=== PATIENT | female | born 1980 | race Caucasian/White ===

== ENCOUNTER 2022-05-10 16:31 | Outpatient (CLI) | payer BC, SELFPAY ==
--- OUTSIDE RECORDS SUMMARY | 2022-05-10 16:34 | XMS_ITS | Encounter Summary ---
:1980 Author Organization [employer] Address [address] [place] [address] Care Team Providers Name Role Phone Zachery Keysha Sutherland PA-C Primary Care Provider Reason for Visit Procedure/Equipment (Routine) - Incomplete Specialty Diagnoses / Procedures Referred By Contact Refer red To Contact Diagnoses Mass of upper outer quadrant of right breast Jae Bocanegra MD Procedures MM [place] B[place] Breast Rt [id number] [address] [place] [address] Referral ID Status Reason Start Date Expiration Date Visits V isits Requested Authorized [id number] Incomplete 10/23/2021 01/22/2023 1 1 Encounter Details Date Type Department Care Team Description 10/28/2021 Ancillary [facility] [address] Jae Bocanegra, Mass of upper outer Procedure Mammography MD quadrant of right 3850 [facility] [address] ([address] [facility] [id number] Social History Tobacco Use Types Packs/Day Years Used Date Smoking Tobacco: Never Smokeless Tobacco: Never Alcohol Use Standard Drinks/Week Comments Yes 1 (1 standard drink = 0.6 oz pure alcoho l) Sex Assigned at Date Recorded Not on file documented as of this encounter Plan of Treatment Not on filedocumented as of this encounter Procedures Procedure Name Priority Date/Time Associated Diagnosis Comme nts MM US BX BREAST RT Routine 10/28/2021 11:18 AM Mass of upper o uter Results for this CDT quadrant of right procedure are in breast the results section. AEROBIC & ANAEROBIC Routine 10/28/2021 11:11 AM Mass of upper outer Results for this CULTURE PANEL CDT quadrant of right procedure are in breast the results section. ANAEROBIC CULTURE Routine 10/28/2021 11:11 AM Mass of upper ou ter Results for this CDT quadrant of right procedure are in breast the results section. AEROBIC CULTURE Routine 10/28/2021 11:11 AM Mass of upper oute r Results for this CDT quadrant of right procedure are in breast the results section. SURGICAL PATHOLOGY, Routine 10/28/2021 10:39 AM Mass of upper outer Results for this BREAST CDT quadrant of right procedure are in breast the results section. documented in this encounter Results MM US Bx Breast Rt (10/28/2021 11:18 AM CDT) Anatomical Region Laterality Modality Breast Right Ultrasound Specimen (Source) Anatomical Collection Method Collection Time Re ceived Time Location / / Volume Laterality 10/28/2021 10:40 AM CDT Impressions 11/03/2021 7:56 AM CDT ULTRASOUND GUIDED BREAST BIOPSY ? HISTORY: ??Recent right breast swelling, tenderness and erythema that decreased after antibiotics for presumed mastitis. Persistent ill-defined hypoechoic area in the upper outer right breast on ultrasound. ?? PROCEDURE: ??The risks and benefits of t he procedure, including the risks of bleeding and infection, were explained to the patient and the patient signed a written consent form. ??A timeout was performe d to verify the patient's name, date of , proper procedure and correct procedural site. The patient was positioned on the ultras ound table. ??Sterile technique was utilized. ??The lesion at the 10 o'clock position, 4 cm from the nipple in the right breast was localized with ultrasound. 9 m L1% lidocaine was used for local anesthe gabriel. ??An introducer was advanced to the mass. Under ultrasound guidance, a 14 gauge Achieve biopsy needle system was used to obtain 5 core specimens through the lesion from a medial approach. 3 were se nt in formalin and 2 are sent in saline. A Wummelkiste coil biopsy marking clip was placed. ??There were no immediate complications. ? POST PROCEDURE MAMMOGRAM FOR MARKER PLAC EMENT: The biopsy marking clip is in the expected location. ? PATHOLOGY: ?? FINAL DIAGNOSIS A. ??Breast, right, 10 o'clock ultrasoun d, needle core biopsy: - ??Cystic neutrophilic granulomatous ma stitis - ??Gram positive vale organisms consiste nt with Corynebacterium present Imaging findings are concordant with the pathology. RECOMMENDATION: Clinical follow-up. Scre ening mammography is recommended in one year. The results of this biopsy and any recom mended follow up will be discussed with the patient by the [facility] when results are available. Procedure Note Sj Aguilar MD - 11/03/2021Format ting of this note might be different from the original. IMPRESSION ULTRASOUND GUIDED BREAST BIOPSY HISTORY: Recent right breast swelling, t enderness and erythema that decreased after antibiotics for presumed mastitis. Persistent ill-defined hypoechoic area in the upper outer right breast on ultrasound. PROCEDURE: The risks and benefits of the procedure, including the risks of bleeding and infection, were explained to the patient and the patient signed a written consent form. A timeout was performed to verify the patient's name, date of , proper pr ocedure and correct procedural site. The patient was positioned on the ultras ound table. Sterile technique was utilized. The lesion at the 10 o'clock position, 4 cm from the nipple in the right breast was localized with ultrasound. 9 mL1% lidocaine was used for local anesthesia. An introducer was advanced to the mass. Under ultrasound guidance, a 14 gauge Achieve biopsy needle system was used to obtain 5 core specimens through the lesion from a medial approach. 3 were sent in formalin and 2 are sent in salin e. A hydromark coil biopsy marking clip was placed. There were no immediate complications. POST PROCEDURE MAMMOGRAM FOR MARKER PLAC EMENT: The biopsy marking clip is in the expected location. PATHOLOGY: FINAL DIAGNOSIS A. Breast, right, 10 o'clock ultrasound, needle core biopsy: - Cystic neutrophilic granulomatous mast itis - Gram positive vale organisms consistent with Corynebacterium present Imaging findings are concordant with the pathology. RECOMMENDATION: Clinical follow-up. Scre ening mammography is recommended in one year. The results of this biopsy and any recom mended follow up will be discussed with the patient by the [facility] when results are available. Jae Bocanegra MD RAD YEMI MM Post Mammogram Rt (10/28/2021 11:16 AM CDT) Anatomical Region Laterality Modality Breast Right Mammography Specimen (Source) Anatomical Collection Method Collection Time Re ceived Time Location / / Volume Laterality 10/28/2021 11:16 AM CDT Impressions 11/03/2021 7:56 AM CDT ULTRASOUND GUIDED BREAST BIOPSY ? HISTORY: ??Recent right breast swelling, tenderness and erythema that decreased after antibiotics for presumed mastitis. Persistent ill-defined hypoechoic area in the upper outer right breast on ultrasound. ?? PROCEDURE: ??The risks and benefits of t he procedure, including the risks of bleeding and infection, were explained to the patient and the patient signed a written consent form. ??A timeout was performe d to verify the patient's name, date of , proper procedure and correct procedural site. The patient was positioned on the ultras ound table. ??Sterile technique was utilized. ??The lesion at the 10 o'clock position, 4 cm from the nipple in the right breast was localized with ultrasound. 9 m L1% lidocaine was used for local anesthe gabriel. ??An introducer was advanced to the mass. Under ultrasound guidance, a 14 gauge Achieve biopsy needle system was used to obtain 5 core specimens through the lesion from a medial approach. 3 were se nt in formalin and 2 are sent in saline. A hydromark coil biopsy marking clip was placed. ??There were no immediate complications. ? POST PROCEDURE MAMMOGRAM FOR MARKER PLAC EMENT: The biopsy marking clip is in the expected location. ? PATHOLOGY: ?? FINAL DIAGNOSIS A. ??Breast, right, 10 o'clock ultrasoun d, needle core biopsy: - ??Cystic neutrophilic granulomatous ma stitis - ??Gram positive vale organisms consiste nt with Corynebacterium present Imaging findings are concordant with the pathology. RECOMMENDATION: Clinical follow-up. Scre ening mammography is recommended in one year. The results of this biopsy and any recom mended follow up will be discussed with the patient by the [facility] when results are available. Procedure Note Sj Aguilar MD - 11/03/2021Format ting of this note might be different from the original. IMPRESSION ULTRASOUND GUIDED BREAST BIOPSY HISTORY: Recent right breast swelling, t enderness and erythema that decreased after antibiotics for presumed mastitis. Persistent ill-defined hypoechoic area in the upper outer right breast on ultrasound. PROCEDURE: The risks and benefits of the procedure, including the risks of bleeding and infection, were explained to the patient and the patient signed a written consent form. A timeout was performed to verify the patient's name, date of , proper pr ocedure and correct procedural site. The patient was positioned on the ultras ound table. Sterile technique was utilized. The lesion at the 10 o'clock position, 4 cm from the nipple in the right breast was localized with ultrasound. 9 mL1% lidocaine was used for local anesthesia. An introducer was advanced to the mass. Under ultrasound guidance, a 14 gauge Achieve biopsy needle system was used to obtain 5 core specimens through the lesion from a medial approach. 3 were sent in formalin and 2 are sent in salin e. A hydromark coil biopsy marking clip was placed. There were no immediate complications. POST PROCEDURE MAMMOGRAM FOR MARKER PLAC EMENT: The biopsy marking clip is in the expected location. PATHOLOGY: FINAL DIAGNOSIS A. Breast, right, 10 o'clock ultrasound, needle core biopsy: - Cystic neutrophilic granulomatous mast itis - Gram positive vale organisms consistent with Corynebacterium present Imaging findings are concordant with the pathology. RECOMMENDATION: Clinical follow-up. Scre ening mammography is recommended in one year. The results of this biopsy and any recom mended follow up will be discussed with the patient by the [facility] when results are available. Jae Bocanegra MD RAD YEMI (ABNORMAL) Anaerobic Culture (10/28/2021 11:11 AM CDT) [facility] Method Time Signature Anaerobic Growth (A) 11/06/2021 [facility] Culture 9:00 AM CDT HOSPITAL Anaerobic Isolated in Broth 11/06/2021 [facility] Culture Only 9:00 AM CDT HOSPITAL Cutibacterium (Propionibacteriu m) acnes Specimen Anatomical Collection Method Collection Time Receive d Time (Source) Location / / Volume Laterality Biopsy BREAST STRUCTURE / 10/28/2021 11:11 10/28 Unknown AM CDT 12:36 PM CDT Jae Bocanegra MD LAB_1 Performing Organization Address City/[facility] Phon e Number [address] [address] (ABNORMAL) Aerobic Culture (10/28/2021 11:11 AM CDT) [facility] gist Method Time Signature Aerobic No Growth 10/31/2021 [facility] Culture After 3 Days 5:05 PM CDT HOSPITAL Gram Smear Moderate 10/31/2021 [facility] PMN's 5:05 PM CDT HOSPITAL Present (A) Gram Smear Moderate 10/31/2021 [facility] Gram 5:05 PM CDT HOSPITAL Negative Bacilli (A) Specimen Anatomical Collection Method Collection Time Receive d Time (Source) Location / / Volume Laterality Biopsy BREAST STRUCTURE / 10/28/2021 11:11 10/28 Unknown AM CDT 12:36 PM CDT Jae Bocanegra MD LAB_1 Performing Organization Address [facility]/[address] [address] Surgical Path, Breast (10/28/2021 10:39 AM CDT) Component Value Ref Test Analysis Performed At [facility] gist Range Method Time Signature Case Report Surgical Pathology ?Case: [id number] ? 10/29/2021 [facility] Authorizing Provider: ??Jae Gore MD ?Collected: ? 10/28/2021 1039 ? 11:37 AM LABO RATORY Ordering Location: ? [facility] 3850 ? Received: ?10/28/2021 1243 ? CDT ? Mammography ? Pathologist: ? Clifford Bauer MD ? Specimen: ?Breast, right , 10 o'clock ultrasound ? FINAL A. Breast, right, 10 o'clock ultrasound, needle core biops y: 10/29/2021 [facility] Electronically DIAGNOSIS Cystic neutrophilic granulomatous mastitis 11:37 AM LABORATORY signed by Juancarlos, Gram positive vale organisms consistent with Corynebacterium present CDT Clifford Dmuont MD on 10/29/2021 at [facility] has reviewed this case and concurs with the diagnosis. 11:37 AM Clinical palpable 10/29/2021 [facility] Information 11:37 AM LABORATORY CDT Microscopic Microscopic 10/29/2021 [facility] Description examination is 11:37 AM LABORATORY performed. CDT Special Stains The stain controls have been reviewed and stain appr opriately. 10/29/2021 [facility] 11:37 AM LABORATORY CDT Gross A: 10/29/2021 [facility] Description The specimen is received in formalin and labeled with the patient's name and Breast, right, 10 o'clock ultrasound. The specimen consists of 3 syed beck needle core biopsies with diameters averaging 0.2 11:37 AM LABORATORY cm and lengths averaging 1. 5 cm. The specimen is inked green. The specimen was collected and placed in formalin at 10:39 AM, 10/28/2021. The specimen is entirely submitted in 1 block. AW CDT Embedded 10/29/2021 [facility] Images 11:37 AM LABORATORY CDT Specimen Anatomical Collection Method Collection Time Receive d Time (Source) Location / / Volume Laterality Tissue BREAST STRUCTURE / Non-blood 10/28/2021 10:39 10/28 Unknown Collection / AM CDT 12:43 PM CDT Unknown Jae Bocanegra MD LAB PATHOLOGY Performing Organization Address City/State/ZIP Code Phon e Number [facility] [address] [place] [address] documented in this encounter Visit Diagnoses Diagnosis Mass of upper outer quadrant of right br east - Primary Mass of upper outer quadrant of right br east documented in this encounter Administered Medications Inactive Administered Medications - up to 3 most recent administrations Medication Order MAR Action Action Date Dose Rate Site lidocaine (XYLOCAINE) 1 % Given 10/28/2021 11:18 AM CDT 9 mL Other injection 10 mL 10 mL, Subcutaneous, ONCE, On Tue10/28/21 at 1100, For 1 dose documented in this encounter Care Teams Childhood Teacher Relationship Specialty Start Date End Date Keysha Bingham PA-C PCP - General 02/05/[address] [id number] documented as of this encounter
--- OUTSIDE RECORDS SUMMARY | 2022-05-10 16:34 | XMS_ITS | Encounter Summary ---
:1980 Author Organization [employer] Address [address] [place] [address] Care Team Providers Name Role Phone Keysha Bingham PA-C Primary Care Provider Reason for Visit Reason Comments Symptoms Encounter Details Date Type Department Care Team Description 12/15/2021 Telephone [facility] [address], Symptoms [facility] [employer]PER[employer], ADRIEN [address] [place] [address] [place], [place] [id number] (Wo rk) Social History Tobacco Use Types Packs/Day Years Used Date Smoking Tobacco: Never Smokeless Tobacco: Never Alcohol Use Standard Drinks/Week Comments Yes 1 (1 standard drink = 0.6 oz pure alcoho l) Sex Assigned at Date Recorded Not on file documented as of this encounter Nursing Notes Katrin Enriquez, ADRIEN LAWRENCE - 12/15/2021 3:24 PM CDT Please see my 11/24/2021 telephone note with review of recent breast care. Today, Trina reports about 2 weeks weeks ago she saw yellow pus come out of the biopsy entry track. She then reports she has squeezed it every 3-4 days and get yellow crusty discharge. She has intermittent mild pain. She has days with no pain. She has not had erythema like in the past. I informed her to stop attempting to squeeze the area. I discussed with her if some needs to have surgical drainage (which is not recommended in most cases) with her diagnosis there is poor wound closure due to thebreast tissue being inflamed. Informed her that she is most likely having this due to that same reason. Advised to return call if redevelops redness or more severe pain, foul odor to discharge. documented in this encounter Plan of Treatment Not on filedocumented as of this encounter Visit Diagnoses Not on filedocumented in this encounter Care Teams Metal Control Worker Relationship Specialty Start Date End Date Keysha Bingham PA-C PCP - General 02/05/[address] [id number] documented as of this encounter
--- OUTSIDE RECORDS SUMMARY | 2022-05-10 16:34 | XMS_ITS | Encounter Summary ---
:1980 Author Organization [employer] Address [address] [place] [address] Care Team Providers Name Role Phone Zachery Keysha Sutherland PA-C Primary Care Provider Reason for Visit Reason Comments Symptoms Questions Encounter Details Date Type Department Care Team Description 11/24/[address] [facility] [address], Symptoms; Questions [facility] ADRIEN LAWRENCE [address] Teresa V[address] [facility]0 [address] [facility] [place] [id number] (Wo rk) Social History Tobacco Use Types Packs/Day Years Used Date Smoking Tobacco: Never Smokeless Tobacco: Never Alcohol Use Standard Drinks/Week Comments Yes 1 (1 standard drink = 0.6 oz pure alcoho l) Sex Assigned at Date Recorded Not on file documented as of this encounter Nursing Notes Katrin Enriquez APRN, CNP - 11/24/2021 9:41 AM CDT The patient was originally seen in core extruder on October 05, 2021. She had a mass identified in her right breast. Differential diagnosis included potential abscess. She was prescribed Augmentin 1 tablet twice daily for 10 days. Diagnostic breast imaging was ordered and done on October 09, 2021. Bilateral diagnostic mammogram showedupper outer quadrant right breast asymmetry when compared to the left. There was no suspicious focalmass architectural distortion calcifications noted there was no significant skin thickening noted targeted ultrasound of the right breast 10 o'clock position 4 cm from the nipple at the site of the underlaying palpable tender on showed a 2 x 2 cm region of skin erythema. The greatest dimension of thistissue is likely 6 cm and extended to the retroareolar region there was no drainable fluid collection. There was no right axillary lymphadenopathy. It was recommended that she complete the prescribed antibiotics and have a 2 week follow-up ultrasound of the right breast. Repeat right breast ultrasound was done on October 23, 2021 there was a new irregular masslike lesion centered at 10:00 a.m. 4 cm from the nipple. It was difficult to measure. Estimate measurements were 6 x 2 x 4.3 cm again there was no fluid collection. Biopsy was recommended. On 11/01/2021 right breast biopsy was completed. 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 On 11/03 2021 the patient was put on doxycycline 100 mg 1 b.i.d. times 14 days by him director. Today, the patient is calling and asking about what she should expect in the future regarding her right breast. She tells me she completed the course of doxycycline. She tells me when she talked with OBGYN she understands this could be a long-term condition. She tells me that while she was on antibiotics her breast pain was basically resolved and in the last few days she reports her breast has pain that is a 1-2 on a 0-10 pain scale. Her breast is currently not red. She continues to feel some thickening of the area that was biopsied. We discussed that I would expect her to have some intermittent mild discomfort. I encouraged her to try a trial of NSAIDs. I instructed her to take Ibuprofen 600 mg 3 times daily x7 days. I discussed that should her breast ever become red again that would warrant re-evaluation either at core extruder or at the breast center. She was given my direct phone number [phone] should she have any further questions. documented in this encounter Plan of Treatment Not on filedocumented as of this encounter Visit Diagnoses Not on filedocumented in this encounter Care Teams Hot Stick Man Relationship Specialty Start Date End Date Keysha Bingham PA-C PCP - General 02/05/[address] [place] [address] [id number] documented as of this encounter
--- OUTSIDE RECORDS SUMMARY | 2022-05-10 16:34 | XMS_ITS | Encounter Summary ---
:1980 Author Organization [employer] Address [address] [place] [address] Care Team Providers Name Role Phone Keysha Bingham PA-C Primary Care Provider Reason for Visit Reason Onset Date Comments Drug Screen 08/15/2018 Encounter Details Date Type Department Care Team Description 08/15/2018 Office Visit [facility] [address] Nurse, [place] Health examination of Occupational Medicin e defined subpopulation [address] ([address]) [place] [address] Social History Tobacco Use Types Packs/Day Years Used Date Smoking Tobacco: Never Smokeless Tobacco: Former Alcohol Use Standard Drinks/Week Comments No 0 (1 standard drink = 0.6 oz pure alcoho l) currently Sex Assigned at Date Recorded Not on file documented as of this encounter Progress Notes Beatriz Jacinto CMA - 08/15/2018 9:00 AM CDT Pre-placement urine drug screen for ReinaldoKhoi Jacinto CMA 08/15/2018, 8:43 AM documented in this encounter Plan of Treatment Not on filedocumented as of this encounter Visit Diagnoses Diagnosis Health examination of defined subpopulat ion - Primary documented in this encounter Care Teams Audit Partner Relationship Specialty Start Date End Date Keysha Bingham PA-C PCP - General 02/05/16 [address] [place] [address] documented as of this encounter
--- OUTSIDE RECORDS SUMMARY | 2022-05-10 16:34 | XMS_ITS | Encounter Summary ---
:1980 Author Organization [employer] Address [address] [place] [address] Care Team Providers Name Role Phone Zachery Keysha Sutherland PA-C Primary Care Provider Reason for Visit Reason Comments Mouth Sores Encounter Details Date Type Department Care Team Description 12/15/2019 Nurse Triage Careline Unassigned, Provider Mouth Sores [address] [place], [place] [address] [address] [place] [address] Social History Tobacco Use Types Packs/Day Years Used Date Smoking Tobacco: Never Smokeless Tobacco: Never Alcohol Use Standard Drinks/Week Comments Yes 1 (1 standard drink = 0.6 oz pure alcoho l) Sex Assigned at Date Recorded Not on file documented as of this encounter Nursing Notes Krista Gannon RN - 12/15/2019 9:10 AM CDT Verified patient identity: Yes Situation/Background (brief explanation of current symptoms/situation): Does the patient currently have any of these Covid symptoms? (Shortness of Breath/Difficulty of breathing, Sore Throat, Fever, Cough, New loss of smell or loss of taste) No Covid19 Symptoms Reviewed with patient pertinent medical history(as it related to the call): Yes Reviewed with patient pertinent medications (as they relate to call): Yes Reviewed with patient pertinent allergies (as they relate to call): Yes Pt states she woke up this am, 12/15/2019, with erythremic, swollen gums on the lower back side alongthe gum line and erythremic raised bumps underneath the tongue on the (R) and (L) side of frenulum I feel like I could have burned my tongue on coffee. Pt cant remember specific incident of a thermal burn. Denies pain Bumps approx 1mm in size. X3 on the (R) side, a couple on the (L). Pt states she is unable to tell if fluid filled Denies bleeding of gums. Gums tender to the touch Pt able to drink W/O diff. I haven't tried to eat yet, so I don't know if it hurts. Pt C/O mild upper back molar tooth discomfort. I have a cavity I need to have filled, but my appointment was cancelled due to COVID. Pt states she will call [facility] and reschedule Denies rash, fever Plan:Advised pt to schedule a video visit with HCP within the next 24 hours to determine plan of care. Pt agreeable to plan. Pt states she is a PN pt and will call the PN appointment Center to schedule. # provided to pt. Advised patient/caller to call back CareLine if there are further questions or concerns or to be seen if situation becomes emergent. The CareLine is available 27/12. Krista Gannon RN 12/15/2019, 9:41 AM Reason for Disposition ??? Gums are red, painful and have many ulcers Answer Assessment - Initial Assessment Questions 1. LOCATION: Where is the ulcer located? Under the tongue 2. NUMBER: How many ulcers are there? x3 on one side right side a couple on the (L) 3. SIZE: How large is the ulcer? 1mm approx 4. SEVERITY: Are they painful? If so, ask: How bad is it? (Scale 1-10; or mild, moderate, severe) - MILD - eating and drinking normally - MODERATE - decreased liquid intake - SEVERE - drinking very little Mild 5. ONSET: When did you first notice the ulcer? This am 6. RECURRENT SYMPTOM: Have you had a mouth ulcer before? If so, ask: When was the last time? andWhat happened that time? Denies 7. CAUSE: What do you think is causing the mouth ulcer? Unknown 8. OTHER SYMPTOMS: Do you have any other symptoms? (e.g., fever) Denies 9. : Is there any chance you are ? When was your last menstrual period? Denies Protocols used: MOUTH [id number] Machelle Sanchez - 12/15/2019 8:09 AM CDT Verified patient identity using three identifiers: Yes Caller's relationship to patient: Self At which care system or clinic is the patient normally seen? Teresa Vaz ([facility] [place]) Clinics Symptoms Describe the reason for call/symptoms (include location and duration if applicable): Pt states he lower front gums are swollen and she has bumps in her mouth under her tongue Plan:The current callback time to speak with a nurse is 1 hr. If your symptoms change or worsen, or if you have not received a call back in the stated timeframe, please call us back documented in this encounter Plan of Treatment Not on filedocumented as of this encounter Visit Diagnoses Not on filedocumented in this encounter Care Teams Health Care Facility Administrator Relationship Specialty Start Date End Date Keysha Bingham PA-C PCP - General 02/05/[address] [place] [id number] documented as of this encounter
--- OUTSIDE RECORDS SUMMARY | 2022-05-10 16:34 | XMS_ITS | Encounter Summary ---
:1980 Author Organization [employer] Address [address] [place] [address] Care Team Providers Name Role Phone Zachery Keysha Sutherland PA-C Primary Care Provider Reason for Visit Procedure/Equipment (Routine) - Incomplete Specialty Diagnoses / Procedures Referred By Contact Refer red To Contact Diagnoses Mass of upper outer quadrant of right breast Jae Bocanegra MD Procedures [place] [address] [address] [place] [address] Referral ID Status Reason Start Date Expiration Date Visits V isits Requested Authorized [id number] Incomplete 10/23/2021 01/22/2023 1 1 Encounter Details Date Type Department Care Team Description 10/28/2021 Ancillary [facility] [address] Jae Bocanegra, Mass of upper outer Procedure Mammography MD quadrant of right [address] [facility] [address] [address] [facility]. [address] [facility] [id number] Social History Tobacco Use Types Packs/Day Years [...] Priority Date/Time Associated Diagnosis Comme nts MM POST MAMMOGRAM Routine 10/28/2021 11:16 AM Mass of upper ou ter Results for this RT CDT quadrant of right procedure are in [...] be discussed with the patient by the [facility] when results are available. Procedure Note Sj [...] be discussed with the patient by the [facility] when results are available. Jae Bocanegra MD [...] be discussed with the patient by the [facility] when results are available. Procedure Note Sj [...] be discussed with the patient by the [facility] [place] when results are available. Jae Bocanegra MD RAD YEMI documented in this encounter Visit Diagnoses Diagnosis Mass of upper outer quadrant of right br east - Primary Mass of upper outer quadrant of right br east documented in this encounter Care Teams Director Payer Relationship Specialty Start Date End Date Keysha Bingham PA-C PCP - General 02/05/16 [address] [place] [address] documented as of this encounter
--- OUTSIDE RECORDS SUMMARY | 2022-05-10 16:34 | XMS_ITS | Encounter Summary ---
:1980 Author Organization [employer] Address [address] [place] [address] Care Team Providers Name Role Phone Zachery Keysha Sutherland PA-C Primary Care Provider Reason for Visit Reason Comments Breast Problem right Encounter Details Date Type Department Care Team Description 12/30/2021 Office Visit [facility] [address] Katrin Enriquez Gran ulomatous mastitis Mendy Demetrius Breast J, LEATHER SCRUBBER, CN P of right breast Center [address] (Primary Dx) [address] [place] [id number] Social History Tobacco Use Types Packs/Day Years Used Date Smoking Tobacco: Never Smokeless Tobacco: Never Alcohol Use Standard Drinks/Week Comments Yes 1 (1 standard drink = 0.6 oz pure alcoho l) Sex Assigned at Date Recorded Not on file documented as of this encounter Last Filed Vital Signs Vital Sign Reading Time Taken Comments Blood Pressure - - Pulse - - Temperature 36.7 ??C (98 ??F) 12/30/2021 3:16 PM CDT Respiratory Rate - - Oxygen Saturation - - Inhaled Oxygen Concentration - - Weight 83 kg (183 lb) 12/30/2021 3:16 PM CDT Height 163.8 cm (5' 4.49) 12/30/2021 3:16 PM CDT Body Mass Index 30.94 12/30/2021 3:16 PM CDT documented in this encounter Patient Instructions Patient InstructionsOliver Enriquezsilke Sutherland, HOWARD, HOSPITALIST PHYSICIAN - 12/30/2021 3:00 PM CDT 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 It is usually unilateral, but in rare instances, it can be bilateral or develop later in the other breast. Epidemiology and pathogenesis -- IGM occurs most commonly in parous young women (within five years of ); it can also occur in nulliparous women and has been reported in men as well. Among women in the [place], it has been associated with ethnicity [34,36]. There is no increased risk of subsequent breast cancer in patients with IGM. There may be an association between IGM and Corynebacterium kroppenstedtii infection especially, butnot exclusively, with the histologic pattern termed cystic neutrophilic granulomatous mastitis [37-41]. Other Corynebacterium species have also been associated with IGM. In addition, mastitis due to C. kroppenstedtii has been associated with elevated prolactin levels [42]. Although antibiotics targeting Corynebacterium are often prescribed for IGM, there is no clear evidence that this approach altersthe course of disease. Thus, corynebacteria are unlikely to be the causative factor in most patientswith IGM. Clinical manifestations -- IGM may present as a peripheral inflammatory breast mass; it can also present as multiple simultaneous areas of peripheral (and rarely central) infection with abscesses and/or overlying skin inflammation and ulceration (picture 4) [1,28-32]. Nipple retraction, sinus formation, peau d'orange-like changes, and axillary adenopathy may accompany these findings [43- 46]. Women with IGM may develop repeated abscesses over weeks to months. These findings may be confused with breast abscess or malignancy [28]. Mammography may be suggestive of malignancy [47-52]. Diagnosis -- Ultrasound is the initial investigation of choice. Ultrasound examination typically demonstrates a solid mass, often with one or more abscesses. The diagnosis of IGM is established via core needle biopsy of a solid mass visualized on ultrasound. The biopsy should be sent for Gram stain, ba cterial culture, acid-fast bacilli stain and culture, fungal stain and culture, and histopathology. The microbiology laboratory should be alerted to clinical concern for Corynebacterium. Biopsy findings typically demonstrate non-necrotizing granulomatous lesions centered on the breast lobule. It is also reasonable to obtain a serum prolactin level, given a possible pathogenic link between hyperprolactinemia and IGM [42]. Routine testing for autoantibodies is not recommended [53]. Differential diagnosis -- The differential diagnosis includes conditions such as tuberculosis, foreign body reaction, granulomatosis with polyangiitis, histoplasmosis, or rarely sarcoidosis, which may also induce a granulomatous mastitis. These etiologies should be identified on biopsy and/or microbiologic testing. Management Initial approach -- Often, no specific management is necessary for IGM. It is a self-limiting inflammatory condition that resolves slowly; complete resolution may take 5 to 20 months [54,55]. Surgical excision for IGM is often followed by slow wound healing and is not advocated. In a series of 120 women with IGM, most cases resolved spontaneously without surgical intervention or medications [55]. A meta-analysis of 10 retrospective studies from several countries ([place], [place], [place], [place], and the [place]) demonstrated comparable recurrence rates between patients managed with or without surgery (odds ratio 1.25, 95% CI 0.51-3.03) [56]. In some cases, treatment is warranted for infecti on or symptom control. IGM complicated by secondary infection and abscess, if treated with antibiotics and drainage, usually results in complication resolution [8,22,28,30]. Antibiotic selection should be dictated by cultureand susceptibility testing. We generally start an antibiotic regimen used for periductal mastitis after specimens are collected for testing and then adjust based on microbiology results. Oral regimens are generally appropriate. (See 'Periductal mastitis' above.) If only Corynebacterium is recovered, the optimal management approach is uncertain, in part because of the multiple species of Corynebacterium and the lack of predictable susceptibility patterns. In such cases, we suggest treatment with doxycycline (100 mg orally twice daily). If this fails to producea response, linezolid (600 mg orally twice daily) can be used. In refractory or unusually severe cases, we favor speciating the Corynebacterium isolate and doing formal susceptibility testing, if available. Therapy can then be adjusted based on susceptibility testing [37,40,57]. The optimal length of therapy is also uncertain; a 5- to 7-day course can be used if the response to therapy is rapid and complete. If necessary, the duration may be extended to 10 to 14 days. While these antibiotics treat acute infection, there is little evidence that antibiotics shorten the time to full resolution of granulomatous lobular mastitis. Localized pain may be managed with nonsteroidal anti-inflammatory drugs (NSAIDs). Routine use of steroids or methotrexate is not warranted; these therapies can reduce swelling but may not alter the natural history of the condition, especially in those with small localized lesions. Discontinuation has been associated with rebound inflammation [28,49,58-62]. Persistent or refractory symptoms -- The optimal management of patients with persistent symptoms andprogression of IGM despite antibiotics (if infection is present) and/or NSAIDs is uncertain; UpToDate contributors differ in their approach. Some find that treatment with steroids with or without methotrexate can be useful to reduce fever, pain, swelling, and possibly deformity. However, others do notuse these agents, as there are no controlled studies demonstrating that they alter the natural history of the condition. Expectant management with observation has resulted in resolution of IGM in several small series [30,55,63]. The contributors who do use steroids in this setting base the approach on the size and severity of the lesion. In patients with painful, small (<5 cm) unilateral lesions with small amounts of drainage or ulceration, treatment with prednisone (0.5 mg/kg/day) may be initiated. In patients with multiple lesions, lesions ?5 cm in diameter, bilateral lesions, or disease with significant cutaneous ulceration, drainage, or fistulas, treatment with prednisone (0.5 to 1 mg/kg/day) may be initiated, with or without methotrexate (10 to 15 mg orally per week, along with daily folic acid supplementation) [33,36,58,60,62,64,65]. In one observational study including 19 patients with IGM, most of whom were refractory to antibiotics, steroids, and surgical intervention, use of methotrexate was associated with disease remission in 75 percent of cases [64]. There are also reports indicating that intralesional triamcinolone and topical steroids are effective in treating this condition [66,67]. These approaches have the advantage of limiting the adverse effects of systemic steroid use. Patients treated with steroids should begin tapering when erythema and pain have resolved (usually after about four weeks). Prednisone is tapered gradually over 8 to 12 weeks. If flares occur during tapering in patients on steroids alone, methotrexate (10 to 15 mg per week) may be added. If flares occur during tapering in patients on steroids and methotrexate, small increases in the methotrexate dose(by 2.5 to 5 mg every few weeks) is appropriate. Once clinical remission has been achieved, the methotrexate dose should be reduced monthly; many patients are able to discontinue therapy within 12 months [68]. Monitoring the lesions with weekly photographs may be helpful. Repeat ultrasonography may beuseful if there is suspicion for new lesions or abscess reaccumulation. Given to pt by Mega Enriquez, From Up to Date 12/30/2021 documented in this encounter Progress Notes Katrin Enriquez APRN, CNP - 12/30/2021 3:00 PM CDT Patient Name:Trina Man Date of Visit: 12/30/2021 SUBJECTIVE CHIEF COMPLAINT Chief Complaint Patient presents with Breast Problem right HISTORY OF PRESENT ILLNESS Trina Man is a 41 y.o. who presents today for re evaluation of a Right breast lump and right breast pain. The patient was originally seen in [facility] on October 05, 2021. She had a painful mass identified in her right breast. Differential diagnosis included potential abscess. She was prescribed Augmentin 1 tablettwice daily for 10 days and diagnostic breast imaging was ordered. Diagnostic breast imaging was ordered and done on October 09, 2021. Bilateral diagnostic mammogram showedupper outer quadrant right breast asymmetry when compared to the left. There was no suspicious focalmass architectural distortion calcifications noted there was no significant skin thickening noted targeted ultrasound of the right breast 10 o'clock position 4 cm from the nipple at the site of the underlying palpable tender on showed a 2 x 2 cm region of skin erythema. The greatest dimension of this tissue is likely 6 cm and extended to [...] mg 1 b.i.d. times 14 days by crozer. I have spoke with the patient on several occassions. Last on 11/24/21 and 12/15/2021. Please see notes. Today, Trina tells me post biopsy on October 24, 2019 she was healing well. She then reports her dog jumped up and pushed against her chest. She is not exactly sure when that was. However, she does report after the dog hit her chest wall is when she began to leak intermittent pus from her procedure trochar entry site. Today she tells me after taking the antibiotics her pain is basically resolved. She reports now some days the pain is a 0 and at times it can be a 1-2 on a 0-10 pain scale. She reports she continues to have ???firmness?? of her right breast. She does not believe her breast is acutely red. REVIEW OF SYSTEMS Negative for cardiovascular and respiratory complaints. The patient denies lymphadenopathy. I have personally reviewed the patient's medications, allergies, problem list, medical history, surgical history, family history, social history, and obstetric history and updated as necessary. OBJECTIVE PHYSICAL EXAM Temp 98 ??F (36.7 ??C) (Tympanic) Ht 5' 4.49 (1.638 m) Wt 183 lb (83 kg) BMI 30.94 kg/m?? Constitutional: alert and not in acute distress Respiratory: The patients breathing is non-labored and without use of accessory muscles. Cardiovascular: Upper extremities are warm and perfused. Lymphatic: Examined in both sitting and supine positions. No palpable submandibular, pre/post auricular, supraclavicular or inframammary lymphadenopathy bilaterally. Breasts: Examined in both sitting and supine positions. I Examined her post attempted breast aspiration On visual exam her right breast skin is intact with the exception of a right mid breast superior location has 3 mm scabbed over incision from her a distal procedure. Superior to this is a Band-Aid fromtoday is attempted aspiration. Her right breast is not grossly erythemic, it is not hot to touch. Onphysical examination of this breast she has about a 3-4 cm area of induration superior to the incision. Her right axilla has an assumed reactive node. ASSESSMENT Granulomatous mastitis PLAN Discussed examination findings. Patient was given Up to date information printed out. Discussed Prolactin per Up to Date guidelines. Discussed with antibiotics with this disease process. Discussed with the treatment will not be helpful. The tumor involves the original and the erythremia is resolved is good news. Due to the pus oozing from the previous biopsy entry the patient desires another trial of antibiotics. Discussed the pain was reduced and there is reduced erythremia. Discussed pus is a good rationale for continued treatment as well as increasing size by US. Doxycyline 100 mg 1 bid x 10 days, plan clinical f/up in 2 weeks. Patient aware of and agrees with plan of care. Katrin Enriquez APRN, ADRIEN documented in this encounter Plan of Treatment Not on filedocumented as of this encounter Results Prolactin (01/15/2022 3:08 PM CDT) P athologist Signature Prolactin 22.3 5.2 - 26.5 01/15/2022 [facility] ng/mL 8:14 PM CDT LABORATORY Specimen Anatomical Collection Method / Collection Time Recei luis antonio Time (Source) Location / Volume Laterality Blood Venipuncture / 01/15/2022 3:08 01/15/2022 3:09 Unknown PM CDT PM CDT Katrin Enriquez APRN, CNP LAB_1 Performing Organization Address City/State/ZIP Code Phon e Number [facility] [address] [place] [address] documented in this encounter Visit Diagnoses Diagnosis 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
--- OUTSIDE RECORDS SUMMARY | 2022-05-10 16:34 | XMS_ITS | Clinical Summary ---
:1980 Author Organization [facility] Address [address] [place] [address] Care Team Providers Name Role Phone Keysha Bingham PA-C Primary Care Provider Source Comments You are receiving this document as you are listed as the primary care provider,follow-up provider, or the patient has been referred to you for consultation.This is in compliance with the Medicare and Medicaid EHR Incentive Program,which states Providers who transition their patient to another setting of careor provider of care or refers their patient to another provider of care shouldprovide summarycare record for each transition of care or referral. [facility] Allergies No known active allergies Medications Medication Sig Dispensed Refills Start Date End Date Status vitamin-ferrous Take 1 Tab by 0 Active fumarate-folic acid mouth daily. (PRENATALPLUS) 27-1 MG tablet levothyroxine Take 1 Tablet by 90 Tablet 1 02/03/2018 Active (SYNTHROID) 75 MCG mouth daily. 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 Mass of upper outer quadrant of right breast 2 AMA (advanced maternal age) primigravida 35+, first tr imester 08/16/2017 Supervision of high risk in first trimester 08/16/2017 Overweight (BMI 25.0-29.9) 08/16/2017 Keratitis 03/08/2011 Overview: Epic Disorder of thyroid 03/03/2011 Overview: [facility] Acquired hypothyroidism 07/23/2009 Immunizations Name Administration Dates Next Due DT Ped 05/22/1997 DTP 10/24/1987, 11/04/1983, 1980, [birth year] HepB Ped/Adol (0-18 yrs) 04/26/1995, 10/08/1994, 09/08/1994 MMR 09/08/1994, 07/13/1983 OPV, Trivalent (Orimune or tOPV) 10/24/1987, 11/04/1983, , 1982 TDAP (ADACEL) 06/06/2008 Td 05/22/1997 Varicella 05/23/1997 (Deferred: Immune by Disease) Family History Medical History Relation Name Comments DVT/PE Father post op Hypertension Father Alzheimer's Maternal Grandmother Cancer Paternal Grandfather Cancer, Breast Negative Family History Cancer, Ovary Negative Family History Relation Name Status Comments Father Alive Mother Alive Maternal Grandfather Maternal Grandmother Paternal Grandfather Paternal Grandmother Alive Sister Alive Social History Tobacco Use Types Packs/Day Years Used Date Smoking Tobacco: Never Smokeless Tobacco: Never Alcohol Use Standard Drinks/Week Comments Yes 1 (1 standard drink = 0.6 oz pure alcoho l) Sex Assigned at Date Recorded Not on file Last Filed Vital Signs Vital Sign Reading Time Taken Comments Blood Pressure 122/70 10/05/2021 3:02 PM CDT Pulse 77 10/05/2021 3:02 PM CDT Temperature 36.7 ??C (98.1 ??F) 02/01/2022 2:57 PM CDT Respiratory Rate 16 12/20/2002 1:30 PM CDT Oxygen Saturation - - Inhaled Oxygen Concentration - - Weight 83 kg (183 lb) 02/01/2022 2:57 PM CDT Height 163.8 cm (5' 4.49) 02/01/2022 2:57 PM CDT Body Mass Index 30.94 02/01/2022 2:57 PM CDT Plan of Treatment Health Maintenance Due Date Last Done Comments Hep C Screening (Preventive 1980 Services) COVID-19 Vaccine (#1) 1980 Adult Preventive Visit 12/20/2004 12/20/2002, 11/16/2001, 05/22/1997 Pap 08/16/2020 08/16/2017, 08/23/2014, 07/05/2011, Additional history exists Influenza (#1) 2022 DTaP/Tdap/Td (10 - Tdap) 02/28/2028 02/27/2018, 06/06/2011, 06/06/2008, Additional history exists Zoster/Shingles (1 of 2) 2032 IPV (Polio) Completed 10/24/1987, 11/04/1983, 1982, Additional history exists HepB Completed 04/26/1995, 10/08/1994, 09/08/1994 HIV Screening (Preventive Completed 08/16/2017, 10/11/2005 Services) HPV Vaccine Aged Out No longer eligib le based on patient 's age to complete this topic HepA Aged Out No longer eligib le based on patient 's age to complete this topic Hib Aged Out No longer eligib le based on patient 's age to complete this topic MCV4 Aged Out No longer eligib le based on patient 's age to complete this topic Pneumococcal Aged Out No longer eligib le based on patient 's age to complete this topic Care Teams Food Scientist Relationship Specialty Start Date End Date Keysha Bingham PA-C PCP - General 02/05/16 [address] [place] [address]
--- OUTSIDE RECORDS SUMMARY | 2022-05-10 16:34 | XMS_ITS | Encounter Summary ---
:1980 Author Organization [facility] Address [address] [place] [address] Care Team Providers Name Role Phone Keysha Bingham PA-C Primary Care Provider Reason for Visit Reason Comments Follow-up f/u balance issues Encounter Details Date Type Department Care Team Description 12/05/2019 Office Visit Santiago Hayward, Imbalance (Primary Dx); [place] [address] [address] Temporomandibular joint disorder Ear, Nose, and [address] [facility] [address] [place], [place] [address] [address] [place], [place] [phone] (Work) [phone] Social History Tobacco Use Types Packs/Day Years Used Date Smoking Tobacco: Never Smokeless Tobacco: Never Alcohol Use Standard Drinks/Week Comments Yes 1 (1 standard drink = 0.6 oz pure alcoho l) Sex Assigned at Date Recorded Not on file documented as of this encounter Last Filed Vital Signs Vital Sign Reading Time Taken Comments Blood Pressure 126/83 12/05/2019 2:03 PM CDT Pulse 66 12/05/2019 2:03 PM CDT Temperature - - Respiratory Rate - - Oxygen Saturation - - Inhaled Oxygen Concentration - - Weight - - Height - - Body Mass Index - - documented in this encounter Patient Instructions Patient InstructionsSantiago Cruz PA-C - 12/05/2019 2:00 PM CDT KRYSTIN Dela Cruz Practice Locations: Nurse: Xuan [phone] [facility] [address] [facility] - [address] [facility] [address] Appointment [phone] [place] [address] [facility] [address] TEMPOROMANDIBULAR JOINT (TMJ) AND EAR PAIN Your ear pain may be due to Temporomandibular Joint (TMJ) dysfunction (your jaw joint). Your jaw joints are just in front of your ear. In fact, the back wall of your jaw joint is the frontwall of your ear canal. If you put your finger in your ear, and open and close your jaw, you will feel the jaw joint moving. With that in mind, it is not unusual to experience ear pain if the jaw jointis acting up. Both jaw joints need to work in perfect unison with ear other. If one joint is having some muscle spasm, it throws the other side out of alignment which can lead to pain. Things that can lead to this jaw joint imbalance are not using the joints equally. For example, if you only chew food on one side of your mouth. This commonly occurs if you have a missing tooth or teeth, have a sensitive tooth or have poorly fitting dentures. This can also occur following dental procedures where your mouth is opened for a prolonged period of time. Here are some suggestions to try to improve the discomfort: PLAN A: - Soft diet. Nothing crunchy or course. No tough meat, nuts or biting something off like a carrot. - No gum chewing. - No stretching the mouth wide, like biting into a big apple or sandwich - Making sure you are chewing your food equally on both sides of your mouth. Literally, 5 chews on one side, move the food over to the other side, 5 chews, move the food back over etc. Continue until you swallow the food. THIS IS PROBABLY THE BIGGEST THING YOU CAN DO. PLAN B: - If you find that you are clenching or grinding your teeth (especially at night), consider getting a ???school crossing guard?? . This is a mouth guard you wear at night. These can be purchased at a pharmacy. You may be clenching or grinding if you wake up in the morning feeling like you have been chewing steak all night, or if the pain is worse when you wake in the morning. PLAN C: - Warm compresses on BOTH jaw joints. - Take an anti-inflammatory medication such as naproxyn or ibuprofen (Aleve or Advil/Motrin). Sometimes you may have medication prescribed. Need to take this on a regular schedule to help control inflammation. It will help with discomfort, but it is mainly to control the inflammation in the joint. In general, doing the above suggestions should improve your discomfort within 2 weeks. If no trend toward improvement within 2 weeks, contact me. But if you have been doing the above suggestions and have noticed a lot of improvement, on the day that you are no longer having pain, continue the suggestions for at least 1 more day. You can then stop the medications and eat ???normally?? . If the pain returns, resume the above suggestions immediately. The quicker you try to settle down the symptoms, the shorter the period of time you need to work on it. I let my patients know that I cannot ???cure?? this problem. We can only settle it down. I have found though, that the more it is settled down, and the quicker we can settle it down, the less you willhave problems with it. If there is no improvement at all, you may need to consider seeing Physical Therapy or a TMJ specialist. BALANCE DISORDERS Balance is a very complex medical problem. The list is long of things that cause balance problems. One issue is that balance is a very individual issue. Not everyone is the same. Some people love carnival rides. Others cannot even look at the rides. Some people get motion sickness. Others have no ideawhat that would feel like. The human balance system is very complex. It is amazing that we can stand upright no less do the things we do each day. There is a portion of our brain that is responsible for continuously monitoring our balance. To function properly, this part of our brain has to get good information from all of our b alance systems and send out good information to correct us if we start getting off balance. If anything goes wrong in any of these areas, we start having problems with our balance. Our bodies run on three balance systems. 1) The inner ears. The inner ears consist of our hearing organ (the cochlea) and the balance organ (the labyrinth and vestibule). Both inner ears need to send our brain the same message. If different messages are sent to the brain, we typically get a sensation that we are spinning or the world is spinning around us. This sense of spinning is called vertigo. 2)Our eyes/vision. Our eyes need to tell our brain the same thing that our inner ears are telling it. If they are sending a different message, we feel off balance. 3) Nerve endings that travel throughoutour entire body. These are especially sensitive in our neck, lower legs, ankles and feet. All of these systems together are what allow us to hop on one foot on a side hill with our eyes closed. Again, if any of these systems isn???t functioning perfectly, we start having balance problems. ???Dizziness?? is a pretty generic term. That just means something is wrong with the balance system. WE try to break it into vertigo (sense of spinning) or imbalance (unsteady, wobbly, lightheaded, etc). Balance problems are not like other problems we deal with in ENT. If you had 10 people with strep throat, the symptoms and complaints will all be pretty similar. With balance, because of the individuality of balance, the complaints very widely. For this reason we rely heavily on our testing. The main thing we look for with our testing is nystagmus. If you go to the doctor and they tap your knee with their hammer, the leg kicks out. That is a reflex. The reflex equivalent in the balance system is called nystagmus. This consists of a ???jerking?? motion of the eyes. The direction and quality of the eye movements help us to localize where the problem is. Normally, the brain realizes that nystagmus is not a good thing. Normally, your brain will suppress (stop) the nystagmus within 72 hours of it beginning. With our testing, we have some ???tricks?? that let us temporarily see the nystagmus if it is present. Keep in mind that because of the complexity of balance problems, it is not always possible to find out exactly what the cause of your balance problem is. Sometimes it is possible but one of the goals of your evaluation is to try to categorize the problem into one of three general areas. These are 1) Inner Ear Disorder, 2) Brain Monitoring problem, or 3) ???Something else?? . The ???something else?? category is very broad. This may include a long list of things, which may include diabetes, blood pressure, pulse rate, medications, lack of activity or other health issues. It is not uncommon to have what we call Multi-factorial Imbalance. This is where there are several issues that together give balance problems. Often, if this is the case, if we are able to improve one or two problems, the balance improves. Another thing to keep in mind is that with balance problems, time is on our side. Balance problems are not like a cancer that you need to catch early. With balance problems we can evaluate and treat the problem at any time in its natural course. It is also important to realize that in most instances of balance problems, there is not a medication that ???treats?? the problem. It is not like an infection that goes away with an antibiotic. Most problems will eventually improve with time and activity. If it does not improve, we may recommend Vestibular Rehabilitation (Physical Therapy). documented in this encounter Progress Notes Santiago Cruz PA-C - 12/05/2019 2:00 PM CDT SUBJECTIVE: Trina is a 39 y.o. female who comes in for evaluation of vestibular problems. I had previously done a video visit for her balance issues in September. She started having symptoms in August. Please see myprevious note. Initially she had some severe episodes that prompted a trip to the ED. Her symptoms resolved within a couple of hours. Since that time she states that she gets these episodic ???waves?? that seemed to occur randomly. She seems only notice them when she is sitting perfectly still. It issoon as she moves the symptoms resolved. She has a very active job. She does not recall having symptoms while working. She tends to notice it mostly when she gets home in the evening after work. She isunable to express the frequency of how often this occurs. They are relatively short-lived however. She has also been experiencing some intermittent ear pain. She states that if she is having her ???wave?? symptoms that if she has ear pain the balance symptoms immediately resolved. She denies any true vertigo. Change in hearing? No New onset tinnitus? No Chronic tinnitus? No Fullness/Pressure? No Nausea? No Vomiting? No Neck Stiffness? No Chronic Neck Stiffness? No Eye History: None Assistive Devices: None Foot/Knee/Hip/Back History: None Patient Active Problem List Diagnosis ??? Disorder of thyroid ??? Keratitis ??? Acquired hypothyroidism (HRC) ??? AMA (advanced maternal age) primigravida 35+, first trimester ??? Supervision of high risk in first trimester ??? Overweight (BMI 25.0-29.9) Outpatient Medications Prior to Visit Medication Sig Dispense Refill ??? APOORVA 0.35 MG tablet ??? levothyroxine (SYNTHROID) 75 MCG tablet Take 1 Tablet by mouth daily. 90 Tablet 1 ??? meclizine (ANTIVERT) 25 MG tablet ??? vitamin-ferrous fumarate-folic acid (PRENATALPLUS) 27-1 MG tablet Take 1 Tab by mouth daily. No facility-administered medications prior to visit. No Known Allergies OBJECTIVE: GENERAL APPEARANCE: Pleasant, cooperative, no distress. HEAD AND FACE: Facies symmetric, no obvious lesions. CRANIAL NERVES: Grossly intact and symmetric. EARS: External ears normal. Normal, patent ear canals bilaterally. TM and middle ear spaces normal. NOSE: External pyramid midline. Septum midline. Mucosa normal. No purulence, polyps, or crusts. ORAL CAVITY/OROPHARYNX: No mucosal lesions, masses, or pharyngeal asymmetry. She has very prominent overbite. She has severe malocclusion. Only her front teeth contact each other. NECK: No cervical adenopathy. No palpable thyroid or salivary gland masses. THYROID: No significant thyroid abnormality by palpation. PAROTIDS: Normal to palpation. No mass, lesions or evidence of obstruction. TMJs: On palpation of the temporomandibular joints, there is no pain in either joint. There is equalexcursion. No crepitus noted. VESTIBULAR EXAM: Orthostatics: Lying (5 minutes) BP: 130/84 MBP: 214 P: 66 Standing (1 minute) BP: 126/83 MBP: 209 P: 66 Spontaneous Nystagmus in room light: None Gaze Evoked Nystagmus: None Abnormal EOM: None Skew Deviation: None Smooth Pursuit (Tracking): None Head Thrusts: Negative With Frenzel Goggles: Spontaneous Nystagmus: None 20 Cycle Horizontal Headshake: Negative 20 Cycle Vertical Headshake: Negative [place]-Hallpike: Negative Roll Test: Negative Romberg (w/o Frenzel): Negative Sharpened/Modified Sharpened Romberg: Negative AUDIOGRAM: Normal, symmetric hearing IMPRESSION: Occasional imbalance Temporomandibular Joint Dysfunction PLAN: Findings were reviewed and discussed with the patient. Again, her symptoms are not consistent with a peripheral vestibular problem. In fact, we discussed that most vestibular disorder patients have more symptoms when they are in motion and they feel betterwhen there sitting perfectly still. I am somewhat suspicious that her temporomandibular joint dysfunction may be some of the issue. I advised that she concentrate on whether she is clenching her teeth at all when she has some of the symptoms. I did give her temporomandibular joint dysfunction instructions. If she is not having any trend toward improvement we can consider physical therapy as well. She will keep me informed of any changes. 45 minutes were spent evaluating and discussing her balance problem today. At least 50% of the time was used in discussion. Dictation was performed using voice recognition software. There may be errors in the dictation secondary to voice recognition anomalies. documented in this encounter Plan of Treatment Not on filedocumented as of this encounter Visit Diagnoses Diagnosis Imbalance - Primary Abnormality of gait Temporomandibular joint disorder Temporomandibular joint disorders, unspe cified documented in this encounter Care Teams Biological Lab Technician Relationship Specialty Start Date End Date Keysha Bingham PA-C PCP - General 02/05/16 [address], [place] [address] documented as of this encounter
--- OUTSIDE RECORDS SUMMARY | 2022-05-10 16:34 | XMS_ITS | Encounter Summary ---
:1980 Author Organization [facility] Address [address] [place] [address] Care Team Providers Name Role Phone Zachery Keysha Sutherland PA-C Primary Care Provider Reason for Visit Reason Comments RESULTS, TEST F/U path Encounter Details Date Type Department Care Team Description 10/29/2021 Telephone [place] [address] Regla Kraft R ESULTS, TEST (F/U Mendy Romo Breast [facility]) [address] [place] [address] [id number] [phone] Social History Tobacco Use Types Packs/Day Years Used Date Smoking Tobacco: Never Smokeless Tobacco: Never Alcohol Use Standard Drinks/Week Comments Yes 1 (1 standard drink = 0.6 oz pure alcoho l) Sex Assigned at Date Recorded Not on file documented as of this encounter Nursing Notes Regla Kraft APRN, CNP - 10/29/2021 4:22 PM CDT Called w/ path results which shows graulomatous mastitis. Let her know this is not a cancer. Today, she has no fever or chills. Breast looks okay. No redness. ?Warmth of the breast-- she's unsure as she's had a lot going on.S/P Augmentin. She's off antibiotics at this time. Cultures pending. Will alert Dr Bocanegra as we traditionally use doxycycline if needed. documented in this encounter Plan of Treatment Not on filedocumented as of this encounter Visit Diagnoses Not on filedocumented in this encounter Care Teams Sound Editor Relationship Specialty Start Date End Date Keysha Bingham PA-C PCP - General 02/05/16 [address] [place], [place] [address] documented as of this encounter
--- OUTSIDE RECORDS SUMMARY | 2022-05-10 16:34 | XMS_ITS | Encounter Summary ---
:1980 Author Organization [employer] Address [address] [place] [address] Care Team Providers Name Role Phone Keysha Bingham PA-C Primary Care Provider Reason for Visit Procedure/Equipment (Routine) - Incomplete Specialty Diagnoses / Procedures Referred By Contact Refer red To Contact Diagnoses Discharge from breast Katrin Enriquez APRN, Procedures MM US Breast Rt SYSTEMS ANALYSIS MANAGER [address] [place], [place] [address] Referral ID Status Reason Start Date Expiration Date Visits V isits Requested Authorized [id number] Incomplete 12/25/2021 03/26/2023 1 1 Encounter Details Date Type Department Care Team Description 12/30/2021 Ancillary [facility] [address] Katrin Enriquez Disc harge from Procedure Mammography HOWARD Sutherland, SYSTEMS ANALYSIS MANAGER breast [address] [place] [address] [place] [facility] [address] [phone] Social History Tobacco Use Types Packs/Day Years [...] Date/Time Associated Diagnosis Comme nts MM US BREAST RT Routine 12/30/2021 3:37 PM Discharge from [facility] Results for this CDT procedure are i n the results section. documented in this encounter Results MM US Breast Rt (12/30/2021 3:37 PM CDT) Anatomical Region Laterality Modality Breast Right Ultrasound Specimen (Source) Anatomical Collection Method Collection Time Re ceived Time Location / / Volume Laterality 12/30/2021 3:36 PM CDT Impressions 12/30/2021 4:02 PM CDT EXAMINATION: Right breast ultrasound. HISTORY: Ongoing redness and discharge f rom the skin insertion site for ultrasound-guided biopsy. 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 COMPARISON: 10/28/2021, 10/23/2021, 10/10/19. FINDINGS: Clinically directed right jonathon st ultrasound again shows ill-defined hypoechoic tissue centered at the 10:00-11:00 position at a middle depth. This is difficult to measure, but overall, this ap pears increased in thickness when compar ed to 10/23/2021. A small amount of hypoechoic material extends along the tract to the skin of previous biopsy. Given the increase, the recommendation for attempt at aspiration was discussed with the patient. After discussion with the patient, skin sterilization with alcohol, and local anesthesia with 4-5 mL of 1% lidocaine, ultrasound-guided aspiration was attempted under ultrasound guidance. No aspirate co uld be obtained utilizing a 16-gauge nee dle and syringe. ??There were no immediate complications. ?? IMPRESSION: ACR BI-RADS 2: ??Benign. Sonographic findings compatible with inc reasing hypoechoic tissue at a site of known granulomatous mastitis. No aspirate could be obtained. RECOMMENDATION: Continued clinical follo w-up of known granulomatous mastitis. If there is increasing concern for developing abscess, repeat ultrasound could be performed. The results and recommendations of this examination will be communicated to the patient by the [facility] and we will attempt to schedule any recommended imaging follow up with the patient. Procedure Note Blair Marrero MD - 12/30/2021Formatt ing of this note might be different from the original. IMPRESSION EXAMINATION: Right breast ultrasound. HISTORY: Ongoing redness and discharge f rom the skin insertion site for ultrasound-guided biopsy. 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 COMPARISON: 10/28/2021, 10/23/2021, 10/10/19. FINDINGS: Clinically directed right jonathon st ultrasound again shows ill-defined hypoechoic tissue centered at the 10:00-11:00 position at a middle depth. This is difficult to measure, but overall, this appears increased in thickness when compared to 10/23/2021. A small amount of hypoechoic material extends along the tract to the skin of previous biopsy. Given the increase, the recommendation for attempt at aspiration was discussed with the patient. After discussion with the patient, skin sterilization with alcohol, and local anesthesia with 4-5 mL of 1% lidocaine, ultrasound-guided aspiration was attempted under ultrasound guidance. No aspirate could be obtained utilizing a 16-gauge needle and syringe. There were no immediate complications. IMPRESSION: ACR BI-RADS 2: Benign. Sonographic findings compatible with inc reasing hypoechoic tissue at a site of known granulomatous mastitis. No aspirate could be obtained. RECOMMENDATION: Continued clinical follo w-up of known granulomatous mastitis. If there is increasing concern for developing abscess, repeat ultrasound could be performed. The results and recommendations of this examination will be communicated to the patient by the [facility] and we will attempt to schedule any recommended imaging follow up with the patient. Katrin Enriquez APRN, SYSTEMS ANALYSIS MANAGER RAD YEMI documented in this encounter Visit Diagnoses Diagnosis Discharge from breast documented in this encounter Care Teams Coding Director Relationship Specialty Start Date End Date Keysha Bingham PA-C PCP - General 02/05/16 [address], [place] [address] documented as of this encounter
--- OUTSIDE RECORDS SUMMARY | 2022-05-10 16:34 | XMS_ITS | Encounter Summary ---
:1980 Author Organization [employer] Address [address] [place] [address] Care Team Providers Name Role Phone Zachery Keysha Sutherland PA-C Primary Care Provider Reason for Visit Reason Comments CONSULT vertigo Encounter Details Date Type Department Care Team Description 09/11/2019 Telemedicine [place] [facility], Santiago Cruz Disequi librium (Primary Dx); Nose, and Throat VASILIY Dysfunction of both eustachian tubes [address] [facility] [address] [place] [address] [facility] [phone] [place] [address] Social History Tobacco Use Types Packs/Day Years Used Date Smoking Tobacco: Never Smokeless Tobacco: Never Alcohol Use Standard Drinks/Week Comments Yes 1 (1 standard drink = 0.6 oz pure alcoho l) Sex Assigned at Date Recorded Not on file documented as of this encounter Patient Instructions Patient InstructionsSantiago Cruz PA-C - 09/11/2019 8:00 AM CDT KRYSTIN Dela Cruz Practice Locations: Nurse: Xuan [phone] [facility] [address] [place] [address] - [address] [facility] [address] Appointment [phone] [place] [address] [facility] [address] BALANCE DISORDERS Balance is a very complex [...] Therapy). documented in this encounter Progress Notes Keya Buck RN - 09/11/2019 8:00 AM CDT Pt first noticed episodes of being in her head 1 month ago. Pt went to ER and they gave her meclazine and told her it was probably stress. 2 wks later pt went to PCP who gave her Doxycycline and allergy med. Pt states she had no relief of symptoms with these meds. Pts last panic attack was 3 weeksago. Pt also complains of a drumming noise in her ears. Pt denies clenching or grinding her teeth. Keya Buck RN 8:01 AM 09/11/2019 Santiago Cruz PA-C - 09/11/2019 8:00 AM CDT This note represents documentation based on a video visit secondary to COVID-19 precautions. This visit was conducted via video. Location of clinician: clinic Location of patient: home SUBJECTIVE: Trina Man is a 39 y.o. female that is being evaluated via video for vestibular symptoms which began roughly one month ago. She states that she was in her kitchen when she suddenly felt likeshe was severely off balance. She denies any vertigo. She feels like the symptoms were ???inside herat head?? . She became very anxious. After about 20 minutes she called the neighbors and they took her to the ED. She was feeling better by the time she got to the ED but was still having some persistent symptoms. She was in the emergency room for 4 hours. By the time she left things had settle down. She denied any change in hearing, fullness pressure sensation or or tinnitus. She felt fine until about two weeks ago when the symptoms began again. This time she knew that this would likely resolve andwas able to ride this out. Then one week later she felt like it was going to start up again but it never became fully symptomatic. She denies ever having problems with this previously. She has noticed that she has been having some intermittent, bilateral plugged sensation. She denies any allergic rhinitis. She did start on Flonase a couple of weeks ago. She did see her primary care and they had put her on a course of Claritin and then antibiotic which did not make any improvement. Patient Active Problem List Diagnosis ??? Disorder of thyroid (HRC) ??? Keratitis ??? Acquired hypothyroidism (HRC) ??? AMA (advanced maternal age) primigravida 35+, first trimester ??? Supervision of high risk in first trimester ??? Overweight (BMI 25.0-29.9) (HRC) Outpatient Medications Prior to Visit Medication Sig Dispense Refill ??? APOORVA 0.35 MG tablet ??? levothyroxine (SYNTHROID) 75 MCG tablet Take 1 Tablet by mouth daily. 90 Tablet 1 ??? meclizine (ANTIVERT) 25 MG tablet ??? vitamin-ferrous fumarate-folic acid (PRENATALPLUS) 27-1 MG tablet Take 1 Tab by mouth daily. No facility-administered medications prior to visit. No Known Allergies OBJECTIVE: Note examination was performed because of the video visit. IMPRESSION: Intermittent disequilibrium Eustachian Tube Dysfunction, Bilateral PLAN: No real evidence of a peripheral vestibular disorder. We did discuss that if this was an inner ear issue that it will likely resolve within six day weeks.This is the normal course. We discussed that this is not something that she is going to have to livewith for the rest of her life. We did discuss that this could be potentially a panic attack that is occurring. I offered a low-doselorazepam to take in case she gets another attack. She declines at this time. I did advise that if she changes her mind that she can certainly call us and we can send this in. At this time will see how she does over the next month or so. Hopefully this just resolves given time. If she continues having symptoms or her symptoms change, she should certainly contact us. A total of 30 minutes were spent during the course of this video visit. Thank you for doing this video visit with me. If you have questions, please call the clinic using our regular phone number which is [phone]. Do not reply to the video visit number that we used today, because we don't monitor it. Again, thank you! Dictation was performed using voice recognition software. There may be errors in the dictation secondary to voice recognition anomalies. documented in this encounter Plan of Treatment Not on filedocumented as of this encounter Visit Diagnoses Diagnosis Disequilibrium - Primary Dizziness and giddiness Dysfunction of both eustachian tubes Dysfunction of Eustachian tube documented in this encounter Care Teams Patient Case Manager Relationship Specialty Start Date End Date Keysha Bingham PA-C PCP - General 02/05/[address] [place] [address] [address] documented as of this encounter
--- OUTSIDE RECORDS SUMMARY | 2022-05-10 16:34 | XMS_ITS | Encounter Summary ---
:1980 Author Organization [employer] Address [address] [place] [address] Care Team Providers Name Role Phone Zachery Keysha Sutherland PA-C Primary Care Provider Encounter Details Date Type Department Care Team Description 12/25/2021 Telephone [facility] [address] [facility] HOWARD, BREAD DUMPER [address] [place] [address] [place] [address] (Wo rk) Social History Tobacco Use Types Packs/Day Years Used Date Smoking Tobacco: Never Smokeless Tobacco: Never Alcohol Use Standard Drinks/Week Comments Yes 1 (1 standard drink = 0.6 oz pure alcoho l) Sex Assigned at Date Recorded Not on file documented as of this encounter Nursing Notes Regla Kraft APRN, CNP - 12/25/2021 9:02 AM CDT [facility] Having erythema and discharge at site of previous biopsy. Reviewed Jessica Enriquez's note from 12/15 w/ her. Advised to see OB or come to breast center to be evaluated if still havingconcerns or issues. She need a late in the day appt. Appt coordinated at 3 pm with possible US to follow in case that is needed. Reminded if fever or feeling poorly, she should go to urgent care of [facility]. documented in this encounter Plan of Treatment Not on filedocumented as of this encounter Visit Diagnoses Not on filedocumented in this encounter Care Teams Bobbin Drier Relationship Specialty Start Date End Date Keysha Bingham, JEAN-PAULC PCP - General 02/05/[address] [place] [address] documented as of this encounter
--- OUTSIDE RECORDS SUMMARY | 2022-05-10 16:34 | XMS_ITS | Encounter Summary ---
:1980 Author Organization [employer] Address [address] [place] [address] Care Team Providers Name Role Phone Zachery Keysha Sutherland PA-C Primary Care Provider Reason for Visit Reason Onset Date Comments Breast Problem 01/18/2022 Encounter Details Date Type Department Care Team Description 01/18/2022 Telephone [facility] 38[address] Shania Puri LPN [facility] [address] [facility] [address] [place] [id number] [place] [address] [place] [address] Social History Tobacco Use Types Packs/Day Years Used Date Smoking Tobacco: Never Smokeless Tobacco: Never Alcohol Use Standard Drinks/Week Comments Yes 1 (1 standard drink = 0.6 oz pure alcoho l) Sex Assigned at Date Recorded Not on file documented as of this encounter Nursing Notes Savannah Atkinson LPN - 01/18/2022 2:31 PM CDT Patient returned call. Discussed symptoms. Denies fever or drainage or pain.Offered appointment for tomorrow the or Tuesday the . Patient is unable to make either of those because she is going out of town.Patient booked appointment for TuesdayJanuary 27 at 300. Advised patient if she develops any new symptoms she should be evaluated sooner then the .Patient verbalized understanding. Savannah Atkinson LPN - 01/18/2022 1:35 PM CDT Patient called into the [facility] today for the AREA INTELLIGENCE TECHNICIAN,leaving a message stating she has redness around her nipple.Returned call and reached answering machine, and medical underwriter left message for patient to call back,phone number provided, and will be advised to schedule an appointment with Jessica Enriquez NP for a follow up visit from 12/30/2021 office visit. documented in this encounter Plan of Treatment Not on filedocumented as of this encounter Visit Diagnoses Not on filedocumented in this encounter Care Teams See Supervisor Relationship Specialty Start Date End Date Keysha Bingham PA-C PCP - General 02/05/16 [place] [address] documented as of this encounter
--- OUTSIDE RECORDS SUMMARY | 2022-05-10 16:34 | XMS_ITS | Encounter Summary ---
:1980 Author Organization [employer] Address [address] [place] [address] Care Team Providers Name Role Phone Zachery Keysha Sutherland PA-C Primary Care Provider Reason for Visit Reason Comments RESULTS, TEST Encounter Details Date Type Department Care Team Description 10/29/2021 Telephone [facility] [address] Katrin Irwin, RESULTS, TEST [facility] HOWARD, LOAN AND CREDIT MANAGER [address] [place] [address] [place] [address] (Wo rk) Social History Tobacco Use Types Packs/Day Years Used Date Smoking Tobacco: Never Smokeless Tobacco: Never Alcohol Use Standard Drinks/Week Comments Yes 1 (1 standard drink = 0.6 oz pure alcoho l) Sex Assigned at Date Recorded Not on file documented as of this encounter Nursing Notes Katrin Enriquez APRN, CNP - 10/29/2021 2:57 PM CDT Left voice mail to call [phone] for test results and to discuss plan of care. documented in this encounter Plan of Treatment Not on filedocumented as of this encounter Visit Diagnoses Not on filedocumented in this encounter Care Teams Loading Shovel Oiler Relationship Specialty Start Date End Date Keysha Bingham PA-C PCP - General 02/05/[address] [place] [address] [address] documented as of this encounter
--- OUTSIDE RECORDS SUMMARY | 2022-05-10 16:34 | XMS_ITS | Encounter Summary ---
:1980 Author Organization [employer] Address [address] [place] [address] Care Team Providers Name Role Phone Keysha Bingham PA-C Primary Care Provider Reason for Visit Procedure/Equipment (Routine) - Incomplete Specialty Diagnoses / Procedures Referred By Contact Refer red To Contact Diagnoses Breast tenderness in female Mass of upper outer quadrant of right breast Breast erythema Jae Bocanegra MD Procedures [facility] Mammogram Diag Bilat [address] [place] [address] [place] [address] Referral ID Status Reason Start Date Expiration Date Visits V isits Requested Authorized [id number] Incomplete 10/05/2021 01/04/2023 1 1 Encounter Details Date Type Department Care Team Description 10/09/2021 Ancillary [facility] [address] Jae Bocanegra Breas t tenderness in female; Procedure Mammography Mass of upper outer quadrant of right br east; [address] [place] [address] [facility] [address] [facility] [id number] Social History Tobacco Use Types Packs/Day Years Used Date Smoking Tobacco: Never Smokeless Tobacco: Never Alcohol Use Standard Drinks/Week Comments Yes 1 (1 standard drink = 0.6 oz pure alcoho l) Sex Assigned at Date Recorded Not on file documented as of this encounter Plan of Treatment Not on filedocumented as of this encounter Procedures Procedure Name Priority Date/Time Associated Diagnosis Comme nts [facility] MAMMOGRAM DIAG Routine 10/09/2021 7:56 AM Breast tendernes s in Results for this BILAT W 3D MARIN CDT female procedure are in Mass of upper outer the resu lts quadrant of right section. breast Breast erythema documented in this encounter Results [facility] US Breast Rt (10/09/2021 8:28 AM CDT) Anatomical Region Laterality Modality Breast Right Ultrasound Specimen (Source) Anatomical Collection Method Collection Time Re ceived Time Location / / Volume Laterality 10/09/2021 8:17 AM CDT Impressions 10/09/2021 8:46 AM CDT HISTORY: ??Recent onset of right breast swelling, tenderness and erythema. The patient started antibiotics for presumed mastitis 4 days ago. Since that time, her breast is less swollen and tender, and t he skin redness has decreased. ?? COMPARISON: ??None ?? FINDINGS: DIAGNOSTIC MAMMOGRAM: ??Bilateral breast tomosynthesis and C view. ??Scattered fibroglandular tissue present. ??There is global asymmetry in the upper outer quadrant of the right breast as compared to t he left. No suspicious focal mass, archi tectural distortion, calcifications. No significant skin thickening. TARGETED US: ??Ultrasound of the right b reast 10:00 position 4 cm from the nipple at site of palpable tender lump and underlying a 2 x 2 CM region of skin erythema demonstrates heterogeneous, hypoechoic tissue with prominent blood vessels. Gr eatest dimension of this tissue is likely 6 cm and extends into the retroareolar region. No drainable fluid collection. No right axillary lymphadenopathy. IMPRESSION/RECOMMENDATION: ??ACR BI-RADS CATEGORY 3: ??Probably benign. The patient's clinical presentation and imaging findings are suggestive of right breast mastitis that has improved with antibiotics over the past 4 days. Recommend the patient completed her course of or al antibiotics. Two-week follow-up ultra sound of the right breast will be performed. The patient was also informed that right breast tomosynthesis may be performed at that time to reevaluate the asymmet ry in the right breast. If the patient's clinical symptoms and breast imaging findings persist, biopsy may be recommended at that time. The results of this examination and stefanie mmended follow up were discussed with the patient. The [facility] will attempt to schedule recommended follow up with the patient. Procedure Note Manjit Gaston MD - 10/09/2021 IMPRESSION HISTORY: Recent onset of right breast sw elling, tenderness and erythema. The patient started antibiotics for presumed mastitis 4 days ago. Since that time, her breast is less swollen and tender, and the skin redness has decreased. COMPARISON: None FINDINGS: DIAGNOSTIC MAMMOGRAM: Bilateral breast t omosynthesis and C view. Scattered fibroglandular tissue present. There is global asymmetry in the upper outer quadrant of the right breast as compared to the left. No suspicious focal mass, architectural dis tortion, calcifications. No significant skin thickening. TARGETED US: Ultrasound of the right marianne ast 10:00 position 4 cm from the nipple at site of palpable tender lump and underlying a 2 x 2 CM region of skin erythema demonstrates heterogeneous, hypoechoic tissue with prominent blood vessels. Greatest dimension of thi s tissue is likely 6 cm and extends into the retroareolar region. No drainable fluid collection. No right axillary lymphadenopathy. IMPRESSION/RECOMMENDATION: ACR BI-RADS C ATEGORY 3: Probably benign. The patient's clinical presentation and imaging findings are suggestive of right breast mastitis that has improved with antibiotics over the past 4 days. Recommend the patient completed her course of oral antibiotics. Two-week follow-up ultrasound of the rig ht breast will be performed. The patient was also informed that right breast tomosynthesis may be performed at that time to reevaluate the asymmetry in the right breast. If the patient's clinical symptoms and breast i maging findings persist, biopsy may be recommended at that time. The results of this examination and stefanie mmended follow up were discussed with the patient. The [facility] will attempt to schedule recommended follow up with the patient. Jae Bocanegra MD RAD YEMI YMM Mammogram Diag Bilat W 3D [place] (10/09/2021 7:56 AM CDT) Anatomical Region Laterality Modality Breast Bilateral Mammography Specimen (Source) Anatomical Collection Method Collection Time Re ceived Time Location / / Volume Laterality 10/09/2021 7:56 AM CDT Impressions 10/09/2021 8:46 AM CDT HISTORY: ??Recent onset of right breast swelling, tenderness and erythema. The patient started antibiotics for presumed mastitis 4 days ago. Since that time, her breast is less swollen and tender, and t he skin redness has decreased. ?? COMPARISON: ??None ?? FINDINGS: DIAGNOSTIC MAMMOGRAM: ??Bilateral breast tomosynthesis and C view. ??Scattered fibroglandular tissue present. ??There is global asymmetry in the upper outer quadrant of the right breast as compared to t he left. No suspicious focal mass, archi tectural distortion, calcifications. No significant skin thickening. TARGETED US: ??Ultrasound of the right b reast 10:00 position 4 cm from the nipple at site of palpable tender lump and underlying a 2 x 2 CM region of skin erythema demonstrates heterogeneous, hypoechoic tissue with prominent blood vessels. Gr eatest dimension of this tissue is likely 6 cm and extends into the retroareolar region. No drainable fluid collection. No right axillary lymphadenopathy. IMPRESSION/RECOMMENDATION: ??ACR BI-RADS CATEGORY 3: ??Probably benign. The patient's clinical presentation and imaging findings are suggestive of right breast mastitis that has improved with antibiotics over the past 4 days. Recommend the patient completed her course of or al antibiotics. Two-week follow-up ultra sound of the right breast will be performed. The patient was also informed that right breast tomosynthesis may be performed at that time to reevaluate the asymmet ry in the right breast. If the patient's clinical symptoms and breast imaging findings persist, biopsy may be recommended at that time. The results of this examination and stefanie mmended follow up were discussed with the patient. The [facility] will attempt to schedule recommended follow up with the patient. Procedure Note Manjit Gaston MD - 10/09/2021 IMPRESSION HISTORY: Recent onset of right breast sw elling, tenderness and erythema. The patient started antibiotics for presumed mastitis 4 days ago. Since that time, her breast is less swollen and tender, and the skin redness has decreased. COMPARISON: None FINDINGS: DIAGNOSTIC MAMMOGRAM: Bilateral breast t omosynthesis and C view. Scattered fibroglandular tissue present. There is global asymmetry in the upper outer quadrant of the right breast as compared to the left. No suspicious focal mass, architectural dis tortion, calcifications. No significant skin thickening. TARGETED US: Ultrasound of the right marianne ast 10:00 position 4 cm from the nipple at site of palpable tender lump and underlying a 2 x 2 CM region of skin erythema demonstrates heterogeneous, hypoechoic tissue with prominent blood vessels. Greatest dimension of thi s tissue is likely 6 cm and extends into the retroareolar region. No drainable fluid collection. No right axillary lymphadenopathy. IMPRESSION/RECOMMENDATION: ACR BI-RADS C ATEGORY 3: Probably benign. The patient's clinical presentation and imaging findings are suggestive of right breast mastitis that has improved with antibiotics over the past 4 days. Recommend the patient completed her course of oral antibiotics. Two-week follow-up ultrasound of the rig ht breast will be performed. The patient was also informed that right breast tomosynthesis may be performed at that time to reevaluate the asymmetry in the right breast. If the patient's clinical symptoms and breast i maging findings persist, biopsy may be recommended at that time. The results of this examination and stefanie mmended follow up were discussed with the patient. The [facility] will attempt to schedule recommended follow up with the patient. Jae Bocanegra MD RAD YEMI documented in this encounter Visit Diagnoses Diagnosis Breast tenderness in female Mastodynia Mass of upper outer quadrant of right br east Breast erythema Other specified erythematous condition Breast tenderness in female Mastodynia Mass of upper outer quadrant of right br east Breast erythema Other specified erythematous condition documented in this encounter Care Teams Principal Solutions Architect Relationship Specialty Start Date End Date Keysha Bingham PA-C PCP - General 02/05/16 [address] [place] [address] documented as of this encounter
--- OUTSIDE RECORDS SUMMARY | 2022-05-10 16:34 | XMS_ITS | Encounter Summary ---
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 documented in this encounter Results Prolactin (01/15/2022 3:08 PM CDT) P athologist Signature Prolactin 22.3 5.2 - 26.5 01/15/2022 [facility] ng/mL 8:14 PM CDT LABORATORY Specimen Anatomical Collection Method / Collection Time Recei luis antonio Time (Source) Location / Volume Laterality Blood Venipuncture / 01/15/2022 3:08 01/15/2022 3:09 Unknown PM CDT PM CDT Katrin Enriquez CONTINUOUS MINER OPERATOR, LASER SET UP OPERATOR LAB_1 Performing Organization Address City/State/ZIP Code Phon e Number [facility] [address] [place] [address] documented in this encounter Visit Diagnoses Diagnosis Granulomatous mastitis of right breast documented in this encounter Care Teams Cook Helper Vegetable Relationship Specialty Start Date End Date Keysha Bingham PA-C PCP - General 02/05/16 [address] [place] [id number] documented as of this encounter
--- OUTSIDE RECORDS SUMMARY | 2022-05-10 16:34 | XMS_ITS | Encounter Summary ---
:1980 Author Organization [employer] Address [address] [place] [address] Care Team Providers Name Role Phone Zachery Keysha Sutherland PA-C Primary Care Provider Reason for Referral Procedure/Equipment (Routine) - Incomplete Specialty Diagnoses / Procedures Referred By Contact Refer red To Contact Diagnoses Breast tenderness in female Mass of upper outer quadrant of right breast Breast erythema Jae Bocanegra MD Procedures 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 [address] [address] Mass of upper outer quadrant of right breast; [address] [address], [facility] [address] Breast erythema [address] [place] [address] [phone] Social History Tobacco Use Types Packs/Day Years [...] Pulse 77 10/05/2021 3:02 PM CDT Temperature 36.6 ??C (97.9 ??F) 10/05/2021 3:02 PM CDT Respiratory Rate - - Oxygen Saturation - - Inhaled Oxygen Concentration - - Weight 83 kg (183 lb) 10/05/2021 3:02 PM CDT Height - - Body Mass Index 30.93 08/16/2017 2:40 PM CDT documented in this encounter Progress Notes Jae Bocanegra MD - 10/05/2021 3:00 PM CDT Her last visit with us was 2017. My first visit with patient. CC: Breast tenderness HPI: Pain in breast started Tuesday morning when she woke up. She tried to feel around and didn't feel any lumps. Breast fed for 2 years, it's been 1 year since breast feeding. She feels like it may be harder over her right outside breast, and has some pain in her right armpit. She had redness this weekend. Has not recently changed bras, mostly sports bra. No traumas or MVA. Denies any leaking from her nipples. She has never had any breast surgery. She exercises vigorously. Worked out on and did flys, dumbbell chest, everything upper body. She felt like she was going fast but not heavy. Denies any injuries that she is aware of. Taking motrin this morning for soreness in her right breast. Also took over the weekend. She thinks this may have helped. She feels that it doesn't hurt if she doesn't touch anything. Denies nicotine use. Menses: Period have been light in the past, had been on pill in the past. BC: mIUD placed last year, she feels had weight gain, bloating, and doesn't like having it in there. Sex: BF, monogomous Hx STI: no Hx, no concerns. OBHx: (by ) PMHx: Hypothyroid, Abnormal pap (No Hx cone), Class 1 [id number] PSHx: x1 Family Hx: denies uterine, ovarian cancer. - M.Aunt breast cancer (40's) - P.GF colon cancer (60's about) Reviewed note from 10/05/20: Pt reports her breast looks infected. Spreading redness. Feels hot and painful to touch. No fever. Reviewed note from 08/16/17: 1st OB visit. O: Vitals: 10/05/21 1502 BP: 122/70 Pulse: 77 Temp: 36.6 ??C (97.9 ??F) Gen: NAD Breast: Right breast with [id number] mobile non-tender mass that is in the Right Outer Quadrant at about 10 o'clock with patient supine that abuts the nipple, the overlaying skin is slightly red without any lesion or skin breakdown, no bleeding or discharge from nipple, no retractions, her right armpit has no masses or TTP, the rest of her right breast is wnl. Her left breast is symmetric in shape, normal nipples, normal skin, no palpable masses including left armpit. Chaperoned by Luis Marie LPN Labs Reviewed: Last pap 08/2017: NIL/HPV- A/P: 41y/o female with Right breast pain, 6x4cm palpable mass with erythema overlaying skin. She is otherwise afebrile and shows no signs of systemic illness. ICD-10-CM 1. Breast tenderness in female N64.4 amoxicillin-clavulanate (AUGMENTIN) 875-125 mg per tablet [facility] US Breast Rt 2. Mass of upper outer quadrant of right breast N63.11 [facility] US Breast Rt CANCELED: MM US Breast Rt 3. Breast erythema L53.9 amoxicillin-clavulanate (AUGMENTIN) 875-125 mg per tablet [facility] US Breast Rt - Differential includes periductal mastitis, idiopathic granulomatous mastitis, ductal ectasia, carcinoma. - Breast Right US within week ordered with possible mammogram, biopsy, I&D to follow. - No discharge for gram stain nor culture - Augmentin 875mg for 10 days PO BID - Continue NSAIDS F/u: May consider Gen surg consult if further concern for abscess/infectious process. Patient can make separate visit prn for mIUD removal when ready. documented in this encounter Plan of Treatment Not on filedocumented as of this encounter Results [facility] US Breast Rt (10/09/2021 8:28 AM CDT) [...] up were discussed with the patient. The [facility] will attempt to schedule recommended follow up [...] up were discussed with the patient. The [facility] will attempt to schedule recommended follow up with the patient. Jae Bocanegra MD RAD YEMI documented in this encounter Visit Diagnoses Diagnosis Breast tenderness in female - Primary Mastodynia Mass of upper outer quadrant of right br east Breast erythema Other specified erythematous condition Breast tenderness in female Mastodynia Mass of upper outer quadrant of right br east Breast erythema Other specified erythematous condition documented in this encounter Care Teams Maid Cleaning Cooking Relationship Specialty Start Date End Date Keysha Bingham, JEAN-PAULC PCP - General 02/05/16 [address] [place] [address] documented as of this encounter
--- OUTSIDE RECORDS SUMMARY | 2022-05-10 16:34 | XMS_ITS | Encounter Summary ---
:1980 Author Organization [employer] Address [address] [place] [address] Care Team Providers Name Role Phone Zachery Keysha Sutherland PA-C Primary Care Provider Reason for Visit Reason Comments Breast Pain Encounter Details Date Type Department Care Team Description 10/05/2021 Nurse Triage [facility] January Potts, DO Breast Pain Services-TECHNICAL EDUCATION TEACHER [address] [address] [facility], [facility] [address] [place] [address] [place] [address] [phone] Social History Tobacco Use Types Packs/Day Years Used Date Smoking Tobacco: Never Smokeless Tobacco: Never Alcohol Use Standard Drinks/Week Comments Yes 1 (1 standard drink = 0.6 oz pure alcoho l) Sex Assigned at Date Recorded Not on file documented as of this encounter Nursing Notes Lisa Carter RN - 10/05/2021 10:35 AM CDT Reason for Disposition ??? Breast looks infected (spreading redness, feels hot or painful to touch) and no fever Protocols used: BREAST [id number] Pt calling in, reports right breast discomfort for past 3 days (regardless of touch). The tender area is above and to the right of the nipple. Area is also hard, red, warm, and swollen. There is tenderness spreading into armpit. Not currently BF. Using IUD for control. Denies fever, chills, lumps, nipple drainage/itchiness. Appt made for today. Pt also would like IUD removed if possible; pt aware she may need to schedule aseparate appt for this. Covid screen neg. Problem list reviewed. Future Appointments Date Time Provider Department Center 10/05/2021 3:00 PM Jae Bocanegra MD [facility] documented in this encounter Plan of Treatment Not on filedocumented as of this encounter Visit Diagnoses Not on filedocumented in this encounter Care Teams Tattoo And Body Artist Relationship Specialty Start Date End Date Keysha Bingham PA-C PCP - General 02/05/16 [address] [place], [place] [address] documented as of this encounter
--- OUTSIDE RECORDS SUMMARY | 2022-05-10 16:34 | XMS_ITS | Encounter Summary ---
:1980 Author Organization [employer] Address [address] [place] [address] Care Team Providers Name Role Phone Keysha Bingham PA-C Primary Care Provider Reason for Visit Reason Comments LOSS OF BALANCE Encounter Details Date Type Department Care Team Description 12/05/2019 Office Visit [facility] Gerzsenyi, Shakila (Primary [address] RASHIDA Bhatt Dx) [place] [address] [place] [address] [facility] [phone] [place] [address] Social History Tobacco Use Types Packs/Day Years Used Date Smoking Tobacco: Never Smokeless Tobacco: Never Alcohol Use Standard Drinks/Week Comments Yes 1 (1 standard drink = 0.6 oz pure alcoho l) Sex Assigned at Date Recorded Not on file documented as of this encounter Progress Notes Gogo Ovalle AU.D. - 12/05/2019 1:30 PM CDT Subjective: Trina Man, 39 y.o., was seen for an audiological evaluation upon order from Santiago Cruz PA-C. She has not been seen previously for a hearing evaluation at [facility]. She comes in today for follow up of disequilibrium. She hasn't had any significant episodes of dizziness since her video visit with Santiago Cruz PA-C, but she continues to feel off. She doesn't feel her eyes can focus well and feels off balanced. She has had ear pain in both ears since Tuesday. She also feels movement in the right ear when she is working out. Family history of hearing loss includes her maternal grandparents. She notes occasional occupational noise exposure with regular use of hearing protection. The patient denies drainage,pressure, tinnitus, previous ear surgery. Please see Santiago Cruz PA-C's note from today's date for further case history. Objective: Otoscopy revealed clear ear canals, bilaterally. Patient was evaluated under insert earphones with good reliability. Pure tone audiometric testing revealed hearing within normal limits, bilaterally. Speech spa receptionist thresholds were obtained at 5 dBHL for the right ear and 10 dBHL for the left ear. Word recognition at 45 dBHL was 100% for the right ear and at 50 dBHL was 100% for the left ear. Tympanometry revealed normal ear canal volume, pressure and static admittance, bilaterally. Assessment: Hearing is within normal limits, bilaterally. Tympanometry was within normal limits, bilaterally. Speech spa receptionist thresholds were in good agreement with the pure tone thresholds. Word recognition for both ears was considered to be excellent at a conversational level. Plan: These results were discussed with the patient. Please see Santiago Cruz PA-C's note from today's date for further recommendations. Recheck hearing as needed. It is recommended that patient use hearing protection devices whenever in noisy environments. documented in this encounter Plan of Treatment Not on filedocumented as of this encounter Visit Diagnoses Diagnosis Disequilibrium - Primary Dizziness and giddiness documented in this encounter Care Teams Inventory Control Coordinator Relationship Specialty Start Date End Date Keysha Bingham PA-C PCP - General 02/05/16 [address] [place] [address] documented as of this encounter
--- OUTSIDE RECORDS SUMMARY | 2022-05-10 16:34 | XMS_ITS | Encounter Summary ---
:1980 Author Organization [employer] Address [address] [place] [address] Care Team Providers Name Role Phone Zachery Keysha Sutherland PA-C Primary Care Provider Reason for Visit Procedure/Equipment (Routine) - Incomplete Specialty Diagnoses / Procedures Referred By Contact Refer red To Contact Diagnoses Breast tenderness in female Mass of upper outer quadrant of right breast Breast erythema Jae Bocanegra MD Procedures [facility] US Breast Rt MM [place] Breast Rt [address] [place] [address] Referral ID Status Reason Start Date Expiration Date Visits V isits Requested Authorized [id number] Incomplete 10/05/2021 01/04/2023 1 1 Encounter Details Date Type Department Care Team Description 10/09/2021 Ancillary [facility] 3850 Jae Bocanegra Breas t tenderness in female; Procedure Mammography Mass of upper outer quadrant of right br east; 3850 [facility] [address] [facility] [id number] Social History Tobacco Use Types Packs/Day Years Used Date Smoking Tobacco: Never Smokeless Tobacco: Never Alcohol Use Standard Drinks/Week Comments Yes 1 (1 standard drink = 0.6 oz pure alcoho l) Sex Assigned at Date Recorded Not on file documented as of this encounter Plan of Treatment Not on filedocumented as of this encounter Procedures Procedure Name Priority Date/Time Associated Diagnosis Comme nts [facility] US BREAST RT Routine 10/09/2021 8:28 AM Breast tenderness in Results for this CDT female procedure are in Mass of upper outer the resu lts quadrant of right section. breast Breast erythema documented in this encounter Results [facility] US Breast Rt (10/09/2021 8:28 AM CDT) [...] up were discussed with the patient. The [facility] will attempt to schedule recommended follow up [...] up were discussed with the patient. [facility] will attempt to schedule recommended follow up [...] up were discussed with the patient. [facility] will attempt to schedule recommended follow up [...] up were discussed with the patient. The [facility] will attempt to schedule recommended follow up [...] condition documented in this encounter Care Teams Firer Locomotive Crane Relationship Specialty Start Date End Date Keysha Bingham PA-C PCP - General 02/05/16 [address] [place] [address] documented as of this encounter
--- OUTSIDE RECORDS SUMMARY | 2022-05-10 16:34 | XMS_ITS | Encounter Summary ---
:1980 Author Organization [employer] Address [address] [place] [address] Care Team Providers Name Role Phone Zachery Keysha Sutherland PA-C Primary Care Provider Reason for Visit Reason Comments RESULTS, TEST Encounter Details Date Type Department Care Team Description 11/03/2021 Telephone [facility] Jae Bocanegra MD RESULTS, TEST Services-FISH CLEANER [id number] [place] [address], [facility] [address] [place] [address] [place] [address] [phone] Social History Tobacco Use Types Packs/Day Years Used Date Smoking Tobacco: Never Smokeless Tobacco: Never Alcohol Use Standard Drinks/Week Comments Yes 1 (1 standard drink = 0.6 oz pure alcoho l) Sex Assigned at Date Recorded Not on file documented as of this encounter Nursing Notes Nyasia Ma LPN - 11/03/2021 1:03 PM CDT Pt notified. The patient indicates understanding of these issues and agrees with the plan. Nyasia Ma LPN - 11/03/2021 10:24 AM CDT Images from the original note were not included. Patient Call Jae Bocanegra MD [facility] 2 days ago Please call patient and relay message. Thank you. Routing comment Jae Bocanegra MD [address] Patient Dx with granulomatous mastitis with corynebacterium. She is s/p augmentin. Tx consists of expectant mgmt vs 7-14 day course of doxycycline 100mg BID PO. ?? Patient to take 14 day course unless rapid improvement. Note that resolution is typically slow, non-surgical, and can take up to 2 years to completely resolve. This is not a sign of cancer. Documentation ?? documented in this encounter Plan of Treatment Not on filedocumented as of this encounter Visit Diagnoses Not on filedocumented in this encounter Care Teams Knit Goods Washer Relationship Specialty Start Date End Date Keysha Bingham PA-C PCP - General 02/05/16 [place] [address] documented as of this encounter
--- OUTSIDE RECORDS SUMMARY | 2022-05-10 16:34 | XMS_ITS | Encounter Summary ---
:1980 Author Organization [facility] Address [address] [place] [address] Care Team Providers Name Role Phone Zachery Keysha Sutherland PA-C Primary Care Provider Reason for Visit Procedure/Equipment (Routine) - Incomplete Specialty Diagnoses / Procedures Referred By Contact Refer red To Contact Diagnoses Abnormal finding on mammography Jae Bocanegra MD [place] [address] [place] [address] Referral ID Status Reason Start Date Expiration Date Visits V isits Requested Authorized [id number] Incomplete 10/16/2021 01/15/2023 1 1 Encounter Details Date Type Department Care Team Description 10/23/2021 Ancillary [facility] 3850 Jae Bocanegra Abnor mal finding on Procedure Mammography MD mammography 3850 [facility] [address] [place] [facility] [address] [phone] Social History Tobacco Use Types Packs/Day Years [...] Comme nts MM US BREAST RT Routine 10/23/2021 9:34 AM Abnormal finding on Results for this CDT mammography procedure are i n the results section. documented in this encounter Results (ABNORMAL) MM US Breast Rt (10/23/2021 9:34 AM CDT) Anatomical Region Laterality Modality Breast Right Ultrasound Specimen (Source) Anatomical Collection Method Collection Time Re ceived Time Location / / Volume Laterality 10/23/2021 9:23 AM CDT Impressions 10/23/2021 10:02 AM CDT HISTORY: Short interval follow-up for presumed right breast mastitis. Patient has completed her antibiotics. Patient denies current fever/chills, pain or redness. No nipple discharge. Patient is not breast-feeding. COMPARISON: 10/09/2021 ?? FINDINGS: ??Ultrasound of the right jonathon st was performed. Again demonstrated is a heterogeneous irregular masslike lesion centered at 10:00, 4 cm from the nipple, extending into the subareolar region. T his is difficult to measure, but measure s on the order of 6 x 2 x 4.3 cm. No drainable fluid collection. No skin thickening. IMPRESSION: ??ACR BI-RADS CATEGORY 4: Galeano spicious abnormality. Biopsy should be considered. ?? RECOMMENDATION: Ultrasound guided right breast biopsy ?? The results of this examination and stefanie mmended follow up were discussed with the patient. The [facility] will attempt to schedule recommended follow up with the patient. Procedure Note Nelly Salvador MD - 10/23/2021Formatti ng of this note might be different from the original. IMPRESSION HISTORY: Short interval follow-up for pr esumed right breast mastitis. Patient has completed her antibiotics. Patient denies current fever/chills, pain or redness. No nipple discharge. Patient is not breast-feeding. COMPARISON: 10/09/2021 FINDINGS: Ultrasound of the right breast was performed. Again demonstrated is a heterogeneous irregular masslike lesion centered at 10:00, 4 cm from the nipple, extending into the subareolar region. This is difficult to measure, but measures on th e order of 6 x 2 x 4.3 cm. No drainable fluid collection. No skin thickening. IMPRESSION: ACR BI-RADS CATEGORY 4: Susp icious abnormality. Biopsy should be considered. RECOMMENDATION: Ultrasound guided right breast biopsy The results of this examination and stefanie mmended follow up were discussed with the patient. The [facility] will attempt to schedule recommended follow up with the patient. Jae Bocanegra MD RAD YEMI documented in this encounter Visit Diagnoses Diagnosis Abnormal finding on mammography Abnormal mammogram, unspecified documented in this encounter Care Teams Territory Sales Executive Relationship Specialty Start Date End Date Keysha Bingham, PA-C PCP - General 02/05/16 [address] [place] [address] documented as of this encounter
--- OUTSIDE RECORDS SUMMARY | 2022-05-10 16:35 | XMS_ITS | Encounter Summary ---
:1980 Author Organization [facility] Address [address] [place] [address] Care Team Providers Name Role Phone Keysha Bingham PA-C Primary Care Provider Reason for Visit Reason Comments Refill levothyroxine (SYNTHROID) 75 MCG tablet [Pharmacy Med Name: LEVOTHYROXINE SODIUM 75MCG TABS] Encounter Details Date Type Department Care Team Description 11/08/2016 Refill Martin Morales, Refill (levothyroxine 1884 Miaminirmala Maher PA-C (SYNTHROID) [address] [place] [address] [address] [Pharmacy Med Name: [phone] [place] [address] LEVOTHYROXINE SODIUM 75MCG [phone] TABS]) (Work) Social History Tobacco Use Types Packs/Day Years Used Date Smoking Tobacco: Never Alcohol Use Standard Drinks/Week Comments Yes 1.7 (1 standard drink = 0.6 oz pure [place] holic Drinks/day: Amount:1-2 alcohol) drinks; Freq:- ; Sex Assigned at Date Recorded Not on file documented as of this encounter Nursing Notes Carlin Piña, RN - 11/09/2016 9:45 AM CDT Renewed medication per medication refill protocol. Requested Prescriptions Pending Prescriptions Disp Refills levothyroxine (SYNTHROID) 75 MCG tablet [Pharmacy Med Name: LEVOTHYROXINE SODIUM 75MCG TABS] 90 Tab0 Sig: TAKE ONE TABLET BY MOUTH EVERY DAY Interface, Out LawBite Query - 11/08/2016 10:15 PM CDT levothyroxine (SYNTHROID) 75 MCG tablet [Pharmacy Med Name: LEVOTHYROXINE SODIUM 75MCG TABS] Medication started: 03/03/2011 Last ordered by MARTIN CASTANEDA: 09/03/2015 (432 days ago) QTY: 90, Refills: 3, Sig: take 1 tablet by mouth daily (every 24 hours). (changed but equivalent) -> Refill x 3 months (courtesy refill, overdue for a(n) Thyroid Stimulating Hormone check) Last qualifying visit: 07/30/2016 (with MARTIN CASTANEDA) Next scheduled visit: None Thyroid Stimulating Hormone: 2.69 uIU/mL on 09/03/2015 PATIENT IS DUE FOR: - TSH (PN ONLY) (Sent to [facility]) Powered by Tablo, Reference: [id number], 11/08/2016 10:15:48 PM CDT, Pool: NIRMALA REFILL ([id number]) documented in this encounter Plan of Treatment Not on filedocumented as of this encounter Visit Diagnoses Not on filedocumented in this encounter Care Teams Sap Technical Architect Relationship Specialty Start Date End Date Keysha Bingham PA-C PCP - General 02/05/[address] [place] [address] documented as of this encounter
--- OUTSIDE RECORDS SUMMARY | 2022-05-10 16:35 | XMS_ITS | Encounter Summary ---
:1980 Author Organization [employer] Address [address] [place] [address] Care Team Providers Name Role Phone Keysha Bingham PA-C Primary Care Provider Reason for Visit Reason Comments Dental Conversion [facility] to [place] convers ion Encounter Details Date Type Department Care Team Description 11/11/2016 Dental Conversion [facility] Dental Conversion [address] [place], [place] [address] Social History Tobacco Use Types Packs/Day Years Used Date Smoking Tobacco: Never Assessed Sex Assigned at Date Recorded Not on file documented as of this encounter Progress Notes Bob Hutchinson - 03/27/2003 12:00 AM CDT called pt. regarding surgery yesterday. Pt. c/o of swelling, some pain but controled with Vicodan. Doesn't have ibuprophen. May pick some up, instructed to to take three q6hrs. for swelling x3-4 days. May switch to warm soft foods today, and warm compresses if it feels better than ice. pt. instructed to call back if pete further questions develope. KSW-RN Encounter Note documented in this encounter Plan of Treatment Not on filedocumented as of this encounter Visit Diagnoses Not on filedocumented in this encounter Care Teams Lobster Catcher Relationship Specialty Start Date End Date Keysha Bingham PA-C PCP - General 02/05/16 [address] [place], [place] [address] documented as of this encounter
--- OUTSIDE RECORDS SUMMARY | 2022-05-10 16:35 | XMS_ITS | Encounter Summary ---
:1980 Author Organization [employer] Address [address] [place] [address] Care Team Providers Name Role Phone Zachery Keysha Sutherland PA-C Primary Care Provider Reason for Visit Reason Comments Routine Visit Encounter Details Date Type Department Care Team Description 10/12/2017 Routine [facility] Akash Monroe Ro utine Services-INFORMATION SYSTEMS MANAGER Visit [id number] [facility], [address] [place] [address] Social History Tobacco Use Types Packs/Day Years Used Date Smoking Tobacco: Never Smokeless Tobacco: Former Alcohol Use Standard Drinks/Week Comments No 0 (1 standard drink = 0.6 oz pure alcoho l) currently Sex Assigned at Date Recorded Not on file documented as of this encounter Last Filed Vital Signs Vital Sign Reading Time Taken Comments Blood Pressure 112/61 10/12/2017 4:51 PM CDT Pulse 86 10/12/2017 4:51 PM CDT Temperature - - Respiratory Rate - - Oxygen Saturation - - Inhaled Oxygen Concentration - - Weight 76.5 kg (168 lb 9.6 oz) 10/12/2017 4:51 PM CDT Height - - Body Mass Index 28.49 08/16/2017 2:40 PM CDT documented in this encounter Progress Notes Akash Monroe MD - 10/12/2017 4:40 PM CDT Patient has no complaints. Level II ultrasound is scheduled for 20 weeks gestation. Return to clinicin [address] Monroe documented in this encounter Plan of Treatment Not on filedocumented as of this encounter Visit Diagnoses Diagnosis Supervision of high risk in se cond trimester - Primary Unspecified high-risk AMA (advanced maternal age) primigravida 35+, first trimester documented in this encounter Care Teams Mortgage Banker Relationship Specialty Start Date End Date Keysha Bingham PA-C PCP - General 02/05/[address] [place] [place] [address] documented as of this encounter
--- OUTSIDE RECORDS SUMMARY | 2022-05-10 16:35 | XMS_ITS | Encounter Summary ---
:1980 Author Organization [facility] Address [address] [place] [address] Care Team Providers Name Role Phone Keysha Bingham PA-C Primary Care Provider Encounter Details Date Type Department Care Team Description 11/08/2016 Refill Order [facility] Keysha Bingham PA-C [address] [place] [address] [place] [phone] (Wo rk) Social History Tobacco Use Types Packs/Day Years Used Date Smoking Tobacco: Never Alcohol Use Standard Drinks/Week Comments Yes 1.7 (1 standard drink = 0.6 oz pure [place] holic Drinks/day: Amount:1-2 alcohol) drinks; Freq:2-4/Tue ; Sex Assigned at Date Recorded Not on file documented as of this encounter Nursing Notes Ginette Orona - 11/09/2016 9:55 AM CDT Labs to be addressed at future visit. Interface, Out Surescripts Prov Query - 11/08/2016 10:15 PM CDT SCHEDULE THE FOLLOWING: - TSH (PN ONLY) BY: Now (Due as of 08/28/2016) - LAST QUALIFYING VISIT WITH ZARA CASTANEDA Elizabeth: 07/30/2016 - NEXT SCHEDULED VISIT: None - NEXT LAB APPOINTMENT: None Powered by [employer]en[employer], Reference: [id number], 11/08/2016 10:15:48 PM CDT, Pool: NIRMALA WUILL ([id number]) Electronically signed by Interface, Out CRMnextriTubing Operations for [employer] ([employer].H[employer] Prov Query at 11/09/2016 9:55 AM CDT documented in this encounter Plan of Treatment Not on filedocumented as of this encounter Visit Diagnoses Diagnosis Encounter for long-term (current) use of medications - Primary Encounter for long-term (current) use of other medications documented in this encounter Care Teams Boot Trimmer Relationship Specialty Start Date End Date Keysha Bingham PA-C PCP - General 02/05/16 [address] [place], [place] [address] documented as of this encounter
--- OUTSIDE RECORDS SUMMARY | 2022-05-10 16:35 | XMS_ITS | Encounter Summary ---
:1980 Author Organization [employer] Address [address] [place] [address] Care Team Providers Name Role Phone Keysha Bingham PA-C Primary Care Provider Reason for Visit Procedure/Equipment (Routine) - Incomplete Specialty Diagnoses / Procedures Referred By Contact Refer red To Contact Diagnoses AMA (advanced maternal age) primigravida 35+, first trimester Akash Monroe MD Procedures Dionne US Level 2, Echo Dionne US Level 2 [address] [place] [address] Referral ID Status Reason Start Date Expiration Date Visits V isits Requested Authorized [id number] Incomplete 09/12/2017 12/12/2018 10 10 Encounter Details Date Type Department Care Team Description 11/08/2017 Imaging [facility] Akhil Monroe MD AMA (advanced maternal Medicine [address] [address]) primigravida 35+, [address] [facility] [place], [place] firs t trimester [address] [address] [place], [place] [phone] (Wo rk) [address] [phone] Social History Tobacco Use Types Packs/Day Years [...] Name Priority Date/Time Associated Diagnosis Comme nts MFM US LEVEL 2, Routine 11/08/2017 3:51 PM AMA (advanced Resul ts for this ECHO CDT maternal age) procedure are in primigravida 35+, the result s first trimester section. documented in this encounter Results Dionne US Level 2, Echo (11/08/2017 3:51 PM CDT) Anatomical Region Laterality Modality Pelvis Ultrasound Study GA Study Date Study DEAN Working DEAN (Source) W eight (Method) 18w6d 11/08/2017 04/05/2018 315 g (Hadlock 1984 (BPD, HC, AC, FL) )320 g (Had lock 1984 (AC, FL) )318 g (Hadlock 1984 (BPD, AC, FL) )310 g (Had lock 1984 (HC, AC, FL) )327 g (Had lock 1983 (AC) )295 g (Hadlock 1983 (HC, AC) )313 g (Arndt 1981 (BPD, AC) ) Result Name Value Comments GA by US Calc 136 days 136 BPD 4.52 cm 138 HC 16.42 cm 134 AC 14.52 cm 139 FL 3.2 cm 140 HL 3.06 cm FL/BPD 70.8 % FL/AC 22.04 % HC/AC 1.13 CI 78.07 % JESSICA Lateral Ventricle CER 1.95 cm Foot Max Vertical Pocket FHR 148 bpm UAR - PSV UAR - S/D Ratio UAR - RI UAR - PI MCA - PSV MCA - S/D Ratio MCA - PI Cisterna Magna .41 cm NF .43 cm Specimen (Source) Anatomical Location Collection Method / Collectio n Time Received Time / Laterality Volume Impressions 11/08/2017 6:03 PM CDT : Miller intrauterine at 18w6d gestational age. INDICATIONS: Left EIF (echogenic intrac ardiac focus) noted on screening US. ??Declined aneuploidy screening. --Biometric measures are consistent with dates, suggesting a mean gestational age of 19 weeks 3 days. --Targeted anatomic survey is nega tive for structural abnormalities within the limits of visua lization. --An isolated left EIF is seen. --No other aneuploidy markers are visual ized. -- echocardiogram is negative for s tructural cardiac abnormalities. --Amniotic fluid volume is normal. --There is no evidence of placenta previ a. The US findings were discussed with the patient. The limitations of US in the detection of congenital abnormalitie s and aneuploidy were discussed. The patient was counseled that only 50-7 0% of fetuses with Down Syndrome will have aneuploidy markers on US. ??Co nversely, 11% of normal fetuses will have at least one aneuploidy marker on targeted US. ?? The patiente was informed that an EIF ge nerally represents either calcium within a chordae of the mitral valve or the papillary muscle, which is a dense muscle bundle in the left ventricl e to which the mitral valve leaflets anchor. ??It is NOT a cardiac a bnormality, does not affect the health or well-being of their baby, and does not require US follow-up. Its clinical significance is based on a weak association with Down syndrome. ?? Since an EIF is found on US in 3-5% of n ormal fetuses, the vast majority of fetuses with the finding are normal. I discussed the controversy regarding t he significance of an isolated EIF in increasing risk of aneuploidy with th e couple. ??Many experts feel that in the absence of other risk factors or markers, an isolated EIF does not significantly increase the risk of aneup loidy and may be considered a normal variant. ??Other experts feel dusty t it increases the risk of aneuploidy by a factor of about 2.0, whi ch in the case of this 37 year old patient (who will be 38 yo at the time o f delivery), would increase her risk of Down Syndrome from a baseline of 1 in 281 to approximately 1 in 140. ??This was discussed in detail with the patient and her hmother. ?? Options for aneuploidy detection, includ ing maternal serum screening, NIPT, and genetic amniocentesis were dis cussed and offered. ??All the patient's questions were answered. ??Aft er our discussion, the patient ?? stated she is not interested in addition al aneuploidy testing at this time. Thank you for allowing us to participate in the care of this very pleasant patient. Please do not hesitate to conta ct us if questions or concerns arise. Counseling time: 20 mins Total time: 30 mins Narrative 11/08/2017 6:03 PM CDT Patient Name: Trina Man ??Digital Marketing Consultant: Lonnie Dumont RDMS Patient ??GA Prior to Exam : 18w6d , Age: 10 1980, 37 y.o. ??GA by To day's US: 19w3d LMP: Patient's last menstrual period was 06/21/2017 (exact date). ??GA Selected: 18w6d by Prior US Pregnancies: ??DENA Selected: 2017 Hx/Indications: AMA No Screening ? Evaluation Gestation Type Miller Cardiac Activity Present Heart Rate 148 bpm Motion Normal Presentation Cephalic Placenta Location Posterior Placenta Appearance/Findings Normal ?? Amniotic Fluid Normal Placenta Cord Insertion Normal ?? Biometry & Growth Measurement Percentage GA Ratios ?? BPD 4.52 cm 82% 19w5d FL/BPD 70.8 % HC 16.42 cm 58% 19w1d FL/AC 22.04 % AC 14.52 cm 77% 19w6d HC/AC 1.13 FL 3.2 cm 81% 20w0d CI 78.07 % HL 3.06 cm 50 - 95% ? CER 1.95 cm 50 - 90% ? Weight: 315 g (11.1 oz), 92% ?? Anatomy Finding Normal Abnormal Inadequately Vis ualized ??Finding Normal Abnormal Inadequately Visualized Head ? Heart ? Cranium X ?Heart Rhythm Regular ? Falx X ?4 Chamber Heart X ? Cerebellum/Vermis X ?Cardiac [place] X ? Choroid Plexus X ?Cardiac Positio n X ? Cisterna Magna X ?Visceral/Abdomi nal Situs X ? Lateral Ventricle X ?AV Valves X ? Cavum Septi Pellucidi X ?Valve Mo tion X ? Face ? LVOT/AO X ? Orbits/Lenses X ?RVOT/PA X ? Lip/Nose X ?Aortic Arch X ? Profile X ?Ductal Arch X ? Nasal Bone X ?IVC/SVC X ? Spine ? 3 Vessel View X ? Spine X ?3 Vessel Trachea View X ? Chest ? Foramen Ovale X ? Thorax X ?Pulmonary Veins X ? Lungs X ?Short [place] of Ventricles X ? Pleural Effusion Absent ? Short [place] of Great Vessels X ? Abdomen ? Pericardial Effusion Absen t ? Diaphragm X ?Intraventricular Sep hardeep X ? Stomach X ?Ductus Venosus X ? Liver X ?Urinary ? Bowel X ?Right Kidney X ? Ascites Absent ? Left Kidney X ? Umbilical Cord Insertion X ?Bladd er X ? Cord Vessels Three ? Genitalia ? Extremities ? Genitalia X ? Right Upper Extremity X ?Sex ??Un disclosed ?? Left Upper Extremity X ?Skin ? Right Lower Extremity X ?Edema Ab sent ? Left Lower Extremity X ? 4 Chamber Heart: intracardiac echogenic foci is visualized in the left ventricle. ?? Maternal Evaluation Cervix Normal Uterus Normal Cervical Length (cm) Approach 4.8 Transabdominal Right Ovary Normal With Fundal Pressure (cm) N/A ?? Left Ov carmencita Normal Funneling N/A Right Adnexa Normal Cul-de-sac N/A Left Adnexa Normal Impression Akash Monroe MD RAD DIONNE documented in this encounter Visit Diagnoses Diagnosis AMA (advanced maternal age) primigravida 35+, first trimester documented in this encounter Care Teams Township Clerk Relationship Specialty Start Date End Date Keysha Bingham PA-C PCP - General 02/05/16 [address] [place] [address] documented as of this encounter
--- OUTSIDE RECORDS SUMMARY | 2022-05-10 16:35 | XMS_ITS | Encounter Summary ---
:1980 Author Organization [employer] Address [address] [place] [address] Care Team Providers Name Role Phone Keysha Bingham PA-C Primary Care Provider Encounter Details Date Type Department Care Team Description 08/16/2017 Lab Visit [facility] mellitus; [facility] Lab Encounter for blood typing; [address] [facility] screening for isoimmunization; [address] Screening for blood disease; [place] [address] Screening examination for ve nereal disease; [phone] [facility]; Supervision of high risk in first trimester; Encounter for d rug screening; History of thyr oid disorder Social History Tobacco Use Types Packs/Day Years Used Date Smoking Tobacco: Never Smokeless Tobacco: Former Alcohol Use Standard Drinks/Week Comments No 0 (1 standard drink = 0.6 oz pure alcoho l) currently Sex Assigned at Date Recorded Not on file documented as of this encounter Progress Notes Sarah Walter MA - 08/22/2017 9:33 AM CDT Episode/labs sent to [facility]. Aline Rodgers APRN, DEPUTY BRAND INSPECTOR - 08/19/2017 7:11 AM CDT RH negative. Will need Rhogam. Otherwise normal NOB 1 labs. Please send copy to [facility]. Patientnotified via [employer]. documented in this encounter Plan of Treatment Not on filedocumented as of this encounter Procedures Procedure Name Priority Date/Time Associated Diagnosis Comme nts DRUGS OF ABUSE Routine 08/16/2017 5:06 Encounter for drug Resu lts for this SCREEN, URINE, W/ PM CDT screening procedure are in CONF the results section. URINALYSIS Routine 08/16/2017 5:06 Supervision of high Resul ts for this ROUTINE(MICRO IF PM CDT risk in first procedure are in POS) trimester the results section. RUBELLA IMMUNE Routine 08/16/2017 3:36 Screening examination R esults for this STATUS, IGG PM CDT for rubella procedure are i n the results section. HIV-1 P24 AND Routine 08/16/2017 3:36 Screening examination Re sults for this HIV-1/HIV-2 PM CDT for venereal disease procedu re are in ANTIBODIES the results section. BLOOD GROUP & RH Routine 08/16/2017 3:36 Encounter for blood R esults for this (BT) PM CDT typing procedure are i n the results section. ANTIBODY SCREEN Routine 08/16/2017 3:36 screening fo r Results for this PM CDT isoimmunization procedure ar e in the results section. HEPATITIS B NORMA, Routine 08/16/2017 3:36 Results for this QUANTITATIVE PM CDT procedure are i n the results section. TREPONEMA SCREEN Routine 08/16/2017 3:36 Screening examination Results for this PM CDT for venereal disease procedu re are in the results section. HEP B SURFACE Routine 08/16/2017 3:36 Screening examination Re sults for this ANTIGEN, NO REFLEX PM CDT for venereal disease p rocedure are in the results section. COMPLETE BLOOD Routine 08/16/2017 3:36 Screening for blood Res ults for this COUNT-W/DIFF PM CDT disease procedure are i n the results section. DIFFERENTIAL Routine 08/16/2017 3:36 Results for this PM CDT procedure are i n the results section. TSH, SENSITIVE (WITH Routine 08/16/2017 3:36 History of thyroi d Results for this REFLEX) PM CDT disorder procedure are i n the results section. HGB A1C Routine 08/16/2017 3:36 Screening for diabetes Re sults for this PM CDT mellitus procedure are i n the results section. URINE CULTURE Routine 08/16/2017 12:00 Supervision of high Res ults for this PM CDT risk in first proc edure are in trimester the results section. documented in this encounter Results Drugs of Abuse Screen, Urine, w/ conf (08/16/2017 5:06 PM CDT) [facility] Method Time Signature Creatinine,Urine,T 44.2 mg/dL PN SOFT ox Alcohol Urine Negative Negative PN SOFT Amphetamine Urine Negative Negative PN SOFT Barbituate Urine Negative Negative PN SOFT Benzodiazepine Negative Negative PN SOFT Urine Cocaine Urine Negative Negative PN SOFT Methadone Urine Negative Negative PN SOFT Opiate Urine Negative Negative PN SOFT Oxycodone Urine Negative Negative PN SOFT Phencyclidine Negative Negative PN SOFT Urine THC Urine Negative Negative PN SOFT Comment: The absence of expected drug(s) and/or d rug metabolite(s) may indicate non-compliance, inappropiate ti vera of specimen collection relative to drug administrati on, poor drug absorption, diluted/adulterated urine, or limitation s of testing. The concentration must be greater than or eq ual to the cutoff concentration to be reported as positive . For medical purposes only; not valid for forensic, legal or e mployment use. Specimen Anatomical Collection Method Collection Time Receive d Time (Source) Location / / Volume Laterality 08/16/2017 5:06 PM 8 CDT 10:51 PM CDT Narrative PN SOFT - 08/16/2017 10:52 PM CDT Performed at [facility], [address] [place] [address] CLIA number [id number] Aline Rodgers APRN, ADRIEN LAB_1 Performing Organization Address City/State/ZIP Code Phon e Number PN SOFT [address] [place] [address] Urinalysis Routine(Micro If Pos) (08/16/2017 5:06 PM CDT) [facility] Method Time Signature Urine Type URINE:clean PN SOFT cat Turbidity Clear Clear PN SOFT U BILI Negative Negative PN SOFT Blood Urine Negative Neg - Trace PN SOFT Glucose, Negative Neg-30 PN SOFT Qualitative U mg/dL Ketones Negative Negative PN SOFT Leukocyte Negative Negative PN SOFT Esterase Urine Nitrite Urine Negative Negative PN SOFT pH Urine 5.5 5.0 - 8.0 PN SOFT Protein Urine Negative Neg - Trace PN SOFT mg/dL U Specific <=1.005 1.005 - PN SOFT [place] 1.030 Urobilinogen Negative Negative PN SOFT Urine Eu/dL Specimen Anatomical Collection Method Collection Time Receive d Time (Source) Location / / Volume Laterality Urine 08/16/2017 5:06 PM 8 5:06 CDT PM CDT Narrative PN SOFT - 08/16/2017 5:20 PM CDT Performed at [facility], [facility] [address] [place] [address] CLIA number [id number] Aline Rodgers APRN, CNP LAB_1 Performing Organization Address [facility] Phon e Number PN SOFT [address] [place] [address] Differential (08/16/2017 3:36 PM CDT) athologist Signature Absolute 6.3 1.8 - 8.0 PN SOFT Neutrophils k/cmm Absolute 2.0 1.1 - 4.0 PN SOFT Lymphocytes k/cmm Absolute 0.5 0.2 - 0.8 PN SOFT Monocytes k/cmm Absolute 0.1 0.0 - 0.5 PN SOFT Eosinophils k/cmm Absolute 0.1 0.0 - 0.2 PN SOFT Basophils k/cmm Immature 0.4 0.0 - 0.5 PN SOFT Granulocytes % Specimen Anatomical Collection Method Collection Time Receive d Time (Source) Location / / Volume Laterality 08/16/2017 3:36 PM 8 5:05 CDT PM CDT Narrative PN SOFT - 08/16/2017 5:46 PM CDT Performed at [facility], [facility] [address] [place] [id number] CLIA number [id number] Aline Rodgers APRN, CNP LAB_1 Performing Organization Address [facility] Phon e Number PN SOFT [address] [place] [address] [phone] Hepatitis B Norma, Quantitative (08/16/2017 3:36 PM CDT) [facility] Method Time Signature Hep B Surf Ab Reactive Nonreactive PN SOFT Hep B Ab Quant 46 mIU/mL PN SOFT Specimen Anatomical Collection Method Collection Time Receive d Time (Source) Location / / Volume Laterality 08/16/2017 3:36 PM 8 6:15 CDT PM CDT Narrative PN SOFT - 08/16/2017 6:59 PM CDT Performed at [address] [address] CLIA number [id number] Aline Rodgers APRN, CNP LAB_1 Performing Organization Address [facility] Phon e Number PN SOFT [address] [place] [address] TSH with Free T4 (if TSH Abnormal) (08/16/2017 3:36 PM CDT) athologist Signature Thyroid 4.13 0.30 - PN SOFT Stimulating 4.50 Hormone uIU/mL Specimen Anatomical Collection Method Collection Time Receive d Time (Source) Location / / Volume Laterality 08/16/2017 3:36 PM 8 6:16 CDT PM CDT Narrative PN SOFT - 08/16/2017 6:55 PM CDT Performed at [address] [address] CLIA number [id number] Aline Rodgers APRN, CNP LAB_1 Performing Organization Address [facility] Phon e Number PN SOFT [address] [place] [address] Rubella Immune Status, IgG (08/16/2017 3:36 PM CDT) [facility] Method Time Signature Rubella Immune Immune PN SOFT Intepretation Rubella Units 1.20 >0.99 IV PN SOFT Comment: The magnitude of the measured result, ab ove the cutoff, is not indicative of the amount of antibody present. Specimen Anatomical Collection Method Collection Time Receive d Time (Source) Location / / Volume Laterality 08/16/2017 3:36 PM 8 6:15 CDT PM CDT Narrative PN SOFT - 08/17/2017 8:56 AM CDT Performed at [address] [address] CLIA number [id number] Aline Rodgers APRN, CNP LAB_1 Performing Organization Address [facility] Phon e Number PN SOFT [address] [place] [phone] Treponema Screen (08/16/2017 3:36 PM CDT) [facility] Method Time Signature Treponema Non Reactive Non Reactive PN SOFT Screen Specimen Anatomical Collection Method Collection Time Receive d Time (Source) Location / / Volume Laterality 08/16/2017 3:36 PM 8 6:15 CDT PM CDT Narrative PN SOFT - 08/16/2017 6:55 PM CDT Performed at [address] [address] CLIA number [id number] Aline Rodgers APRN, CNP LAB_1 Performing Organization Address [facility] Phon e Number PN SOFT [address] [place] [address] LAB HIV-1 p24 AND HIV-1/HIV-2 ANTIBODIES (08/16/2017 3:36 PM CDT) [facility] Method Time Signature HIV-1 p24 Ag Nonreactive Nonreactive PN SOFT and HIV-1/HIV-2 Ab Specimen Anatomical Collection Method Collection Time Receive d Time (Source) Location / / Volume Laterality 08/16/2017 3:36 PM 8 6:15 CDT PM CDT Narrative PN SOFT - 08/16/2017 6:59 PM CDT Performed at [address] [address] CLIA number [id number] Aline Rodgers APRN, CNP LAB_1 Performing Organization Address [facility] Phon e Number PN SOFT [address] [place] [address] HEP B SURFACE ANTIGEN, NO REFLEX (08/16/2017 3:36 PM CDT) Patholo gist Method Time Signature Hep B Surf Ag Nonreactive Nonreactive PN SOFT Specimen Anatomical Collection Method Collection Time Receive d Time (Source) Location / / Volume Laterality 08/16/2017 3:36 PM 8 6:15 CDT PM CDT Narrative PN SOFT - 08/16/2017 6:59 PM CDT Performed at [place] [address] [place] [address] CLIA number [id number] Aline Rodgers APRN, CNP LAB_1 Performing Organization Address [facility] Phon e Number PN SOFT [address] [place] [address] HEMOGRAM/PLTS/DIFF (08/16/2017 3:36 PM CDT) P athologist Signature White Blood Cell 9.0 3.8 - 11.0 PN SOFT Count k/cmm Red Blood Cell 4.19 3.70 - PN SOFT Count 5.20 m/cmm Hemoglobin 12.6 11.8 - PN SOFT 15.5 g/dL Hematocrit 36.3 35.0 - PN SOFT 46.0 % Mean Corpuscular 86.6 80.0 - PN SOFT Volume 100.0 fL RDW 12.5 11.0 - PN SOFT 15.0 % Platelet Count 266 140 - 450 PN SOFT k/cmm Specimen Anatomical Collection Method Collection Time Receive d Time (Source) Location / / Volume Laterality 08/16/2017 3:36 PM 8 5:05 CDT PM CDT Narrative PN SOFT - 08/16/2017 5:46 PM CDT Performed at [facility], [address] [place] [address] CLIA number [id number] Aline Rodgers APRN, CNP LAB_1 Performing Organization Address City/[facility] Phon e Number PN SOFT [address] [place] [address] Antibody Screen (08/16/2017 3:36 PM CDT) athologist [facility] Antibody Screen NEG PN SOFT Specimen Anatomical Collection Method Collection Time Receive d Time (Source) Location / / Volume Laterality 08/16/2017 3:36 PM 8 6:31 CDT PM CDT Narrative PN SOFT - 08/16/2017 8:57 PM CDT Performed at [address] [address] CLIA number [id number] Aline Rodgers APRN, CNP PN BLOOD BANK ORDERS Performing Organization Address [facility] Phon e Number PN SOFT [address] [place] [address] Blood Group & RH (Blood Type) (08/16/2017 3:36 PM CDT) athologist [facility] Blood Type B NEG PN SOFT Specimen Anatomical Collection Method Collection Time Receive d Time (Source) Location / / Volume Laterality 08/16/2017 3:36 PM 8 6:31 CDT PM CDT Narrative PN SOFT - 08/16/2017 8:57 PM CDT Performed at [address] [address] CLIA number [id number] Aline Rodgers APRN, CNP PN BLOOD BANK ORDERS Performing Organization Address [facility] e Number PN SOFT [address] [place] [address] HGB A1C (08/16/2017 3:36 PM CDT) athologist [facility] HGB A1C 4.9 4.0 - 5.6 % PN SOFT Specimen Anatomical Collection Method Collection Time Receive d Time (Source) Location / / Volume Laterality 08/16/2017 3:36 PM 8 6:30 CDT PM CDT Narrative PN SOFT - 08/16/2017 9:34 PM CDT Performed at [address] [address] CLIA number [id number] Aline Rodgers APRN, CNP LAB_1 Performing Organization Address [facility] Phon e Number PN SOFT [address] [place] [address] Urine Culture (08/16/2017 12:00 PM CDT) Analysis Performed At Patho logist Time Signature Source Urine PN SOFT Site clean catch PN SOFT Urine Cuture No Growth 08/17/2017 PN SOFT After 1 Day 4:50 PM CDT Specimen (Source) Anatomical Collection Method Collection Time Re ceived Time Location / / Volume Laterality Urine:clean catch 08/16/2017 12:00 PM CDT Narrative PN SOFT - 08/17/2017 4:50 PM CDT Performed at [address] [place] [address], CLIA Number [id number] Aline Rodgers APRN, DEPUTY BRAND INSPECTOR LAB_1 Performing Organization Address [facility] Phon e Number PN SOFT [address] [place] [address] documented in this encounter Visit Diagnoses Diagnosis Screening for diabetes mellitus Encounter for blood typing screening for isoimmunization Screening for blood disease Screening for unspecified disorder of bl ood and blood-forming organs Screening examination for venereal disea se Screening examination for rubella Supervision of high risk in rst trimester Unspecified high-risk Encounter for drug screening History of thyroid disorder documented in this encounter 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
--- OUTSIDE RECORDS SUMMARY | 2022-05-10 16:35 | XMS_ITS | Encounter Summary ---
:1980 Author Organization [employer] Address [address] [place] [address] Care Team Providers Name Role Phone Keysha Bingham PA-C Primary Care Provider Reason for Referral Procedure/Equipment (Routine) - Incomplete Specialty Diagnoses / Procedures Referred By Contact Refer red To Contact Diagnoses Supervision of high risk in first trimester Aline Rodgers APRN, Procedures US OB <14 Weeks W EV Single CASHIER GREETER [address] [facility] [address] [place] [address] Referral ID Status Reason Start Date Expiration Date Visits V isits Requested Authorized [id number] Incomplete 08/16/2017 11/15/2018 1 1 Reason for Visit Reason Comments INITIAL VISIT Encounter Details Date Type Department Care Team Description 08/16/2017 Initial [facility] Aline Rodgers INITIAL Services-IT [employer]UT[employer] SALES CONSULTANT RHOWARD CNP VISIT [address] [place] [address] [facility], [address] [facility] [address] [place] [phone] (Wo rk) Social History Tobacco Use Types Packs/Day Years Used Date Smoking Tobacco: Never Smokeless Tobacco: Former Alcohol Use Standard Drinks/Week Comments No 0 (1 standard drink = 0.6 oz pure alcoho l) currently Sex Assigned at Date Recorded Not on file documented as of this encounter Last Filed Vital Signs Vital Sign Reading Time Taken Comments Blood Pressure 115/51 08/16/2017 2:40 PM CDT Pulse 62 08/16/2017 2:40 PM CDT Temperature - - Respiratory Rate - - Oxygen Saturation - - Inhaled Oxygen Concentration - - Weight 72.7 kg (160 lb 3.2 oz) 08/16/2017 2:40 PM CDT Height 163.8 cm (5' 4.5) 08/16/2017 2:40 PM CDT Body Mass Index 27.07 08/16/2017 2:40 PM CDT documented in this encounter Patient Instructions Patient InstructionsCoAline epstein APRN, CNP - 08/16/2017 2:30 PM CDT It was nice to see you for your visit today! For nausea and/or vomiting during : Vitamin B6 25 mg by mouth 1-2 tablets/day. This is an addition to the Vitamin B6 that may also be in your vitamin. For help with sleep and overnight nausea/vomiting: Unisom tablet once at bedtime if needed Small and frequent meals throughout the day will also help with early nausea. If you are having frequent vomiting, please also consider hydrating with Gatorade or Pedialyte in addition to water to prevent dehydration. Continue a vitamin once daily. Please schedule your ultrasound for confirmation and dating. We will see you in 4 weeks for your next office visit. We primarily communicate with our patient via [email or web address]. Please remember to check your [email or web address] messages as they come through to your email. documented in this encounter Progress Notes Aline Rodgers APRN, CNP - 08/17/2017 3:13 PM CDT STD probe negative. Patient notified via [employer] Betty Woodall LPN - 08/16/2017 2:30 PM CDT Lead screening negative. Aline Rodgers APRN, CASHIER GREETER - 08/16/2017 2:30 PM CDT CHIEF COMPLAINT: New Ob Visit. Trina Man is a 37 y.o. being seen today for initial care. Presents with , Manuel. Planned . LMP: Patient's last menstrual period was 06/21/2017 (exact date). Date of positive test: 07/30/17 Menstrual cycles interval: 30 d EDC based on LMP 03/28/18 Dating US: Ordered for dating and viability Working EDC is 03/28/18 based on LMP. Today's gestational age: 8W0D Current symptoms: -She denies vaginal bleeding. -She admits mild cramping. Centrally located. Denies severe unilateral pain. -She admits having nausea and denies having vomiting. Able to tolerate food and liquids without problems. Discussed Vitamin B6/Unisom and small/frequent meals. Medical History: -Hypothyroid. On levothyroxine 75 mcg daily. Managed by PCP: KRYSTIN Price Lab Results Component Value Date/Time Thyroid Stimulating Hormone 1.20 12/21/2016 1601 Thyroid Stimulating Hormone 2.69 09/03/2015 0918 Review of Systems: With the exception of any items noted above, the remainder of the complete ROS is negative. Obstetric History T0 L0 SAB0 TAB0 Ectopic0 Multiple0 Live Births0 # Outcome Date GA Lbr Chuck/2nd Weight Sex Delivery Anes PTL Lv 1 Current Past Medical History: Diagnosis Date ??? Hypothyroidism (HRC) ??? Pap smear abnormality of cervix ??? Unspecified disorder of thyroid (HRC) 03/03/2011 ??? Varicella -Last pap smear: , normal cytology -History of abnormal: YES, with repeat pap smears that were normal. Hx of LEEP/Cryo: no. -Immunizations: Varicella as a child: YES Flu Vaccine: would not accept the flu vaccine today. Patient was counseled on increased risk for morbidity and mortality should she contract the flu during , as well as increased risk for stillbirth. Tdap: Will update at 28 weeks of -Infections: History of STDs: no Hx of TB: no, lived with someone who had TB: no Cat exposure: no Hx of travel outside of [place]: denies -Negative history of a blood transfusion. She would accept blood products if needed. Medications: Current Outpatient Prescriptions Medication Sig Dispense Refill ??? levothyroxine (SYNTHROID) 75 MCG tablet Take 1 Tab by mouth daily. 90 Tab 3 ??? vitamin-ferrous fumarate-folic acid (PRENATALPLUS) 27-1 MG tablet Take 1 Tab by mouth daily. No current facility-administered medications for this visit. Allergies: No Known Allergies PSH: Past Surgical History: Procedure Laterality Date ??? WISDOM TEETH EXTRACTION age 21 FHX: Family History Problem Relation Age of Onset ??? Hypertension Father ??? DVT/PE Father post op ??? Alzheimer's Maternal Grandmother ??? Cancer Paternal Grandfather Genetic History: -Genetic history section reviewed in EMR. -Patient is AMA at delivery. -Mother's ethnicity: White -Father's ethnicity: White. -Denies genetic conditions in her or the father of the baby's family history. -Pt denies FHX of blood clots/clotting disorder. Social History: -Marital status: -Unable to assess for domestic violence as partner present during entire appointment. 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 Overweight HEENT: Pupils equal, sclera clear. Oropharynx normal. Neck: Supple, without thyromegaly or mass. Breasts: normal appearance, no masses or tenderness CV: Regular rate and rhythm. No murmur. Resp: Clear to auscultation Abdomen: soft, non-tender, without masses or organomegaly Lymphatic: No neck, supraclavicular, axillary or groin lymphadenopathy. Lower Extremities: FROM, normal gait without edema, lesions, or deformity. Genitourinary: External genitalia: normal without lesions. Vagina: normal appearing vaginal epithelium, no discharge. No lesions. Cervix: No cervical motion tenderness, normal appearance without discharge or lesions. Pap, STD culture obtained. Uterus: 8 wk size, shape, consistency and nontender. FHTs: US ordered for dating and viability. Adenexa: normal size, nontender, no masses. Anus: normal, no hemorrhoids. Rectal: deferred. Bladder: Nontender, no palpable masses Urethra: Nontender, no discharge Skin: No lesions. Neuro: Motor & sensory function all intact. Psychiatric: Alert & oriented with normal affect and insight. Patient does not appear depressed or anxious. ASSESSMENT: New OB visit AMA Hypothyroid Overweight PLAN: New OB labs including: Pap smear, CBC, blood type, antibody screen, rubella status, HIV, hepatitis B, RPR, STD culture, UA/UC, hemoglobin A1C, TSH, urine drug screen. Verbal consent obtained for urine drug screen. Medications: vitamin daily. Unisom/Vitamin B6 p.r.n. nausea. Continue levothyroxine at current dosage. Discussed thyroid monitoring q trimester and medication may require dose adjustments during . US: Ordered for dating and viability. PN Your Guide to Booklet reviewed. Discussed genetic screens, diagnostic tests per ACOG guidelines appropriate for age and history. Pt is AMA and is undecided on genetic screening. She will check insurance and call for apt if interested. Explained these are time sensitive tests. Discussed diet and weight gain recommendations during : - If BMI 18.5 and below recommended weight gain 28-40# - If BMI 18.5-24.5 recommended weight gain 25-35# - If BMI 25-29.9 recommended weight gain 15-25# - If BMI above 30 recommended weight gain 11-20 # Follow-up in 4 weeks 50 minutes of a 60 minute visit spent on reviewing medical history, counseling the patient regardingOB department orientation and education noted in Teresa Vaz Guide to Booklet including a optional genetic screens and diagnostic tests. Dictation disclaimer: Some notes are completed with voice-recognition dictation software. Typographical errors may result. Please contact me via [employer] staff message if you note any errors requiring clarification. documented in this encounter Plan of Treatment Not on filedocumented as of this encounter Procedures Procedure Name Priority Date/Time Associated Diagnosis Comme nts PAP TEST ORDER Routine 08/16/2017 3:54 PM Screening for Result s for this CDT malignant neoplasm procedure are in of cervix the results section. HPV WITH 16 18 Routine 08/16/2017 3:54 PM Results for this GENOTYPING, CDT procedure are i n CERVICAL/ENDOCERVICA the res ults L section. ANATOMICAL PATH Routine 08/16/2017 3:54 PM Result s for this LIQUID BASED CDT procedure are i n the results section. CHLAMYDIA & GC (14 Routine 08/16/2017 3:54 PM Screening Res ults for this YEARS AND OLDER) CDT examination for procedur e are in venereal disease the results section. documented in this encounter Results US OB <14 Weeks W EV Single (08/17/2017 1:18 PM CDT) Anatomical Region Laterality Modality Pelvis Ultrasound Study GA Study Date Study DEAN Working DEAN (Source) W eight (Method) Result Name Value Comments FHR 148 bpm GA by US Calc 49 days 49 CRL .97 cm 49 Specimen (Source) Anatomical Collection Method Collection Time Re ceived Time Location / / Volume Laterality 08/17/2017 12:45 PM CDT Impressions 08/17/2017 1:27 PM CDT IMPRESSION: Single living IUP 7 weeks 0 days gestation. Narrative 08/17/2017 1:27 PM CDT COMPARISON: None TECHNIQUE: ??Transabdominal and transvag inal imaging was performed. Gestational sac: Unremarkable. [place]-rump length measures 1.0 cm, corre sponding to 7w0d gestational age. ?? DEAN 04/05/2018. ?? Embryonic/ cardiac activity is iden tified with heart rate 148 bpm. ?? Right Ovary: Measures 2.5 x 1.2 x 1.7 cm and appears unremarkable. Left Ovary: Measures 3.6 x 1.9 x 3.8 cm and appears unremarkable. No suspicious adnexal masses. Free Fluid: No significant free fluid. GA by LMP:: ??8w1d GA by Prior US: ??n/a GA by today's US: ??7w0d DEAN by today's US: 04/05/2018 Procedure Note Oskar Bailey MD - 08/17/2017Format ting of this note might be different from the original. COMPARISON: None TECHNIQUE: Transabdominal and transvagin al imaging was performed. Gestational sac: Unremarkable. [place]-rump length measures 1.0 cm, corre sponding to 7w0d gestational age. DEAN 04/05/2018. Embryonic/ cardiac activity is iden tified with heart rate 148 bpm. Right Ovary: Measures 2.5 x 1.2 x 1.7 cm and appears unremarkable. Left Ovary: Measures 3.6 x 1.9 x 3.8 cm and appears unremarkable. No suspicious adnexal masses. Free Fluid: No significant free fluid. GA by LMP:: 8w1d GA by Prior US: n/a GA by today's US: 7w0d DEAN by today's US: 04/05/2018 IMPRESSION IMPRESSION: Single living IUP 7 weeks 0 days gestation. Aline Rodgers APRN, CASHIER GREETER [facility] Drugs of Abuse Screen, Urine, w/ conf (08/16/2017 5:06 PM CDT) [facility] Method Time Signature Creatinine,Urine,T 44.2 mg/dL PN [...] - 08/16/2017 10:52 PM CDT Performed at [facility], [facility] [place] [address] CLIA number [id number] Aline Rodgers APRN, CNP LAB_1 Performing Organization Address [facility] Phon e Number PN SOFT [address] [place] [address] Urinalysis Routine(Micro If Pos) (08/16/2017 5:06 PM CDT) [facility] gist Method Time Signature Urine Type URINE:clean PN [...] U Specific <=1.005 1.005 - PN SOFT [place] 1.030 Urobilinogen Negative Negative PN SOFT Urine Eu/dL Specimen Anatomical Collection Method Collection Time Receive d Time (Source) Location / / Volume Laterality Urine 08/16/2017 5:06 PM 8 5:06 CDT PM CDT Narrative PN SOFT - 08/16/2017 5:20 PM CDT Performed at [facility], [address] [place] [address] CLIA number [id number] Aline Rodgers APRN, CNP LAB_1 Performing Organization Address [facility] Phon e Number PN SOFT [address] [place] [address] Pap Smear (08/16/2017 3:54 PM CDT) Specimen (Source) Anatomical Collection Method Collection Time Re ceived Time Location / / Volume Laterality 08/16/2017 3:54 PM CDT Narrative PN SOFT - 08/25/2017 12:47 PM CDT FINAL GYNECOLOGICAL CYTOLOGY REPORT Pathology #: [id number] ?Date Obtained: 08/16/2017 ? Date Received: 08/17/2017 INTERPRETATION/RESULTS: Negative for Intraepithelial Lesion or M alignancy. SPECIMEN ADEQUACY: Satisfactory for Evaluation. ??No endoce rvical cells/transformation zone component present; patient is . Verified on 08/20/2017 ??by ARTUR GUTIERREZ(ASCP) (electronic signature) CLINICAL NOTES: ?Abnormal bleeding: No, LMP: 06/06 11/21, Menstrual status: , ?Current form of therapy: None a pply LIQUID BASED PAP SMEAR SPECIMEN TYPE: ?ROUTINE CERVICAL PAP TEST PLEASE NOTE: The pap smear is a screening test design ed to aid in the detection of cervical cancer and its pre cursor lesions. It is not a diagnostic procedure and terrell uld not be used as the sole means of detecting cervical cancer. Both false-positive and false-negative report s may occur. Performed at [facility], [facility] [place] [address] Aline Rodgers APRN, CNP LAB_1 Performing Organization Address City/State/ZIP Code Phon e Number PN SOFT [address] [place] [address] HPV with 16 18 Genotyping (08/16/2017 3:54 PM CDT) [facility] Method Time Signature HPV High Risk Not Detected PN SOFT 16 HPV High Risk Not Detected PN SOFT 18 Other HPV High Not Detected PN SOFT Risk Not 16/18 Comment: ........................................ ................................. The [place] HPV Test is a qualitative in v itro test for the detection of Human Papillomavirus in [facility] patient specimens. ??The test utilizes amplifica tion of target DNA by Polymerase Chain Reaction (PCR) and n ucleic acid hybridization for the detection of 14 hi gh-risk (HR) HPV types. The assay tests for high risk typ es (16, 18, 31, 33, 35, 39, 45, 51, 52, 56, 58, 59, 66 and 6 8). NOTE: This test was developed and its pe rformance characteristics determined by [facility]. It has not been cleared or approved by [facility]. The laboratory is regulated under CLIA as qualified to perform high-complexity testing. This test is used for clinical purposes. It should not be regarded as investigational or fo r research. Specimen Anatomical Collection Method Collection Time Receive d Time (Source) Location / / Volume Laterality 08/16/2017 3:54 PM 8 3:54 CDT PM CDT Narrative PN SOFT - 08/18/2017 1:16 PM CDT Performed at [address] [address] CLIA number [id number] Aline Rodgers APRN, CNP LAB_1 Performing Organization Address [facility] Phon e Number PN SOFT [address] [place] [address] CHLAMYDIA & GC (08/16/2017 3:54 PM CDT) [facility] gist Method Time Signature Chlamydia Negative Negative PN SOFT Trachomatis STD Comment: Test Performed by Blood Donor Recruiter Supervisor Mediated Amplification CLIA Number [id number] N. gonorrhoeae STD Negative Negative PN SOFT Comment: Test Performed by Blood Donor Recruiter Supervisor Mediated Amplification Performed at [facility], [address] [place] [address] CLIA Number [id number] Source STD Cervix PN SOFT Comment: CLIA Number [id number] Specimen Anatomical Collection Method Collection Time Receive d Time (Source) Location / / Volume Laterality 08/16/2017 3:54 PM 8 6:16 CDT PM CDT Aline Rodgers APRN, CNP LAB_1 Performing Organization Address [facility] Phon e Number PN SOFT [address] [place] [address] Pap Test Order (08/16/2017 3:54 PM CDT) Analysis Performed At [facility] logist Time Signature Pap Smear Collected PN SOFT Monolayer tracking test Specimen Anatomical Collection Method Collection Time Receive d Time (Source) Location / / Volume Laterality 08/16/2017 3:54 PM 8 4:51 CDT AM CDT Narrative PN SOFT - 08/16/2017 3:55 PM CDT Performed at [address] [address] CLIA number [id number] Aline Rodgers APRN, CNP LAB_1 Performing Organization Address [facility] Phon e Number PN SOFT [address] [place] [address] TSH with Free T4 (if TSH Abnormal) (08/16/2017 3:36 PM CDT) athologist Signature Thyroid 4.13 0.30 - PN SOFT Stimulating 4.50 Hormone uIU/mL Specimen Anatomical Collection Method Collection Time Receive d Time (Source) Location / / Volume Laterality 08/16/2017 3:36 PM 8 6:16 CDT PM CDT Narrative PN SOFT - 08/16/2017 6:55 PM CDT Performed at [address] [address] CLIA number [id number] Aline Rodgers APRN, CNP LAB_1 Performing Organization Address [facility] Phon e Number PN SOFT [address] [place] [address] Rubella Immune Status, IgG (08/16/2017 3:36 PM CDT) [facility] Method Time Signature Rubella Immune Immune PN [...] - 08/17/2017 8:56 AM CDT Performed at [address] [address] CLIA number [id number] Aline Rodgers APRN, CNP LAB_1 Performing Organization Address [facility] Phon e Number PN SOFT [address] [place] [address] Treponema Screen (08/16/2017 3:36 PM CDT) [facility] Method Time Signature Treponema Non Reactive Non Reactive PN SOFT Screen Specimen Anatomical Collection Method Collection Time Receive d Time (Source) Location / / Volume Laterality 08/16/2017 3:36 PM 8 6:15 CDT PM CDT Narrative PN SOFT - 08/16/2017 6:55 PM CDT Performed at [address] [address] CLIA number [id number] Aline Rodgers APRN, CNP LAB_1 Performing Organization Address [facility] Phon e Number SOFT [address] [place] [address] LAB HIV-1 p24 AND HIV-1/HIV-2 ANTIBODIES (08/16/2017 3:36 PM CDT) [facility] Method Time Signature HIV-1 p24 Ag Nonreactive Nonreactive PN SOFT and HIV-1/HIV-2 Ab Specimen Anatomical Collection Method Collection Time Receive d Time (Source) Location / / Volume Laterality 08/16/2017 3:36 PM 8 6:15 CDT PM CDT Narrative PN SOFT - 08/16/2017 6:59 PM CDT Performed at [address] [address] CLIA number [id number] Aline Rodgers APRN, CNP LAB_1 Performing Organization Address [facility] Phon e Number PN SOFT [address] [place] [address] HEP B SURFACE ANTIGEN, NO REFLEX (08/16/2017 3:36 PM CDT) [facility] Method Time Signature Hep B Surf Ag Nonreactive Nonreactive PN SOFT Specimen Anatomical Collection Method Collection Time Receive d Time (Source) Location / / Volume Laterality 08/16/2017 3:36 PM 8 6:15 CDT PM CDT Narrative PN SOFT - 08/16/2017 6:59 PM CDT Performed at [facility], [address] [place] [address] CLIA number [id number] Aline Rodgers APRN, CNP LAB_1 Performing Organization Address [facility] Phon e Number PN SOFT [address] [place] [address] HEMOGRAM/PLTS/DIFF (08/16/2017 3:36 PM CDT) athologist Signature White Blood Cell 9.0 3.8 [...] - 08/16/2017 5:46 PM CDT Performed at [facility], [address] [place] [address] CLIA number [id number] Aline Rodgers APRN, CNP LAB_1 Performing Organization Address [facility] Phon e Number PN SOFT [address] [place] [address] Antibody Screen (08/16/2017 3:36 PM CDT) athologist Signature Antibody Screen NEG PN SOFT Specimen Anatomical Collection Method Collection Time Receive d Time (Source) Location / / Volume Laterality 08/16/2017 3:36 PM 8 6:31 CDT PM CDT Narrative PN SOFT - 08/16/2017 8:57 PM CDT Performed at [facility], [facility] [place] [address] CLIA number [id number] Aline Rodgers APRN, CNP PN BLOOD BANK ORDERS Performing Organization Address [facility] Phon e Number SOFT [address] [place] [address] Blood Group & RH (Blood Type) (08/16/2017 3:36 PM CDT) athologist Signature Blood Type B NEG PN SOFT Specimen Anatomical Collection Method Collection Time Receive d Time (Source) Location / / Volume Laterality 08/16/2017 3:36 PM 8 6:31 CDT PM CDT Narrative PN SOFT - 08/16/2017 8:57 PM CDT Performed at [address] [address] CLIA number [id number] Aline Rodgers APRN, CNP PN BLOOD BANK ORDERS Performing Organization Address [facility] e Number SOFT [address] [place] [address] HGB A1C (08/16/2017 3:36 PM CDT) athologist Signature HGB A1C 4.9 4.0 - 5.6 % PN SOFT Specimen Anatomical Collection Method Collection Time Receive d Time (Source) Location / / Volume Laterality 08/16/2017 3:36 PM 8 6:30 CDT PM CDT Narrative PN SOFT - 08/16/2017 9:34 PM CDT Performed at [address] [address] CLIA number [id number] Aline Rodgers APRN, CNP LAB_1 Performing Organization Address [facility] e Number SOFT [address] [place] [address] Urine Culture (08/16/2017 12:00 PM CDT) Analysis [...] - 08/17/2017 4:50 PM CDT Performed at [facility], [address] [place] [address], [place] [address], CLIA Number [id number] Aline Rodgers APRN, ADRIEN LAB_1 Performing Organization Address City/State/ZIP Code Phon e Number FITZ ABBOTT [address] [place] [address] documented in this encounter Visit Diagnoses Diagnosis Supervision of high risk in fi rst trimester - Primary Unspecified high-risk AMA (advanced maternal age) primigravida 35+, first trimester History of thyroid disorder Overweight (BMI 25.0-29.9) (C) Overweight Screening for diabetes mellitus Encounter for blood typing screening for isoimmunization Screening for blood disease Screening for unspecified disorder of bl ood and blood-forming organs Screening examination for venereal disea se Screening examination for rubella Encounter for drug screening Screening for malignant neoplasm of cerv ix Screening for malignant neoplasm of the cervix Screening for diabetes mellitus Encounter for blood typing screening for isoimmunization Screening for blood disease Screening for unspecified disorder of bl ood and blood-forming organs Screening examination for venereal disea se Screening examination for rubella Supervision of high risk in rst trimester Unspecified high-risk Encounter for drug screening History of thyroid disorder Supervision of high risk in rst trimester Unspecified high-risk documented in this encounter Care Teams Bread Dumper Relationship Specialty Start Date End Date Keysha Bingham PA-C PCP - General 02/05/16 [address] [place], [place] [id number] documented as of this encounter
--- OUTSIDE RECORDS SUMMARY | 2022-05-10 16:35 | XMS_ITS | Encounter Summary ---
:1980 Author Organization [employer] Address [address] [place] [address] Care Team Providers Name Role Phone Zachery Keysha Sutherland PA-C Primary Care Provider Reason for Visit Reason Comments UPDATE Encounter Details Date Type Department Care Team Description 03/31/2018 Notes/Orders Akash Ortiz MD Obstetrics/Gynecolog y [address] [facility] [address] [place] [phone] (Wo rk) Social History Tobacco Use Types Packs/Day Years Used Date Smoking Tobacco: Never Smokeless Tobacco: Former Alcohol Use Standard Drinks/Week Comments No 0 (1 standard drink = 0.6 oz pure alcoho l) currently Sex Assigned at Date Recorded Not on file documented as of this encounter Progress Notes Eileen Russo LPN - 03/31/2018 1:20 PM CDT Patient's episode has been closed. Patient has not had any appointments since 11/2017. Willreopen if patient decides to return for care. Eileen Russo LPN 1:21 PM 03/31/2018 documented in this encounter Plan of Treatment Not on filedocumented as of this encounter Visit Diagnoses Not on filedocumented in this encounter Care Teams Key Punch Teacher Relationship Specialty Start Date End Date Keysha Bingham PA-C PCP - General 02/05/[address] [place] [address] documented as of this encounter
--- OUTSIDE RECORDS SUMMARY | 2022-05-10 16:35 | XMS_ITS | Encounter Summary ---
:1980 Author Organization [email or web address] Address [address] [place] [address] Care Team Providers Name Role Phone Zachery Keysha Sutherland PA-C Primary Care Provider Encounter Details Date Type Department Care Team Description 12/21/2016 Lab Visit [facility] Disorder of thyroid [address] [employer] [place], [place] [id number] Social History Tobacco Use Types Packs/Day Years Used Date Smoking Tobacco: Never Alcohol Use Standard Drinks/Week Comments Yes 1.7 (1 standard drink = 0.6 oz pure [place] holic Drinks/day: Amount:1-2 alcohol) drinks; Freq:2-4/Mon th ; Sex Assigned at Date Recorded Not on file documented as of this encounter Plan of Treatment Not on filedocumented as of this encounter Procedures Procedure Name Priority Date/Time Associated Diagnosis Comme nts TSH, SENSITIVE Routine 12/21/2016 4:01 PM Disorder of thyroid Results for this CDT procedure are i n the results section . documented in this encounter Results TSH (12/21/2016 4:01 PM CDT) athologist Signature Thyroid 1.20 0.30 - PN SOFT Stimulating 4.50 Hormone uIU/mL Specimen Anatomical Collection Method Collection Time Receive d Time (Source) Location / / Volume Laterality 12/21/2016 4:01 PM 7 9:53 CDT PM CDT Narrative PN SOFT - 12/21/2016 10:34 PM CDT Performed at [facility] [address] [place] [address] CLIA number [id number] Keysha Bingham PA-C LAB_1 Performing Organization Address City/State/ZIP Code Phon e Number PN SOFT [address] [place] [address] [phone] documented in this encounter Visit Diagnoses Diagnosis Disorder of thyroid (HRC) Unspecified disorder of thyroid documented in this encounter Care Teams Biztalk Consultant Relationship Specialty Start Date End Date Keysha Bingham PA-C PCP - General 02/05/16 [address] [place] [address] documented as of this encounter
--- OUTSIDE RECORDS SUMMARY | 2022-05-10 16:35 | XMS_ITS | Encounter Summary ---
:1980 Author Organization [employer] Address [address] [place] [address] Care Team Providers Name Role Phone Keysha Bingham PA-C Primary Care Provider Reason for Visit Reason Comments , unconfirmed Encounter Details Date Type Department Care Team Description 08/02/2017 Office Visit Keysha Williamson, Possible , not yet confirmed (Primary Dx); [address] Mahin Maher PA-C Disorder of thyroid; [place] [address] [address] Positive test [phone] [place] [id number] (Wo rk) Social History Tobacco Use Types Packs/Day Years Used Date Smoking Tobacco: Never Smokeless Tobacco: Former Alcohol Use Standard Drinks/Week Comments Yes 1.7 (1 standard drink = 0.6 oz pure [place] holic Drinks/day: Amount:1-2 alcohol) drinks; Freq:- ; Sex Assigned at Date Recorded Not on file documented as of this encounter Last Filed Vital Signs Vital Sign Reading Time Taken Comments Blood Pressure 100/60 08/02/2017 9:51 AM SENIOR LINUX UNIX ENGINEER Pulse 64 08/02/2017 9:51 AM SENIOR LINUX UNIX ENGINEER Temperature - - Respiratory Rate - - Oxygen Saturation - - Inhaled Oxygen Concentration - - Weight 73 kg (161 lb) 08/02/2017 9:51 AM SENIOR LINUX UNIX ENGINEER Height - - Body Mass Index 27.21 12/21/2016 3:31 PM CDT documented in this encounter Progress Notes Keysha Lennon PA-C - 08/02/2017 9:30 AM CST Trina Man has had a positive Home test three days ago. She has been trying since January 2017. Is this good news? Yes. This is her first with her . LMP 06/21/17. Obstetrical History Obstetric History No data available LMP: No LMP recorded. -Para: No obstetric history on file. DEAN: Estimated Date of Delivery: None noted. *If the patient has had a prior ; obtain records. N/A Assessment of Ectopic Risk Factors Any abdominal pain or menstrual cramping for more than 3 hours since LMP? No Any bleeding/spotting (more than one episode pink to red spotting) since LMP? No No results found for: ABORH, ABSCR Is either question above answered yes? No Complicating History Includes: History of PID: No History of ectopic : No History of tubal surgery: No History of tubal ligation: No Attempt to conceive for > 1 year without fertility treatment: N/A Abnormality of fallopian tubes identified by x-ray or surgery: N/A *Update patients Medical, Surgical, Obstetrical History as appropriate. Yes Medications Current Outpatient Prescriptions Medication Sig Dispense Refill ??? levothyroxine (SYNTHROID) 75 MCG tablet Take 1 Tab by mouth daily. 90 Tab 3 ??? vitamin-ferrous fumarate-folic acid (PRENATALPLUS) 27-1 MG tablet Take 1 Tab by mouth daily. No current facility-administered medications for this visit. Medication list has been reviewed and reconciled. Has patient taken any OTC medications since LMP? No Has patient taken any prescription medications since LMP? Yes synthroid 75 mcg daily. *If patient has taken any Thyroid medications schedule appointment with OB within 1 week. Yes *If patient has taken Insulin schedule appointment with Endo and OB within 1 week. N/A Substance History Tobacco: History Smoking Status ??? Never Smoker Smokeless Tobacco ??? Former User Alcohol (since positive test): History Alcohol Use ??? 1.0 oz/week ??? 2 Standard drinks or equivalent per week Comment: Alcoholic Drinks/day: Amount:1-2 drinks; Freq:2-4/Month ; Recreational Drugs (including marijuana): History Drug Use No Are you concerned about your personal safety? No Social/Demographic Information Occupation: Data Unavailable Plan You are welcome to bring a support person with you to your first OB visit. Phone number given for her to call and schedule her first PB appt. Explained what to expect at first OB appointment with patient. UPT ordered today and is positive. Patient was advised to: ?? Drink 8-10 glasses of water daily ?? Begin Vitamin with Folic Acid or Folic Acid 800 mcg daily ?? Limit caffeine intake to 200 mg or less per day (8 oz coffee = 100-200mg caffeine) ?? Avoid Aspirin, Ibuprofen, and Naproxen. May take Tylenol for minor pain. ?? Avoid changing cat litter if caring for cats. If you experience any unusual abdominal pain, cramping, bleeding/spotting or are unable to keep fluids down for greater than 24 hours please contact the triage nurse or the babyline after hours. If youexperience severe abdominal pain/cramping or heavy bleeding, saturating more than 1 pad/hour x 3 hours, fever, diaphoresis, dizziness/faint/weak you will need to be evaluated immediately in the emergency room. Keysha Lennon PA-C 08/02/2017, 3:56 PM OR LINUX UNIX ENGINEER documented in this encounter Plan of Treatment Not on filedocumented as of this encounter Results Test Screen Urine (08/02/2017 9:45 AM SENIOR LINUX UNIX ENGINEER) P athologist Signature Urine Positive PN SOFT Test Specimen Anatomical Collection Method Collection Time Receive d Time (Source) Location / / Volume Laterality Urine specimen 08/02/2017 9:45 AM 018 9:45 (specimen) SENIOR LINUX UNIX ENGINEER AM SENIOR LINUX UNIX ENGINEER Narrative PN SOFT - 08/02/2017 9:45 AM SENIOR LINUX UNIX ENGINEER Performed at [facility], [address] [place] [address] CLIA number [id number] Keysha Bingham PA-C LAB_1 Performing Organization Address City/State/ZIP Code Phon e Number PN SOFT [address] [place] [address] documented in this encounter Visit Diagnoses Diagnosis Possible , not yet confirmed - Primary examination or test, unconfirmed Disorder of thyroid (HRC) Unspecified disorder of thyroid Positive test examination or test, positive result Possible , not yet confirmed examination or test, unconfirmed documented in this encounter Care Teams Leather Etcher Relationship Specialty Start Date End Date Keysha Bingham PA-C PCP - General 02/05/16 [address] [place] [address] documented as of this encounter
--- OUTSIDE RECORDS SUMMARY | 2022-05-10 16:35 | XMS_ITS | Encounter Summary ---
:1980 Author Organization [employer] Address [address] [place] [address] Care Team Providers Name Role Phone Rajwinder Bingham PA-C Primary Care Provider Reason for Visit Reason Onset Date Comments Refill 02/03/2018 levothyroxine (SYNTH ROID) 75 MCG tablet Encounter Details Date Type Department Care Team Description 02/03/2018 Refill [facility] Rajwinder Bingham, Refill (levothyroxine [address] VASILIY (SYNTHROID) 75 MCG [place] [address] tablet) [phone] [place] [id number] (Wo rk) Social History Tobacco Use Types Packs/Day Years Used Date Smoking Tobacco: Never Smokeless Tobacco: Former Alcohol Use Standard Drinks/Week Comments No 0 (1 standard drink = 0.6 oz pure alcoho l) currently Sex Assigned at Date Recorded Not on file documented as of this encounter Nursing Notes Mirna Cherry RN - 02/03/2018 11:50 AM CDT Renewed medication per medication refill protocol. Requested Prescriptions Pending Prescriptions Disp Refills levothyroxine (SYNTHROID) 75 MCG tablet 90 Tablet 1 Sig: Take 1 Tablet by mouth daily. Interface, Out 1SDK Query - 02/03/2018 11:40 AM CDT levothyroxine (SYNTHROID) 75 MCG tablet Medication started: 04/28/2012 Last ordered by RAJWINDER LENNON: 12/21/2016 (409 days ago) QTY: 90, Refills: 3, Sig: take 1 tab by mouth daily. (changed but equivalent) -> Refill x 6 months, qty: 90, refills: 1 (until due for an office visit) Last qualifying visit: 08/02/2017 (with RAJWINDER LENNON) Next scheduled visit: None Thyroid Stimulating Hormone: 4.13 uIU/mL on 08/16/2017 Powered by [employer], Reference: [id number], 02/03/2018 11:40:23 AM CDT, Pool: PN REFILL WIZARD ADMIN ([id number]) Jolly Ch - 02/03/2018 11:38 AM CDT Medications - Refill Request (able to re-order) Name of prescribing clinician: Rajwinder Lennon PA-C Additional comments (related to the above concern): Pt states she has only 2 doses left. Please advise. For this refill, patient would like it filled at the pharmacy listed in Meds & Orders. (Verify the pharmacy patient would like to use for this request is highlighted in blue in Pharmacy Selection under Meds & Orders) If there are questions regarding your request, is it okay to leave a detailed message on your voicemail? Yes (Advise caller that the PN call back number will end with [phone] or unknown) (Advise caller of turn around time is 2 business days for standard refills and 2 to 5 business days for controlled refills) Please route to: Refill Pool (P [id number]) MPLChristine Astorga ONLY (P [id number]) documented in this encounter Plan of Treatment Not on filedocumented as of this encounter Visit Diagnoses Not on filedocumented in this encounter Care Teams Machine Package Sealer Relationship Specialty Start Date End Date Rajwinder Bingham, PADlC PCP - General 02/05/16 [address] [place], [place] [address] documented as of this encounter
--- OUTSIDE RECORDS SUMMARY | 2022-05-10 16:35 | XMS_ITS | Encounter Summary ---
:1980 Author Organization [employer] Address [address] [place] [address] Care Team Providers Name Role Phone Zachery Keysha Sutherland PA-C Primary Care Provider Encounter Details Date Type Department Care Team Description 08/02/2017 Lab Visit [facility] Possible , not yet [address] confirmed [place] [address] Social History Tobacco Use Types Packs/Day Years [...] Name Priority Date/Time Associated Diagnosis Comme nts TEST STAT 08/02/2017 9:45 AM Possible , Results for this (URINE) ELECTRICAL TRANSMISSION ENGINEER not yet confirmed procedure are in the results section. documented in this encounter Results Test Screen Urine (08/02/2017 9:45 AM ELECTRICAL TRANSMISSION ENGINEER) P athologist Signature Urine Positive PN SOFT Test Specimen Anatomical Collection Method Collection Time Receive d Time (Source) Location / / Volume Laterality Urine specimen 08/02/2017 9:45 AM 018 9:45 (specimen) ELECTRICAL TRANSMISSION ENGINEER AM ELECTRICAL TRANSMISSION ENGINEER Narrative PN SOFT - 08/02/2017 9:45 AM ELECTRICAL TRANSMISSION ENGINEER Performed at [facility], [address] [facility], [place] [address] CLIA number [id number] Keysha Bingham PA-C LAB_1 Performing Organization Address City/State/ZIP Code Phon e Number PN SOFT [address] [place] [address] documented in this encounter Visit Diagnoses Diagnosis Possible , not yet confirmed examination or test, unconfirmed documented in this encounter Care Teams Chalk Cutter Relationship Specialty Start Date End Date Keysha Bingham PA-C PCP - General 02/05/[address] [place] [id number] documented as of this encounter
--- OUTSIDE RECORDS SUMMARY | 2022-05-10 16:35 | XMS_ITS | Encounter Summary ---
:1980 Author Organization [employer] Address [address] [place] [address] Care Team Providers Name Role Phone Keysha Bingham PA-C Primary Care Provider Reason for Visit Reason Comments , NOS Encounter Details Date Type Department Care Team Description 08/03/2017 Telephone [facility] Keysha Bingham [place] , [place] [address] [facility] [address] [place] [address] [place] [address] [phone] Social History Tobacco Use Types Packs/Day Years Used Date Smoking Tobacco: Never Smokeless Tobacco: Former Alcohol Use Standard Drinks/Week Comments Yes 1.7 (1 standard drink = 0.6 oz pure [place] holic Drinks/day: Amount:1-2 alcohol) drinks; Freq:- ; Sex Assigned at Date Recorded Not on file documented as of this encounter Nursing Notes Eva Cardona RN - 08/03/2017 7:26 PM CST Patient calling, she saw PCP today to confirm and says she forgot to ask a question. She takes a whey protein supplement twice a week after she lifts weights, asking if that is safe to continue to take. Patient was advised to call OBGYN to ask as it may be determined by her specific situation and diet. She agrees with plan. H FINISHING RANGE OPERATOR documented in this encounter Plan of Treatment Not on filedocumented as of this encounter Visit Diagnoses Not on filedocumented in this encounter Care Teams Beekeeper Farmer Relationship Specialty Start Date End Date Keysha Bingham PA-C PCP - General 02/05/16 [address] [place], [place] [address] documented as of this encounter
--- OUTSIDE RECORDS SUMMARY | 2022-05-10 16:35 | XMS_ITS | Encounter Summary ---
:1980 Author Organization [employer] Address [address] [place] [address] Care Team Providers Name Role Phone Zachery Keysha Sutherland PA-C Primary Care Provider Reason for Visit Reason Comments Forms Encounter Details Date Type Department Care Team Description 11/04/2017 Telephone [facility] Maximus Monroe MD Forms Services-BEHAVIORAL SPECIALIST [address] [facility] [address] [facility], [place] [address] [address] [place] [address] [phone] Social History Tobacco Use Types Packs/Day Years Used Date Smoking Tobacco: Never Smokeless Tobacco: Former Alcohol Use Standard Drinks/Week Comments No 0 (1 standard drink = 0.6 oz pure alcoho l) currently Sex Assigned at Date Recorded Not on file documented as of this encounter Nursing Notes Fernando Fergoso CMA - 11/07/2017 2:58 PM CDT Paper work signed and completed and sent out by mail. Fernando Fregoso CMA - 11/07/2017 8:39 AM CDT Paper work completed and placed providers desk for a review. Perla Romero - 11/04/2017 3:03 PM CDT Maternity Benefits Plan Form received, given to Deps Asst. To complete Pt would to steel pickler November [facility] at [facility] documented in this encounter Plan of Treatment Not on filedocumented as of this encounter Visit Diagnoses Not on filedocumented in this encounter Care Teams Food And Beverage Associate Relationship Specialty Start Date End Date Keysha Bingham PA-C PCP - General 02/05/[address] [place] [address] [address] documented as of this encounter
--- OUTSIDE RECORDS SUMMARY | 2022-05-10 16:35 | XMS_ITS | Encounter Summary ---
:1980 Author Organization [employer] Address [address] [place] [address] Care Team Providers Name Role Phone Zachery Keysha Sutherland PA-C Primary Care Provider Reason for Visit Reason Comments Forms Encounter Details Date Type Department Care Team Description 05/15/2018 Telephone [facility] Maximus Monroe MD Forms Services-WEIR FISHER [address] [facility] [address] [facility], [place] [address] [address] [place] [address] [phone] Social History Tobacco Use Types Packs/Day Years Used Date Smoking Tobacco: Never Smokeless Tobacco: Former Alcohol Use Standard Drinks/Week Comments No 0 (1 standard drink = 0.6 oz pure alcoho l) currently Sex Assigned at Date Recorded Not on file documented as of this encounter Nursing Notes Sarah Walter MA - 05/16/2018 10:56 AM CST I spoke with pt informing that with delivery made at [facility] [place], fmla form to be filled out with their staff. I did get fax number of [phone] and faxed form to them and mailed original to [address] [place] [address]. T SUPERVISOR Rose Marie Aragon RN - 05/16/2018 9:51 AM CST Phone [phone] if further questions. Pt states she moved to [place] and needs the back side of the form completed and faxed to the number on the form. I advised her to have her [place] providers do the form but she states the form is to be done by the person who saw her in the beginning of her . T SUPERVISOR Sarah Walter MA - 05/16/2018 9:08 AM CST Msg left to c/b. Pt has not been seen since 10/2017 and no other notes. Need to ask pt what she wantsfilled out. T SUPERVISOR Sylvia Williamson - 05/15/2018 1:39 PM CST Forms: What form are you requesting? [facility] How would you like to receive your form? [Sap Basis Consultant: If patient would like this sent anywhereother than to themselves, we need them to sign a Release of Information.] Fax to [phone] What is a good number to reach you at? [phone] Is it okay to leave a detailed message on your voicemail? Yes Is there anything else I can help you with today? No Sylvia Williamson Please route to: Care Team Leandro and Sap Basis Consultant Leandro T SUPERVISOR documented in this encounter Plan of Treatment Not on filedocumented as of this encounter Visit Diagnoses Not on filedocumented in this encounter Care Teams Artisan Plasterer Relationship Specialty Start Date End Date Keysha Bingham PA-C PCP - General 02/05/16 [address] [place], [place] [address] documented as of this encounter
--- OUTSIDE RECORDS SUMMARY | 2022-05-10 16:35 | XMS_ITS | Encounter Summary ---
:1980 Author Organization [employer] Address [address] [place] [address] Care Team Providers Name Role Phone Keysha Bingham PA-C Primary Care Provider Reason for Visit Procedure/Equipment (Routine) - Incomplete Specialty Diagnoses / Procedures Referred By Contact Refer red To Contact Diagnoses Supervision of high risk in first trimester Aline Rodgers, GYPSUM BLOCK SETTER, Procedures US OB <14 Weeks W EV Single EDUCATION OFFICER [address] [facility] [address] [place] [address] Referral ID Status Reason Start Date Expiration Date Visits V isits Requested Authorized [id number] Incomplete 08/16/2017 11/15/2018 1 1 Encounter Details Date Type Department Care Team Description 08/17/2017 Imaging [facility] Aline Rodgers, Supervision of high Services-Ultrasound GYPSUM BLOCK SETTER, EDUCATION OFFICER risk in [address] [place] [address] first trimester [address] [place], [place] [address] [phone] Social History Tobacco Use Types Packs/Day Years Used Date Smoking Tobacco: Never Smokeless Tobacco: Former Alcohol Use Standard Drinks/Week Comments No 0 (1 standard drink = 0.6 oz pure alcoho l) currently Sex Assigned at Date Recorded Not on file documented as of this encounter Progress Notes Coindreau, Aline R, GYPSUM BLOCK SETTER, EDUCATION OFFICER - 08/19/2017 7:19 AM CDT Miller viable intrauterine . heart rate 148 bpm. Estimated due date by ultrasound differs by menstrual cycle dating by 8 days. Will date by 1st trimester ultrasound. Patient notified by my chart. documented in this encounter Plan of Treatment Not on filedocumented as of this encounter Procedures Procedure Name Priority Date/Time Associated Diagnosis Comme nts US OB <14 WEEKS W Routine 08/17/2017 1:18 PM Supervision of [facility] Results for this EV SINGLE CDT risk in procedure are in first trimester the results section. documented in this [...] inal imaging was performed. Gestational sac: Unremarkable. [place]-rump length measures 1.0 cm, corre sponding to [...] al imaging was performed. Gestational sac: Unremarkable. [place]-rump length measures 1.0 cm, corre sponding to [...] 7 weeks 0 days gestation. Aline Rodgers GYPSUM BLOCK SETTER, EDUCATION OFFICER RAD US documented in this encounter Visit Diagnoses Diagnosis Supervision of high risk in rst trimester Unspecified high-risk documented in this encounter Care Teams Chief Inspector Relationship Specialty Start Date End Date Keysha Bingham PA-C PCP - General 02/05/16 [address] [place] [address] documented as of this encounter
--- OUTSIDE RECORDS SUMMARY | 2022-05-10 16:35 | XMS_ITS | Encounter Summary ---
:1980 Author Organization [employer] Address [address] [place] [address] Care Team Providers Name Role Phone Keysha Bingham PA-C Primary Care Provider Reason for Visit Reason Comments Refill Encounter Details Date Type Department Care Team Description 12/21/2016 Office Visit Keysha Ortiz, Disorder of thyroid (Primary Dx); Medicine PA-C Encounter for preconception consultation [address] [address] [place] [address] [phone] Social History Tobacco Use Types Packs/Day Years Used Date Smoking Tobacco: Never Alcohol Use Standard Drinks/Week Comments Yes 1.7 (1 standard drink = 0.6 oz pure [place] holic Drinks/day: Amount:1-2 alcohol) drinks; Freq:2- ; Sex Assigned at Date Recorded Not on file documented as of this encounter Last Filed Vital Signs Vital Sign Reading Time Taken Comments Blood Pressure 120/72 12/21/2016 3:31 PM CDT Pulse 60 12/21/2016 3:31 PM CDT Temperature - - Respiratory Rate - - Oxygen Saturation - - Inhaled Oxygen Concentration - - Weight 72.6 kg (160 lb) 12/21/2016 3:31 PM CDT Height 163.8 cm (5' 4.5) 12/21/2016 3:31 PM CDT Body Mass Index 27.04 12/21/2016 3:31 PM CDT documented in this encounter Progress Notes Kyesha Lennon PA-C - 12/21/2016 3:30 PM CDT This note has been dictated Keysha Lennon PA-C - 12/21/2016 12:00 PM CDT NAME: ANGIE MAN MR#: [id number] CSN: [id number] AUTHENTICATING CLINICIAN: KRYSTIN Watson CONFIRM #: [id number] LOC: 1706 CLINIC PROGRESS NOTE DATE OF VISIT: 12/21/2016 : 1980 This is a pleasant 36-year-old female, who presents today for a medication check. She needs a refillof her levothyroxine, she takes 75 mcg daily. She states that she has been thinking of having a babyin the near future. She would like to stop her control. She is wondering how to do this. She has never been before. She is a nonsmoker. She has been on control for almost 20 years.She is 37. 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 She is wondering if there are any special precautions that she needs to take for this. She has no other concerns today. MEDICATIONS: Have been reviewed in Epic. ALLERGIES: Have been reviewed in [facility]. OBJECTIVE: VITALS: Have been reviewed in Epic. GENERAL IMPRESSION: This is a pleasant female resting quietly, in no acute distress. She is well groomed and well dressed. NECK: No anterior or posterior cervical adenopathy. No thyromegaly. HEART: Regular rate and rhythm. No murmurs, rubs or gallops. LUNGS: Clear to auscultation bilaterally. ABDOMEN: Soft. EXTREMITIES: No rash or edema. ASSESSMENT: 1.Thyroid disorder. 2.Preconception counseling. PLAN: 1.Synthroid refilled for the year. We will check her TSH today. 2.Preconception counseling performed for the rest of the appointment today. Encouraged her to start a vitamin. Discussed with her timing of cycles and intercourse. When she does become , she will make a followup appointment with me to discuss the next steps of her 1st OB appointment. 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 All her questions have been answered. ALBERT:RIOS C: CONFIRM #: [id number] documented in this encounter Plan of Treatment Not on filedocumented as of this encounter Results TSH (12/21/2016 4:01 PM CDT) athologist Signature Thyroid 1.20 0.30 - PN SOFT Stimulating 4.50 Hormone uIU/mL Specimen Anatomical Collection Method Collection Time Receive d Time (Source) Location / / Volume Laterality 12/21/2016 4:01 PM 7 9:53 CDT PM CDT Narrative PN SOFT - 12/21/2016 10:34 PM CDT Performed at [facility], [facility] [place] [address] CLIA number [id number] Keysha Bingham PA-C LAB_1 Performing Organization Address City/State/ZIP Code Phon e Number SOFT [address] [place] [address] documented in this encounter Visit Diagnoses Diagnosis Disorder of thyroid (HRC) - Primary Unspecified disorder of thyroid Encounter for preconception consultation Disorder of thyroid (HRC) Unspecified disorder of thyroid documented in this encounter Care Teams Pearl Hand Relationship Specialty Start Date End Date Keysha Bingham PA-C PCP - General 02/05/16 [place] [address] documented as of this encounter
--- OUTSIDE RECORDS SUMMARY | 2022-05-10 16:35 | XMS_ITS | Encounter Summary ---
:1980 Author Organization [employer] Address [address] [place] [address] Care Team Providers Name Role Phone Zachery Keysha Sutherland PA-C Primary Care Provider Reason for Visit Reason Comments ULTRASOUND CONSULT Encounter Details Date Type Department Care Team Description 11/08/2017 Procedure Visit [place] [facility] Autumn Castillo Medicine MD Jean Paul ULTRASOUND; CONSULT [address], [address] [place] [address] Social History Tobacco Use Types Packs/Day Years Used Date Smoking Tobacco: Never Smokeless Tobacco: Former Alcohol Use Standard Drinks/Week Comments No 0 (1 standard drink = 0.6 oz pure alcoho l) currently Sex Assigned at Date Recorded Not on file documented as of this encounter Progress Notes Autumn Castillo MD - 11/08/2017 3:30 PM CDT US AND CONSULTATION Please see full US report and Consult note under Imaging tab in Chart Review. IMPRESSION: Miller intrauterine at 18w6d gestational age. INDICATIONS: Left EIF (echogenic intracardiac focus) noted on screening US. Declined aneuploidy screening. --Biometric measures are consistent with dates, suggesting a mean gestational age of 19 weeks 3 days. --Targeted anatomic survey is negative for structural abnormalities within the limits ofvisualization. --An isolated left EIF is seen. --No other aneuploidy markers are visualized. -- echocardiogram is negative for structural cardiac abnormalities. --Amniotic fluid volume is normal. --There is no evidence of placenta previa. The US findings were discussed with the patient. The limitations of US in the detection of congenital abnormalities and aneuploidy were discussed. The patient was counseled that only 50-70% of fetuses with Down Syndrome will have aneuploidy markers on US. Conversely, 11% of normal fetuses will have atleast one aneuploidy marker on targeted US. The patiente was informed that an EIF generally represents either calcium within a chordae of the mitral valve or the papillary muscle, which is a dense muscle bundle in the left ventricle to which themitral valve leaflets anchor. It is NOT a cardiac abnormality, does not affect the health or well-being of their baby, and does not require US follow-up. Its clinical significance is based on a weak association with Down syndrome. Since an EIF is found on US in 3-5% of normal fetuses, the vast majority of fetuses with the finding are normal. I discussed the controversy regarding the significance of an isolated EIF in increasing risk of aneuploidy with the couple. Many experts feel that in the absence of other risk factors or markers, an isolated EIF does not significantly increase the risk of aneuploidy and may be considered a normal variant. Other experts feel that it increases the risk of aneuploidy by a factor of about 2.0, which in the case of this 37 year old patient (who will be 38 yo at the time of delivery), would increase her risk of Down Syndrome from a baseline of 1 in 281 to approximately 1 in 140. This was discussed in detail with the patient and her hmother. Options for aneuploidy detection, including maternal serum screening, NIPT, and genetic amniocentesis were discussed and offered. All the patient's questions were answered. After our discussion, the patient stated she is not interested in additional aneuploidy testing at this time. Thank you for allowing us to participate in the care of this very pleasant patient. Please do not hesitate to contact us if questions or concerns arise. Counseling time: 20 mins Total time: 30 mins documented in this encounter Plan of Treatment Not on filedocumented as of this encounter Visit Diagnoses Diagnosis cardiac echogenic focus, antepartu m, single or unspecified fetus - Primary documented in this encounter Care Teams Senior Product Manager Relationship Specialty Start Date End Date Keysha Bingham PA-C PCP - General 02/05/[address] [place] [address] documented as of this encounter
--- OUTSIDE RECORDS SUMMARY | 2022-05-10 16:35 | XMS_ITS | Encounter Summary ---
:1980 Author Organization [employer] Address [address] [place] [address] Care Team Providers Name Role Phone Keysha Bingham PA-C Primary Care Provider Reason for Visit Reason Comments HEARTBURN Encounter Details Date Type Department Care Team Description 08/30/2017 Nurse Triage [facility] Keysha Bingham PA-C HEARTBURN [address] [facility] [address] [place] [address] [place] [address] [phone] Social History Tobacco Use Types Packs/Day Years Used Date Smoking Tobacco: Never Smokeless Tobacco: Former Alcohol Use Standard Drinks/Week Comments No 0 (1 standard drink = 0.6 oz pure alcoho l) currently Sex Assigned at Date Recorded Not on file documented as of this encounter Nursing Notes Autumn Stubbs RN - 08/30/2017 5:28 PM CDT Reason for Disposition ??? [1] Upper abdominal pains AND [2] radiate into chest, with sour taste in mouth Protocols used: - ABDOMINAL PAIN LESS THAN 20 WEEKS [id number] Patient states she bends over frequently at work and this causes heartburn. She describes burning pain mid center in chest. She states she tried Tums (2) and it worked about 1 hour. She rates pain 8/10. We reviewed care guidelines and is is willing to trial the advice. She has appointment set-up 09/12/17. Problem list reviewed as related to this call. Advised to call back directly if there are further questions, or if these symptoms fail to improve as anticipated or worsen. documented in this encounter Plan of Treatment Not on filedocumented as of this encounter Visit Diagnoses Not on filedocumented in this encounter Care Teams Supervisor Plastering Relationship Specialty Start Date End Date Keysha Bingham PADlC PCP - General 02/05/16 [address], [place] [address] documented as of this encounter
--- OUTSIDE RECORDS SUMMARY | 2022-05-10 16:35 | XMS_ITS | Encounter Summary ---
:[address] [facility] [employer] Address [address] [place] [address] Care Team Providers Name Role Phone Zachery Keysha Sutherland PA-C Primary Care Provider Reason for Visit Reason Comments Routine Visit Encounter Details Date Type Department Care Team Description 09/12/2017 Routine [facility] Akash Monroe [facility]-BILLET BED OPERATOR Visit [address] [facility], [address] [place] [address] Social History Tobacco Use Types Packs/Day Years Used Date Smoking Tobacco: Never Smokeless Tobacco: Former Alcohol Use Standard Drinks/Week Comments No 0 (1 standard drink = 0.6 oz pure alcoho l) currently Sex Assigned at Date Recorded Not on file documented as of this encounter Last Filed Vital Signs Vital Sign Reading Time Taken Comments Blood Pressure 121/57 09/12/2017 4:34 PM CDT Pulse 73 09/12/2017 4:34 PM CDT Temperature - - Respiratory Rate - - Oxygen Saturation - - Inhaled Oxygen Concentration - - Weight 74.6 kg (164 lb 6.4 oz) 09/12/2017 4:34 PM CDT Height - - Body Mass Index 27.78 08/16/2017 2:40 PM CDT documented in this encounter Progress Notes Akash Monroe MD - 09/12/2017 4:40 PM CDT Patient accompanied by FOB for the entire appointment. Patient has no complaints. Initial laboratory tests reviewed. She declines any further genetic testing. Level II ultrasound will be performed at 20 weeks because of maternal age. Bedside ultrasound shows normal heart rate and shows movement. Return to clinic [address] Monroe documented in this encounter Plan of Treatment Not on filedocumented as of this encounter Visit Diagnoses Diagnosis Supervision of high risk in rst trimester - Primary Unspecified high-risk AMA (advanced maternal age) primigravida 35+, first trimester documented in this encounter Care Teams Shaker Tender Relationship Specialty Start Date End Date Keysha Bingham PA-C PCP - General 02/05/16 [address], [place] [address] documented as of this encounter
--- OUTSIDE RECORDS SUMMARY | 2022-05-10 16:36 | XMS_ITS | Encounter Summary ---
:1980 Author Organization [employer] Address [address] [place] [address] Care Team Providers Name Role Phone Unassigned, Provider Primary Care Provider Unavailable Reason for Visit Reason Comments Refill Encounter Details Date Type Department Care Team Description 04/26/2012 Refill [facility] Rajwinder Seay, PAMathieu Refill [address] [place] [address] [place] [address] [phone] (Wo rk) Social History Tobacco Use Types Packs/Day Years Used Date Smoking Tobacco: Never Alcohol Use Standard Drinks/Week Comments Yes 0 (1 standard drink = 0.6 oz pure alcoho l) on ocass. Sex Assigned at Date Recorded Not on file documented as of this encounter Nursing Notes Hodan Barksdale - 04/28/2012 10:40 AM CST I have left a message for patient that her RX's have been sent to her pharmacy and reminded her thatshe is due for a visit. Last well visit was 07/05/2011. Jo Herrera RN - 04/28/2012 10:25 AM CST Prescription Refills Approved Prescriptions Disp Refills ??? PREVIFEM 0.25-35 mg-mcg per tablet 84 tablet 0 Sig: Take 1 tablet by mouth daily (every 24 hours). Authorizing Provider: RAJWINDER COTE Ordering User: JO VELIZ REFILL APPOINTMENT NEEDED Please call patient and schedule appointment within 30 days. Medication has been renewed and sent to pharmacy for a 90 day supply. Comment: Due for physical. Last 07/05/11 documented in this encounter Plan of Treatment Not on filedocumented as of this encounter Visit Diagnoses Not on filedocumented in this encounter Care Teams Belt Dresser Relationship Specialty Start Date End Date Unassigned, Provider PCP - General Unknown Physician 03/03/11 02/04/[address] [place] [address] documented as of this encounter
--- OUTSIDE RECORDS SUMMARY | 2022-05-10 16:36 | XMS_ITS | Encounter Summary ---
:1980 Author Organization [employer] Address [address] [place] [address] Care Team Providers Name Role Phone Unassigned, Provider Primary Care Provider Unavailable Encounter Details Date Type Department Care Team Description 08/19/2015 Refill Order Aldo Arroyo, PA-C [facility] [facility] [place] [address] [place] [address] [phone] (Wo rk) Social History Tobacco Use Types Packs/Day Years Used Date Smoking Tobacco: Never Alcohol Use Standard Drinks/Week Comments Yes 0 (1 standard drink = 0.6 oz pure alcoho l) on ocass. Sex Assigned at Date Recorded Not on file documented as of this encounter Nursing Notes User, Neetu - 08/21/2015 7:11 AM CDT ORDER THE FOLLOWING: - TSH: Pended to encounter. SCHEDULE THE FOLLOWING: - TSH BY: Now (Due as of 08/18/2015 for levothyroxine (SYNTHROID) 75 mcg tablet) - LAST QUALIFYING VISIT WITH ALDO YEE: 08/23/2014 (A more recent visit in family medicine wasfound) - NEXT SCHEDULED VISIT: None - NEXT LAB APPOINTMENT: None [employer]ered [employer], Reference: [id number], 08/19/2015 4:17:06 AM CDT, Leandro: NIRMALA GANT ([id number]) Melva Cochran CMA - 08/21/2015 7:11 AM CDT Lab orders have been placed per protocol. documented in this encounter Plan of Treatment Not on filedocumented as of this encounter Visit Diagnoses Diagnosis Encounter for long-term (current) use of medications - Primary Encounter for long-term (current) use of other medications documented in this encounter Care Teams Missile Inspector Preflight Relationship Specialty Start Date End Date Unassigned, Provider PCP - General Unknown Physician 03/03/11 02/04/[address] [place] [address] documented as of this encounter
--- OUTSIDE RECORDS SUMMARY | 2022-05-10 16:36 | XMS_ITS | Encounter Summary ---
:1980 Author Organization [employer] Address [address] [place] [address] Care Team Providers Name Role Phone Unassigned, Provider Primary Care Provider Unavailable Reason for Visit Reason Comments Annual Exam Encounter Details Date Type Department Care Team Description 09/03/2015 Office Visit [place] [facility] Martin Quintanilla, Annual physical exam (Primar y Dx); [address] PA-C Oral contraceptive pill surveillance; [place] [address] [address] Acquired hypothyroidism [phone] [place] [id number] Social History Tobacco Use Types Packs/Day Years Used Date Smoking Tobacco: Never Alcohol Use Standard Drinks/Week Comments Yes 0 (1 standard drink = 0.6 oz pure alcoho l) on ocass. Sex Assigned at Date Recorded Not on file documented as of this encounter Last Filed Vital Signs Vital Sign Reading Time Taken Comments Blood Pressure 98/58 09/03/2015 8:39 AM CDT Pulse 58 09/03/2015 8:39 AM CDT Temperature - - Respiratory Rate - - Oxygen Saturation - - Inhaled Oxygen Concentration - - Weight 72.5 kg (159 lb 14.4 oz) 09/03/2015 8:39 AM CDT Height 167.6 cm (5' 6) 09/03/2015 8:39 AM CDT Body Mass Index 25.81 09/03/2015 8:39 AM CDT documented in this encounter Progress Notes ShoreMartin PA-C - 09/03/2015 9:16 AM CDT Preventive Exam HISTORY OF PRESENT ILLNESS: 35 y/o patient presents for a routine preventive physical exam. Patient Active Problem List Diagnosis ??? Acquired hypothyroidism SUBJECTIVE: The patient voices the following concerns: None Current contraception: oral contraceptives (estrogen/progesterone) Medication refills requested: Requested Prescriptions Pending Prescriptions Disp Refills ??? levothyroxine (SYNTHROID) 75 mcg tablet 90 tablet 3 Sig: Take 1 tablet by mouth daily (every 24 hours). ??? norgestimate-ethinyl estradiol (PREVIFEM) 0.25-35 mg-mcg per tablet 84 tablet 4 Sig: Take 1 tablet by mouth daily (every 24 hours). Follow package directions . No problem-specific assessment & plan notes found for this encounter. Past Medical/Surgical History/Family History: Reviewed and updated today under History tab in Electronic Medical Record. has a current medication list which includes the following prescription(s): levothyroxine, multivitamin, norgestimate-ethinyl estradiol, and omega-3 fatty acids. has No Known Allergies. Electrical Laboratory Technician History: : No obstetric history on file. LMP: Patient's last menstrual period was 08/12/2015. Sexual History: reports that she currently engages in sexual activity and has had male partners. Shereports using the following method of control/protection: OCP. Last Pap Smear: 2014, normal She has not had abnormal pap smear. STD History: She has not been diagnosed with STDs. Social History: History Social History ??? Marital Status: Spouse Name: N/A ??? Number of Children: N/A ??? Years of Education: N/A Social History Main Topics ??? Smoking status: Never Smoker ??? Smokeless tobacco: Not on file ??? Alcohol Use: 1.0 oz/week 2 drink(s) per week Comment: Alcoholic Drinks/day: Amount:1-2 drinks; Freq:2-4/Month ; ??? Drug Use: Not on file ??? Sexual Activity: Partners: Male Control/ Protection: OCP Other Topics Concern ??? Exercise Yes running ??? Seat Belt Yes ??? Special Diet No ??? 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 She does not perform monthly self breast exam. Calcium intake is adequate. Pap smear: UTD Mammogram: N/A Colonoscopy: N/A Cholesterol fractionation: Due Bone density scan: N/A Immunization History Administered Date(s) Administered ??? Tdap (Adacel) 06/06/2008 OBJECTIVE: BP 98/58 mmHg Pulse 58 Ht 5' 6 (1.676 m) Wt 159 lb 14.4 oz (72.53 kg) BMI 25.82 kg/m2 LMP08/12/2015 General appearance: alert, cooperative, no distress, appears stated age, Eyes: conjunctivae/corneas clear. PERRL, EOM's intact. Fundi benign, Ears: normal TM's and external ear canals AU, Throat: lips,mucosa, and tongue normal; teeth and gums normal, Neck: supple, symmetrical, trachea midline, no adenopathy, thyroid: not enlarged, symmetric, no tenderness/mass/nodules and no carotid bruit, Lungs: clear to auscultation bilaterally, Breasts: normal appearance, no masses or tenderness, bilateral nipple rings, no signs of infection, Heart: regular rate and rhythm, S1, S2 normal, no murmur, click, rub or gallop, Abdomen: soft, non- tender; bowel sounds normal; no masses, no organomegaly, Extremities: ex tremities normal, atraumatic, no cyanosis or edema, Pulses: 2+ and symmetric, Skin: Skin color, texture, turgor normal. No rashes or lesions or multiple tattoos and Lymph nodes: Cervical, supraclavicular, and axillary nodes normal. ASSESSMENT/PLAN: Trina was seen today for annual exam. Diagnoses and all orders for this visit: Annual physical exam Orders: - Cholesterol Fraction-LDLD If Trig High; Future - Glucose; Future Oral contraceptive pill surveillance Orders: - norgestimate-ethinyl estradiol (PREVIFEM) 0.25-35 mg-mcg per tablet; Take 1 tablet by mouth daily (every 24 hours). Follow package directions Acquired hypothyroidism Orders: - levothyroxine (SYNTHROID) 75 mcg tablet; Take 1 tablet by mouth daily (every 24 hours). - Thyroid Stimulating Hormone; Future Patient Active Problem List Diagnosis ??? Acquired hypothyroidism Prevention or Hormone Therapy: oral contraceptives (estrogen/progesterone) Discharged ambulatory and in stable condition. documented in this encounter Plan of Treatment Not on filedocumented as of this encounter Visit Diagnoses Diagnosis Annual physical exam - Primary Routine general medical examination at a health care facility Oral contraceptive pill surveillance Surveillance of previously prescribed co ntraceptive pill Acquired hypothyroidism (HRC) Unspecified hypothyroidism documented in this encounter Care Teams Sack Filler Relationship Specialty Start Date End Date Unassigned, Provider PCP - General Unknown Physician 03/03/11 02/04/[address] [place] [address] documented as of this encounter
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
--- OUTSIDE RECORDS SUMMARY | 2022-05-10 16:36 | XMS_ITS | Encounter Summary ---
:1980 Author Organization [employer] Address [address] [place] [address] Care Team Providers Name Role Phone Unassigned, Provider Primary Care Provider Unavailable Encounter Details Date Type Department Care Team Description 09/03/2015 Lab Visit [place] [facility] Annual physical exam; [address] Acquired hypothyroidism [place] [id number] Social History Tobacco Use Types Packs/Day Years Used Date Smoking Tobacco: Never Alcohol Use Standard Drinks/Week Comments Yes 0 (1 standard drink = 0.6 oz pure alcoho l) on ocass. Sex Assigned at Date Recorded Not on file documented as of this encounter Plan of Treatment Not on filedocumented as of this encounter Procedures Procedure Name Priority Date/Time Associated Diagnosis Comme nts THYROID STIMULATING Routine 09/03/2015 9:18 Acquired Resul ts for this HORMONE AM CDT hypothyroidism procedure are in the results section. LIPID PANEL AND Routine 09/03/2015 9:18 Annual physical exam R esults for this DIRECT LDL(IF AM CDT procedure are in NEEDED) the results section. documented in this encounter Results THYROID STIMULATING HORMONE (09/03/2015 9:18 AM CDT) P athologist Signature Thyroid 2.69 0.20 - HP CONVERSION Stimulating 4.50 Hormone uIU/mL Specimen Anatomical Collection Method Collection Time Receive d Time (Source) Location / / Volume Laterality 09/03/2015 9:18 AM 6 1:25 CDT PM CDT Narrative HP CONVERSION - 09/03/2015 2:12 PM CDT Performed at [facility], [address] [place] [address] CLIA number [id number] Martin Chaidez PA-C LAB_1 Performing Organization Address City/[facility] Phon e Number HP CONVERSION (ABNORMAL) Lipid Panel and Direct LDL(If Needed) (09/03/2015 9:18 AM CDT) [facility] gist Method Time Signature Cholesterol 232 (H) 0 - 199 HP CONVERSION mg/dL Triglycerides 135 4 - 149 HP CONVERSION mg/dL HDL Cholesterol 83 >39 mg/dL HP CONVERSION Cholesterol/HDL 2.8 HP CONVERSION Ratio Screen LDL Calculated 122 19 - 130 HP CONVERSION mg/dL Length Of Fast 12.0 HP CONVERSION Specimen Anatomical Collection Method Collection Time Receive d Time (Source) Location / / Volume Laterality 09/03/2015 9:18 AM 6 CDT 11:15 AM CDT Narrative HP CONVERSION - 09/03/2015 11:50 AM CDT Performed at [facility] [address] [place] [address] CLIA number [id number] Martin Chaidez PA-C LAB_1 Performing Organization Address City/[facility] Phon e Number HP CONVERSION documented in this encounter Visit Diagnoses Diagnosis Annual physical exam Routine general medical examination at a health care facility Acquired hypothyroidism ([facility]) Unspecified hypothyroidism documented in this encounter Care Teams Rn Faculty Relationship Specialty Start Date End Date Unassigned, Provider PCP - General Unknown Physician 03/03/11 02/04/[address] [place] [id number] documented as of this encounter
--- OUTSIDE RECORDS SUMMARY | 2022-05-10 16:36 | XMS_ITS | Encounter Summary ---
:1980 Author Organization [employer] Address [address] [place] [address] Care Team Providers Name Role Phone Unassigned, Provider Primary Care Provider Unavailable Reason for Visit Reason Comments Refill Encounter Details Date Type Department Care Team Description 07/23/2014 Refill Rajwinder Williamson, PAMathieu Refill [address] [place] [address] [place] [address] [phone] (Wo rk) Social History Tobacco Use Types Packs/Day Years Used Date Smoking Tobacco: Never Alcohol Use Standard Drinks/Week Comments Yes 0 (1 standard drink = 0.6 oz pure alcoho l) on ocass. Sex Assigned at Date Recorded Not on file documented as of this encounter Nursing Notes User, Neetu - 07/25/2014 10:00 AM CST levothyroxine (SYNTHROID) 75 mcg tablet [Pharmacy Med Name: LEVOTHYROXINE SODIUM 75MCG TABS] - REFILL: 3 months - RATIONALE: This is a courtesy refill. Patient is overdue for an office visit and TSH check. This will be the last refill authorized by the protocol. - LAST QUALIFYING VISIT WITH RAJWINDER LENNON: 06/28/2013 - NEXT SCHEDULED VISIT: None - MEDICATION STARTED: 07/03/2010 - LAST REFILLED ON: 06/28/2013, QTY: 90, Refills: 3, Sig: take 1 tablet by mouth daily (every 24 hours). (unchanged) - TSH: 2.24uIU/mL on 06/28/2013 Powered by [employer], Reference: [id number], 07/23/2014 8:30:00 PM VP [employer], Pool: NIRMALA REFILL ([id number]) Ana Rosa Aguilar - 07/25/2014 10:00 AM CST Appointment letter sent Usha Jo, RN - 07/24/2014 3:39 PM CST REFILL APPOINTMENT NEEDED Please call patient and schedule appointment within 30 days. Medication has been renewed and sent to pharmacy for a 90 day supply. Comment: labs overdue Renewed medication per medication refill protocol. Requested Prescriptions Signed Prescriptions Disp Refills ??? levothyroxine (SYNTHROID) 75 mcg tablet 90 tablet 0 Sig: Take 1 tablet by mouth daily (every 24 hours). Authorizing Provider: RAJWINDER LENNON Ordering User: USHA JO [employer] documented in this encounter Miscellaneous Notes Letter - Rajwinder Lennon PA-C - 07/23/2014 12:00 AM CST Images from the original note were not included. [facility] [address] [place] [address] Trina Javier [address] [facility] [address] July 25, 2014 Dear Trina Javier, We received your request for the following prescription(s): Orders Placed This Encounter Medications ??? levothyroxine (SYNTHROID) 75 mcg tablet Sig: Take 1 tablet by mouth daily (every 24 hours). Dispense: 90 tablet Refill: 0 Your request was approved. You will need an appointment with your provider before your next refill. Please call [facility] at [phone] to schedule an appointment within 30 days. Thank you for choosing [facility] for your health care needs. Your [facility] Primary Care Team [employer] documented in this encounter Plan of Treatment Not on filedocumented as of this encounter Visit Diagnoses Not on filedocumented in this encounter Care Teams Transit Worker Relationship Specialty Start Date End Date Unassigned, Provider PCP - General Unknown Physician 03/03/11 02/04/[address] [place] [id number] documented as of this encounter
--- OUTSIDE RECORDS SUMMARY | 2022-05-10 16:36 | XMS_ITS | Encounter Summary ---
:1980 Author Organization [employer] Address [address] [place] [address] Care Team Providers Name Role Phone Unassigned, Provider Primary Care Provider Unavailable Reason for Visit Reason Comments Refill Encounter Details Date Type Department Care Team Description 10/09/2015 Refill Aldo Arroyo PA-C Refill [address] [place] [address] [place] [address] [phone] (Wo rk) Social History Tobacco Use Types Packs/Day Years Used Date Smoking Tobacco: Never Alcohol Use Standard Drinks/Week Comments Yes 0 (1 standard drink = 0.6 oz pure alcoho l) on ocass. Sex Assigned at Date Recorded Not on file documented as of this encounter Nursing Notes UserNeetu - 10/10/2015 3:44 PM CDT PREVIFEM 0.25-35 mg-mcg per tablet [Pharmacy Med Name: PREVIFEM 0.25-35MG-MCG TABS] - MEDICATION STARTED: 05/22/2010 - LAST REFILLED ON: 09/03/2015, QTY: 84, Refills: 4, Sig: take 1 tablet by mouth daily (every 24 hours). follow package directions (changed) - WARNING #1: This medication may not have been authorized by the requested provider. - WARNING #2: Due to an unreadable sig, manually ensure the patient is due for a renewal. - REFILL: 3 months (if warnings resolved) - RATIONALE: This is a courtesy refill. Patient is overdue for an office visit. This will be the last refill authorized by the protocol. - LAST QUALIFYING VISIT WITH ALDO YEE: 08/23/2014 (A more recent visit in Family Medicine wasfound) - NEXT SCHEDULED VISIT: None - SBP: 98.0mm Hg on 09/03/2015 - DBP: 58.0mm Hg on 09/03/2015 Powered by [employer], Reference: [id number], 10/09/2015 8:44:18 PM CDT, Pool: NIRMALA REFILL ([id number]) [employer] Charito Barnett, RN - 10/10/2015 3:44 PM CDT Renewed medication per medication refill protocol. Requested Prescriptions Signed Prescriptions Disp Refills ??? norgestimate-ethinyl estradiol (PREVIFEM) 0.25-35 mg-mcg per tablet 84 tablet 3 Sig: Take 1 tablet by mouth daily (every 24 hours). Follow package directions Authorizing Provider: ZARA CASTANEDA Ordering User: CHARITO BARNETT Refused Prescriptions Disp Refills ??? PREVIFEM 0.25-35 mg-mcg per tablet [Pharmacy Med Name: PREVIFEM 0.25-35MG-MCG TABS] 84 tablet Sig: TAKE ONE TABLET BY MOUTH EVERY DAY FOLLOW PACKAGE INSTRUCTIONS Refused By: CHARITO BARNETT Reason for Refusal: Refill Not Appropriate documented in this encounter Plan of Treatment Not on filedocumented as of this encounter Visit Diagnoses Diagnosis Oral contraceptive pill surveillance - P rimary Surveillance of previously prescribed co ntraceptive pill documented in this encounter Care Teams Purchasing Clerk Relationship Specialty Start Date End Date Unassigned, Provider PCP - General Unknown Physician 03/03/11 02/04/[address] [place] [id number] documented as of this encounter
--- OUTSIDE RECORDS SUMMARY | 2022-05-10 16:36 | XMS_ITS | Encounter Summary ---
:1980 Author Organization [employer] Address [address] [place] [address] Care Team Providers Name Role Phone Unassigned, Provider Primary Care Provider Unavailable Reason for Visit Reason Comments Refill Encounter Details Date Type Department Care Team Description 11/27/2013 Refill [facility] Keysha Seay, PAMathieu Refill [address] [place] [address] [place] [address] [phone] (Wo rk) Social History Tobacco Use Types Packs/Day Years Used Date Smoking Tobacco: Never Alcohol Use Standard Drinks/Week Comments Yes 0 (1 standard drink = 0.6 oz pure alcoho l) on ocass. Sex Assigned at Date Recorded Not on file documented as of this encounter Nursing Notes Isabel Snider - 11/29/2013 10:20 AM CDT No new refill sent, pt has current rx with refill sent to pharmacy _06/28/13__, pharmacy advised to check profile Requested Prescriptions Refused Prescriptions Disp Refills ??? levothyroxine (SYNTHROID) 75 mcg tablet [Pharmacy Med Name: LEVOTHYROXINE SOD 75MCG TAB] 90 tablet 0 Sig: TAKE 1 TABLET BY MOUTH DAILY (EVERY 24 HOURS). Refused By: ISABEL SNIDER Reason for Refusal: REQUEST ALREADY RESPONDED TO BY OTHER MEANS (E.G. PHONE OR FAX) documented in this encounter Plan of Treatment Not on filedocumented as of this encounter Visit Diagnoses Not on filedocumented in this encounter Care Teams Veneer Stapler Relationship Specialty Start Date End Date Unassigned, Provider PCP - General Unknown Physician 03/03/11 02/04/[address] [place] [id number] documented as of this encounter
--- OUTSIDE RECORDS SUMMARY | 2022-05-10 16:36 | XMS_ITS | Encounter Summary ---
:1980 Author Organization [employer] Address [address] [place] [address] Care Team Providers Name Role Phone Keysha Bingham PA-C Primary Care Provider Reason for Referral Consult/Transfer Care (Routine) - Closed Specialty Diagnoses / Procedures Referred By Contact Refer red To Contact Diagnoses Acute pain of left shoulder Martin Chaidez PA-C [address] [place] [address] Referral ID Status Reason Start Date Expiration Date Visits Requ ested Visits Authorized [id number] Closed 07/30/2016 10/29/2017 1 1 Scheduling Instructions Your provider has recommended an appoint ment with [facility]. You may call [phone] to schedule your appoi ntment. If you do not schedule an appointment within the next 1 to 3 business days, we will call you to help arrange your appointment. We suggest you call your [facility] insurance company about your coverage and benefits for this appointment. L DIGGER Procedure/Equipment (Routine) - Incomplete Specialty Diagnoses / Procedures Referred By Contact Refer red To Contact Diagnoses Acute pain of left shoulder Martin Chaidez PA-C Procedures XR Shoulder Lt 2+ Views [address] [place] [address] Referral ID Status Reason Start Date Expiration Date Visits V isits Requested Authorized [id number] Incomplete 07/30/2016 10/29/2017 1 1 L DIGGER Reason for Visit Reason Comments SHOULDER PAIN l side x 1 month Encounter Details Date Type Department Care Team Description 07/30/2016 Office Visit Jasen hobson Martin Chaidez, Acute pain of left [address] [place] PA-C shoulder (Primary Dx) [address] [address] [address] [phone] [place] [address] Social History Tobacco Use Types Packs/Day Years Used Date Smoking Tobacco: Never Alcohol Use Standard Drinks/Week Comments Yes 1.7 (1 standard drink = 0.6 oz pure [place] holic Drinks/day: Amount:1-2 alcohol) drinks; Freq:- ; Sex Assigned at Date Recorded Not on file documented as of this encounter Last Filed Vital Signs Vital Sign Reading Time Taken Comments Blood Pressure 118/70 07/30/2016 11:47 AM PEARL DIGGER Pulse - - Temperature - - Respiratory Rate - - Oxygen Saturation - - Inhaled Oxygen Concentration - - Weight 74.4 kg (164 lb) 07/30/2016 11:47 AM PEARL DIGGER Height 162.6 cm (5' 4) 07/30/2016 11:47 AM PEARL DIGGER Body Mass Index 28.15 07/30/2016 11:47 AM PEARL DIGGER documented in this encounter Progress Notes Martin Chaidez PA-C - 07/30/2016 11:56 AM CST SUBJECTIVE: This 36 y.o. female presents today with the following concern(s): Left shoulder pain She was playing softball last month and slid, left arm got trapped under her torso while sliding. When she got up, her arm was stuck hanging in front of her, couldn't move it. Then she heard a pop and she felt like her shoulder shifted. She could then move her arm. It has been really painful ever since. Hurts with range of motion. She lifts weights, and has refrained from it for the last few weeks. She finally tried again this week, and has feels significant weakness on the left as compared to the right. Adverse Drug Reactions: has No Known Allergies. Medications: has a current medication list which includes the following prescription(s): levothyroxine, multiple vitamins-minerals, norgestimate-eth estradiol, and omega-3 fatty acids. Tobacco History: reports that she has never smoked. She does not have any smokeless tobacco history on file. Alcohol History: reports that she drinks about 1.0 oz of alcohol per week. OBJECTIVE: Vital Signs: BP 118/70 mmHg Ht 5' 4 (1.626 m) Wt 164 lb (74.39 kg) BMI 28.14 kg/m2 General appearance: alert, cooperative, no distress, appears stated age, Neck: supple, symmetrical, trachea midline and no adenopathy and Extremities: extremities normal, atraumatic, no cyanosis or edema. Decreased strength rotator cuff. Pain with abduction beyond 90 degrees. Pain with internal rotation, extension, and adduction. ASSESSMENT/PLAN: Trina was seen today for shoulder pain. Diagnoses and all orders for this visit: Acute pain of left shoulder - XR Shoulder Lt 2+ Views; Future - MR Shoulder Lt WO IV Cont; Future - Orthopaedic Consult Adult/Peds - XR Eye Foreign Body; Future Phone number given to schedule in Ortho. The patient was discharged ambulatory and in stable condition. L DIGGER documented in this encounter Plan of Treatment Scheduled Referrals Name Type Priority Associated Diagnoses [facility] Referral Routine Acute pain of left Or dered: 07/30/2016 Adult/Peds shoulder documented as of this encounter Results XR Shoulder Lt 2+ Views (07/30/2016 12:20 PM PEARL DIGGER) Anatomical Region Laterality Modality Upper Extremity, Shoulder Computed Radio graphy Specimen (Source) Anatomical Collection Method Collection Time Re ceived Time Location / / Volume Laterality 07/30/2016 12:06 PM PEARL DIGGER Narrative 07/30/2016 12:47 PM PEARL DIGGER COMPARISON: ??None. FINDINGS: ??Bony structures appear unrem arkable. ??Joint spaces are within normal limits. ??There is no dislocation or significant degenerative change. Procedure Note Jay Nur MD - 07/30/2016Forma tting of this note might be different from the original. COMPARISON: None. FINDINGS: Bony structures appear unremar kable. Joint spaces are within normal limits. There is no dislocation or significant degenerative change. Martin BENITO GD documented in this encounter Visit Diagnoses Diagnosis Acute pain of left shoulder - Primary Acute pain of left shoulder documented in this encounter Care Teams Experimental Rocketsled Mechanic Relationship Specialty Start Date End Date Keysha Bingham PA-C PCP - General 02/05/16 [address] [place] [address] documented as of this encounter
--- OUTSIDE RECORDS SUMMARY | 2022-05-10 16:36 | XMS_ITS | Encounter Summary ---
:1980 Author Organization [employer] Address [address] [place] [address] Care Team Providers Name Role Phone Unassigned, Provider Primary Care Provider Unavailable Reason for Visit Reason Comments Annual Exam Encounter Details Date Type Department Care Team Description 08[facility]23[facility]2014 [facility] ; [address] Mahin Maher PA-C Unspecified hypothyroidism; [place] [address] [address] Mahin Galan Screening for malignant neoplasm of the cervix; [phone] [place] [address] Contraceptive management Social History Tobacco Use Types Packs/Day Years Used Date Smoking Tobacco: Never Alcohol Use Standard Drinks/Week Comments Yes 0 (1 standard drink = 0.6 oz pure alcoho l) on ocass. Sex Assigned at Date Recorded Not on file documented as of this encounter Last Filed Vital Signs Vital Sign Reading Time Taken Comments Blood Pressure 108/60 08/23/2014 1:04 PM CDT Pulse 60 08/23/2014 1:04 PM CDT Temperature - - Respiratory Rate - - Oxygen Saturation - - Inhaled Oxygen Concentration - - Weight 67.6 kg (149 lb) 08/23/2014 1:04 PM CDT Height 165.1 cm (5' 5) 08/23/2014 1:04 PM CDT Body Mass Index 24.79 08/23/2014 1:04 PM CDT documented in this encounter Progress Notes Kishor Patel PA-C - 08/23/2014 1:48 PM CDT Preventive Exam SUBJECTIVE: Patient is a 34 y.o. female that presents for a routine preventive physical exam. She has no other symptomatic complaints or other concerns. 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 The patient performs monthly breast exams. Calcium intake is adequate. Colonoscopy or sigmoidoscopy: Not indicated The patient practices safe sex. Tetanus immunization is up-to-date. Sun protection is used. Pap test questions: periods are regular no unusual pelvic pain no unusual vaginal discharge has a history of previous abnormal Pap test no family or personal history of cervical cancer Immunization status: up to date and documented. Past Medical History: Most recent physical examination: 2013 Past Medical History Diagnosis Date ??? Hypothyroidism (ACG) Past Surgical History Procedure Laterality Date ??? Merrill tooth extraction age 21 History Social History ??? Marital Status: Single Spouse Name: N/A Number of Children: N/A ??? Years of Education: N/A Occupational History ??? Not on file. Social History Main Topics ??? Smoking status: [...] ??? 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 Current Outpatient Prescriptions on File Prior to Visit Medication Sig Dispense Refill ??? levothyroxine (SYNTHROID) 75 mcg tablet Take 1 tablet by mouth daily (every 24 hours). 90 tablet0 ??? multivitamin (THERAGRAN) tablet Take 1 tablet by mouth daily (every 24 hours). 100 13 ??? [DISCONTINUED] norgestimate-ethinyl estradiol (PREVIFEM) 0.25-35 mg-mcg per tablet Take 1 tabletby mouth daily (every 24 hours). Follow package directions 84 tablet 0 ??? Concho-3 Fatty Acids Cap ??? [DISCONTINUED] op medications reviewed No current facility-administered medications on file prior to visit. Adverse Drug Reactions: No Known Allergies Family History: (First degree family members) Family History Problem Relation Age of Onset ??? DVT/PE leg, dad post-op Review of Systems: General: Current state of health this good HEENT: Denies any headache, change in vision, eye pain, ear pain, hearing loss, tinnitus, vertigo, sore throat, hoarseness. Pulmonary: Denies cough, sputum, hemoptysis, dyspnea, pleuritic chest pain, wheezing, asthma, recurrent infections Cardiac: Denies chest pain or pressure, palpitations, shortness of breath, swelling in the extremities GI: Denies any weight gain or loss, nausea, vomiting, diarrhea, constipation, hematochezia, or melena. Denies any dysphasia or change in appetite. : Denies dysuria, hematuria, nocturia, frequency, polyuria, hesitancy, incontinence, Menarche was at age: Has had normal menstrual cycles. LMP 08/14/14 Neurological: Denies dizziness, syncope, seizures, paresthesias, weakness, tremor. Musculoskeletal: Denies arthritis, joint stiffness, swelling, myalgias, and back pain. Vascular: Denies phlebitis, varicosities, claudication, or cramping. Endocrine: Denies polyuria, polydipsia, polyphagia, heat or cold intolerance, thyroid problems Hematologic: Denies known anemias, easy bruising or bleeding, lymph node enlargement, pain, fatigue,fever, chills, or night sweats. Dermatologic: Denies rashes, changed moles, dryness, pruritus, lumps, or pigment changes. Psychiatric: Denies depression, agitation, panic or anxiety, memory disturbances, personality changes, or hallucinations. OBJECTIVE: Vital Signs: BP 108/60 Pulse 60 Ht 5' 5 (1.651 m) Wt 149 lb (67.586 kg) BMI 24.79 kg/m2 LMP 08/14/2014 General: Patient alert, in NAD. Well-developed, well-nourished female who appears her stated age. Skin: Skin color, texture, turgor normal. No malignant appearing lesions. No rash. Head: Normocephalic, atraumatic Eyes: conjunctivae clear. PERRL, EOM's intact. Fundi benign Ears: normal TM's and external ear canals bilaterally. Nose: Nares patent. Septum midline. Mucosa normal. No drainage. Throat: lips, mucosa, and tongue normal; teeth and gums normal Neck: Supple, without thyromegaly or mass. Trachea midline. No carotid bruit and no JVD CV: RRR without murmurs, rubs or gallops. Normal S1 and S2 heart sounds. Resp: normal effort and chest expansion. Clear to auscultation without rhonchi, wheezes, or rales. Abdomen: normal bowel sounds; soft, non-tender, non-distended. No organomegaly, masses, or hernias. Lymphatic: No neck, supraclavicular, axillary or groin lymphadenopathy. Extremities: No Edema, Full ROM. Pedal pulses detected and normal Neuro: CN II-XII grossly intact, motor & sensory function intact. Strenght and tone WNL. Coordination, gate and station normal. Patellar reflexes 2+ and symmetric bilaterally. Pelvic: Normal external genitalia. Vagina normal without discharge. Cervix easily identified and normal in appearance, Pap smear collected. Bimanual exam reveals no adnexal masses or tenderness; no cervical motion tenderness. Uterus is of normal size, shape, and consistency. Psychiatric: Alert & oriented with normal affect and insight. Patient does not appear depressed or anxious. ASSESSMENT: Routine preventive health exam. Healthy female Encounter Diagnoses Name Primary? Well woman exam Yes ??? Hypothyroidism On Replacement ??? Screening for malignant neoplasm of the cervix ??? Contraceptive management PLAN: Discussed routine health maintenance items, including screening, immunizations, calcium intake, exercise, healthy diet, and safety practices. Follow-up in 1 year, sooner PRN any concerns. LABS: tsh Patient to be notified by letter if all labs are WNL. She will be contacted by phone if warranted. documented in this encounter Plan of Treatment Not on filedocumented as of this encounter Procedures Procedure Name Priority Date/Time Associated Comments Diagnosis ANATOMICAL PATH Routine 08/23/2014 1:48 PM Result s for this LIQUID BASED CDT procedure are i n the results section. PAP SMEAR ORDER Routine 08/23/2014 1:48 PM Well woman ex am Results for this CDT Screening for procedure are in malignant neoplasm the resul ts of the cervix section. documented in this encounter Results Pap Smear (08/23/2014 1:48 PM CDT) Specimen (Source) Anatomical Collection Method Collection Time Re ceived Time Location / / Volume Laterality 08/23/2014 1:48 PM CDT Narrative HP CONVERSION - 08/28/2014 2:57 PM [place] [address] FINAL GYNECOLOGICAL CYTOLOGY REPORT Pathology #: [id number] ?Date Obtained: 08/23/2014 ? Date Received: 08/26/2014 INTERPRETATION/RESULTS: Negative for Intraepithelial Lesion or M alignancy. Fungal organisms morphologically consist ent with Felicia species. SPECIMEN ADEQUACY: Satisfactory for Evaluation. ??No endoce rvical cells/transformation zone component present. Verified on 08/28/2014 ??by ISRAEL RANGEL SON, CT(ASCP) (electronic signature) CLINICAL NOTES: ?Abnormal bleeding: No, LMP: 08/04 06/20, Hormonal TX: No LIQUID BASED PAP SMEAR SPECIMEN TYPE: ?CERVICAL WITH REFLEX TO HPV IF ASCUS PLEASE NOTE: The pap smear is a screening test design ed to aid in the detection of cervical cancer and its pre cursor lesions. It is not a diagnostic procedure and terrell uld not be used as the sole means of detecting cervical cancer. Both false-positive and false-negative report s may occur. ? End of Report Kishor Patel PA-C LAB_1 Performing Organization Address City/State/ZIP Code Phon e Number HP CONVERSION Pap Smear Order (08/23/2014 1:48 PM CDT) [facility] Method Time Signature Pap Smear Collected HP CONVERSION Monolayer tracking test Specimen Anatomical Collection Method Collection Time Receive d Time (Source) Location / / Volume Laterality 08/23/2014 1:48 PM 08/26/201 5 4:58 CDT AM CDT Narrative HP CONVERSION - 08/28/2014 2:55 PM CDT Performed at [address] [address] Kishor Patel PA-C LAB_1 Performing Organization Address City/State/ZIP Code Phon e Number HP CONVERSION documented in this encounter Visit Diagnoses Diagnosis Well woman exam - Primary Routine general medical examination at a health care facility Unspecified hypothyroidism (HRC) Unspecified hypothyroidism Screening for malignant neoplasm of the cervix Contraceptive management Unspecified contraceptive management documented in this encounter Care Teams Apprentice Painter Brush Relationship Specialty Start Date End Date Unassigned, Provider PCP - General Unknown Physician 03/03/11 02/04/[address] [place] [id number] documented as of this encounter
--- OUTSIDE RECORDS SUMMARY | 2022-05-10 16:36 | XMS_ITS | Encounter Summary ---
:1980 Author Organization [employer] Address [address] [place] [address] Care Team Providers Name Role Phone Unassigned, Provider Primary Care Provider Unavailable Encounter Details Date Type Department Care Team Description 08/23/2014 Lab Visit [facility] Unspecified hypothyroidism [address] [place] [address] Social History Tobacco Use Types Packs/Day Years Used Date Smoking Tobacco: Never Alcohol Use Standard Drinks/Week Comments Yes 0 (1 standard drink = 0.6 oz pure alcoho l) on ocass. Sex Assigned at Date Recorded Not on file documented as of this encounter Plan of Treatment Not on filedocumented as of this encounter Procedures Procedure Name Priority Date/Time Associated Diagnosis Comme nts TSH AND FREE T4 Routine 08/23/2014 1:36 PM Unspecified Result s for this (FRT4 IF TSH CDT hypothyroidism procedure are in ABNORM) the results section. documented in this encounter Results TSH AND FREE T4 (FRT4 IF TSH ABNORM) (08/23/2014 1:36 PM CDT) athologist Signature Thyroid 3.02 0.20 - HP CONVERSION Stimulating 4.50 mIU/L Hormone Specimen Anatomical Collection Method Collection Time Receive d Time (Source) Location / / Volume Laterality 08/23/2014 1:36 PM 5 7:14 CDT PM CDT Narrative HP CONVERSION - 08/23/2014 8:00 PM CDT Performed at [address] [address] Kishor Patel PA-C LAB_1 Performing Organization Address City/State/ZIP Code Phon e Number HP CONVERSION documented in this encounter Visit Diagnoses Diagnosis Unspecified hypothyroidism (HRC) Unspecified hypothyroidism documented in this encounter Care Teams Circuitry Negative Inspector Relationship Specialty Start Date End Date Unassigned, Provider PCP - General Unknown Physician 03/03/11 02/04/[address] [place] [phone] documented as of this encounter
--- OUTSIDE RECORDS SUMMARY | 2022-05-10 16:36 | XMS_ITS | Encounter Summary ---
:1980 Author Organization [employer] Address [address] [place] [address] Care Team Providers Name Role Phone Unassigned, Provider Primary Care Provider Unavailable Reason for Visit Reason Comments HEARTBURN Encounter Details Date Type Department Care Team Description 05/13/2015 Nurse Triage Keysha Williamson, PAMathieu HEARTBURN [address] [place] [address] [place] [address] [phone] (Wo rk) Social History Tobacco Use Types Packs/Day Years Used Date Smoking Tobacco: Never Alcohol Use Standard Drinks/Week Comments Yes 0 (1 standard drink = 0.6 oz pure alcoho l) on ocass. Sex Assigned at Date Recorded Not on file documented as of this encounter Nursing Notes Xuan Solorzano LPN - 05/13/2015 5:15 PM CST Protocol: CHEST [id number] Affirmative: All other patients with chest pain Disposition of See Within 12 - 24 Hours (Office or Urgent Care) suggested. Patient calling, she had some heart burn yesterday for 3 hours. Today she had it longer. It has not been this bad before. She is feeling pain in the center of her chest going up her esophagus. She did have some acid/food regurgitation. She did take some Rolaids and it helped some. She does not have any symptoms currently. Future Appointments Date Time Provider Department Center 05/14/2015 9:30 AM VASILIY Nowak [place] [facility]UB NECK WHIPPER Zahra Arvizu - 05/13/2015 4:29 PM CST Patient is requesting to speak to a nurse, says experiencing heart burn. Please advise. CLUB NECK WHIPPER documented in this encounter Plan of Treatment Not on filedocumented as of this encounter Visit Diagnoses Not on filedocumented in this encounter Care Teams Filament Tester Relationship Specialty Start Date End Date Unassigned, Provider PCP - General Unknown Physician 03/03/11 02/04/[address] [place] [phone] documented as of this encounter
--- OUTSIDE RECORDS SUMMARY | 2022-05-10 16:36 | XMS_ITS | Encounter Summary ---
:1980 Author Organization [facility] Address [address] [place] [address] Care Team Providers Name Role Phone Unassigned, Provider Primary Care Provider Unavailable Encounter Details Date Type Department Care Team Description 08/01/2012 Lab Visit [facility] Well adult exam [address] [place], [place] [id number] Social History Tobacco Use Types Packs/Day Years Used Date Smoking Tobacco: Never Alcohol Use Standard Drinks/Week Comments Yes 0 (1 standard drink = 0.6 oz pure alcoho l) on ocass. Sex Assigned at Date Recorded Not on file documented as of this encounter Plan of Treatment Not on filedocumented as of this encounter Procedures Procedure Name Priority Date/Time Associated Comments Diagnosis THYROID STIMULATING Routine 08/01/2012 10:05 Well adult exam R esults for this HORMONE AM CLAMSHELL OPERATOR procedure are i n the results section. documented in this encounter Results THYROID STIMULATING HORMONE (08/01/2012 10:05 AM CLAMSHELL OPERATOR) P athologist Signature Thyroid 2.39 0.20 - HP CONVERSION Stimulating 4.50 mIU/L Hormone Specimen Anatomical Collection Method Collection Time Receive d Time (Source) Location / / Volume Laterality 08/01/2012 10:05 08/01/2012 1:41 AM CLAMSHELL OPERATOR PM CLAMSHELL OPERATOR Keysha Bingham PA-C LAB_1 Performing Organization Address City/State/ZIP Code Phon e Number HP CONVERSION documented in this encounter Visit Diagnoses Diagnosis Well adult exam Routine general medical examination at a health care facility documented in this encounter Care Teams Litigation Assistant Relationship Specialty Start Date End Date Unassigned, Provider PCP - General Unknown Physician 03/03/11 02/04/16 [address] [place] [address] documented as of this encounter
--- OUTSIDE RECORDS SUMMARY | 2022-05-10 16:36 | XMS_ITS | Encounter Summary ---
:1980 Author Organization [employer] Address [address] [place] [address] Care Team Providers Name Role Phone Unassigned, Provider Primary Care Provider Unavailable Reason for Visit Reason Comments Refill Encounter Details Date Type Department Care Team Description 03/09/2012 Refill [facility] Keysha Seay, PADlC Refill [address] [place] [address] [place] [address] [phone] (Wo rk) Social History Tobacco Use Types Packs/Day Years Used Date Smoking Tobacco: Never Alcohol Use Standard Drinks/Week Comments Yes 0 (1 standard drink = 0.6 oz pure alcoho l) on ocass. Sex Assigned at Date Recorded Not on file documented as of this encounter Nursing Notes Isabel Mariano RN - 03/10/2012 3:26 PM CDT Rx re-sent to pharmacy per current order by PCP dated 03/09/12 Mallorie Cruz - 03/09/2012 2:33 PM CDT Pt calling to request RX to be sent to [facility]. Pedro Tamiko, FURNITURE REPAIR TECHNICIAN - 03/09/2012 2:29 PM CDT Updated pt that her control Rx was refilled to her pharmacy. documented in this encounter Plan of Treatment Not on filedocumented as of this encounter Visit Diagnoses Not on filedocumented in this encounter Care Teams Occupational Therapy Director Relationship Specialty Start Date End Date Unassigned, Provider PCP - General Unknown Physician 03/03/11 02/04/[address] [place] [phone] documented as of this encounter
--- OUTSIDE RECORDS SUMMARY | 2022-05-10 16:36 | XMS_ITS | Encounter Summary ---
:1980 Author Organization [employer] Address [address] [place] [address] Care Team Providers Name Role Phone Unassigned, Provider Primary Care Provider Unavailable Reason for Visit Reason Comments Medication Questions Encounter Details Date Type Department Care Team Description 10/15/2015 Nurse Triage Keysha Williamson, Medication Questions [address] [place] [address] [address] [phone] [place] [phone] (Wo rk) Social History Tobacco Use Types Packs/Day Years Used Date Smoking Tobacco: Never Alcohol Use Standard Drinks/Week Comments Yes 0 (1 standard drink = 0.6 oz pure alcoho l) on ocass. Sex Assigned at Date Recorded Not on file documented as of this encounter Nursing Notes Silva Callahan RN - 10/15/2015 9:16 PM CDT Pt calling stated that she has missed 3 BCP, wants to know what she should do. Instructed pt to stoptaking pill and resume with a new pack on Tuesday. Use another form of BC until she is 1/2 way through the new pack. Pt has no further complaints or questions. Silva Callahan RN - 10/15/2015 9:16 PM CDT Protocol: MEDICATION QUESTION [id number] Affirmative: Caller has medication question only, adult not sick, and triager answers question Disposition of Home Care suggested. documented in this encounter Plan of Treatment Not on filedocumented as of this encounter Visit Diagnoses Not on filedocumented in this encounter Care Teams Automatic Riveting Machine Operator Relationship Specialty Start Date End Date Unassigned, Provider PCP - General Unknown Physician 03/03/11 02/04/[address] [place] [phone] documented as of this encounter
--- OUTSIDE RECORDS SUMMARY | 2022-05-10 16:36 | XMS_ITS | Encounter Summary ---
:1980 Author Organization [employer] Address [address] [place] [address] Care Team Providers Name Role Phone Keysha Bingham PA-C Primary Care Provider Reason for Visit Reason Onset Date Comments RESULTS, X-RAY 08/02/2016 Encounter Details Date Type Department Care Team Description 08/02/2016 Telephone Martin Morales PA-C RESULTS, X-RAY [address] [place] [address] [place] [address] [phone] (Wo rk) Social History Tobacco Use Types Packs/Day Years Used Date Smoking Tobacco: Never Alcohol Use Standard Drinks/Week Comments Yes 1.7 (1 standard drink = 0.6 oz pure [place] holic Drinks/day: Amount:1-2 alcohol) drinks; Freq:2-4/Tue ; Sex Assigned at Date Recorded Not on file documented as of this encounter Nursing Notes Hodan Mehta RN - 08/02/2016 9:19 AM CST Gave x-ray result, per chart RETE BUILDINGS ASSEMBLER Melissa Moon - 08/02/2016 9:12 AM CST Lab/Radiology Results Primary Care Provider: Keysha Lennon PA-C What test result is needed? Xray Results When and where was test done? 07/30 Who ordered the test? Martin Chaidez RETE BUILDINGS ASSEMBLER documented in this encounter Plan of Treatment Not on filedocumented as of this encounter Visit Diagnoses Not on filedocumented in this encounter Care Teams Concrete Mixing Plant Laborer Relationship Specialty Start Date End Date Keysha Bingham PA-C PCP - General 02/05/16 [address] [place] [address] documented as of this encounter
--- OUTSIDE RECORDS SUMMARY | 2022-05-10 16:36 | XMS_ITS | Encounter Summary ---
:1980 Author Organization [employer] Address [address] [place] [address] Care Team Providers Name Role Phone Unassigned, Provider Primary Care Provider Unavailable Reason for Visit Reason Comments Refill Encounter Details Date Type Department Care Team Description 08/19/2015 Refill Aldo Arroyo PA-C Refill [address] [place] [address] [place] [address] [phone] (Wo rk) Social History Tobacco Use Types Packs/Day Years Used Date Smoking Tobacco: Never Alcohol Use Standard Drinks/Week Comments Yes 0 (1 standard drink = 0.6 oz pure alcoho l) on ocass. Sex Assigned at Date Recorded Not on file documented as of this encounter Nursing Notes User, Neetu - 08/20/2015 11:12 AM CDT levothyroxine (SYNTHROID) 75 mcg tablet [Pharmacy Med Name: LEVOTHYROXINE SODIUM 75MCG TABS] - MEDICATION STARTED: 07/03/2010 - LAST REFILLED ON: 08/26/2014, QTY: 90, Refills: 3, Sig: take 1 tablet by mouth daily (every 24 hours). (changed but equivalent) - REFILL: 3 months - RATIONALE: This is a courtesy refill. Patient is overdue for an office visit and TSH check. This will be the last refill authorized by the protocol. - LAST QUALIFYING VISIT WITH JOSELITO ALDO Koko: 08/23/2014 (A more recent visit in family medicine wasfound) - NEXT SCHEDULED VISIT: None - TSH: 3.02uIU/mL on 08/23/2014 ADDITIONAL SCHEDULING ACTIONS TAKEN: - TSH for levothyroxine (SYNTHROID) 75 mcg tablet (Sent to [facility]) Powered by [employer] Reference: [id number], 08/19/2015 4:17:06 AM CDT, Pool: [facility] ([id number]) Althea Hdez - 08/20/2015 11:12 AM CDT left message on the answering machine to schedule an appointment Keysha Bartlett PA-C - 08/19/2015 2:08 PM CDT 90 days refilled. She is due for a physical- please have her schedule and we will do labs at her appt.. Thanks. ILAT Edna Evans RN - 08/19/2015 11:58 AM CDT Further assistance needed to complete refill request Reason: RN Reviewed--Need signed order in [place] for pended medication. Pt overdue for required lab. Next Steps: Review pended order for accuracy. Sign. Route to frontline pool to schedule appt. Requested Prescriptions Pending Prescriptions Disp Refills ??? levothyroxine (SYNTHROID) 75 mcg tablet [Pharmacy Med Name: LEVOTHYROXINE SODIUM 75MCG TABS] 90 tablet 0 Sig: Take 1 tablet by mouth daily (every 24 hours). documented in this encounter Plan of Treatment Not on filedocumented as of this encounter Visit Diagnoses Not on filedocumented in this encounter Care Teams Oracle R12 Developer Relationship Specialty Start Date End Date Unassigned, Provider PCP - General Unknown Physician 03/03/11 02/04/[address] [place] [id number] documented as of this encounter
--- OUTSIDE RECORDS SUMMARY | 2022-05-10 16:36 | XMS_ITS | Encounter Summary ---
:1980 Author Organization [employer] Address [address] [place] [address] Care Team Providers Name Role Phone Unassigned, Provider Primary Care Provider Unavailable Encounter Details Date Type Department Care Team Description 06/29/2012 Lab Visit [facility] Well adult exam (Primary [address] Dx) [place] [id number] Social History Tobacco Use Types Packs/Day Years Used Date Smoking Tobacco: Never Alcohol Use Standard Drinks/Week Comments Yes 0 (1 standard drink = 0.6 oz pure alcoho l) on ocass. Sex Assigned at Date Recorded Not on file documented as of this encounter Progress Notes Rajwinder Lennon PA-C - 06/30/2012 7:57 AM OIL WINTERIZER Addended by: RAJWINDER LENNON on: 06/30/2012 Modules accepted: Orders documented in this encounter Plan of Treatment Not on filedocumented as of this encounter Procedures Procedure Name Priority Date/Time Associated Comments Diagnosis THYROID STIMULATING Routine 06/29/2012 3:15 PM Well adult exam Results for this HORMONE OIL WINTERIZER procedure are i n the results section. documented in this encounter Results (ABNORMAL) THYROID STIMULATING HORMONE (06/29/2012 3:15 PM OIL WINTERIZER) [facility] Method Time Signature Thyroid 4.66 (H) 0.20 - HP CONVERSION Stimulating 4.50 Hormone mIU/L Specimen Anatomical Collection Method Collection Time Receive d Time (Source) Location / / Volume Laterality 06/29/2012 3:15 PM 3 9:25 OIL WINTERIZER PM OIL WINTERIZER Rajwinder Bingham PA-C LAB_1 Performing Organization Address City/State/ZIP Code Phon e Number HP CONVERSION documented in this encounter Visit Diagnoses Diagnosis Well adult exam - Primary Routine general medical examination at a health care facility documented in this encounter Care Teams Websphere Developer Relationship Specialty Start Date End Date Unassigned, Provider PCP - General Unknown Physician 03/03/11 02/04/[address] [place] [id number] documented as of this encounter
--- OUTSIDE RECORDS SUMMARY | 2022-05-10 16:36 | XMS_ITS | Encounter Summary ---
:1980 Author Organization [employer] Address [address] [place] [address] Care Team Providers Name Role Phone Unassigned, Provider Primary Care Provider Unavailable Reason for Visit Reason Comments Test Request Encounter Details Date Type Department Care Team Description 08/22/2014 Telephone Keysha Williamson, VASILIY Test Request [address] [place] [address] [place] [address] [phone] (Wo rk) Social History Tobacco Use Types Packs/Day Years Used Date Smoking Tobacco: Never Alcohol Use Standard Drinks/Week Comments Yes 0 (1 standard drink = 0.6 oz pure alcoho l) on ocass. Sex Assigned at Date Recorded Not on file documented as of this encounter Nursing Notes Xuan Cheema RN - 08/22/2014 3:16 PM CDT Left detailed message for pt to schedule appointment before medication runs out. Pt will be able to have lab test ordered at office visit with results completed before next refill of medication is needed. Pt has physical scheduled for tomorrow. ILAT Emma Patel - 08/22/2014 2:45 PM CDT Patient wonders if she needs a thyroid test. Patient got a letter saying she should have an appointment with her provider for renewing norgestimate-ethinyl estradiol (PREVIFEM) 0.25-35 mg-mcg per tablet she is scheduling a med check. documented in this encounter Plan of Treatment Not on filedocumented as of this encounter Visit Diagnoses Not on filedocumented in this encounter Care Teams Digital Sales Representative Relationship Specialty Start Date End Date Unassigned, Provider PCP - General Unknown Physician 03/03/11 02/04/[address] [place] [phone] documented as of this encounter
--- OUTSIDE RECORDS SUMMARY | 2022-05-10 16:36 | XMS_ITS | Encounter Summary ---
:1980 Author Organization [employer] Address [address] [place] [address] Care Team Providers Name Role Phone Unassigned, Provider Primary Care Provider Unavailable Reason for Visit Reason Comments Refill Encounter Details Date Type Department Care Team Description 04/26/2012 Refill [facility] Keysha Seay, PADlC Refill [address] [place] [address] [place] [address] [phone] (Wo rk) Social History Tobacco Use Types Packs/Day Years Used Date Smoking Tobacco: Never Alcohol Use Standard Drinks/Week Comments Yes 0 (1 standard drink = 0.6 oz pure alcoho l) on ocass. Sex Assigned at Date Recorded Not on file documented as of this encounter Nursing Notes Trina Arauz - 04/28/2012 2:34 PM CST Letter sent to pt advising need for appointment. Anahy Moon RN - 04/28/2012 9:46 AM CST REFILL APPOINTMENT NEEDED Please call patient and schedule appointment within 60 days. Medication has been renewed and sent to pharmacy for a 90 day supply. Comment: last physical 07/05/11. Establish care with a new primary doctor. Thank you. Prescription Refills Approved Prescriptions Disp Refills ??? levothyroxine (SYNTHROID) 75 mcg tablet 90 tablet 0 Sig: Take 1 tablet by mouth daily (every 24 hours). Authorizing Provider: SHALINI HENRIQUEZ Ordering User: ANAHY HERNANDEZ documented in this encounter Miscellaneous Notes Letter - 04/26/2012 12:00 AM CST Images from the original note were not included. [place] [address] [place] [address] Dept: [phone] Trina Javier [address] [address] April 28, 2012 Dear Trina Javier, We received your request for the following prescription(s): Orders Placed This Encounter Medication ??? levothyroxine (SYNTHROID) 75 mcg tablet Sig: Take 1 tablet by mouth daily (every 24 hours). Dispense: 90 tablet Refill: 0 Your request was approved for a 90 day supply. You will need an appointment with your provider before your next refill. Please call [facility] at [phone] to schedule an appointment with a new provider within 60 days. Thank you for choosing [facility] for your health care needs. Your [facility] Care Team ER HELPER documented in this encounter Plan of Treatment Not on filedocumented as of this encounter Visit Diagnoses Not on filedocumented in this encounter Care Teams Laborer Driver Relationship Specialty Start Date End Date Unassigned, Provider PCP - General Unknown Physician 03/03/11 02/04/[address] [place] [id number] documented as of this encounter
--- OUTSIDE RECORDS SUMMARY | 2022-05-10 16:36 | XMS_ITS | Encounter Summary ---
:1980 Author Organization [employer] Address [address] [place] [address] Care Team Providers Name Role Phone Keysha Bingham PA-C Primary Care Provider Reason for Visit Procedure/Equipment (Routine) - Incomplete Specialty Diagnoses / Procedures Referred By Contact Refer red To Contact Diagnoses Acute pain of left shoulder Martin Chaidez PA-C Procedures XR Shoulder Lt 2+ Views [address] [place] [address] Referral ID Status Reason Start Date Expiration Date Visits V isits Requested Authorized [id number] Incomplete 07/30/2016 10/29/2017 1 1 Encounter Details Date Type Department Care Team Description 07/30/2016 Imaging [facility] Martin Chaidez, Acute pain of left [address] Mah[address] Maher PA-C shoulder [place] [address] [address] [phone] [place] [id number] Social History Tobacco Use Types Packs/Day Years [...] Name Priority Date/Time Associated Diagnosis Comme nts XR SHOULDER LT 2+ Routine 07/30/2016 12:20 PM Acute pain of le ft Results for this VIEWS WORKERS COMPENSATION CLAIMS ASSISTANT shoulder procedure are i n the results section. documented in this encounter Results XR Shoulder Lt 2+ Views (07/30/2016 12:20 PM WORKERS COMPENSATION CLAIMS ASSISTANT) Anatomical Region Laterality Modality Upper Extremity, Shoulder Computed Radio graphy Specimen (Source) Anatomical Collection Method Collection Time Re ceived Time Location / / Volume Laterality 07/30/2016 12:06 PM WORKERS COMPENSATION CLAIMS ASSISTANT Narrative 07/30/2016 12:47 PM WORKERS COMPENSATION CLAIMS ASSISTANT COMPARISON: ??None. FINDINGS: ??Bony structures appear unrem arkable. ??Joint spaces are within normal limits. ??There is no dislocation or significant degenerative change. Procedure Note Jay Nur MD - 07/30/2016Forma tting of this note might be different from the original. COMPARISON: None. FINDINGS: Bony structures appear unremar kable. Joint spaces are within normal limits. There is no dislocation or significant degenerative change. Martin Chaidez PA-C RAD GD documented in this encounter Visit Diagnoses Diagnosis Acute pain of left shoulder documented in this encounter Care Teams Cyanide Furnace Operator Relationship Specialty Start Date End Date Keysha Bingham PA-C PCP - General 02/05/16 [address] [place], [place] [address] documented as of this encounter
--- OUTSIDE RECORDS SUMMARY | 2022-05-10 16:36 | XMS_ITS | Encounter Summary ---
:1980 Author Organization [employer] Address [address] [place] [address] Care Team Providers Name Role Phone Unassigned, Provider Primary Care Provider Unavailable Reason for Visit Reason Comments Refill Encounter Details Date Type Department Care Team Description 11/17/2015 Refill Rajwinder Williamson, PAMathieu Refill [address] [place] [address] [place] [address] [phone] (Wo rk) Social History Tobacco Use Types Packs/Day Years Used Date Smoking Tobacco: Never Alcohol Use Standard Drinks/Week Comments Yes 0 (1 standard drink = 0.6 oz pure alcoho l) on ocass. Sex Assigned at Date Recorded Not on file documented as of this encounter Nursing Notes UserNeetu - 11/18/2015 10:08 AM CDT levothyroxine (SYNTHROID) 75 mcg tablet [Pharmacy Med Name: LEVOTHYROXINE SODIUM 75MCG TABS] - MEDICATION STARTED: 07/03/2010 - LAST REFILLED ON: 09/03/2015, QTY: 90, Refills: 3, Sig: take 1 tablet by mouth daily (every 24 hours). (changed but equivalent) - WARNING: The patient should have outstanding refills for this medication until 05/30/2016. - REFILL: 6 months (if warnings resolved) - RATIONALE: This refill should last until the patient is due for an office visit. - LAST QUALIFYING VISIT WITH RAJWINDER COTE: 04/04/2015 (A more recent visit in Family Medicine was found) - NEXT SCHEDULED VISIT: None - TSH: 2.69uIU/mL on 09/03/2015 Powered by [employer], Reference: [id number], 11/17/2015 10:40:58 PM CDT, Pool: NIRMALA REFILL ([id number]) ESCENT PSYCHIATRIST Melva Anderson V [facility] - 11/18/2015 10:08 AM CDT Requested prescription was last renewed on 09/03/15 and sent to [facility] pharmacy with year supply. Pt notified via [employer]. Requested Prescriptions Refused Prescriptions Disp Refills ??? levothyroxine (SYNTHROID) 75 mcg tablet [Pharmacy Med Name: LEVOTHYROXINE SODIUM 75MCG TABS] 90 tablet 1 Sig: TAKE ONE TABLET BY MOUTH EVERY DAY Refused By: MELVA ANDERSON V Reason for Refusal: Request Already Responded To By Other Means documented in this encounter Miscellaneous Notes Patient Email (Converted) - Hernandez Prater Provider - 11/18/2015 10:08 AM CDT Reason for refusal From User: MELVA ANDERSON V The denial you have just received is because the prescription that was requested has already been transmitted to your requested pharmacy. The prescription(s) were sent to [place], [place] (# [phone]) on 09/03/15 with year supply. Please contact pharmacy for refill. If you need to switch pharmacies, please contact your preferred pharmacy to transfer your prescription(s). Thank you. ESCENT PSYCHIATRIST documented in this encounter Plan of Treatment Not on filedocumented as of this encounter Visit Diagnoses Not on filedocumented in this encounter Care Teams Icing And Glaze Maker Relationship Specialty Start Date End Date Unassigned, Provider PCP - General Unknown Physician 03/03/11 02/04/[address] [place] [phone] documented as of this encounter
--- OUTSIDE RECORDS SUMMARY | 2022-05-10 16:36 | XMS_ITS | Encounter Summary ---
:1980 Author Organization [employer] Address [address] [place] [address] Care Team Providers Name Role Phone Unassigned, Provider Primary Care Provider Unavailable Reason for Visit Reason Comments Annual Exam Encounter Details Date Type Department Care Team Description 06/29/2012 Office Visit Keysha Ortiz Well adul t exam (Primary Dx); Medicine PAMathieu Unspecified hypothyroidism [address] [place] [address] [place] [address] [phone] Social History Tobacco Use Types Packs/Day Years Used Date Smoking Tobacco: Never Alcohol Use Standard Drinks/Week Comments Yes 0 (1 standard drink = 0.6 oz pure alcoho l) on ocass. Sex Assigned at Date Recorded Not on file documented as of this encounter Last Filed Vital Signs Vital Sign Reading Time Taken Comments Blood Pressure 118/60 06/29/2012 2:49 PM CONFERENCE CENTER MANAGER Pulse 60 06/29/2012 2:49 PM CONFERENCE CENTER MANAGER Temperature - - Respiratory Rate - - Oxygen Saturation - - Inhaled Oxygen Concentration - - Weight 59 kg (130 lb) 06/29/2012 2:49 PM CONFERENCE CENTER MANAGER Height 163.8 cm (5' 4.5) 06/29/2012 2:49 PM CONFERENCE CENTER MANAGER Body Mass Index 21.97 06/29/2012 2:49 PM CONFERENCE CENTER MANAGER documented in this encounter Progress Notes Keysha Lennon, PADlC - 06/29/2012 3:12 PM CST Preventive Exam SUBJECTIVE: 32 y.o. y/o patient presents for a routine preventive physical exam. Additional concerns: none, recently lost her insurance, does not want STD screening or a flu shot. 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 LMP: Patient's last menstrual period was 06/12/2012. Pap hx: last in 2011, normal. Sexual History: History Sexual Activity ??? Sexually Active: STD Hx: none oral contraceptives (estrogen/progesterone) Past Medical History Diagnosis Date ??? Hypothyroidism Past Surgical History Procedure Date ??? [place] tooth extraction age 21 Family History Problem Relation Age of Onset ??? DVT/PE leg, dad post-op History Social History ??? Marital Status: Single Spouse Name: N/A Number of Children: N/A ??? Years of Education: N/A Occupational History ??? Not on file. Social History Main Topics ??? Smoking status: Never Smoker ??? Smokeless tobacco: Not on file ??? Alcohol Use: 1.0 oz/week 2 drink(s) per week Alcoholic Drinks/day: Amount:1-2 drinks; Freq:2-4/Month ; ??? Drug Use: ??? Sexually Active: Other Topics Concern ??? Not on file Social History Narrative ??? No narrative on file Adverse drug reactions: No Known Allergies Current Medications: Outpatient encounter prescriptions as of 06/29/2012 Medication Sig Dispense Refill ??? levothyroxine (SYNTHROID) 75 mcg tablet Take 1 tablet by mouth daily (every 24 hours). 90 tablet3 ??? DISCONTD: levothyroxine (SYNTHROID) 75 mcg tablet Take 1 tablet by mouth daily (every 24 hours).90 tablet 0 ??? multivitamin (THERAGRAN) tablet Take 1 tablet by mouth daily (every 24 hours). 100 13 ??? norgestimate-ethinyl estradiol (PREVIFEM) 0.25-35 mg-mcg per tablet Take 1 tablet by mouth daily(every 24 hours). Follow package directions 84 tablet 3 ??? [place]-3 Fatty Acids Cap ??? op medications reviewed ??? DISCONTD: PREVIFEM 0.25-35 mg-mcg per tablet Take 1 tablet by mouth daily (every 24 hours). 84 tablet 0 Review of Systems: With the exception of any items noted above, the remainder of complete ROS is negative. OBJECTIVE: BP 118/60 Pulse 60 Ht 5' 4.5 (1.638 m) Wt 130 lb (58.968 kg) BMI 21.97 kg/m2 LMP 06/12/2012 General: Patient alert, in NAD. HEENT: PERRLA. Bilateral TM's, external canals, oropharynx normal. Neck: Supple, without thyromegaly or mass. Upper extremities: FROM with good strength, no lesions or deformities. CV: RRR without murmurs, rubs or gallops. Resp: Clear to auscultation without crackles, wheezes or distress. Abdomen: Soft, non-tender, without hepatosplenomegaly, masses, or hernias. Breasts: Nontender, without masses, nipple discharge, erythema, or axillary adenopathy. Pelvic: Normal external genitalia and urethra. [place], moist vaginal and cervical mucosa, without lesions. Lymphatic: No neck, supraclavicular, axillary or groin lymphadenopathy. Lower extremities: FROM, normal gait withoutedema, lesions, or deformity. Skin: No lesions. Neuro: CN II- XII, motor & sensory function all intact. Psychiatric: Alert & oriented with normal affect and insight, does not appear depressed oranxious. ASSESSMENT: Routine preventive exam. Past Medical History Diagnosis Date ??? Hypothyroidism PLAN: Follow-up in 1 year. Pending Labs: tsh Ordered Exams: none medications refilled: Orders Placed This Encounter Medication ??? levothyroxine (SYNTHROID) 75 mcg tablet Sig: Take 1 tablet by mouth daily (every 24 hours). Dispense: 90 tablet Refill: 3 ??? norgestimate-ethinyl estradiol (PREVIFEM) 0.25-35 mg-mcg per tablet Sig: Take 1 tablet by mouth daily (every 24 hours). Follow package directions Dispense: 84 tablet Refill: 3 Patient was counseled about: breast self exam, STD prevention, use and side effects of OCPs, family planning choices, osteoporosis and adequate intake of calcium and vitamin D. OCP's and synthroid refilled for the year. documented in this encounter Plan of Treatment Not on filedocumented as of this encounter Visit Diagnoses Diagnosis Well adult exam - Primary Routine general medical examination at a health care facility Unspecified hypothyroidism (HRC) Unspecified hypothyroidism documented in this encounter Care Teams Facepiece Line Supervisor Relationship Specialty Start Date End Date Unassigned, Provider PCP - General Unknown Physician 03/03/11 02/04/[address] [place] [address] [place] [address] documented as of this encounter
--- OUTSIDE RECORDS SUMMARY | 2022-05-10 16:36 | XMS_ITS | Encounter Summary ---
:1980 Author Organization [employer] Address [address] [place] [address] Care Team Providers Name Role Phone Unassigned, Provider Primary Care Provider Unavailable Reason for Visit Reason Comments Refill Encounter Details Date Type Department Care Team Description 06/13/2013 Refill Rajwinder Williamson, PADlC Refill [email or web address] [place] [address] [place] [address] [phone] (Wo rk) Social History Tobacco Use Types Packs/Day Years Used Date Smoking Tobacco: Never Alcohol Use Standard Drinks/Week Comments Yes 0 (1 standard drink = 0.6 oz pure alcoho l) on ocass. Sex Assigned at Date Recorded Not on file documented as of this encounter Nursing Notes Judy Jaimes, RN - 06/13/2013 2:43 PM CST Renewed medication per medication refill protocol. Requested Prescriptions Signed Prescriptions Disp Refills ??? levothyroxine (SYNTHROID) 75 mcg tablet 90 tablet 0 Sig: Take 1 tablet by mouth daily (every 24 hours). Authorizing Provider: RAJWINDER COTE Ordering User: JUDY JAIMES ??? norgestimate-ethinyl estradiol (PREVIFEM) 0.25-35 mg-mcg per tablet 84 tablet 0 Sig: Take 1 tablet by mouth daily (every 24 hours). Follow package directions Authorizing Provider: RAJWINDER COTE Ordering User: JUDY JAIMES LING AND PRODUCTION SUPERINTENDENT Nyasia Hernandez - 06/13/2013 12:52 PM CST Patient scheduled annual on 06/28/13 and would like to know if she could refill her medication to get by until then? documented in this encounter Plan of Treatment Not on filedocumented as of this encounter Visit Diagnoses Not on filedocumented in this encounter Care Teams Field Ring Assembler Relationship Specialty Start Date End Date Unassigned, Provider PCP - General Unknown Physician 03/03/11 02/04/[address] [place] [phone] documented as of this encounter
--- OUTSIDE RECORDS SUMMARY | 2022-05-10 16:36 | XMS_ITS | Encounter Summary ---
:1980 Author Organization [facility] Address [address] [place] [address] Care Team Providers Name Role Phone Unassigned, Provider Primary Care Provider Unavailable Encounter Details Date Type Department Care Team Description 06/28/2013 Lab Visit [facility] Unspecified hypothyroidism [address] [place], [place] [id number] Social History Tobacco Use Types Packs/Day Years [...] Associated Diagnosis Comme nts THYROID STIMULATING Routine 06/28/2013 3:57 Unspecified Resul ts for this HORMONE PM TAPER PRINTED CIRCUIT LAYOUT hypothyroidism procedure are in the results section. documented in this encounter Results THYROID STIMULATING HORMONE (06/28/2013 3:57 PM TAPER PRINTED CIRCUIT LAYOUT) P athologist Signature Thyroid 2.24 0.20 - HP CONVERSION Stimulating 4.50 mIU/L Hormone Specimen Anatomical Collection Method Collection Time Receive d Time (Source) Location / / Volume Laterality 06/28/2013 3:57 PM 4 9:22 TAPER PRINTED CIRCUIT LAYOUT PM TAPER PRINTED CIRCUIT LAYOUT Keysha Bingham PA-C LAB_1 Performing Organization Address City/State/ZIP Code Phon e Number HP CONVERSION documented in this encounter Visit Diagnoses Diagnosis Unspecified hypothyroidism (HRC) Unspecified hypothyroidism documented in this encounter Care Teams Political Advisor Relationship Specialty Start Date End Date Unassigned, Provider PCP - General Unknown Physician 03/03/11 02/04/16 [address] [place] [address] documented as of this encounter
--- OUTSIDE RECORDS SUMMARY | 2022-05-10 16:36 | XMS_ITS | Encounter Summary ---
:1980 Author Organization [employer] Address [address] [place] [address] Care Team Providers Name Role Phone Unassigned, Provider Primary Care Provider Unavailable Reason for Visit Reason Comments Thyroid Problem Encounter Details Date Type Department Care Team Description 08/01/2012 Notes/Orders Keysha Williamson PA-C [address] [facility] [place] [address] [place] [address] [phone] (Wo rk) Social History Tobacco Use Types Packs/Day Years Used Date Smoking Tobacco: Never Alcohol Use Standard Drinks/Week Comments Yes 0 (1 standard drink = 0.6 oz pure alcoho l) on ocass. Sex Assigned at Date Recorded Not on file documented as of this encounter Progress Notes Rose Marie Gama - 08/03/2012 9:05 AM CST left message for pt with the information below and to return call to clinic with any questions. Keysha Bartlett PA-C - 08/02/2012 8:33 PM CST Agree with plan obove, this sounds like a viral illness. Would recommend that she rest and push fluids. Last TSH is normal. EMENT CLERKS MANAGER Elicia Brooks LPN - 08/02/2012 8:36 AM CST Pt came to the clinic today concerned about her thyroid. She had seen Keysha in Jun and the TSH was somewhat out of range. She is on Levothyroxin 75mcg daily. Yesterday she started feeling weird. Hot and cold, heart beating fast and hard. She came today to recheck her TSH level. Her BP is 114/70, pulse 80, temp 99.5f. I advised that she may be coming down with a virus. I recommended that she go home, rest and fluids to stay hydrated. I will call her tomorrow with the TSH results and have anotherprovider follow up on this. 08/02/12. I called the pt. She is feeling some better today. I told her that the TSH was wthtin normal limits now and that she was probably having symptoms of a viral illness. I told her that I will forward this information to Keysha, who will be in the office tomorrow and she can let her know if she wants some other information given. documented in this encounter Plan of Treatment Not on filedocumented as of this encounter Visit Diagnoses Not on filedocumented in this encounter Care Teams Residence Life Director Relationship Specialty Start Date End Date Unassigned, Provider PCP - General Unknown Physician 03/03/11 02/04/[address] [place] [phone] documented as of this encounter
--- OUTSIDE RECORDS SUMMARY | 2022-05-10 16:36 | XMS_ITS | Encounter Summary ---
:1980 Author Organization [facility] Address [address] [place] [address] Care Team Providers Name Role Phone Unassigned, Provider Primary Care Provider Unavailable Reason for Visit Reason Comments Diarrhea Encounter Details Date Type Department Care Team Description 04/04/2015 Office Visit Keysha Williamson, Traveler's diarrhea [address] Ma[address] PA-C (Primary Dx) [place] [address] [address] [phone] [place] [address] (Wo rk) Social History Tobacco Use Types Packs/Day Years Used Date Smoking Tobacco: Never Alcohol Use Standard Drinks/Week Comments Yes 0 (1 standard drink = 0.6 oz pure alcoho l) on ocass. Sex Assigned at Date Recorded Not on file documented as of this encounter Last Filed Vital Signs Vital Sign Reading Time Taken Comments Blood Pressure 120/70 04/04/2015 1:15 PM CDT Pulse 64 04/04/2015 1:15 PM CDT Temperature - - Respiratory Rate - - Oxygen Saturation - - Inhaled Oxygen Concentration - - Weight 69.4 kg (153 lb) 04/04/2015 1:15 PM CDT Height 163.8 cm (5' 4.5) 04/04/2015 1:15 PM CDT Body Mass Index 25.86 04/04/2015 1:15 PM CDT documented in this encounter Progress Notes Keysha Lennon PA-C - 04/04/2015 2:59 PM CDT This note has been dictated Keysha Lennon PA-C - 04/04/2015 2:59 PM CDT Progress Notes signed by Keysha Lennon PA-C at 04/07/1536 Author: Keysha Lennon PA-C Service: (none) Author Type: Physician Grades 7 And 8 Visiting Teacher Filed: 04/07/15 0636 Note Time: 04/05/15 1342 Status: Signed Informatics Consultant: Keysha Lennon PA-C (Physician Grades 7 And 8 Visiting Teacher) NAME: ANGIE MAN MR#: [id number] CSN: [id number] AUTHENTICATING CLINICIAN: Keysha Lennon PA-C CONFIRM #: [id number] LOC: 1706 CLINIC PROGRESS NOTE DATE OF VISIT: 04/04/2015 : 1980 This is a pleasant 35-year-old female who presents today with diarrhea after visiting [employer]. She states she has been home since Tuesday. She left on the for [employer]. She actually got . On the second day there, after eating at an [employer] restaurant, she got severe diarrhea. One other person in their group also got this. She states he took Cipro, but she did not take this as she was too worried about taking it. The first and second day of diarrhea were worse. She spent 1 whole day in bed. She did not have any vomiting but felt like she was going to. She states she felt like she had a fever1 day, but did not actually take her temperature. The rest of the time she was able to be with the group and do fun things, however, needed to stay close to a bathroom. She admits to having a mild headache. She noted blood in her stool 1 day but this was all. It was the first day when she was having alot of diarrhea, and she thinks it was from irritation in her rectum. She has tried taking Tums and Pepto-Bismol and Imodium, and this has helped. Overall her diarrhea has improved. She describes her diarrhea as light brownish to yellow in color. It is soft, formed. She gets cramping right before she has diarrhea, but it is mild. The first day she did have abdominal pain. Medicines and allergies have been reviewed in Epic. GENERAL IMPRESSION: This is a pleasant female, resting quietly, in no acute distress. PHYSICAL EXAM: She appears well. TMs clear bilaterally. Oropharynx is clear. HEART: Regular rate and rhythm. No murmurs, rubs, or gallops. LUNGS: Clear to auscultation bilaterally. ABDOMEN: Soft. EXTREMITIES: No rash or edema. ASSESSMENT: Traveler's diarrhea. PLAN: Will treat her with a course of Cipro 1 tablet twice a day for 5 days. Discussed risks, benefits, and side effects. Encouraged her to stay hydrated and drink plenty of fluids. Overall she is improving,so I think we will just watch this. Certainly, if her symptoms worsen, persist, if she gets a fever,or return of blood, she needs to let us know, and we will do additional workup including stool cultures, Giardia, and the general acute diarrhea workup. She agrees with this plan. Encouraged bland dietand the BRAT diet. All of her questions have been answered. CJB:MEDKatelin C: CONFIRM #: [id number] IT AUTHORIZER documented in this encounter Plan of Treatment Not on filedocumented as of this encounter Visit Diagnoses Diagnosis Traveler's diarrhea - Primary Infectious diarrhea documented in this encounter Care Teams Scrub Nurse Relationship Specialty Start Date End Date Unassigned, Provider PCP - General Unknown Physician 03/03/11 02/04/[address] [place] [phone] documented as of this encounter
--- OUTSIDE RECORDS SUMMARY | 2022-05-10 16:36 | XMS_ITS | Encounter Summary ---
:1980 Author Organization [facility] Address [address] [place] [address] Care Team Providers Name Role Phone Unassigned, Provider Primary Care Provider Unavailable Reason for Visit Reason Comments Annual Exam Encounter Details Date Type Department Care Team Description 06/28/2013 Office Visit Keysha Williamson, Well adult exam (Primary Dx) ; [address] PA-C Unspecified hypothyroidism; [place] [address] [address] Initiation of OCP (BCP) [phone] [place] [address] (Wo rk) Social History Tobacco Use Types Packs/Day Years Used Date Smoking Tobacco: Never Alcohol Use Standard Drinks/Week Comments Yes 0 (1 standard drink = 0.6 oz pure alcoho l) on ocass. Sex Assigned at Date Recorded Not on file documented as of this encounter Last Filed Vital Signs Vital Sign Reading Time Taken Comments Blood Pressure 126/72 06/28/2013 3:23 PM VMWARE SYSTEMS ADMINISTRATOR Pulse 60 06/28/2013 3:23 PM VMWARE SYSTEMS ADMINISTRATOR Temperature - - Respiratory Rate - - Oxygen Saturation - - Inhaled Oxygen Concentration - - Weight 63.5 kg (140 lb) 06/28/2013 3:23 PM VMWARE SYSTEMS ADMINISTRATOR Height 163.8 cm (5' 4.5) 06/28/2013 3:23 PM VMWARE SYSTEMS ADMINISTRATOR Body Mass Index 23.66 06/28/2013 3:23 PM VMWARE SYSTEMS ADMINISTRATOR documented in this encounter Progress Notes Keysha Lennon PADlC - 06/28/2013 3:49 PM CST Preventive Exam SUBJECTIVE: 33 y.o. y/o patient presents for a routine preventive physical exam. Additional concerns: none. Defers STD testing, no insurance. Medical Collections Representative History: : No obstetric history on file. LMP: Patient's last menstrual period was 06/19/2013. Pap hx: last in 2011 Sexual History: History Sexual Activity ??? Sexually Active: STD Hx: none oral contraceptives (estrogen/progesterone) Past Medical History Diagnosis Date ??? Hypothyroidism Past Surgical History Procedure Laterality Date ??? Dickens tooth extraction age 21 Family History Problem [...] reactions: No Known Allergies Current Medications: Outpatient Encounter Prescriptions as of 06/28/2013 Medication Sig Dispense Refill ??? levothyroxine (SYNTHROID) 75 mcg tablet Take 1 tablet by mouth daily (every 24 hours). 90 tablet3 ??? [DISCONTINUED] levothyroxine (SYNTHROID) 75 mcg tablet Take 1 tablet by mouth daily (every 24 hours). 90 tablet 0 ??? multivitamin (THERAGRAN) tablet Take 1 tablet by mouth daily (every 24 hours). 100 13 ??? norgestimate-ethinyl estradiol (PREVIFEM) 0.25-35 mg-mcg per tablet Take 1 tablet by mouth daily(every 24 hours). Follow package directions 84 tablet 3 ??? [DISCONTINUED] norgestimate-ethinyl estradiol (PREVIFEM) 0.25-35 mg-mcg per tablet Take 1 tabletby mouth daily (every 24 hours). Follow package directions 84 tablet 0 ??? [place]-3 Fatty Acids Cap ??? op medications reviewed No facility-administered encounter medications on file as of 06/28/2013. Review of Systems: With the exception of any items noted above, the remainder of complete ROS is negative. OBJECTIVE: BP 126/72 Pulse 60 Ht 5' 4.5 (1.638 m) Wt 140 lb (63.504 kg) BMI 23.67 kg/m2 LMP 06/19/2013 General: Patient alert, in NAD. HEENT: PERRLA. [...] adenopathy. Pelvic: Normal external genitalia and urethra. [place], moist vaginal and cervical mucosa, without lesions. [...] PLAN: Follow-up in 1 year. Pending Labs: TSH Ordered Exams: none medications refilled: Orders Placed This Encounter Medications ??? norgestimate-ethinyl estradiol (PREVIFEM) 0.25-35 mg-mcg per tablet Sig: Take 1 tablet by mouth daily (every 24 hours). Follow package directions Dispense: 84 tablet Refill: 3 ??? levothyroxine (SYNTHROID) 75 mcg tablet Sig: Take 1 tablet by mouth daily (every 24 hours). Dispense: 90 tablet Refill: 3 Patient was counseled about: breast self exam, mammography screening, STD prevention, use and side effects of OCPs, family planning choices, menopause, osteoporosis and adequate intake of calcium and vitamin D. She defers STD testing until she has insurance. Will check TSH today. Synthroid refilled for the year. RE SYSTEMS ADMINISTRATOR documented in this encounter Plan of Treatment Not on filedocumented as of this encounter Visit Diagnoses Diagnosis Well adult exam - Primary Routine general medical examination at a health care facility Unspecified hypothyroidism (HRC) Unspecified hypothyroidism Initiation of OCP (BCP) General counseling for prescription of o ral contraceptives documented in this encounter Care Teams Teasel Gig Operator Relationship Specialty Start Date End Date Unassigned, Provider PCP - General Unknown Physician 03/03/11 02/04/[address] [place] [id number] documented as of this encounter
--- OUTSIDE RECORDS SUMMARY | 2022-05-10 16:37 | XMS_ITS | Encounter Summary ---
:1980 Author Organization [facility] Address [address] [place] [address] Care Team Providers Name Role Phone Unassigned, Provider Primary Care Provider Unavailable Reason for Visit Reason Comments Refill Encounter Details Date Type Department Care Team Description 05/26/2011 Refill [facility] Keysha Torres, PADlC Refill [address] [place] [address] [place] [address] [phone] (Wo rk) Social History Tobacco Use Types Packs/Day Years Used Date Smoking Tobacco: Never Alcohol Use Standard Drinks/Week Comments Yes 0 (1 standard drink = 0.6 oz pure alcoho l) on ocass. Sex Assigned at Date Recorded Not on file documented as of this encounter Nursing Notes Althea Mock - 05/26/2011 3:51 PM CST pt. is scheduled for 07/05 with Keysha Hodan Mehta RN - 05/26/2011 3:27 PM CST REFILL APPOINTMENT NEEDED Please call patient and schedule appointment within 30 days. Medication has been renewed and faxed to pharmacy for 30 day supply only, per protocol. Comment: SUE 06/2010 documented in this encounter Plan of Treatment Not on filedocumented as of this encounter Visit Diagnoses Not on filedocumented in this encounter Care Teams Dental Biller Relationship Specialty Start Date End Date Unassigned, Provider PCP - General Unknown Physician 03/03/11 02/04/[address] [place] [phone] documented as of this encounter
--- OUTSIDE RECORDS SUMMARY | 2022-05-10 16:37 | XMS_ITS | Encounter Summary ---
:1980 Author Organization [facility] Address [address] [place] [address] Care Team Providers Name Role Phone Zachery Keysha Sutherland PA-C Primary Care Provider Encounter Details Date Type Department Care Team Description 06/04/2008 PN Conversion Only [place] CONVERSION Anette Lucas, [address] [place] [address] [address] [place] [address] (Wo rk) Social History Tobacco Use [...] Date/Time Associated Comments Diagnosis ANATOMICAL PATH Routine 06/04/2008 7:17 AM Result s for this LIQUID BASED REWINDER OPERATOR procedure are i n the results section. documented in this encounter Results Pap Smear (06/04/2008 7:17 AM REWINDER OPERATOR) [facility] gist Method Time Signature PAP Smear SEE TEXT No normal HP CONVERSION Liquid Based range Comment: Patient: ANGIE SIMS ? CERVICAL CYTOLOGY REPORT Pathology # ??[id number] ?Date Obtained: [id number] ? Date Received: [id number] CYTOLOGIC IMPRESSION: Negative for intraepithelial lesion or m alignancy. Fungal organisms identified. Verified 06/10/08 by: ??JLD ?(electronic signature) ? DESTIN TIONAL DATA LMP: CLINICAL HIST LIQUID BASED PAP CERVICAL SPECIMEN ADEQUACY: ?? Satisfactory. ENDOCERVICAL CELLS: ??Absent. Specimen (Source) Anatomical Collection Method Collection Time Re ceived Time Location / / Volume Laterality 06/04/2008 7:17 AM REWINDER OPERATOR Anette Lucas PA-C LAB_1 Performing Organization Address City/State/ZIP Code Phon e Number HP CONVERSION documented in this encounter Visit Diagnoses Not on filedocumented in this encounter Care Teams Technician Inventory Specialist Relationship Specialty Start Date End Date Keysha Bingham PA-C PCP - General 09/06/10 03/02/[address] [place] [address] documented as of this encounter
--- OUTSIDE RECORDS SUMMARY | 2022-05-10 16:37 | XMS_ITS | Encounter Summary ---
:1980 Author Organization [email or web address] Address [address] [place] [address] Care Team Providers Name Role Phone Unassigned, Provider Primary Care Provider Unavailable Encounter Details Date Type Department Care Team Description 03/05/2011 Office Visit [place] Vera Almazan, Unspecified keratitis Ophthalmology MD OU (Primary Dx) [address] [place], [place] [address] Social History Tobacco Use Types Packs/Day Years Used Date Smoking Tobacco: Never Alcohol Use Standard Drinks/Week Comments Yes 0 (1 standard drink = 0.6 oz pure alcoho l) on ocass. Sex Assigned at Date Recorded Not on file documented as of this encounter Patient Instructions Patient InstructionsVera Almazan - 03/05/2011 1:48 PM CDT Assessment and Plan: Encounter Diagnosis Name Primary? Unspecified keratitis OU Definite improvement but still with corneal haze. No contact lens wear Decrease Zymaxid to one drop both eyes every 2 hours while awake. Recheck TuesdayMar 08 at 8:10AM Call over weekend if vision worsens, redness increases or develops pain: [phone] documented in this encounter Progress Notes Vera Almazan - 03/05/2011 1:15 PM CDT New patient to provider Trina Javier is a 30 yr old female here for evaluation of keratoconjunctivitis OU per . Patient states that the eyes are feeling much better and the redness is improved. She states that the VA is still a little blurred and she does have a mild TRENT. She was using the zymaxid Qhour and at night Q2h, but she ran out of drops this AM at about 10. Review of Systems Const: (+) fever 2 day(s) ENT: (-) Pulm: (-) Cardio: (-) GI: (-) : (-) MS: (-) Skin: (-) Neuro: (+) headaches 1 day(s) Heme: (-) Assessment and Plan: Encounter Diagnosis Name Primary? Unspecified keratitis OU Definite improvement but still with corneal haze. No contact lens wear Decrease Zymaxid to one drop both eyes every 2 hours while awake. Recheck TuesdayMar 08 at 8:10AM Call over weekend if vision worsens, redness increases or develops pain: [phone] documented in this encounter Plan of Treatment Not on filedocumented as of this encounter Visit Diagnoses Diagnosis Unspecified keratitis OU - Primary Unspecified keratitis documented in this encounter Care Teams Apprentice Embalmer Relationship Specialty Start Date End Date Unassigned, Provider PCP - General Unknown Physician 03/03/11 02/04/[address] [place] [id number] documented as of this encounter
--- OUTSIDE RECORDS SUMMARY | 2022-05-10 16:37 | XMS_ITS | Encounter Summary ---
:1980 Author Organization [facility] Address [address] [place] [address] Care Team Providers Name Role Phone Unassigned, Provider Primary Care Provider Unavailable Reason for Visit Reason Comments Annual Exam Encounter Details Date Type Department Care Team Description 07/05/2011 Office Visit Keysha Ortiz Well adul t exam (Primary Dx); Medicine [facility] Unspecified hypothyroidism [address] [place] [address] [place] [address] [phone] Social History Tobacco Use Types Packs/Day Years Used Date Smoking Tobacco: Never Alcohol Use Standard Drinks/Week Comments Yes 0 (1 standard drink = 0.6 oz pure alcoho l) on ocass. Sex Assigned at Date Recorded Not on file documented as of this encounter Last Filed Vital Signs Vital Sign Reading Time Taken Comments Blood Pressure 118/64 07/05/2011 3:42 PM QUILTING MACHINE HELPER Pulse 60 07/05/2011 3:42 PM QUILTING MACHINE HELPER Temperature - - Respiratory Rate - - Oxygen Saturation - - Inhaled Oxygen Concentration - - Weight 62.1 kg (136 lb 14.4 oz) 07/05/2011 3:42 PM QUILTING MACHINE HELPER Height 163.8 cm (5' 4.5) 07/05/2011 3:42 PM QUILTING MACHINE HELPER Body Mass Index 23.14 07/05/2011 3:42 PM QUILTING MACHINE HELPER documented in this encounter Progress Notes Keysha Lennon, PADlC - 07/05/2011 5:34 PM CST Preventive Exam & Pelvic IMPRESSION: Routine preventive exam. Healthy female. Normal exam. Hypothyroidism. SUBJECTIVE: Patient has no symptomatic complaints or other concerns. Requests OCP refill. Current contraception: OCP's. Past Medical History: Maintenance Planner History: Patient has never been . Pap History: Last Pap smear: 2008 Menstrual History: Menstrual periods are light. STD History: No history of STD's. Other Medical/Surgical History: Hypothyroidism. No surgeries. Allergies: Patient's allergies were reviewed and updated today in the Allergy section of the electronic medical record. Current Medications: Reviewed today and updated in the Medication section of the Electronic Medical Record. Family History: (First degree family members) Family history was reviewed today and, except as noted, was found to be negative. Social History: Employment status: Employed. Marital Status: Significant other. Sexual History: Monogamous relationship. defers STD testing Habits Tobacco: None. Alcohol: None. Drug: Denies any drug use. Preventive Health Assessment: Performs monthly breast self-exams. Calcium intake adequate. Exercise adequate. Recent lipid screen has been performed. Safe in relationship. Uses seatbelts. Sun protection used. Review of Systems: With the exception of any items noted above, the remainder of complete ROS is negative. OBJECTIVE: Vital Signs: Vital Signs taken today were reviewed on the flowsheet in the Electronic Medical Record. General: Patient alert, in NAD. HEENT: PERRLA. [...] adenopathy. Pelvic: Normal external genitalia and urethra. [place], moist vaginal and cervical mucosa, without lesions. On bimanual exam, uterus is mobile, normal size, shape & consistency, with no uterine or adenexal masses appreciated. Rectal: Not examined. Lymphatic: No neck, supraclavicular, axillary or groin lymphadenopathy. Lower extremities: FROM, normal gait without edema, lesions, or deformity. Skin: No lesions. Neuro: CNII-XII, motor & sensory function all intact. Psychiatric: Alert & oriented with normal affect and insight, does not appear depressed or anxious. ASSESSMENT: Routine preventive exam. Healthy female. Normal exam. Hypothyroidism. PLAN: Follow-up in 1 year. Pap smear. TSH. We will mail lab results to patient. Immunizations reviewed and updated in the Immunization section of the Electronic Medical Record. Patient is up to date. Symthroid and OCP's refilled for the year. Prevention or Hormone Therapy: OCP Rx given, Prescriptions provided, see OP Med. list in the Medication section of the Electronic Medical Record. Risks, benefits, and alternatives for use were discussed. *SH~PC~PEF ~[place] Note completed on: 07/05/2011 5:32 PM documented in this encounter Plan of Treatment Not on filedocumented as of this encounter Procedures Procedure Name Priority Date/Time Associated Comments Diagnosis ANATOMICAL PATH Routine 07/05/2011 4:07 PM Result s for this LIQUID BASED QUILTING MACHINE HELPER procedure are i n the results section. PAP SMEAR SCREENING Routine 07/05/2011 4:07 PM Well adult exam Results for this QUILTING MACHINE HELPER procedure are i n the results section. documented in this encounter Results Pap Smear (07/05/2011 4:07 PM QUILTING MACHINE HELPER) Specimen (Source) Anatomical Collection Method Collection Time Re ceived Time Location / / Volume Laterality 07/05/2011 4:07 PM QUILTING MACHINE HELPER Narrative HP CONVERSION - 07/10/2011 2:46 PM QUILTING MACHINE HELPER Final GYNECOLOGICAL CYTOLOGY REPORT Pathology #: [id number] ?Date Obtained: 07/05/2011 ? Date Received: 07/07/2011 INTERPRETATION/RESULTS: Negative for Intraepithelial Lesion or M alignancy SPECIMEN ADEQUACY: Satisfactory for Evaluation. ??No endoce rvical cells/transformation zone component present. Verified on 07/10/2011 ??by SAVANNAH SHAFFER, CT(ASCP) (electronic signature) CLINICAL NOTES: ? LMP: not stated. LIQUID BASED PAP SMEAR SPECIMEN TYPE: ?CERVICAL [...] s may occur. ? End of Report Keysha Bingham PA-C LAB_1 Performing Organization Address [facility] Phon e Number HP CONVERSION Pap Smear Screening (07/05/2011 4:07 PM QUILTING MACHINE HELPER) P athologist Signature PAP Routine Collected HP CONVERSION Specimen Anatomical Collection Method Collection Time Receive d Time (Source) Location / / Volume Laterality 07/05/2011 4:07 PM 2 3:50 QUILTING MACHINE HELPER AM QUILTING MACHINE HELPER Keysha Bingham PA-C LAB_1 Performing Organization Address [facility] Phon e Number HP CONVERSION documented in this encounter Visit Diagnoses Diagnosis Well adult exam - Primary Routine general medical examination at a health care facility Unspecified hypothyroidism (HRC) Unspecified hypothyroidism documented in this encounter Care Teams Mash Filter Operator Relationship Specialty Start Date End Date Unassigned, Provider PCP - General Unknown Physician 03/03/11 02/04/[address] [place] [phone] documented as of this encounter
--- OUTSIDE RECORDS SUMMARY | 2022-05-10 16:37 | XMS_ITS | Encounter Summary ---
:1980 Author Organization [facility] Address [address] [place] [address] Care Team Providers Name Role Phone Keysha Bingham PA-C Primary Care Provider Encounter Details Date Type Department Care Team Description 06/27/2009 PN Conversion Only [place] CONVERSION [address] [place] [address] Social History Tobacco Use Types Packs/Day Years Used Date Smoking Tobacco: Never Alcohol Use Standard Drinks/Week Comments Yes 0 (1 standard drink = 0.6 oz pure alcoho l) on ocass. Sex Assigned at Date Recorded Not on file documented as of this encounter Plan of Treatment Not on filedocumented as of this encounter Visit Diagnoses Not on filedocumented in this encounter Care Teams Kaiawhina Relationship Specialty Start Date End Date Keysha Bnigham PA-C PCP - General 09/06/10 03/02/[address] [place] [address] documented as of this encounter
--- OUTSIDE RECORDS SUMMARY | 2022-05-10 16:37 | XMS_ITS | Encounter Summary ---
:1980 Author Organization [facility] Address [address] [place] [address] Care Team Providers Name Role Phone Keysha Bingham PA-C Primary Care Provider Reason for Visit Reason Comments Other Encounter Details Date Type Department Care Team Description 06/13/2009 Telephone [facility] Nomesia Brayton, Message Other [address] [place] [address] Social History Tobacco Use Types Packs/Day Years Used Date Smoking Tobacco: Never Alcohol Use Standard Drinks/Week Comments Yes 0 (1 standard drink = 0.6 oz pure alcoho l) on ocass. Sex Assigned at Date Recorded Not on file documented as of this encounter Progress Notes Marga Momin - 06/13/2009 9:25 AM CST Phone Note filed by Marga Momin at 09/25/102036 Author: Marga Momin Service: (none) Author Type: (none) Filed: 09/25/102036 Note Time: 06/13/09924 Status: Signed Analyst Competitive Intelligence: Tod Harrington (Physician) PRESCRIPTION REFILL Please provide enough refills to last until patient's next visit. Comment:- Pharmacy Seq #:- Pharmacy Name-Phone/Fax:-[facility] Pharmacy Street or City:- Clinician Name:-PRADO Drug Name/Strength:-SPRINTEC 28 DAY Sig: Dose/Route/Freq:-TAKE 1 TAB BY MOUTH DAILY Quantity & Last Fill:-84 05/16/09 *ECODE~PNRF Created on 13Jun2009 9:25am by MARGA MOMIN On 13Jun2009 2:17pm SHANE TAYLOR wrote: REFILL APPOINTMENT NEEDED Please call patient and schedule appointment within 30 days. Medication has been renewed and faxed to pharmacy for 30 day supply only, per protocol. Comment:-SUE 05/2008 On 16Jun2009 9:28am KEVEN CRISTINA wrote: Left message to schedule. OR POLISHER documented in this encounter Plan of Treatment Not on filedocumented as of this encounter Visit Diagnoses Not on filedocumented in this encounter Care Teams Wound Care Specialist Relationship Specialty Start Date End Date Keysha Bingham PA-C PCP - General 09/06/10 03/02/[address] [place] [address] documented as of this encounter
--- OUTSIDE RECORDS SUMMARY | 2022-05-10 16:37 | XMS_ITS | Encounter Summary ---
:1980 Author Organization [facility] Address [address] [place] [address] Care Team Providers Name Role Phone Keysha Bingham Koko AMANDA Primary Care Provider Encounter Details Date Type Department Care Team Description 10/11/2005 PN Conversion Only EPISCOPALIAN CONVERSION Matheus Mckay MD Social History Tobacco Use Types Packs/Day Years Used Date Smoking Tobacco: Never Alcohol Use Standard Drinks/Week Comments Yes 0 (1 standard drink = 0.6 oz pure alcoho l) on ocass. Sex Assigned at Date Recorded Not on file documented as of this encounter Plan of Treatment Not on filedocumented as of this encounter Procedures Procedure Name Priority Date/Time Associated Comments Diagnosis HIV ANTIBODY Routine 10/11/2005 5:00 PM Results f or this CDT procedure are i n the results section. RPR BLOOD Routine 10/11/2005 5:00 PM Results f or this CDT procedure are i n the results section. SEXUALLY TRANSMITTED Routine 10/11/2005 5:00 PM R esults for this DISEASE PROBE CDT procedure are in the results section. documented in this encounter Results Sexually Transmitted Disease Probe (10/11/2005 5:00 PM CDT) [facility] Method Time Signature Sexually SEE TEXT HP CONVERSION Transmitted Disease Probe Comment: Patient: ANGIE SIMS Sexually Trans Disease Probe @ ?Collected: ??[id number] ??[id number] Source: CERVIX ?Processed: ??[id number] ??[id number] ? CERVIX Final Report ------ ?[id number] ??[id number] No Chlamydia trachomatis detected by amp lified DNA assay No Neisseria gonorrhoeae detected by amp lified DNA assay The Probetec Amplified DNA assay is bill ared by the FDA for non-medicolegal diagnostic testing in the adult population. It has not been cleared for use in the pediatric population. @ = Sexually Trans Disease Probe Perform ed at ??[address] [facility] [place] [address] Specimen (Source) Anatomical Collection Method Collection Time Re ceived Time Location / / Volume Laterality 10/11/2005 5:00 PM CDT Hang Mckay MD LAB_1 Performing Organization Address [facility] Phon e Number HP CONVERSION RPR Blood (10/11/2005 5:00 PM CDT) P athologist Signature RPR Non Reac Non Reac HP CONVERSION Specimen (Source) Anatomical Collection Method Collection Time Re ceived Time Location / / Volume Laterality 10/11/2005 5:00 PM CDT Hang Mckay MD LAB_1 Performing Organization Address [facility] Phon e Number HP CONVERSION HIV Antibody (10/11/2005 5:00 PM CDT) P athologist Signature HIV 1/HIV 2 Non Reac Non Reac HP CONVERSION Specimen (Source) Anatomical Collection Method Collection Time Re ceived Time Location / / Volume Laterality 10/11/2005 5:00 PM CDT Hang Mckay MD LAB_1 Performing Organization Address City/State/ZIP Code Phon e Number HP CONVERSION documented in this encounter Visit Diagnoses Not on filedocumented in this encounter Care Teams Spectral Scientist Relationship Specialty Start Date End Date Keysha Bingham PA-C PCP - General 09/06/10 03/02/11 [address] [place] [address] documented as of this encounter
--- OUTSIDE RECORDS SUMMARY | 2022-05-10 16:37 | XMS_ITS | Encounter Summary ---
:1980 Author Organization [facility] Address [address] [place] [address] Care Team Providers Name Role Phone BinghamKeysha Koko AMANDA Primary Care Provider Encounter Details Date Type Department Care Team Description 01/20/2010 PN Conversion Only [facility] CONVERSION Ricky Cavanaugh [address] [place] [address] [address] [place] [address] Social History Tobacco Use Types Packs/Day Years [...] Date/Time Associated Comments Diagnosis THYROID STIMULATING Routine 01/20/2010 3:13 PM Re sults for this HORMONE CDT procedure are i n the results section. T3, FREE Routine 01/20/2010 3:13 PM Results f or this CDT procedure are i n the results section. FREE T4 Routine 01/20/2010 3:13 PM Results f or this CDT procedure are i n the results section. documented in this encounter Results THYROID STIMULATING HORMONE (01/20/2010 3:13 PM CDT) P athologist Signature Thyroid 3.93 0.20 - HP CONVERSION Stimulating 4.50 mIU/L Hormone Specimen (Source) Anatomical Collection Method Collection Time Re ceived Time Location / / Volume Laterality 01/20/2010 3:13 PM CDT Ricky Cavanaugh MD LAB_1 Performing Organization Address City/[facility]/ZIP Code Phon e Number HP CONVERSION Free T4 (01/20/2010 3:13 PM CDT) athologist Signature Thyroxine, Free 1.2 0.8 - 1.8 HP CONVERSION ng/dL Specimen (Source) Anatomical Collection Method Collection Time Re ceived Time Location / / Volume Laterality 01/20/2010 3:13 PM CDT Ricky Cavanaugh MD LAB_1 Performing Organization Address City/[facility] Code Phon e Number HP CONVERSION T3, Free, Serum (01/20/2010 3:13 PM CDT) athologist Signature Triiodothyronin 2.9 2.3 - 4.2 HP CONVERSION e, Free pg/mL Specimen (Source) Anatomical Collection Method Collection Time Re ceived Time Location / / Volume Laterality 01/20/2010 3:13 PM CDT Ricky Cavanaugh MD LAB_1 Performing Organization Address City/[facility] Phon e Number HP CONVERSION documented in this encounter Visit Diagnoses Not on filedocumented in this encounter Care Teams Plate Driller Relationship Specialty Start Date End Date Keysha Bingham PA-C PCP - General 09/06/10 03/02/11 [address] [place] [address] documented as of this encounter
--- OUTSIDE RECORDS SUMMARY | 2022-05-10 16:37 | XMS_ITS | Encounter Summary ---
:1980 Author Organization [facility] Address [address] [place] [address] Care Team Providers Name Role Phone Unassigned, Provider Primary Care Provider Unavailable Reason for Visit Reason Comments EYE PAIN Slept in contacts Tuesday03/01/11. Woke up and eyes were irritated. Has been getting worse. Last wor e contacts Tuesday03/01/11. Today vision is blurred and have FB sensatio n, watering and light sensative. Slept before I came and used warm compresse s and it feels a little better. Encounter Details Date Type Department Care Team Description 03/03/2011 Office Visit Loreto iHnkleKishor charles Unspecified Optometry S, OD keratoconjunctivitis [address] (Primary Dx) [place] [address] Social History Tobacco Use Types Packs/Day Years Used Date Smoking Tobacco: Never Alcohol Use Standard Drinks/Week Comments Yes 0 (1 standard drink = 0.6 oz pure alcoho l) on ocass. Sex Assigned at Date Recorded Not on file documented as of this encounter Patient Instructions Patient InstructionsAnmolManuelKishor, OD - 03/03/2011 1:24 PM CDT Conjunctivitis ???[place] eye,?? the common name for conjunctivitis, is an inflammation or infection of the conjunctiva. The conjunctiva is the outer, normally clear covering of the sclera (the white part of the eye). The eye appears pink when you have conjunctivitis because the blood vessels of the conjunctiva are dil ated. [place] eye is often accompanied by a discharge, but vision is usually normal and discomfort is mild. Either a bacterial or a viral infection may cause conjunctivitis. Viral conjunctivitis is much more common. It may last several weeks and is frequently accompanied by a respiratory infection (or cold).Antibiotic drops or ointments usually do not help, but symptomatic treatment such as cool compressesor kepz-dza-qbkksuj artificial tear drops can be used while the infection runs it course. Unlike viral conjunctivitis, bacterial conjunctivitis can be treated with a variety of antibiotic eye drops or ointments, which usually cure the infection in a few days. Conjunctivitis can be very contagious. People who have it should not share towels or pillowcases andshould wash their hands frequently. They may need to stay home from school or work, and they should stay out of swimming pools. Not all cases of conjunctivitis are caused by an infection. Allergies can cause conjunctivitis, too.Typically, people with allergic conjunctivitis have itchy eyes, especially in spring and fall. Eye drops to control allergy eye symptoms are used to treat allergic conjunctivitis. Finally, not all cases of pink eye are caused by conjunctivitis. Sometimes more serious conditions, such as infections, damage to the cornea, very severe glaucoma, or inflammation inside the eye will cause the conjunctiva to become inflamed and pink. Vision is usually normal when pink eye is caused by conjunctivitis. If your vision is affected or you experience eye pain, it is recommended that you see your eye care provider. You also have keratitis, which is an infection of the cornea (front surface of the eye.) We are going to treat you with an antibiotic eye drop called Zymaxid. You should put one drop in each eye once every hour while awake, and every two hours during the night. You may also get some symptom relief from cool compresses and non- preserved artificial tears. If you are feeling much better tomorrow, your follow up can wait until Tuesday with Dr. Almazan. If youare not better, you should see either myself at the [facility] or Dr. Tyson at the [facility] tomorrow. Obviously, you should not wear your contact lenses again until your eyes are 100% better. Thank you for choosing [facility] for your eye care needs. How can I contact the clinic in the future? Appointment Center: [phone] Eye Dept: [phone] Online Services: [email or web address] For after hours care, call the CareLine at [phone] or . We look forward to taking care of your eye care needs in the years to come. Artificial Tears Artificial tears are an effective treatment for symptoms from dry and irritated eyes. It is important to use your artificial tears FREQUENTLY, before symptoms occur, especially before extended times ofreading, computer work, driving, or outdoor activities. The most common cause of continued symptoms from dry and irritated eyes is failure to use these lubricants enough to bring about and maintain adequate relief. Because these drops cannot be used too often, it is safe to increase their frequency asyour symptoms change. The usual dose is 2-4 times a day. These artificial tears can be purchased sqrx-qyp-prfijug at our pharmacy and most discount stores. Use them frequently until your symptoms are controlled, or as directed by your doctor. For long-term therapy, experiment by slowly reducing the number of installations each day to determine the minimum treatment needed to keep you symptom-free. For most people, any of the following brands of artificial tear work well: Systane, Blink Tears, Refresh, Genteal, Theratears Some people are sensitive to the chemical preservatives in the drops, and need to use preservative-free tears. While more expensive, they may be better tolerated and can be used more frequently. They come in a break open vial. Once open, this vial should be kept clean (not in pocket or purse) and thrown away after 8 hours. Celluvisc, Cellufresh, Refresh Plus, Theratears A third type of lubricant is ointment or gel. While they are thicker and can blur the vision temporarily, they are usually the most effective in healing any damage to the eye's surface. Often they are placed in the eye right at bedtime to provide lubrication when sleeping, particularly if one's eyes do not close completely. Genteal gel, Blink Gel Tears, Refresh PM, Puralube For treating dry eyes, avoid products that advertise to get the red out. These have ingredients thattake the red out only temporarily but then actually increase dryness of the eyes. documented in this encounter Progress Notes Kishor Corea, OD - 03/03/2011 2:06 PM CDT Trina Javier is here today with bilateral red, painful eye. Two nights ago she slept in her CLs, which she typically does not do. She wears Oasys CLs. She is here with her mother. She comments that her eyes feel scratchy with blinking. She currently has a URI. See Main Exam. A: keratoconjunctivitis, likely viral, with epithelial defects. CL overwear with edema. Dr. Almazan also saw Trina today. P: Zymaxid every hour while awake, every two hours at night. Dilated in-office to decrease pain fromciliary spasm. Cool compresses if helpful. Non-preserved artificial tears as needed. Recommended shebe seen tomorrow. Trina pays for health care out of pocket. She and her mother would like to limit the number of visits for financial reasons. We agreed that Trina should definitely be seen tomorrow if not improving, but should also be seen by Dr. Almazan in two days even if doing better. If she is not better tomorrow she should either see me at [facility] or Dr. Tyson at [place]. 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 I recommended she not return to work tomorrow, at least. Kishor Corea, OD 03/03/2011 documented in this encounter Plan of Treatment Not on filedocumented as of this encounter Visit Diagnoses Diagnosis Keratoconjunctivitis, unspecified - Prim carmencita documented in this encounter Care Teams Regulatory Lead Relationship Specialty Start Date End Date Unassigned, Provider PCP - General Unknown Physician 03/03/11 02/04/[address] [place] [address] documented as of this encounter
--- OUTSIDE RECORDS SUMMARY | 2022-05-10 16:37 | XMS_ITS | Encounter Summary ---
:1980 Author Organization [facility] Address [address] [place] [address] Care Team Providers Name Role Phone Keysha Bingham PA-C Primary Care Provider Encounter Details Date Type Department Care Team Description 06/27/2009 PN Conversion Only [place] CONVERSION Keysha Bingham, [address] [place] [address] [address] [place] [address] (Wo rk) Social History Tobacco Use [...] Procedure Name Priority Date/Time Associated Comments Diagnosis GLUCOSE Routine 06/27/2009 11:32 Results for this AM SENIOR NET C DEVELOPER procedure are i n the results section. THYROID STIMULATING Routine 06/27/2009 11:32 Resu lts for this HORMONE AM SENIOR NET C DEVELOPER procedure are i n the results section. LIPID PANEL AND Routine 06/27/2009 11:32 Results for this DIRECT LDL(IF NEEDED) AM SENIOR NET C DEVELOPER proced ure are in the results section. ANATOMICAL PATH Routine 06/27/2009 7:27 AM Result s for this LIQUID BASED SENIOR NET C DEVELOPER procedure are i n the results section. documented in this encounter Results (ABNORMAL) THYROID STIMULATING HORMONE (06/27/2009 11:32 AM SENIOR NET C DEVELOPER) [facility] gist Method Time Signature Thyroid 7.13 (H) 0.20 - HP CONVERSION Stimulating 4.50 Hormone uIU/mL Specimen (Source) Anatomical Collection Method Collection Time Re ceived Time Location / / Volume Laterality 06/27/2009 11:32 AM SENIOR NET C DEVELOPER Keysha Bingham PA-C LAB_1 Performing Organization Address City/[facility]/ZIP Code Phon e Number HP CONVERSION (ABNORMAL) Lipid Panel and Direct LDL(If Needed) (06/27/2009 11:32 AM SENIOR NET C DEVELOPER) [facility] gist Method Time Signature Length Of Fast 12.0 Hours HP CONVERSION Cholesterol/HDL 2.8 No normal HP CONVERSION Ratio Screen range Cholesterol 221 (H) <200 mg/dL HP CONVERSION HDL Cholesterol 78 >40 mg/dL HP CONVERSION Triglycerides 126 0 - 149 HP CONVERSION mg/dL LDL Calculated 118 0 - 130 HP CONVERSION mg/dL Comment: Specimen (Source) Anatomical Collection Method Collection Time Re ceived Time Location / / Volume Laterality 06/27/2009 11:32 AM SENIOR NET C DEVELOPER Keysha Bingham PA-C LAB_1 Performing Organization Address City/[facility]/ZIP Code Phon e Number HP CONVERSION GLUCOSE (06/27/2009 11:32 AM SENIOR NET C DEVELOPER) P athologist Signature Length Of Fast 12.0 Hours HP CONVERSION Lab Glucose 87 60 - 100 HP CONVERSION mg/dL Specimen (Source) Anatomical Collection Method Collection Time Re ceived Time Location / / Volume Laterality 06/27/2009 11:32 AM SENIOR NET C DEVELOPER Keysha Bingham PA-C LAB_1 Performing Organization Address City/[facility] [[email or web address]] Code Phon e Number HP CONVERSION Pap Smear (06/27/2009 7:27 AM SENIOR NET C DEVELOPER) [facility] gist Method Time Signature PAP Smear SEE TEXT No normal HP CONVERSION Liquid Based range Comment: Patient: ANGIE SIMS ? CERVICAL CYTOLOGY REPORT Pathology # ??[id number] ?Date Obtained: ? Date Received: CYTOLOGIC IMPRESSION: Negative for intraepithelial lesion or m alignancy. Verified 07/02/09 by: ??LBM ?(electronic signature) ? DESTIN TIONAL DATA LMP: CLINICAL HIST LIQUID BASED PAP CERVICAL SPECIMEN ADEQUACY: ?? Satisfactory. ENDOCERVICAL CELLS: ??Absent. Specimen (Source) Anatomical Collection Method Collection Time Re ceived Time Location / / Volume Laterality 06/27/2009 7:27 AM SENIOR NET C DEVELOPER Keysha Bingham PA-C LAB_1 Performing Organization Address City/State/ZIP Code Phon e Number HP CONVERSION documented in this encounter Visit Diagnoses Not on filedocumented in this encounter Care Teams Porcelain Technician Relationship Specialty Start Date End Date Keysha Bingham PA-C PCP - General 09/06/10 03/02/11 [address], [place] [address] documented as of this encounter
--- OUTSIDE RECORDS SUMMARY | 2022-05-10 16:37 | XMS_ITS | Encounter Summary ---
:1980 Author Organization [employer] Address [address] [place] [address] Care Team Providers Name Role Phone Unassigned, Provider Primary Care Provider Unavailable Reason for Visit Reason Comments Refill Encounter Details Date Type Department Care Team Description 05/26/2011 Refill [facility] Keysha Torres, PADlC Refill [address] [place] [address] [place] [address] [phone] (Wo rk) Social History Tobacco Use Types Packs/Day Years Used Date Smoking Tobacco: Never Alcohol Use Standard Drinks/Week Comments Yes 0 (1 standard drink = 0.6 oz pure alcoho l) on ocass. Sex Assigned at Date Recorded Not on file documented as of this encounter Nursing Notes Althea Mock - 05/26/2011 3:50 PM CST pt. is scheduled for 07/05 with Keysha Hodan Mehta RN - 05/26/2011 3:33 PM CST REFILL APPOINTMENT NEEDED Please call patient and schedule appointment within 30 days. Medication has been renewed and faxed to pharmacy for 30 day supply only, per protocol. Comment: SUE 06/2010 ESSIONAL DEVELOPMENT DIRECTOR An Momin - 05/26/2011 9:28 AM CST SPRINTEC 28 DAY TAB 28 [facility] documented in this encounter Plan of Treatment Not on filedocumented as of this encounter Visit Diagnoses Not on filedocumented in this encounter Care Teams Tile Machine Operator Relationship Specialty Start Date End Date Unassigned, Provider PCP - General Unknown Physician 03/03/11 02/04/[address] [place] [address] documented as of this encounter
--- OUTSIDE RECORDS SUMMARY | 2022-05-10 16:37 | XMS_ITS | Encounter Summary ---
:1980 Author Organization [facility] Address [address] [place] [address] Care Team Providers Name Role Phone Keysha Bingham PA-C Primary Care Provider Encounter Details Date Type Department Care Team Description 10/03/2010 PN Conversion Only [facility] Keysha Bingham, [address] [place] [address] [address] [phone] [address] [id number] (Wo rk) Social History Tobacco Use Types [...] on filedocumented in this encounter Care Teams Van Owner Operator Relationship Specialty Start Date End Date Keysha Bingham PA-C PCP - General 09/06/10 03/02/[address] [place] [address] [place] [address] documented as of this encounter
--- OUTSIDE RECORDS SUMMARY | 2022-05-10 16:37 | XMS_ITS | Encounter Summary ---
:1980 Author Organization [facility] Address [address] [place] [address] Care Team Providers Name Role Phone Keysha Bingham PA-C Primary Care Provider Reason for Visit Reason Comments Other Encounter Details Date Type Department Care Team Description 09/18/2009 Telephone [facility] Carina Brenner MA Other [address] [place] [address] Social History Tobacco Use Types Packs/Day Years Used Date Smoking Tobacco: Never Alcohol Use Standard Drinks/Week Comments Yes 0 (1 standard drink = 0.6 oz pure alcoho l) on ocass. Sex Assigned at Date Recorded Not on file documented as of this encounter Progress Notes Jayla Luong - 09/18/2009 1:11 PM CDT Phone Note filed by Jayla Luong at 09/26/10430 Author: Jayla Luong Service: (none) Author Type: (none) Filed: 09/26/10 2053 Note Time: 09/18/09 1311 Status: Signed Operations Lead: Tod Harrington (Physician) Lab/Radiology Requests Caller Name/Relationship:Trina Primary Production Welder:Zachery What test is needed and when? Thyroid test Why is test needed/requested? she recently started thyroid medication and weas told to have it rechecked but she lost the lab order slip *If symptom related, send to triage Swatch Paster:Trina Best call back number:[phone] Is it OK to leave a confidential message on this voicemail? Yes *ECODE~[id number] Created on 18Sep2009 1:11pm by JAYLA LUONG On 18Sep2009 1:38pm CARINA BEAVER wrote: lm order sent to lab. Acknowledged by CARINA BEAVER on 1:38pm STORAGE [employer]RIER documented in this encounter Plan of Treatment Not on filedocumented as of this encounter Visit Diagnoses Not on filedocumented in this encounter Care Teams Medical Photographer Relationship Specialty Start Date End Date Keysha Bingham PADlC PCP - General 09/06/10 03/02/[address] [place] [address] documented as of this encounter
--- OUTSIDE RECORDS SUMMARY | 2022-05-10 16:37 | XMS_ITS | Encounter Summary ---
:1980 Author Organization [facility] Address [address] [place] [address] Care Team Providers Name Role Phone Unassigned, Provider Primary Care Provider Unavailable Encounter Details Date Type Department Care Team Description 07/05/2011 Lab Visit [facility] Unspecified hypothyroidism [address] [place], [place] [id number] Social History Tobacco Use Types Packs/Day Years [...] Associated Diagnosis Comme nts THYROID STIMULATING Routine 07/05/2011 4:52 Unspecified Resul ts for this HORMONE PM ASSOCIATE ENGINEER hypothyroidism procedure are in the results section. documented in this encounter Results THYROID STIMULATING HORMONE (07/05/2011 4:52 PM ASSOCIATE ENGINEER) P athologist Signature Thyroid 1.93 0.20 - HP CONVERSION Stimulating 4.50 mIU/L Hormone Specimen Anatomical Collection Method Collection Time Receive d Time (Source) Location / / Volume Laterality 07/05/2011 4:52 PM 2 8:50 ASSOCIATE ENGINEER PM ASSOCIATE ENGINEER Keysha Bingham PA-C LAB_1 Performing Organization Address City/State/ZIP Code Phon e Number HP CONVERSION documented in this encounter Visit Diagnoses Diagnosis Unspecified hypothyroidism (HRC) Unspecified hypothyroidism documented in this encounter Care Teams Inside Steward/Stewardess Relationship Specialty Start Date End Date Unassigned, Provider PCP - General Unknown Physician 03/03/11 02/04/16 [address] [place] [address] documented as of this encounter
--- OUTSIDE RECORDS SUMMARY | 2022-05-10 16:37 | XMS_ITS | Encounter Summary ---
:1980 Author Organization [facility] Address [address] [place] [address] Care Team Providers Name Role Phone Zachery Keysha Sutherland PA-C Primary Care Provider Encounter Details Date Type Department Care Team Description 01/20/2010 Office Visit [facility] Ricky Lee, [address] [facility] [place] [address] [phone] [place] [address] Social History Tobacco Use Types Packs/Day Years Used Date Smoking Tobacco: Never Alcohol Use Standard Drinks/Week Comments Yes 0 (1 standard drink = 0.6 oz pure alcoho l) on ocass. Sex Assigned at Date Recorded Not on file documented as of this encounter Last Filed Vital Signs Vital Sign Reading Time Taken Comments Blood Pressure 104/64 01/20/2010 2:12 PM CDT Pulse 60 01/20/2010 2:12 PM CDT Temperature - - Respiratory Rate - - Oxygen Saturation - - Inhaled Oxygen Concentration - - Weight 71.7 kg (157 lb 15.7 oz) 01/20/2010 2:12 PM CDT C: 71.7kg Height - - Body Mass Index 26.29 07/23/2009 9:01 AM INTERIOR WIRER documented in this encounter Progress Notes Ricky Cavanaugh MD - 01/20/2010 12:01 AM CDT Progress Notes signed by Ricky Cavanaugh MD at 01/20/10 1534 Author: Ricky Cavanaugh MD Service: (none) Author Type: Physician Filed: 09/27/10 0037 Note Time: 01/20/102010 Status: Signed Seismograph Recorder: Ricky Cavanaugh MD (Physician) SUBJECTIVE: She has reported to return in some anxiety in depression symptoms. She was started on levothyroxine 50 mcg daily in July for elevated TSH and fatigue. Reports that her anxiety and depression symptoms improved for two months after starting this medication. For the last one or two months she is noted to return in symptoms. She wonders whether or not the medication needs to be adjusted again. She denies any weight gain, constipation, but admits to anxiety and ongoing depression. No other new medications. No history of depression or anxiety, no clear trigger. Adverse Drug Reactions: Reviewed updated and adverse drug reactions listed in today's LW Medications: Reviewed. See Medication List in PHP of [facility]. OBJECTIVE: Vital Signs : Reviewed; See Flowsheet Charting in [facility]. General: Alert and and oriented x3, in no acute respiratory distress, appears nontoxic. Head: Normocephalic. Eyes: PERRLA, full EOM. External and funduscopic exams normal. Ears: Normal pinnae, canals, and TM's. Nose: Patent, without deformity. Throat: Moist mucous membranes without lesions, erythema, or exudate. Neck: The neck was supple, without masses, lymphadenopathy or tenderness. JVP 6cm. Respiratory: Normal respiratory effort. Lungs are clear with good breath sounds. Heart: RR without murmurs, rubs, or gallops. Abdomen: The abdomen was flat, soft and nontender without guarding rebound or masses. Skin: Normal to inspection, without rash or breakdown. Extremities: Full ROM, normal strength, without cyanosis, clubbing or edema. ASSESSMENT: Hypothyroidism. PLAN: Will recheck TSH T3 and free T4, adjust accordingly. Goal TSH less than 2.00. If normal consider treatment for possible generalized anxiety not from a medical condition. Explained this in detail. The patient was discharged ambulatory and in stable condition. documented in this encounter Plan of Treatment Not on filedocumented as of this encounter Visit Diagnoses Not on filedocumented in this encounter Care Teams Hose Builder Relationship Specialty Start Date End Date Keysha Bingham PA-C PCP - General 09/06/10 03/02/[address] [place] [address] documented as of this encounter
--- OUTSIDE RECORDS SUMMARY | 2022-05-10 16:37 | XMS_ITS | Encounter Summary ---
:1980 Author Organization [facility] [employer] Address [address] [place] [address] Care Team Providers Name Role Phone Keysha Bingham PA-C Primary Care Provider Encounter Details Date Type Department Care Team Description 06/03/2008 PN Conversion Only ANASTACIA CONVERSION [address] [place] [address] Social History Tobacco Use Types Packs/Day Years Used Date Smoking Tobacco: Never Alcohol Use Standard Drinks/Week Comments Yes 0 (1 standard drink = 0.6 oz pure alcoho l) on ocass. Sex Assigned at Date Recorded Not on file documented as of this encounter Plan of Treatment Not on filedocumented as of this encounter Visit Diagnoses Not on filedocumented in this encounter Care Teams Experimental Mechanic Relationship Specialty Start Date End Date Keysha Bingham PA-C PCP - General 09/06/10 03/02/[address] [place] [address] documented as of this encounter
--- OUTSIDE RECORDS SUMMARY | 2022-05-10 16:37 | XMS_ITS | Encounter Summary ---
:1980 Author Organization [facility] Address [address] [place] [address] Care Team Providers Name Role Phone Keysha Bingham PA-C Primary Care Provider Encounter Details Date Type Department Care Team Description 09/24/2010 PN Conversion Only ANASTACIA CONVERSION [address] [place] [address] Social History Tobacco Use Types Packs/Day Years Used Date Smoking Tobacco: Never Alcohol Use Standard Drinks/Week Comments Yes 0 (1 standard drink = 0.6 oz pure alcoho l) on ocass. Sex Assigned at Date Recorded Not on file documented as of this encounter Plan of Treatment Not on filedocumented as of this encounter Visit Diagnoses Not on filedocumented in this encounter Care Teams Mri Ct Tech Relationship Specialty Start Date End Date Keysha Bingham PA-C PCP - General 09/06/10 03/02/[address] [place] [address] documented as of this encounter
--- OUTSIDE RECORDS SUMMARY | 2022-05-10 16:37 | XMS_ITS | Encounter Summary ---
:1980 Author Organization [facility] Address [address] [place] [address] Care Team Providers Name Role Phone Keysha Bingham Koko AMANDA Primary Care Provider Encounter Details Date Type Department Care Team Description 04/25/2006 PN Conversion Only RESTORATION CONVERSION Matheus Mckay MD Social History Tobacco [...] Date/Time Associated Comments Diagnosis ANATOMICAL PATH Routine 04/25/2006 2:23 PM Result s for this LIQUID BASED ASSOCIATE DIRECTOR OF NURSING procedure are i n the results section. documented in this encounter Results Pap Smear (04/25/2006 2:23 PM ASSOCIATE DIRECTOR OF NURSING) [facility] Method Time Signature PAP Smear SEE TEXT No normal HP CONVERSION Liquid Based range Comment: Patient: ANGIE SIMS ? CERVICAL CYTOLOGY REPORT Pathology # ??[id number] ?Date Obtained: ? Date Received: CYTOLOGIC IMPRESSION: Negative for intraepithelial lesion or m alignancy. Verified 05/05/06 by: ??KGM ?(electronic signature) ? DESTIN TIONAL DATA LMP: ?[id number] CLINICAL HIST LIQUID BASED PAP CERVICAL SPECIMEN ADEQUACY: ?? Satisfactory. ENDOCERVICAL CELLS: ??Present. Specimen (Source) Anatomical Collection Method Collection Time Re ceived Time Location / / Volume Laterality 04/25/2006 2:23 PM ASSOCIATE DIRECTOR OF NURSING Hang Mckay MD LAB_1 Performing Organization Address City/State/ZIP Code Phon e Number HP CONVERSION documented in this encounter Visit Diagnoses Not on filedocumented in this encounter Care Teams Senior Security Engineer Relationship Specialty Start Date End Date Keysha Bingham PA-C PCP - General 09/06/10 03/02/11 [address] [place], [place] [address] documented as of this encounter
--- OUTSIDE RECORDS SUMMARY | 2022-05-10 16:37 | XMS_ITS | Encounter Summary ---
:1980 Author Organization [facility] Address [address] [place] [address] Care Team Providers Name Role Phone Akiko Hale MD Primary Care Provider Unavailable Encounter Details Date Type Department Care Team Description 02/18/2003 Office Visit [facility] Kishor Contre[facility]; [address] [place], [place], [place] [address] Social History Tobacco Use Types Packs/Day Years Used Date Smoking Tobacco: Never Alcohol Use Standard Drinks/Week Comments Yes 0 (1 standard drink = 0.6 oz pure alcoho l) on ocass. Sex Assigned at Date Recorded Not on file documented as of this encounter Progress Notes Kishor Contreras - 02/18/2003 12:00 AM CDT documented in this encounter Plan of Treatment Not on filedocumented as of this encounter Visit Diagnoses Diagnosis Examination of eyes and vision Myopia documented in this encounter Care Teams Prepared Foods Associate Relationship Specialty Start Date End Date Akiko Hale MD PCP - General 05/18/1996 06/26/09 documented as of this encounter
--- OUTSIDE RECORDS SUMMARY | 2022-05-10 16:37 | XMS_ITS | Encounter Summary ---
:1980 Author Organization [employer] Address [address] [place] [address] Care Team Providers Name Role Phone Keysha Bingham PA-C Primary Care Provider Encounter Details Date Type Department Care Team Description 07/23/2009 Office Visit [facility] Keysha Torres PA-C [address] [place] [address] [place] [address] [phone] (Wo rk) Social History Tobacco Use Types Packs/Day Years Used Date Smoking Tobacco: Never Alcohol Use Standard Drinks/Week Comments Yes 0 (1 standard drink = 0.6 oz pure alcoho l) on ocass. Sex Assigned at Date Recorded Not on file documented as of this encounter Last Filed Vital Signs Vital Sign Reading Time Taken Comments Blood Pressure 110/58 07/23/2009 9:01 AM HOSPICE NURSE PRACTITIONER Pulse 64 07/23/2009 9:01 AM HOSPICE NURSE PRACTITIONER Temperature - - Respiratory Rate - - Oxygen Saturation - - Inhaled Oxygen Concentration - - Weight 72.1 kg (158 lb 15.9 oz) 07/23/2009 9:01 AM C: 7 2.1kg HOSPICE NURSE PRACTITIONER Height 165.1 cm (5' 5) 07/23/2009 9:01 AM C: 165.1cm HOSPICE NURSE PRACTITIONER Body Mass Index 26.46 07/23/2009 9:01 AM HOSPICE NURSE PRACTITIONER documented in this encounter Progress Notes Keysha Lennon PA-C - 07/23/2009 12:01 AM CST Progress Notes signed by Keysha Bingham PA-C at 07/23/09 1014 Author: Keysha Bingham PA-C Service: (none) Author Type: Physician Visual Display Associate Filed: 09/26/102015 Note Time: 07/23/09 0001 Status: Signed Home Restoration Service Supervisor: Keysha Bingham PA-C (Resource) Clinic Visit SUBJECTIVE: History of Present Illness: Patient is here today to discuss recent lab results. Her thyroid was abnormal, she was not aware that she's never had a problem in the past. She is asymptomatic today and denies: Fatigue, weight gain, or any hair or skin or nail changes. She denies any family history of thyroid problems. She has no other concerns today. Past Medical History: Reviewed and updated Adverse Drug Reactions: Reviewed Medications: Reviewed. See Medication List in [facility]. Review of Systems: All systems were reviewed and found to be negative except as noted below. OBJECTIVE: Vital Signs: Reviewed in flowsheet charting of [facility]. Examination is deferred today, only neck exam was performed. No thyromegaly noted. Heart is regular rate and rhythm no murmurs rubs or gallops ASSESSMENT: hypothyroidism, new onset PLAN: 1. reviewed labs with her. Her TSH was elevated at 7.13. She would like to be on medication for this disorder. Discussed alternative treatments including rechecking her in 8 to 12 weeks, she however would like medication. We will start her on 50 mcg of Synthroid. Discussed risks, benefits, and side effects of this medication. Review with the diagnosis of hypothyroidism with her. Printed information given to her. Recheck her TSH in 8 weeks. We will mail the lab slip to her. All of her questions have been answered. *SH~DNS~SOAP1 ICE NURSE PRACTITIONER documented in this encounter Plan of Treatment Not on filedocumented as of this encounter Visit Diagnoses Not on filedocumented in this encounter Care Teams Bank President Relationship Specialty Start Date End Date Keysha Bingham PA-C PCP - General 09/06/10 03/02/11 [address] [place] [address] documented as of this encounter
--- OUTSIDE RECORDS SUMMARY | 2022-05-10 16:37 | XMS_ITS | Encounter Summary ---
:1980 Author Organization [facility] Address [address] [place] [address] Care Team Providers Name Role Phone Keysha Bingham PA-C Primary Care Provider Encounter Details Date Type Department Care Team Description 06/27/2009 Office Visit [facility] Keysha Torres PA-C [address] [place] [address] [place] [address] [phone] (Wo rk) Social History Tobacco Use Types Packs/Day Years Used Date Smoking Tobacco: Never Alcohol Use Standard Drinks/Week Comments Yes 0 (1 standard drink = 0.6 oz pure alcoho l) on ocass. Sex Assigned at Date Recorded Not on file documented as of this encounter Last Filed Vital Signs Vital Sign Reading Time Taken Comments Blood Pressure 120/68 06/27/2009 10:40 AM DEVELOPMENT OFFICER Pulse 60 06/27/2009 10:40 AM DEVELOPMENT OFFICER Temperature - - Respiratory Rate - - Oxygen Saturation - - Inhaled Oxygen Concentration - - Weight 70.3 kg (154 lb 15.7 oz) 06/27/2009 10:40 AM C: 70.3kg DEVELOPMENT OFFICER Height 165.1 cm (5' 5) 06/27/2009 10:40 AM C: 165.1cm DEVELOPMENT OFFICER Body Mass Index 25.79 06/27/2009 10:40 AM DEVELOPMENT OFFICER documented in this encounter Progress Notes Keysha Lennon PA-C - 06/27/2009 12:01 AM CST H&P signed by Keysha Bingham PA-C at 06/27/09 1110 Author: Keysha Bingham PA-C Service: (none) Author Type: Physician Service Establishment Attendant Filed: 09/26/10 1941 Note Time: 06/27/09 0001 Status: Signed Hoop Bender Tank: Keysha Bingham PA-C (Resource) Preventive Exam & Pelvic SUBJECTIVE: Patient presents for a routine preventive physical exam. She has no symptomatic complaints or other concerns. She is satisfied with her current contraception. Past Medical History: No chronic medical problems. Patient's active medical problems were reviewed and updated on the Health Profile screen of [facility]. 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 She did have one abnormal Pap outside of the [facility] system. This was several years ago. She did have a colonoscopy. Skidder Driver Surgery: None Current Contraceptive Method: OCPs Other Medical/Surgical History: Past medical history was reviewed today and found to be negative except as noted below. [place] teeth extracted. Adverse Drug Reactions: Pt's Adverse Drug Reactions were reviewed today, and updated on the Health Profile of [facility]. Current Medications: Reviewed today and [facility] Family History: (First degree family members) Family history was reviewed today and, except as noted, was found to be negative. No breast CA. No colon CA. No diabetes mellitus. No DVT/pulmonary embolism. No hypertension. No hyperlipidemia. No hypothyroidism. No osteoporosis. Social History: Employment Status: Works at a [employer] company, also going to [employer] Marital Status: Single, with her current partner x 2 years Sexual History: Sexual active, monogamous relationship Habits: With the exception of any notes below, patient's habits were reviewed today and unchanged from [facility] note dated: Tobacco: None Alcohol: Social only Preventive Health Assessment: [facility] The patient performs monthly breast exams. Calcium intake is adequate. Exercise is adequate. Recent lipid screen has been performed. The patient practices safe sex. Seatbelts are used at all times. Tetanus immunization is up-to-date. Sun protection is used. Review of Systems: With the exception of any items noted above, the remainder of the complete ROS is negative. OBJECTIVE: Vital Signs: Vital Signs taken today were reviewed on the flowsheet in [facility] and found to be normal. General: Patient alert, in NAD. HEENT: PERRLA. Bilateral TM's, external canals, oropharynx normal. Neck: Supple, without thyromegaly or mass. Upper Extremities: FROM with good strength, no lesions or deformities. CV: RRR without murmurs, rubs or gallops. Resp: Clear to auscultation without crackles, wheezes or distress. Abdomen: Soft, non-tender, without hepatosplenomegaly, masses, or hernias. Breasts: Symmetrical, nontender, without masses or nipple discharge. Lymphatic: No neck, supraclavicular, axillary or groin lymphadenopathy. Lower Extremities: FROM, normal gait without edema, lesions, or deformity. Pelvic: External normal without lesions. Vagina reveals healthy mucosa with no vaginal or cervical lesions, and no abnormal discharge. Bimanual reveals uterus to be mobile, normal size, shape and consistency. No adenexal masses or tenderness. Skin: No lesions. Neuro: CN II-XII, motor & sensory function all intact. Psychiatric: Alert & oriented with normal affect and insight. Patient does not appear depressed or anxious. ASSESSMENT: Routine preventive exam. Healthy female Immunizations reviewed and updated in Health Profile of [facility]. Patient states she had all of her immunizations outside of our system one year ago. This includes tetanus. She defers influenza vaccine. Also defers STD screen. See Problem List on Patient Health Profile PLAN: Pap smear was done. STD screen deferred. Follow-up in 1 year, sooner PRN any concerns. Prescriptions provided, see OP Med list on Health Profile in [facility]. OCPs refilled x 1 year Labs: We will mail lab results to patient. TSH, fasting glucose, fasting lipids are currently pending. Preventive health counseling provided: Recommended daily cardiovascular exercise and healthy diet. Recommended calcium supplementation. Contraception: Risks, benefits, and alternatives for use were discussed. *SH~DNS~PEF LOPMENT OFFICER documented in this encounter Plan of Treatment Not on filedocumented as of this encounter Visit Diagnoses Not on filedocumented in this encounter Care Teams Arm Rest Builder Relationship Specialty Start Date End Date Keysha Bingham PA-C PCP - General 09/06/10 03/02/11 [address] [place] [address] documented as of this encounter
--- OUTSIDE RECORDS SUMMARY | 2022-05-10 16:37 | XMS_ITS | Encounter Summary ---
:1980 Author Organization [facility] Address [address] [place] [address] Care Team Providers Name Role Phone Keysha Bingham PA-C Primary Care Provider Encounter Details Date Type Department Care Team Description 09/24/2010 PN Conversion Only ANASTACIA CONVERSION Keysha Bingham, [address] [place] [address] [address] [place] [address] (Wo rk) Social History Tobacco Use [...] Date/Time Associated Comments Diagnosis THYROID STIMULATING Routine 09/24/2010 9:09 AM Re sults for this HORMONE CDT procedure are i n the results section. documented in this encounter Results THYROID STIMULATING HORMONE (09/24/2010 9:09 AM CDT) P athologist Signature Thyroid 3.34 0.20 - HP CONVERSION Stimulating 4.50 mIU/L Hormone Specimen (Source) Anatomical Collection Method Collection Time Re ceived Time Location / / Volume Laterality 09/24/2010 9:09 AM CDT Keysha J Bingham PA-C LAB_1 Performing Organization Address City/State/ZIP Code Phon e Number HP CONVERSION documented in this encounter Visit Diagnoses Not on filedocumented in this encounter Care Teams Food Sales Clerk Relationship Specialty Start Date End Date Keysha Bingham PA-C PCP - General 09/06/10 03/02/11 [address] [place], [place] [address] documented as of this encounter
--- OUTSIDE RECORDS SUMMARY | 2022-05-10 16:37 | XMS_ITS | Encounter Summary ---
:1980 Author Organization [facility] Address [address] [address] Care Team Providers Name Role Phone Akiko Hale MD Primary Care Provider Unavailable Encounter Details Date Type Department Care Team Description 06/11/2003 Correspondence None Unknown, [facility] [address] [place], [place] [id number] (Wo rk) Social History Tobacco Use Types Packs/Day Years Used Date Smoking Tobacco: Never Alcohol Use Standard Drinks/Week Comments Yes 0 (1 standard drink = 0.6 oz pure alcoho l) on ocass. Sex Assigned at Date Recorded Not on file documented as of this encounter Progress Notes Unknown, Physician - 06/11/2003 12:00 AM CLERK TELEVISION PRODUCTION documented in this encounter Plan of Treatment Not on filedocumented as of this encounter Visit Diagnoses Not on filedocumented in this encounter Care Teams Cloth Colorer Relationship Specialty Start Date End Date Akiko Hale MD PCP - General 05/18/1996 06/26/09 documented as of this encounter
--- OUTSIDE RECORDS SUMMARY | 2022-05-10 16:37 | XMS_ITS | Encounter Summary ---
:1980 Author Organization [facility] Address [address] [place] [address] Care Team Providers Name Role Phone Keysha Bingham PA-C Primary Care Provider Encounter Details Date Type Department Care Team Description 06/30/2010 Office Visit [facility] Keysha Torres PA-C [address] [place] [id number] [place] [id number] [phone] (Wo rk) Social History Tobacco Use Types Packs/Day Years Used Date Smoking Tobacco: Never Alcohol Use Standard Drinks/Week Comments Yes 0 (1 standard drink = 0.6 oz pure alcoho l) on ocass. Sex Assigned at Date Recorded Not on file documented as of this encounter Last Filed Vital Signs Vital Sign Reading Time Taken Comments Blood Pressure 100/58 06/30/2010 7:27 AM GRADUATE RECRUITER Pulse 60 06/30/2010 7:27 AM GRADUATE RECRUITER Temperature - - Respiratory Rate - - Oxygen Saturation - - Inhaled Oxygen Concentration - - Weight 67.1 kg (147 lb 15.9 oz) 06/30/2010 7:27 AM C: 6 7.1kg GRADUATE RECRUITER Height 164.5 cm (5' 4.75) 06/30/2010 7:27 AM C: 164.5c m GRADUATE RECRUITER Body Mass Index 24.82 06/30/2010 7:27 AM GRADUATE RECRUITER documented in this encounter Progress Notes Keysha Lennon PA-C - 06/30/2010 12:01 AM CST Preventive Exam & Pelvic SUBJECTIVE: Patient presents for a routine preventive physical exam. She has no symptomatic complaints or other concerns. She is satisfied with her current contraception.(OCP's) Past Medical History: Hypothyroidism Patient's active medical problems were reviewed and updated on the Health Profile screen of [facility]. Acute Care Physical Therapist History: /Para: 0000 Last Pap Smear: One year ago, normal Postpartum Rn Surgery: None Current Contraceptive Method: OCPs Other Medical/Surgical History: Past medical history was reviewed today and found to be negative except as noted below. Adverse Drug Reactions: Pt's Adverse Drug Reactions were reviewed today, and [facility]. Current Medications: Reviewed today and updated on Health Profile in [facility]. Family History: (First degree family members) Family history was reviewed today and, except as noted, was found to be negative. No breast CA. No colon CA. No diabetes mellitus. No DVT/pulmonary embolism. No hypertension. No hyperlipidemia. No hypothyroidism. No osteoporosis. 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 The patient performs monthly breast exams. Calcium [...] today were reviewed on the flowsheet in [facility] and found to be normal. General: Patient [...] gait without edema, lesions, or deformity. Pelvic: Deferred due to current guidelines Rectal: Normal tone, no mass. Skin: No lesions. Neuro: CN II-XII, motor & sensory function all intact. Psychiatric: Alert & oriented with normal affect and insight. Patient does not appear depressed or anxious. ASSESSMENT: Routine preventive exam. Healthy female Immunizations reviewed and updated in Health Profile of [facility]. Pt. is up to date. Hypothyroidism Contraception counseling PLAN: Pap smear was deferred due to current guidelines Follow-up in 1 year, sooner PRN any concerns. OCPs and Synthroid refilled for a year. Labs: We will mail lab results to patient. TSH pending. She wishes to do fasting labs next year. Preventive health counseling provided: Age-appropriate counseling performed. Counseled on the benefits of a healthy diet and lifestyle including cardiovascular exercise. Counseled on calcium and vitamin D supplementation Contraception: Risks, benefits, and alternatives for use were discussed. *SH~DNS~PEF UATE RECRUITER documented in this encounter Plan of Treatment Not on filedocumented as of this encounter Visit Diagnoses Not on filedocumented in this encounter Care Teams Assistant Federal Public Defender Relationship Specialty Start Date End Date Keysha Bingham PA-C PCP - General 09/06/10 03/02/11 [place] [id number] documented as of this encounter
--- OUTSIDE RECORDS SUMMARY | 2022-05-10 16:37 | XMS_ITS | Encounter Summary ---
:1980 Author Organization [facility] Address [address] [place] [address] Care Team Providers Name Role Phone Unassigned, Provider Primary Care Provider Unavailable Encounter Details Date Type Department Care Team Description 03/08/2011 Office Visit [place] Vera Almazan, Unspecified keratitis Ophthalmology MD OU (Primary Dx) [address] [place], [place] [address] Social History Tobacco Use Types Packs/Day Years Used Date Smoking Tobacco: Never Alcohol Use Standard Drinks/Week Comments Yes 0 (1 standard drink = 0.6 oz pure alcoho l) on ocass. Sex Assigned at Date Recorded Not on file documented as of this encounter Patient Instructions Patient InstructionsVera Almazan - 03/08/2011 9:01 AM CDT Assessment and Plan: Encounter Diagnosis Name Primary? Unspecified keratitis OU Decrease: zymaxid- one drop to both eyes four times daily Start: lotemax- instill one drop to both eyes four times daily NO contact lens wear! We would like to see you back on 03/09/11 with . On that day we plan on doing: Eye Exam without Pupil Dilation. Please note: if your visit requires that your eyes be dilated, your vision may be blurry for severalhours. The visit may take up to several hours, so please allow enough time for your exam. documented in this encounter Progress Notes Vera Almazan - 03/08/2011 8:15 AM CDT Last saw this provider 03/05/11 Trina Javier is a 30 yr old female here for follow-up keratitis, Zymaxid q2hrs ou. Somewhat improved, less light sensitive but still hazy. Eyes feel normal Review of Systems Const: (-) ENT: (-) Pulm: (-) Cardio: (-) Assessment and Plan: Encounter Diagnosis Name Primary? Unspecified keratitis OU Decrease: zymaxid- one drop to both eyes four times daily Start: lotemax- instill one drop to both eyes four times daily NO contact lens wear! We would like to see you back on 03/09/11 with . On that day we plan on doing: Eye Exam without Pupil Dilation. Please note: if your visit requires that your eyes be dilated, your vision may be blurry for severalhours. The visit may take up to several hours, so please allow enough time for your exam. documented in this encounter Plan of Treatment Not on filedocumented as of this encounter Visit Diagnoses Diagnosis Unspecified keratitis OU - Primary Unspecified keratitis documented in this encounter Care Teams Health Careers Instructor Relationship Specialty Start Date End Date Unassigned, Provider PCP - General Unknown Physician 03/03/11 02/04/[address] [place] [address] documented as of this encounter
--- OUTSIDE RECORDS SUMMARY | 2022-05-10 16:37 | XMS_ITS | Encounter Summary ---
:1980 Author Organization [facility] Address [address] [place] [address] Care Team Providers Name Role Phone Keysha Bingham PA-C Primary Care Provider Encounter Details Date Type Department Care Team Description 06/30/2010 PN Conversion Only ANASTACIA CONVERSION Keysha Bingham, [address] [place] [address] [address] [place] [address] (Wo rk) Social History Tobacco Use [...] Date/Time Associated Comments Diagnosis THYROID STIMULATING Routine 06/30/2010 7:59 AM Re sults for this HORMONE IRRIGATION TEACHER procedure are i n the results section. documented in this encounter Results (ABNORMAL) THYROID STIMULATING HORMONE (06/30/2010 7:59 AM IRRIGATION TEACHER) [facility] Method Time Signature Thyroid 9.12 (H) 0.20 - HP CONVERSION Stimulating 4.50 Hormone mIU/L Specimen (Source) Anatomical Collection Method Collection Time Re ceived Time Location / / Volume Laterality 06/30/2010 7:59 AM IRRIGATION TEACHER Keysha Bingham PA-C LAB_1 Performing Organization Address City/State/ZIP Code Phon e Number HP CONVERSION documented in this encounter Visit Diagnoses Not on filedocumented in this encounter Care Teams Outdoor Fitness Trainer Relationship Specialty Start Date End Date Keysha Bingham PA-C PCP - General 09/06/10 03/02/11 [address] [place], [place] [address] documented as of this encounter
--- OUTSIDE RECORDS SUMMARY | 2022-05-10 16:37 | XMS_ITS | Encounter Summary ---
:1980 Author Organization [facility] Address [address] [place] [address] Care Team Providers Name Role Phone Unassigned, Provider Primary Care Provider Unavailable Reason for Visit Reason Onset Date Comments QUESTIONS, GENERAL 03/05/2011 Encounter Details Date Type Department Care Team Description 03/05/2011 Telephone [place] [facility] Vera Clemente MD QUESTIONS, GENERAL [address] [place], [place] [address] Social History Tobacco Use Types Packs/Day Years Used Date Smoking Tobacco: Never Alcohol Use Standard Drinks/Week Comments Yes 0 (1 standard drink = 0.6 oz pure alcoho l) on ocass. Sex Assigned at Date Recorded Not on file documented as of this encounter Nursing Notes Layne Alves COT - 03/05/2011 11:12 AM CDT LM per Dr. Corea's visit on 03-03, pt should be seen by Dr. Almazan today even if she is doing better.Advised pt to keep appt at 1:10 and check in downstairs and come up to eye dept in [place]. Layne Alves Aline Espinal - 03/05/2011 10:42 AM CDT Pt called and is wondering if she really needs to come in or not. She has an appt today at 1:[address]Dr[address] Almazan. Could someone please contact her to discuss. Thanks, Aline Espianl documented in this encounter Plan of Treatment Not on filedocumented as of this encounter Visit Diagnoses Not on filedocumented in this encounter Care Teams Heater Room Helper Relationship Specialty Start Date End Date Unassigned, Provider PCP - General Unknown Physician 03/03/11 02/04/[address] [place] [id number] documented as of this encounter
--- OUTSIDE RECORDS SUMMARY | 2022-05-10 16:37 | XMS_ITS | Encounter Summary ---
:1980 Author Organization [facility] Address [address] [place] [address] Care Team Providers Name Role Phone Keysha Bingham PA-C Primary Care Provider Reason for Visit Reason Comments Other Encounter Details Date Type Department Care Team Description 07/03/2010 Telephone CONV AFTER HR NURSE Center, Message Other [address] [place] [address] Social History Tobacco Use Types Packs/Day Years Used Date Smoking Tobacco: Never Alcohol Use Standard Drinks/Week Comments Yes 0 (1 standard drink = 0.6 oz pure alcoho l) on ocass. Sex Assigned at Date Recorded Not on file documented as of this encounter Progress Notes Genna Walden LPN - 07/03/2010 9:13 AM CST LM at [phone] for pt to call. Her TSH was 9.12. Need to know if she was consistently taking medication when this was drawn, or if she was off of it for awhile prior. Meagan 4044 Created on 03Jul2010 9:13am by GENNA WALDEN On 03Jul2010 11:11am HIEN OLSON wrote: pt rtc On 03Jul2010 11:26am RAYMOND RIVERO wrote: Patient calling back, she has been taking her thyroid medication consistently every morning. Pharm PN 1C. On 03Jul2010 11:33am KEYSHA COTE wrote: A higher dose of synthroid is then needed. Faxed an increased dose of synthroid to our pharmacy. She should start this new dose, and then have her TSH checked in 6 weeks (please order a future labs (244.9). Thank you. Acknowledged by KEYSHA COTE on 11:33am On 03Jul2010 1:32pm GENNA WALDEN wrote: LM at [phone] with above info. Slip to future lab tray and fuschia to lab box for 08-14. Acknowledged by GENNA WALDEN on 1:32pm On 03Jul2010 5:43pm PRASHANTH MEJIA wrote: Pt is calling back and she has questions, she can be reach at [phone], she needed to have a refill and she would like it sent to [address] On 03Jul2010 6:30pm RAMÓN SEGOVIA wrote: Nurse refaxed Synthroid to [facility] on [address] [place]. Left message on patients recorder refaxed rx and reviewed needs TSH in 6 weeks. If any questions/concerns call nurseline or clinic. K GRADER documented in this encounter Plan of Treatment Not on filedocumented as of this encounter Visit Diagnoses Not on filedocumented in this encounter Care Teams Therapeutic Radiologist Relationship Specialty Start Date End Date Keysha Bingham PA-C PCP - General 09/06/10 03/02/11 [address] [place], [place] [address] documented as of this encounter
--- OUTSIDE RECORDS SUMMARY | 2022-05-10 16:38 | XMS_ITS | Encounter Summary ---
:1980 Author [facility] Address [address] [place] [address] Care Team Providers Name Role Phone Geoffrey Akiko Miranda MD Primary Care Provider Unavailable Encounter Details Date Type Department Care Team Description 09/06/2002 Orders Only [place] Laborato ry Chalupsky, Angela L, [address] SALES FORECAST ANALYST, SWITCHBOARD CLERK [place], [place] [address] HP [facility] [phone] [place] [address] Social History Tobacco Use Types Packs/Day Years Used Date Smoking Tobacco: Never Alcohol Use Standard Drinks/Week Comments Yes 0 (1 standard drink = 0.6 oz pure alcoho l) on ocass. Sex Assigned at Date Recorded Not on file documented as of this encounter Plan of Treatment Not on filedocumented as of this encounter Procedures Procedure Name Priority Date/Time Associated Diagnosis Comme nts GC (N. Routine 09/06/2002 2:30 AM Results f or this GONORRHOEAE)(14 SALON PROFESSIONAL procedure ar e in YEARS AND OLDER) the results section. CHLAMYDIA (16 YEARS Routine 09/06/2002 2:30 AM Re sults for this AND OLDER) SALON PROFESSIONAL procedure are i n the results section. documented in this encounter Results GC (N. GONORRHOEAE) - 1 SWAB (09/06/2002 2:30 AM SALON PROFESSIONAL) [facility] Method Time Signature GC (N. Negative NEG [facility] gonorrhoeae) Test Performed by PCR Assay Source Cervix [facility] Specimen Anatomical Collection Method Collection Time Receive d Time (Source) Location / / Volume Laterality 09/06/2002 2:30 AM 3 6:46 SALON PROFESSIONAL PM SALON PROFESSIONAL Angela Bustamante APRN, CNP LAB_1 Performing Organization Address [facility] Phon e Number [facility] [phone] [address] CHLAMYDIA - 1 SWAB (09/06/2002 2:30 AM SALON PROFESSIONAL) [facility] Method Time Signature Chlamydia Negative NEG [facility] Test Performed by PCR Assay Source Cervix [facility] Specimen Anatomical Collection Method Collection Time Receive d Time (Source) Location / / Volume Laterality 09/06/2002 2:30 AM 3 6:46 SALON PROFESSIONAL PM SALON PROFESSIONAL Angela Bustamante APRN, CNP LAB_1 Performing Organization Address [facility] Phon e Number [facility] Avolent [phone] [address] documented in this encounter Visit Diagnoses Not on filedocumented in this encounter Care Teams Charge Account Authorizer Relationship Specialty Start Date End Date Akiko Hale MD PCP - General 05/18/1996 06/26/09 documented as of this encounter
--- OUTSIDE RECORDS SUMMARY | 2022-05-10 16:38 | XMS_ITS | Encounter Summary ---
:1980 Author Organization [facility] Address [address], [place] [address] Care Team Providers Name Role Phone Akiko Hale MD Primary Care Provider Unavailable Encounter Details Date Type Department Care Team Description 10/11/2002 Correspondence None Unknown, Physici an RELEASE OF INFORMATION [address], [place] [address] (Wo rk) Social History Tobacco Use Types Packs/Day Years Used Date Smoking Tobacco: Never Alcohol Use Standard Drinks/Week Comments Yes 0 (1 standard drink = 0.6 oz pure alcoho l) on ocass. Sex Assigned at Date Recorded Not on file documented as of this encounter Progress Notes Unknown, Physician - 10/11/2002 12:00 AM CDT documented in this encounter Plan of Treatment Not on filedocumented as of this encounter Visit Diagnoses Not on filedocumented in this encounter Care Teams Customer Advocacy Manager Relationship Specialty Start Date End Date Akiko Hale MD PCP - General 05/18/1996 06/26/09 documented as of this encounter
--- OUTSIDE RECORDS SUMMARY | 2022-05-10 16:38 | XMS_ITS | Encounter Summary ---
:1980 Author Organization [facility] Address [address] [place] [address] Care Team Providers Name Role Phone Geoffrey Akiko Miranda MD Primary Care Provider Unavailable Encounter Details Date Type Department Care Team Description 12/20/2002 Orders Only [place] [facility] Angela Perkins, [address] RETURNED TELEPHONE EQUIPMENT APPRAISER, DOCUMENT COORDINATOR [place], [place] [address] HP [facility] [phone] [address] [place], [place] [address] Social History Tobacco Use Types Packs/Day Years Used Date Smoking Tobacco: Never Alcohol Use Standard Drinks/Week Comments Yes 0 (1 standard drink = 0.6 oz pure alcoho l) on ocass. Sex Assigned at Date Recorded Not on file documented as of this encounter Plan of Treatment Not on filedocumented as of this encounter Procedures Procedure Name Priority Date/Time Associated Diagnosis Comme nts PAP TEST, ROUTINE Routine 12/20/2002 12:00 AM Res ults for this CDT procedure are i n the results section. documented in this encounter Results PAP TEST, ROUTINE (12/20/2002 12:00 AM CDT) Component Value Ref Test Analysis Performed At [facility] Method Time Signature Cytology, Pap (NOTE) [employer] Patternmaker Apprentice Metal Cytology Report Patient Name: ANGIE SIMS Taken: 12/20/02 Received: 12/21/02 Reported: 12/27/02 Physician(s): ANGELA PERKINS ([id number]) ? [id number] ? Source of Specimen Liquid routine Pap, cervical/endocervical: ? Specimen Adequacy ? Satisfactory for evaluation. ??Endocervical component present. Final Cytologic Interpretation/Result NEGATIVE FOR INTRAEPITHELIAL LESION OR MALIGNANCY (NILM) crw2/12/27/02 Electronically Signed Out By Felecia Silva, ??CT (ASCP) Felecia Sliva, ??CT (ASCP) ? Pap Smear History ? Date of Last Menstrual Period: ? 12/05/02 ? Contraceptive History: ? Oral Contraceptives ? Other Clinical Conditions: ? HPV reflex testing requested with interpretation of ASCUS Specimen (Source) Anatomical Collection Method Collection Time Re ceived Time Location / / Volume Laterality 12/20/2002 12/21/2002 11:1 9 AM CDT Angela Perkins APRN, CNP LAB_1 Performing Organization Address City/State/ZIP [facility] Phon e Number [address] [address] [place], [place] [phone] documented in this encounter Visit Diagnoses Not on filedocumented in this encounter Care Teams Word Processing Machine Operator Relationship Specialty Start Date End Date Akiko Hale MD PCP - General 05/18/1996 06/26/09 documented as of this encounter
--- OUTSIDE RECORDS SUMMARY | 2022-05-10 16:38 | XMS_ITS | Encounter Summary ---
:1980 Author Organization [facility] Address [address] [place] [address] Care Team Providers Name Role Phone GeoffreyAkiko jean Ruth KENDRICK Primary Care Provider Unavailable Encounter Details Date Type Department Care Team Description 04/09/2002 Office Visit [facility] Angela Bustamante, NONINFL AM DIS VAGINA NEC; Obstetrics and SUPERVISOR COFFEE, BINDER FOLDER OPERATOR NONINFECT VAG LEUKORRHEA; Gynecology Physician s [facility] VAGINITIS/VULVOVAGINITIS, UN SPEC(BACTERIAL V; [address] [facility] ABNORMAL PAP SMEAR-CERVIX [place], [place] [address] [address] [facility] [phone] [place] [address] Social History Tobacco Use Types Packs/Day Years Used Date Smoking Tobacco: Never Assessed Sex Assigned at Date Recorded Not on file documented as of this encounter Last Filed Vital Signs Vital Sign Reading Time Taken Comments Blood Pressure 110/60 04/09/2002 3:00 PM ORACLE AGILE PLM CONSULTANT Pulse - - Temperature - - Respiratory Rate - - Oxygen Saturation - - Inhaled Oxygen Concentration - - Weight - - Height - - Body Mass Index - - documented in this encounter Progress Notes 04/09/2002 3:00 PM ORACLE AGILE PLM CONSULTANT Pt has sore in vag. Noticed after intercourse happened at that time. Pt does not feel it is herpes.Happened 04/09/02. Just wanted area checked. Angela Bustamante - 04/09/2002 12:00 AM CSTS: Trina presents today as add- on to my clinic. Trina does want her vagina checked. She tells me that she still feels she has a vaginal tear. She was seen by Torsten on 03/09 (about a month ago) for the same concern. She was encouraged to tub soak, and the patient tells me that she hasn't been doing that. She did have intercourse this weekend and it still hurt. STD screens were done at her last visit. In 02/05 she was seen in Urgent Care outside of [facility] and was actually given some Flagyl to use for a bacterial vaginosis. She feels that is probably back as she has an odor. Her boyfriend thinks that she is cheating on him. I did talk to her about this. O: External genitalia actually appears quite normal. There is no redness, swelling or excoriation. Just inside her vagina on her left inner vagina introitus I do see a small cut. There is no swelling. I did use a speculum and found her to have excessive amounts of a thin, young discharge that looks like a bacterial vaginosis. I did take a Wet-Prep but did not do a bimanual exam today. A: Probable bacterial vaginosis. Lesion on inner vagina. P: Wet-Prep does show multiple clue cells with a pH of 6.0; positive whiff test. We will re-treat Trina with Flagyl 500 mg, one b.i.d. x five days. I encouraged her to do tub soaks. I did inform her that tub baths actually do help with the healing process and it is necessary. She said that she will do what she is told now. She should try to refrain from intercourse. She will return within the next couple of weeks for a Pap smear as a follow-up of her LEEP procedure. We talked about bacterial vaginosis, causes, prevention. She was reassured. TIME: A total of 25 minutes was spent with the patient; 10 minutes and the rest was in counseling. IN SUMMARY: BACTERIAL VAGINOSIS, SKIN LESION ON INNER VAGINA. cc: LE AGILE PLM CONSULTANT documented in this encounter Plan of Treatment Not on filedocumented as of this encounter Visit Diagnoses Diagnosis Other specified noninflammatory disorder of vagina Leukorrhea, not specified as infective Vaginitis and vulvovaginitis, unspecifie d Abnormal Papanicolaou smear of cervix an d cervical HPV documented in this encounter Care Teams Visual Basic .Net Developer Relationship Specialty Start Date End Date Akiko Hale MD PCP - General 05/18/1996 06/26/09 documented as of this encounter
--- OUTSIDE RECORDS SUMMARY | 2022-05-10 16:38 | XMS_ITS | Encounter Summary ---
:1980 Author [facility] Address [address] [place] [address] Care Team Providers Name Role Phone GeoffreyAkiko jean Ruth KENDRICK Primary Care Provider Unavailable Encounter Details Date Type Department Care Team Description 11/16/2001 Orders Only Esperanza Bustamante, CERTIFIED PROCEDURAL CODER, HOUSEHOLD APPLIANCE MECHANIC [facility] [address] [place], [place] [address] Social History Tobacco Use Types Packs/Day Years Used Date Smoking Tobacco: Never Assessed Sex Assigned at Date Recorded Not on file documented as of this encounter Plan of Treatment Not on filedocumented as of this encounter Procedures Procedure Name Priority Date/Time Associated Diagnosis Comme nts GC (N. Routine 11/16/2001 6:46 PM Results f or this GONORRHOEAE)(14 CDT procedure ar e in YEARS AND OLDER) the results section. CHLAMYDIA (14 YEARS Routine 11/16/2001 6:46 PM Re sults for this AND OLDER) CDT procedure are i n the results section. documented in this encounter Results GC (N. GONORRHOEAE) - 1 SWAB (11/16/2001 6:46 PM CDT) [facility] Method Time Signature GC (N. Negative NEG [facility] gonorrhoeae) Test Performed by PCR Assay Source Cervix [facility] Specimen Anatomical Collection Method Collection Time Receive d Time (Source) Location / / Volume Laterality 11/16/2001 6:46 PM 2 6:46 CDT PM CDT Angela L Robby LAWRENCE CNP LAB_1 Performing Organization Address [facility] Phon e Number [facility] [phone] [address] CHLAMYDIA - 1 SWAB (11/16/2001 6:46 PM CDT) [facility] Method Time Signature Chlamydia Negative NEG [facility] Test Performed by PCR Assay Source Cervix [facility] Specimen Anatomical Collection Method Collection Time Receive d Time (Source) Location / / Volume Laterality 11/16/2001 6:46 PM 2 6:46 CDT PM CDT Angela Johnson Robby LAWRENCE CNP LAB_1 Performing Organization Address [facility] Phon e Number [facility] Reasult [phone] [phone] documented in this encounter Visit Diagnoses Not on filedocumented in this encounter Care Teams Manufacturing Weaver Relationship Specialty Start Date End Date Akiko Hale MD PCP - General 05/18/1996 06/26/09 documented as of this encounter
--- OUTSIDE RECORDS SUMMARY | 2022-05-10 16:38 | XMS_ITS | Encounter Summary ---
:1980 Author Organization [facility] Address [address] [place] [address] Care Team Providers Name Role Phone Geoffrey Akiko Miranda MD Primary Care Provider Unavailable Reason for Visit Reason Comments VAGINITIS Encounter Details Date Type Department Care Team Description 09/21/2002 Telephone Careline Sebastián Bridges RN VAGINITIS [address] [place], [place] [address] [facility] [phone] [facility], [facility] Social History Tobacco Use Types Packs/Day Years Used Date Smoking Tobacco: Never Alcohol Use Standard Drinks/Week Comments Yes 0 (1 standard drink = 0.6 oz pure alcoho l) on ocass. Sex Assigned at Date Recorded Not on file documented as of this encounter Nursing Notes 09/21/2002 11:59 PM CDT >> SEBASTIÁN BRIDGES Fri Sep 21, 2002 12:22 PM >> CALL RECEIVED. Contact: Concern is that pt had bacterial vaginosis She was seen in the clinic on 09/06 by Angela Bustamante She was given 2 doses of Flagyl. After she took the medicine sx disappeared , and now she has sx again She has small amount of smelly whitish discharge, the same as when seen O abd pain O fever LMP was 09/12 She is on OCP Pt is asking for another course of Flagyl She would like to p/up meds at [facility] pharmacy message faxed to day clinic documented in this encounter Plan of Treatment Not on filedocumented as of this encounter Visit Diagnoses Not on filedocumented in this encounter Care Teams Rum Processing Operator Relationship Specialty Start Date End Date Akiko Hale MD PCP - General 05/18/1996 06/26/09 documented as of this encounter
--- OUTSIDE RECORDS SUMMARY | 2022-05-10 16:38 | XMS_ITS | Encounter Summary ---
:1980 Author Organization [facility] Address [address] [place] [address] Care Team Providers Name Role Phone Akiko Hale MD Primary Care Provider Unavailable Reason for Visit Reason Comments DISCHARGE, VAGINAL Encounter Details Date Type Department Care Team Description 02/11/2002 Telephone Careline Mitali Guajardo RN DISCHARGE, VAGINAL [address] [place], [place] [address] [facility] [phone] [place] [address] Social History Tobacco Use Types Packs/Day Years Used Date Smoking Tobacco: Never Assessed Sex Assigned at Date Recorded Not on file documented as of this encounter Nursing Notes 02/11/2002 11:59 PM CDT >> MITALI GUAJARDO [place] Feb 11, 2002 12:26 PM >> CALL RECEIVED. Contact: CONCERN: bloody/odorous vaginal discharge, x 24 hours . STAT EVALUATION: none ASSESSMENT: Onset of sx: 1 day(s). Abd discomfort: yes, located: pelvic area, quality: intermittent, duration: last evening. Associated sx: none present. Vaginitis hx: none. STD hx: no. Control: oral contraceptives. PLAN: To clinic for eval in [facility]. documented in this encounter Plan of Treatment Not on filedocumented as of this encounter Visit Diagnoses Not on filedocumented in this encounter Care Teams Security Police Relationship Specialty Start Date End Date Akiko Hale MD PCP - General 05/18/1996 06/26/09 documented as of this encounter
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
--- OUTSIDE RECORDS SUMMARY | 2022-05-10 16:38 | XMS_ITS | Encounter Summary ---
:1980 Author Organization [facility] Address [address] [place] [address] Care Team Providers Name Role Phone GeoffreyAkiko jean Ruth KENDRICK Primary Care Provider Unavailable Encounter Details Date Type Department Care Team Description 11/16/2001 Orders Only Esperanza Perkins, HOWARD, WIRELESS SALES MANAGER [facility] [address] [place], [place] [address] Social History Tobacco Use Types Packs/Day Years Used Date Smoking Tobacco: Never Assessed Sex Assigned at Date Recorded Not on file documented as of this encounter Plan of Treatment Not on filedocumented as of this encounter Procedures Procedure Name Priority Date/Time Associated Diagnosis Comme nts PAP TEST, ROUTINE Routine 11/16/2001 1:00 PM Resu lts for this CDT procedure are i n the results section. documented in this encounter Results PAP SMEAR, ROUTINE (11/16/2001 1:00 PM CDT) Component Value Ref Test Analysis Performed At [facility] Method Time Signature Cytology, (NOTE) [employer] Pap Ad Setter Cytology Report Patient Name: ANGIE SIMS Taken: 11/16/01 Received: 11/28/01 Reported: 12/26/01 Physician(s): ANGELA PERKINS ([id number]) ? [id number] Final Cytologic Diagnosis Cervical Endocervical,routine: ? Unsatisfactory for evaluation due to thick areas in smear. ? UNSATISFACTORY Comment ats/12/26/01 Electronically Signed Out By Luis Manuel Johnson MD ([id number]) Nyasia A Bernabe CT(ASCP) Source of Specimen(s) Cervical Endocervical,routine Clinical History Date of Last Menstrual Period: ? 11/08/01 Menstrual History: Contraceptive History: Cancer History: Infection History: Treatment History: Other Clinical Conditions: Other Related Clinical Data Specimen Anatomical Collection Method Collection Time Receive d Time (Source) Location / / Volume Laterality 11/16/2001 1:00 PM 2 1:37 CDT PM CDT Angela Perkins APRN, WIRELESS SALES MANAGER LAB_1 Performing Organization Address City/State/[facility] [[email or web address]] Code Phon e Number [facility] [phone] [phone] documented in this encounter Visit Diagnoses Not on filedocumented in this encounter Care Teams Dry Cell Sealer Relationship Specialty Start Date End Date Akiko Hale MD PCP - General 05/18/1996 06/26/09 documented as of this encounter
--- OUTSIDE RECORDS SUMMARY | 2022-05-10 16:38 | XMS_ITS | Encounter Summary ---
:1980 Author Organization [facility] Address [address] [place] [address] Care Team Providers Name Role Phone Akiko Hale MD Primary Care Provider Unavailable Encounter Details Date Type Department Care Team Description 09/21/2002 Notes/Orders [facility] and Jane Bailey RN Gynecology Physician s [address] [place], [place] [address] Social History Tobacco Use Types [...] on filedocumented in this encounter Care Teams Oil Seal Assembler Relationship Specialty Start Date End Date Akiko Hale MD PCP - General 05/18/1996 06/26/09 documented as of this encounter
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
--- OUTSIDE RECORDS SUMMARY | 2022-05-10 16:38 | XMS_ITS | Encounter Summary ---
:1980 Author Organization [facility] Address [address] [place] [address] Care Team Providers Name Role Phone GeoffreyAkiko jean Ruth KENDRICK Primary Care Provider Unavailable Encounter Details Date Type Department Care Team Description 04/16/2002 Orders Only [facility] Charito Miller MD [address] [facility]. [address] [place], [place] [address] [place] [address] [phone] (Wo rk) Social History Tobacco Use Types Packs/Day Years Used Date Smoking Tobacco: Never Assessed Sex Assigned at Date Recorded Not on file documented as of this encounter Plan of Treatment Not on filedocumented as of this encounter Procedures Procedure Name Priority Date/Time Associated Diagnosis Comme nts HERPES SIMPLEX AG. Routine 04/16/2002 11:00 AM Re sults for this KEYBOARDING CLERK procedure are i n the results section. documented in this encounter Results HERPES SIMPLEX AG. (04/16/2002 11:00 AM KEYBOARDING CLERK) [facility] Method Time Signature Herpes Simplex Negative [facility] Ag Source GENITAL [facility] Specimen Anatomical Collection Method Collection Time Receive d Time (Source) Location / / Volume Laterality 04/16/2002 11:00 04/16/2002 4:05 AM KEYBOARDING CLERK PM KEYBOARDING CLERK Charito Prado MD LAB_2 Performing Organization Address City/State/ZIP Code Phon e Number [facility] [phone] [facility] [address] [address] documented in this encounter Visit Diagnoses Not on filedocumented in this encounter Care Teams Optoelectronics Engineer Relationship Specialty Start Date End Date Akiko Hale MD PCP - General 05/18/1996 06/26/09 documented as of this encounter
--- OUTSIDE RECORDS SUMMARY | 2022-05-10 16:38 | XMS_ITS | Encounter Summary ---
:1980 Author Organization [facility] Address [address] [place] [address] Care Team Providers Name Role Phone GeoffreyAkiko jean Ruth KENDRICK Primary Care Provider Unavailable Encounter Details Date Type Department Care Team Description 04/23/2002 Office Visit [facility] Angela Bustamante, NONINFL AM DIS VAGINA Obstetrics and C.O.D. BILLER, NEGATIVE ASSEMBLER [facility] Gynecology Physician s [facility] [address] [facility] [place], [place] [address] [address] [facility] [phone] [place] [address] Social History Tobacco Use Types Packs/Day Years Used Date Smoking Tobacco: Never Assessed Sex Assigned at Date Recorded Not on file documented as of this encounter Last Filed Vital Signs Vital Sign Reading Time Taken Comments Blood Pressure 102/66 04/23/2002 2:00 PM COUNCILOR Pulse - - Temperature - - Respiratory Rate - - Oxygen Saturation - - Inhaled Oxygen Concentration - - Weight - - Height - - Body Mass Index - - documented in this encounter Progress Notes 04/23/2002 2:00 PM COUNCILOR here to f/u on genital sore. pt. taking bathes x2/d. may be slightly better but still present. Angela Bustamante - 04/23/2002 12:00 AM CSTSUBJECTIVE: Presents today for follow-up of the lesion in her vagina. Trina is here today just to make sure it is all gone. She wants to resume intercourse. When I last saw her, it was still a little tender and she said she has no pain. She has been doing the tub soaks and she does not feel any discomfort at all. OBJECTIVE: Vital signs were reviewed and found to be within normal. In lithotomy position, I did examine the external genitalia. It looks very normal. I did put a speculum in the vagina and was able to visualize the side varner and saw no evidence of a lesion. It seems to be all healed. ASSESSMENT: Healed lesion. PLAN: Patient reassured and she certainly can resume intercourse. I encouraged lubrication. Continued tub baths. A total of 5 minutes was spent with the patient with this follow-up visit essentially to reassure her. IN SUMMARY: Healed lesion. cc: CILOR documented in this encounter Plan of Treatment Not on filedocumented as of this encounter Visit Diagnoses Diagnosis Other specified noninflammatory disorder of vagina documented in this encounter Care Teams Retail Grocer Relationship Specialty Start Date End Date Akiko Hale MD PCP - General 05/18/1996 06/26/09 documented as of this encounter
--- OUTSIDE RECORDS SUMMARY | 2022-05-10 16:38 | XMS_ITS | Encounter Summary ---
:1980 Author Organization [facility] Address [address] [place] [address] Care Team Providers Name Role Phone Geoffrey Akiko Miranda MD Primary Care Provider Unavailable Encounter Details Date Type Department Care Team Description 12/20/2002 Orders Only [facility] Chalupsky, Angela L, [address] TIRE SPECIALIST, STRUCTURAL DESIGN ENGINEER [place], [place] [address] [facility] [phone] [place] [address] Social History Tobacco Use Types [...] Associated Diagnosis Comme nts GC (N. Routine 12/20/2002 6:51 PM Results f or this GONORRHOEAE)(14 CDT procedure ar e in YEARS AND OLDER) the results section. CHLAMYDIA (16 YEARS Routine 12/20/2002 6:51 PM Re sults for this AND OLDER) CDT procedure are i n the results section. documented in this encounter Results GC (N. GONORRHOEAE) - 1 SWAB (12/20/2002 6:51 PM CDT) [facility] Method Time Signature GC (N. Negative [facility] gonorrhoeae) Test Performed by PCR Assay Source Cervix [facility] Specimen Anatomical Collection Method Collection Time Receive d Time (Source) Location / / Volume Laterality 12/20/2002 6:51 PM 3 6:51 CDT PM CDT Angela Bustamante APRN, CNP LAB_1 Performing Organization Address [facility] Phon e Number [facility] [phone] [facility] [address] [place] [phone] CHLAMYDIA - 1 SWAB (12/20/2002 6:51 PM CDT) [facility] gist Method Time Signature Chlamydia Negative [facility] Test Performed by PCR Assay Source Cervix [facility] Specimen Anatomical Collection Method Collection Time Receive d Time (Source) Location / / Volume Laterality 12/20/2002 6:51 PM 3 6:51 CDT PM CDT Angela Bustamante APRN, CNP LAB_1 Performing Organization Address [facility] Phon e Number [facility] [phone] [phone] documented in this encounter Visit Diagnoses Not on filedocumented in this encounter Care Teams Coding Assistant Relationship Specialty Start Date End Date Akiko Hale MD PCP - General 05/18/1996 06/26/09 documented as of this encounter
--- OUTSIDE RECORDS SUMMARY | 2022-05-10 16:38 | XMS_ITS | Encounter Summary ---
:1980 Author Organization [facility] Address [address] [place] [address] Care Team Providers Name Role Phone Akiko Hale MD Primary Care Provider Unavailable Reason for Visit Reason Comments [facility]AG[facility]IS Encounter Details Date Type Department Care Team Description 04/16/2002 Telephone Careline Lulu Coreas RN [facility] [address] [place], [place] [address] [phone] [place], [address] Social History Tobacco Use Types Packs/Day Years Used Date Smoking Tobacco: Never Assessed Sex Assigned at Date Recorded Not on file documented as of this encounter Nursing Notes 04/16/2002 11:59 PM BOARD HANDLER >> LULU COREAS TueApr 16, 2002 10:37 AM >> COMPLETED ON TueApr 16, 2002 11:15 AM >> CALL RECEIVED. Contact: Concern: Has a sore on her vagina/bleeding during intercourse NO abd or back pain Denies possibility of Meds:Bcp Plan: Transferred [facility] documented in this encounter Plan of Treatment Not on filedocumented as of this encounter Visit Diagnoses Not on filedocumented in this encounter Care Teams Slate Worker Relationship Specialty Start Date End Date Akiko Hale MD PCP - General 05/18/1996 06/26/09 documented as of this encounter
--- OUTSIDE RECORDS SUMMARY | 2022-05-10 16:38 | XMS_ITS | Encounter Summary ---
:1980 Author Organization [facility] Address [address] [place] [address] Care Team Providers Name Role Phone Geoffrey Akiko Miranda MD Primary Care Provider Unavailable Encounter Details Date Type Department Care Team Description 03/09/2002 Orders Only Torsten Martinez, APR N, CNM Social History Tobacco Use Types Packs/Day Years Used Date Smoking Tobacco: Never Assessed Sex Assigned at Date Recorded Not on file documented as of this encounter Plan of Treatment Not on filedocumented as of this encounter Procedures Procedure Name Priority Date/Time Associated Diagnosis Comme nts GC (N. Routine 03/09/2002 11:34 AM Results for this GONORRHOEAE)(14 CDT procedure ar e in YEARS AND OLDER) the results section. VAGINAL WET PREP Waiting 03/09/2002 11:34 AM Resu lts for this CDT procedure are i n the results section. CHLAMYDIA (16 YEARS Routine 03/09/2002 11:34 AM R esults for this AND OLDER) CDT procedure are i n the results section. documented in this encounter Results GC (N. GONORRHOEAE) - 1 SWAB (03/09/2002 11:34 AM CDT) [facility] Method Time Signature GC (N. Negative NEG [facility] gonorrhoeae) Test Performed by PCR Assay Source Cervix [facility] Specimen Anatomical Collection Method Collection Time Receive d Time (Source) Location / / Volume Laterality 03/09/2002 11:34 03/09/2002 AM CDT 11:35 AM CDT Torsten Martinez [facility] LAB_1 Performing Organization Address [facility]/ZIP Code Phon e Number [facility] [phone] [facility] [address] [place] [phone] CHLAMYDIA - 1 SWAB (03/09/2002 11:34 AM CDT) [facility] Method Time Signature Chlamydia Negative NEG [facility] Test Performed by PCR Assay Source Cervix [facility] Specimen Anatomical Collection Method Collection Time Receive d Time (Source) Location / / Volume Laterality 03/09/2002 11:34 03/09/2002 AM CDT 11:35 AM CDT Torsten Martinez [facility] LAB_1 Performing Organization Address [facility] Phon e Number [facility] [employer] [phone] [facility] [address] [place] [phone] (ABNORMAL) WET PREP,VAGINAL (03/09/2002 11:34 AM CDT) [facility] gist Method Time Signature Epithelials Few [facility] % Atrophic 0 [facility] Epith WBC'S Few [facility] Bacteria Few [facility] Clue Cells 0 [facility] Trichomonas 0 [facility] Yeast 0 [facility] pH 5.0 (H) 3.5 - 4.5 [facility] Comment Scant [facility] Specimen Specimen Anatomical Collection Method Collection Time Receive d Time (Source) Location / / Volume Laterality 03/09/2002 11:34 03/09/2002 AM CDT 11:35 AM CDT Torsten Martinez [facility] LAB_1 Performing Organization Address [facility] Phon e Number [facility] [phone] [phone] documented in this encounter Visit Diagnoses Not on filedocumented in this encounter Care Teams Follow Up Specialist Relationship Specialty Start Date End Date Akiko Hale MD PCP - General 05/18/1996 06/26/09 documented as of this encounter
--- OUTSIDE RECORDS SUMMARY | 2022-05-10 16:39 | XMS_ITS | Encounter Summary ---
:1980 Author Organization [facility] Address [address] [place] [address] Care Team Providers Name Role Phone GeoffreyAkiko jean Ruth KENDRICK Primary Care Provider Unavailable Encounter Details Date Type Department Care Team Description 07/14/2000 Office Visit [place] Angela Bustamante CONTRAC EPT PILL SURVEILL; Obstetrics and PANTOGRAPHER, KITCHEN AIDE COUNSELING ON OTHER SEX XMIT DIS Gynecology Physician s [facility] [address] [place] [address] [place] [address] [place] [address] Social History Tobacco Use Types Packs/Day Years Used Date Smoking Tobacco: Never Assessed Sex Assigned at Date Recorded Not on file documented as of this encounter Progress Notes Angela Bustamante - 07/14/2000 12:00 AM CSTS: Presents today for visit regarding control pills. She would really like a refill of her pills. I am seeing her along with Maru Lemon, nurse practitioner merchandising internship. Apparently Trina went to the [facility] but when she shared this with her mother, her mother wanted her to come here to [facility] as they have insurance here. She started on control pills exactly a month ago. She did have a PAP smear in June and she knows she had STD screens. She was told her PAP smear needed to be repeated but wasn't told exactly when to repeat it, that it was slightly abnormal. She has had one partner just lately but she has had three sexual partners in her lifetime. She is 20 years old. She has always used a condom. She has never had any type of vaginal infection. Her menstrual history before the pill - She did have regular periods at 28-day intervals, they last 5 days, and they are fairly light. She had no periods from March to May 2000 but that wasn't usual for her. She does not do self breast exams. She is generally healthy. She has had a slight cough from a virus for two weeks but the rest of her systems are normal. She has taken the pill without problems. Not having any problems remembering to take them and she would like to continue on. Did review her pediatric notes and she does appear very healthy. O: Height 5 feet, 3-1/2 inches. Weight 129-1/2 pounds. Pulse 54 and regular. Blood pressure 100/70. Alert, well-groomed, teenager. She is quite quiet, however, and does not offer much conversation, however, as I got to talk to her more, she did ask me some questions. No examination was done. P: I have had her sign a release of information for the [facility] and I did give her two samples of Tri-Phasil and also reviewed side effects with her. I gave her the [employer] pamphlet to archana and I did show her how to start the Tri-Phasil. She should return in two months. At that time, I will have her records from the [facility] and if she needs to have a PAP smear at that time, I will certainly do it. Reassured. Patient agrees with plan. cc: ENTARY SCIENCE TEACHER documented in this encounter Plan of Treatment Not on filedocumented as of this encounter Visit Diagnoses Diagnosis Surveillance of previously prescribed co ntraceptive pill Counseling on other sexually transmitted diseases documented in this encounter Care Teams Earth Mover Relationship Specialty Start Date End Date Akiko Hale MD PCP - General 05/18/1996 06/26/09 documented as of this encounter
--- OUTSIDE RECORDS SUMMARY | 2022-05-10 16:39 | XMS_ITS | Encounter Summary ---
:1980 Author Organization [facility] Address [address] [place] [address] Care Team Providers Name Role Phone Keysha Bingham Koko AMANDA Primary Care Provider Encounter Details Date Type Department Care Team Description 05/19/2000 PN Conversion Only ORIENTAL ORTHODOX CONVERSION Matheus Mckay MD Social History Tobacco Use Types Packs/Day Years Used Date Smoking Tobacco: Never Assessed Sex Assigned at Date Recorded Not on file documented as of this encounter Plan of Treatment Not on filedocumented as of this encounter Procedures Procedure Name Priority Date/Time Associated Comments Diagnosis ANATOMICAL PATH-C Routine 05/19/2000 12:11 Result s for this PM MEDICAL LABORATORY TECHNOLOGIST procedure are i n the results section. CHLAMYDIA TRACHOMATIS Routine 05/19/2000 7:30 AM Results for this DNA PROBE MEDICAL LABORATORY TECHNOLOGIST procedure are i n the results section. documented in this encounter Results Anatomical Path-C (05/19/2000 12:11 PM MEDICAL LABORATORY TECHNOLOGIST) P athologist Signature PAP Smear SEE TEXT No normal [facility] CONVERSION range Comment: Patient: ANGIE SIMS ? CERVICAL CYTOLOGY REPORT Pathology # ??[id number] ?Date Obtained: ? Date Received: LMP: ?11-4 CLINICAL HIST ? [facility] 06-13-97 CERVICAL SMEAR SPECIMEN ADEQUACY: ?? Satisfactory. ENDOCERVICAL CELLS: ??Present. CYTOLOGIC IMPRESSION: MILD DYSPLASIA, LOW GRADE SREE. Rare LGSIL cells present. Verified 06/02/00 by: ??Clifford Bauer MD ? (electronic signature) Specimen (Source) Anatomical Collection Method Collection Time Re ceived Time Location / / Volume Laterality 05/19/2000 12:11 PM MEDICAL LABORATORY TECHNOLOGIST Hang Mckay MD LAB_1 Performing Organization Address City/State/ZIP Code Phon e Number HP CONVERSION Chlamydia trachomatis DNA Probe (05/19/2000 7:30 AM MEDICAL LABORATORY TECHNOLOGIST) Analysis Performed At [facility] Time Signature Chlamydia SEE TEXT HP CONVERSION Trach DNA Comment: Patient: ANGIE SIMS Direct Chlamydia trach Detect @ ? Collected: ??[id number] ??[id number] Source: C[facility] ?Processed: ??[id number] ??[id number] Final Report ------ ?[id number] ??[id number] No Chlamydia trachomatis by amplified DN A probe. @ = CHL PROBE Performed at ??[address] [place] [address] Specimen (Source) Anatomical Collection Method Collection Time Re ceived Time Location / / Volume Laterality 05/19/2000 7:30 AM MEDICAL LABORATORY TECHNOLOGIST Hang Mckay MD LAB_1 Performing Organization Address City/State/ZIP Code Phon e Number [facility] CONVERSION documented in this encounter Visit Diagnoses Not on filedocumented in this encounter Care Teams Diabetes Territory Manager Relationship Specialty Start Date End Date Keysha Bingham PA-C PCP - General 09/06/10 03/02/11 [address] [place] [phone] documented as of this encounter
--- OUTSIDE RECORDS SUMMARY | 2022-05-10 16:39 | XMS_ITS | Encounter Summary ---
:1980 Author Organization [email or web address] Address [address] [place] [address] Care Team Providers Name Role Phone Geoffrey, Akiko Miranda MD Primary Care Provider Unavailable Reason for Visit Reason Comments emergency contraception Encounter Details Date Type Department Care Team Description 04/03/2000 Telephone Careline Basilia Harris, RN [address] [place], [place] [address] [phone] [place] [address] Social History Tobacco Use Types Packs/Day Years Used Date Smoking Tobacco: Never Assessed Sex Assigned at Date Recorded Not on file documented as of this encounter Nursing Notes 04/03/2000 11:59 PM PULLEY MAN >> BASILIA Mendoza Apr 03, 2000 10:26 AM >> CALL RECEIVED. Contact: , Valeriano, boyfriend TRIAGE REFERENCE: EMERGENCY CONTRACEPTIVE PILLS (MORNING AFTER PILL) - ELECTRICAL MECHANICAL TECHNICIAN CNG (c) 1999 CONCERN: Unprotected intercourse 5 am this morning, also admits to unprotected intercourse about 24hrs. prior to that, no other incidents. Condom is her method of control. Call initiated by crystal harley. Stat symptoms: none per guideline ASSESSMENT: Rule out existing : LMP: first week in March; periods irregular, sometimes skips a month Unprotected intercourse yes; broken condom; when? 5am today and 24 hrs. prior to that, no condom. Contraception: Male or female condom slipped, broke, or leaked. History Negative PMH: healthy CURRENT MEDS: no MEDICATION ALLERGIES: no PLAN:Offered to call the PLUMBING FOREMAN formstone fitter for her clinic for rx, discussed it is 4 control pills , 2 given 12 hrs. apart. She says has to leave [place] now and go back to [place], cannot be reached by phone. Has opted to use an UC in [place], will go to [facility], will fax thi s note to them. documented in this encounter Plan of Treatment Not on filedocumented as of this encounter Visit Diagnoses Not on filedocumented in this encounter Care Teams Bus Repair Supervisor Relationship Specialty Start Date End Date Akiko Hale MD PCP - General 05/18/1996 06/26/09 documented as of this encounter
--- OUTSIDE RECORDS SUMMARY | 2022-05-10 16:39 | XMS_ITS | Encounter Summary ---
:1980 Author Organization [facility] Address [address] [place] [address] Care Team Providers Name Role Phone Zachery Keysha Sutherland PA-C Primary Care Provider Encounter Details Date Type Department Care Team Description 07/07/1995 Office Visit [facility] Akiko Hale MD Social History Tobacco Use Types Packs/Day Years Used Date Smoking Tobacco: Never Assessed Sex Assigned at Date Recorded Not on file documented as of this encounter Progress Notes Akiko Hale MD - 07/07/1995 12:00 AM CSTS: Hblpruur-skwo-pon came with history of cough for three weeks. Sometimes she coughs up mucus and sounds stridor. No fever. Coughs mostly in the morning. 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 Sometimes she'll wait for five to ten minutes. O: Temperature 96.9. Weight 115.5 lbs. No cough throughout the exam. HEENT - tympanic membranes normal. Pharynx slight red. Chest - heart regular sinus rhythm. No murmur. Lungs clear - no rales, no rhonchi, no wheezing. She was wearing a wet T-shirt today. Temperature is below 0 today. A: Cough. P: Symptomatic treatment. Proper clothing during the cold weather. RTC prn. cc: L BONDING PRESS OPERATOR documented in this encounter Plan of Treatment Not on filedocumented as of this encounter Visit Diagnoses Not on filedocumented in this encounter Care Teams Humidifier Operator Relationship Specialty Start Date End Date Keysha Bingham PA-C PCP - General 02/05/[address] [place] [address] documented as of this encounter
--- OUTSIDE RECORDS SUMMARY | 2022-05-10 16:39 | XMS_ITS | Encounter Summary ---
:1980 Author Organization [facility] Address [address] [place] [address] Care Team Providers Name Role Phone GeoffreyAkiko jean Ruth KENDRICK Primary Care Provider Unavailable Encounter Details Date Type Department Care Team Description 11/16/2001 Office Visit [place] Angela Bustamante, GYNECOL OGIC EXAMINATION; Obstetrics and EXCHANGE TROUBLE SHOOTER, PASSENGER COACH DRIVER SCREEN FOR VENEREAL DIS; Gynecology Physician s [facility] DYSPLASIA OF CERVIX; [address] [facility] CLINIC CONTRACEPT PILL SURVEILL; [place], [place] [address] [facility] SCREEN FOR LIPID DISORDERS; [phone] [place], [place] LABORATORY E XAMINATION; [address] SCREENING MAL NEOP-CERVIX Social History Tobacco Use Types Packs/Day Years Used Date Smoking Tobacco: Never Assessed Sex Assigned at Date Recorded Not on file documented as of this encounter Progress Notes Angela Bustamante - 11/16/2001 12:00 AM CDTSUBJECTIVE: Presents today for routine health maintenance exam. Trina did have a LEEP procedure to her cervix on 09/28/00. She was supposed to have come back actually for a 6 month Pap smear but I don't think she understood that and so she is here today to have routine health maintenance exam and of course a Pap smear and refill of her control pills. In reading through her LEEP biopsy mild dysplasia was found and the margins were free of dysplasia. I did share that with her. I don't know if she completely understood but I did reassure her and informed her that she should have a Pap smear done in 6 months, at least for the first 2 years. She is not having any problems with her pills. Her periods are light, predictable and she likes being on the pill. She is in a relationship, not quite a year now, and I will do gonorrhea and Chlamydia cultures. She is due for a cholesterol check. She does not like blood work but she may stop and have one. I did talk to her about cholesterol and informed her what her last one was and she does know about cholesterol so hopefully she will stop. She does not smoke. She just finished her first year at [employer] and tells me that she is going to go to the [employer] and learn massage therapy. She does like going on to school. She does not exercise on a real regular basis but she is quite physically active and feels she has a good calcium intake. Review of other systems reveals no problems. OBJECTIVE: Height 5 feet 4 1/2 inches, weight 137 pounds, blood pressure 120/62. Alert, well-groomed, very pleasant young woman in safe environment. Thyroid is equal without nodules. Heart normal sinus rhythm. Lungs clear to auscultation bilaterally. Breasts are soft, symmetrical without masses. Breast self exams were encouraged. No axillary nodes felt bilaterally. Abdomen is soft, not tender. She does have an umbilical ring. Pelvic exam reveals normal external genitalia and BUS. Cervix is nulliparous and scars are not visible. Her cervix looks perfectly normal. Pap smear obtained as well as cultures. Very little bleeding was noticed. Bimanual exam reveals a small antevert uterus, not tender. No adnexal masses left or right. Rectovaginal exam was deferred. ASSESSMENT: First Pap smear after LEEP procedure. PLAN: Pap smear and repeat in 6 months. Will discuss with MD if abnormal. Continue Triphasil 3 months with refills x 1 year. Cholesterol, HDL, Chlamydia and gonorrhea cultures were obtained. IN SUMMARY: FIRST PAP SMEAR AFTER LEEP PROCEDURE cc: documented in this encounter Plan of Treatment Not on filedocumented as of this encounter Visit Diagnoses Diagnosis Gynecological examination Screening examination for venereal disea se Dysplasia of cervix (uteri) Surveillance of previously prescribed co ntraceptive pill Screening for lipoid disorders Laboratory examination Screening for malignant neoplasm of the cervix documented in this encounter Care Teams Case Manager Specialist Relationship Specialty Start Date End Date Akiko Hale MD PCP - General 05/18/1996 06/26/09 documented as of this encounter
--- OUTSIDE RECORDS SUMMARY | 2022-05-10 16:39 | XMS_ITS | Encounter Summary ---
:1980 Author Organization [employer] Address [address] [place] [address] Care Team Providers Name Role Phone GeoffreyAkiko Ruth KENDRICK Primary Care Provider Unavailable Encounter Details Date Type Department Care Team Description 09/28/2000 Office Visit [facility] Cha Enriquez, DYSPLASIA OF CERVIX and Gynecology DO Physicians [address] [facility] [address] [facility] [place], [place] [address] [place], [place] [phone] (Wo rk) Social History Tobacco Use Types Packs/Day Years Used Date Smoking Tobacco: Never Assessed Sex Assigned at Date Recorded Not on file documented as of this encounter Progress Notes Cha Enriquez - 09/28/2000 12:00 AM CDTS: Trina is a 20-year-old para 0-0-0-0 who is here for a LEEP procedure to her cervix today. Her last Pap May 2000 was an LSIL with positive endocervical cells at the [facility]. She then saw me for a colposcopy August 12, 2000. 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 She also had some minimal HPV in the lower vagina and at the introitus. Vaginal culture was negative. She is here today for a LEEP procedure. The procedure risks and follow up were explained to the patient and she agreed to go ahead with it today. O: Patient was placed in the dorsal lithotomy position and a special coated speculum placed in the vaginal vault. The cervix was cleaned with vinegar solution and stained with Lugol solution. The only area that did not take up the stain was a small area at the cervical os. The cervix was then infiltrated with 1% Nesacaine and Pitressin at twelve, four, and eight o'clock. She tolerated that well. A small cautery loop was used to excise the entire non-staining area to a depth of 7-mm. The cervical crater was then cauterized with a ball cautery probe. I also put Monsel solution in the base of the crater to help with hemostasis. Adequate hemostasis was observed. All instruments were removed from the vagina. She tolerated the procedure well and there were no complications. A: LEEP procedure for DHAVAL of the cervix. P: She'll be contacted in two weeks with the pathology report and the LEEP specimen. If she has no post-procedure problems she should return in three months for repeat Pap smear and then every six months for the next two to three years. She was given printed post-LEEP instructions before leaving the clinic. IN SUMMARY: LEEP PROCEDURE. cc: documented in this encounter Plan of Treatment Not on filedocumented as of this encounter Visit Diagnoses Diagnosis Dysplasia of cervix (uteri) documented in this encounter Care Teams Loan Auditor Relationship Specialty Start Date End Date Akiko Hale MD PCP - General 05/18/1996 06/26/09 documented as of this encounter
--- OUTSIDE RECORDS SUMMARY | 2022-05-10 16:39 | XMS_ITS | Encounter Summary ---
:1980 Author Organization [facility] Address [address] [place] [address] Care Team Providers Name Role Phone Unassigned, Provider Primary Care Provider Unavailable Encounter Details Date Type Department Care Team Description 09/28/2000 Orders Only Cha Freire DO [address] [place], [place] [address] [place], [place] [address] (Wo rk) Social History Tobacco Use Types Packs/Day Years Used Date Smoking Tobacco: Never Assessed Sex Assigned at Date Recorded Not on file documented as of this encounter Plan of Treatment Not on filedocumented as of this encounter Procedures Procedure Name Priority Date/Time Associated Diagnosis Comme [facility] CLINICAL PATH, Routine 09/28/2000 10:19 AM Result s for this OTHER CDT procedure are i n the results section. documented in this encounter Results PATHOLOGY (09/28/2000 10:19 AM CDT) [facility] gist Method Time Signature Source/Site [facility] Report Status [facility] Specimen Anatomical Collection Method Collection Time Receive d Time (Source) Location / / Volume Laterality 09/28/2000 10:19 09/28/2000 AM CDT 10:20 AM CDT Cha Enriquez DO LAB_1 Performing Organization Address City/State/ZIP Code Phon e Number [facility] [phone] [facility] [address] [phone] documented in this encounter Visit Diagnoses Not on filedocumented in this encounter Care Teams Fruit Or Nut Grower Relationship Specialty Start Date End Date Unassigned, Provider PCP - General Unknown Physician 03/03/11 02/04/[address] [place] [address] documented as of this encounter
--- OUTSIDE RECORDS SUMMARY | 2022-05-10 16:39 | XMS_ITS | Encounter Summary ---
:1980 Author Organization [facility] Address [address] [place] [address] Care Team Providers Name Role Phone Akiko Hale MD Primary Care Provider Unavailable Encounter Details Date Type Department Care Team Description 09/15/2000 Orders Only [facility] ChalmanjitkyAngela, and Gynecology Physi cians IMPORT/EXPORT ANALYST, MAJOR DONOR COORDINATOR [address] [facility] [place] [place] [address] [address] [facility] [phone] [place] [address] Social History Tobacco Use Types Packs/Day Years Used Date Smoking Tobacco: Never Assessed Sex Assigned at Date Recorded Not on file documented as of this encounter Plan of Treatment Not on filedocumented as of this encounter Visit Diagnoses Not on filedocumented in this encounter Care Teams Freelance Translator Relationship Specialty Start Date End Date Akiko Hale MD PCP - General 05/18/1996 06/26/09 documented as of this encounter
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
--- OUTSIDE RECORDS SUMMARY | 2022-05-10 16:39 | XMS_ITS | Encounter Summary ---
:1980 Author Organization [facility] [employer] Address [address] [place] [address] Care Team Providers Name Role Phone Keysha Bingham Koko AMANDA Primary Care Provider Encounter Details Date Type Department Care Team Description 06/18/1997 PN Conversion Only MORMONISM CONVERSION Matheus Mckay MD Social History Tobacco Use Types Packs/Day Years Used Date Smoking Tobacco: Never Assessed Sex Assigned at Date Recorded Not on file documented as of this encounter Plan of Treatment Not on filedocumented as of this encounter Procedures Procedure Name Priority Date/Time Associated Comments Diagnosis CONVERSION DEFAULT Routine 06/13/1997 6:59 AM Res ults for this INTERFACE ORDER STAVE AND BOLT EQUALIZER procedure ar e in the results section. documented in this encounter Results Conversion Default Interface Order (06/13/1997 6:59 AM STAVE AND BOLT EQUALIZER) P athologist Signature PAP Smear See Detail HP CONVERSION Comment: Patient: ANGIE SIMS ?CERVICAL CYTOLOGY REPORT Pathology # ??[id number] ?Date Obtained: ?Date Received: LMP: CLINICAL HIST CERVICAL SMEAR SPECIMEN ADEQUACY: ??Satisfactory but l imited by absence of endocervical ? cells. CYTOLOGIC IMPRESSION: Within Normal Limits (Negative). Verified 06/24/97 by: ??ARC ?(electronic signature) Specimen (Source) Anatomical Collection Method Collection Time Re ceived Time Location / / Volume Laterality 06/13/1997 6:59 AM STAVE AND BOLT EQUALIZER Hang Mckay MD LAB_1 Performing Organization Address City/State/ZIP Code Phon e Number HP CONVERSION documented in this encounter Visit Diagnoses Not on filedocumented in this encounter Care Teams Plate Grainer Apprentice Relationship Specialty Start Date End Date Keysha Bingham PADlC PCP - General 09/06/10 03/02/11 [address], [place] [address] documented as of this encounter
--- OUTSIDE RECORDS SUMMARY | 2022-05-10 16:39 | XMS_ITS | Encounter Summary ---
:1980 Author Organization [employer] Address [address] [place] [address] Care Team Providers Name Role Phone Geoffrey Akiko Miranda MD Primary Care Provider Unavailable Reason for Visit Reason Comments LEG PAIN VIA INTERFACE Encounter Details Date Type Department Care Team Description 10/10/1998 Office Visit [facility] Terrell Palumbo, MUSCLE/LIGAMENT DIS [address] [place] [address] Social History Tobacco Use Types Packs/Day Years Used Date Smoking Tobacco: Never Assessed Sex Assigned at Date Recorded Not on file documented as of this encounter Progress Notes Terrell Palumbo - 10/10/1998 12:00 AM CDTS: Patient is 64 inches; 132 pounds. 18 -year-old runner who comes in with several week history of right anteromedial leg pain. It has progressed to the point now where she is in discomfort all the time and limping. She is a dedicated runner. She has been running for the last year or so but it is not until season that she really has problems. She runs daily and that is seven days a week, 4-5 miles with her mother at a 7-8 mile pace. She did this last summer, fall, throughout all winter and then continued to so after she began track this spring. She goes about 2 weeks into the track that she started developing pain which has become progressively worse. Incidentally, she has in the past had some anterior thigh pain on the right but they are not present now. She has not had any injuries or fractures. She states her general health is good. She does drink milk, gets calcium in her diet and tries to take a multivitamin although generally there has not been iron in it. 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 Mother had estrada splints when she was a teenager and both parents are athletic. She feels her ideal weight is between 120 and 130, 118 was the lowest she has been and she is having regular menses. She only on occasion taking any medication and it has provided no lasting relief. She has not been in any therapy or doing any special exercises. O: On exam, she is a very well proportioned young lady. Watching her walk in the hallway she is limping slightly with an antalgic gait. She is alert and oriented, cooperative. She is thin but not abnormally so. She does not have a high arch or a flat foot or over-pronation. Heel stride carried through and toe off where all normal on the table and she has no torsional deformity. She has normal flexibility to the foot, midtarsal, subtalar. A little tight at the Achilles' tendon although she states she does stretches. She has definite tenderness on the right anteromedial aspect of the tibia from the mid shaft distally to the malleolus. There is also some tenderness to the posterior tibialis tendon exacerbated by resisted inversion. There is no pain on the left lower extremity. The extremity is well perfused and has normal pulses. There is no pain with percussion of the tibia on the right and the pain seems to be more diffuse than it has been localized. She has normal strength and tone, balance and stability. X-rays done yesterday were reportedly read as normal. 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 P: At this point in time, we are going to enforce some rest for two weeks. She can aqua-jog or bicycle if that is not tender. She can continue with her weight training. I am giving her Naprosyn 250 mg b.i.d. I am also going to have her ice extremity and a note was written to the basketball coach. We are going to follow-up in two weeks. If there is still tenderness, we will do an x-ray. At that point in time if she is doing well, we can consider a Neoprene sleeve starting eccentric weight training and gradual return to activity. cc: Akiko Hale MD documented in this encounter Plan of Treatment Not on filedocumented as of this encounter Visit Diagnoses Diagnosis Other disorder of muscle, ligament, and fascia documented in this encounter Care Teams Medical Office Technology Instructor Relationship Specialty Start Date End Date Akiko Hale MD PCP - General 05/18/1996 06/26/09 documented as of this encounter
--- OUTSIDE RECORDS SUMMARY | 2022-05-10 16:39 | XMS_ITS | Encounter Summary ---
:1980 Author Organization [facility] [facility] Address [address] [place] [address] Care Team Providers Name Role Phone Akiko Hale MD Primary Care Provider Unavailable Encounter Details Date Type Department Care Team Description 11/13/2001 Orders Only [facility] ChalmanjitkyAngela, and Gynecology Physi cians JOINT FILLER, UPHOLSTERY TECH [address] [place], [place] [address] [facility] [phone] [place] [address] Social History Tobacco Use Types Packs/Day Years Used Date Smoking Tobacco: Never Assessed Sex Assigned at Date Recorded Not on file documented as of this encounter Plan of Treatment Not on filedocumented as of this encounter Visit Diagnoses Not on filedocumented in this encounter Care Teams Medical Chief Technician Relationship Specialty Start Date End Date Akiko Hale MD PCP - General 05/18/1996 06/26/09 documented as of this encounter
--- OUTSIDE RECORDS SUMMARY | 2022-05-10 16:39 | XMS_ITS | Encounter Summary ---
:1980 Author Organization [facility] Address [address] [place] [address] Care Team Providers Name Role Phone Geoffrey, Akiko Ruth KENDRICK Primary Care Provider Unavailable Encounter Details Date Type Department Care Team Description 09/28/2000 Orders Only Jimmie Mejia , DO [address] [place] [address] (Wo rk) Social History Tobacco Use Types Packs/Day Years Used Date Smoking Tobacco: Never Assessed Sex Assigned at Date Recorded Not on file documented as of this encounter Plan of Treatment Not on filedocumented as of this encounter Procedures Procedure Name Priority Date/Time Associated Diagnosis Comme nts SURGICAL PATH Routine 09/28/2000 12:00 AM Results for this CDT procedure are i n the results section . documented in this encounter Results SURGICAL PATH (09/28/2000 12:00 AM CDT) [facility] Method Time Signature 9911 Surgical Final Report [facility] Patient Name: ANGIE SIMS Taken: 09/28/00 Received: 09/29/00 Reported: 09/30/00 Physician(s): JIMMIE MEJIA ([id number]) ? LAB ACCESS CODE [id number] Final Pathologic Diagnosis Cervical LEEP biopsy - ? 1. 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 ? 2. ??squmaous metaplasia with cellur atypia. ? 3. ??chronic cervicitis. ? 4.. cervical LEEP margins free of dysplasia. [facility]/09/30/00 Electronically Signed Out By ? Chacho Dyson MD ([id number]) Procedures/Addenda Clinical History 08/04 ??[id number] ??mod dysplasia ??LEEP 622.1 Gross Description The specimen is labeled leep. The specimen consists of a 1 cm x 0.75 cm x 0.75 cm smooth surfaced syed cervical cone. ??The os is centrally located. ??No orientation is provided with the specimen. The 12 o'clock position is arbritrarily assigned. ??The specimen is sectioned and placed in cassettes whose numbers correspond to those of the clock face. ??The specimen also includes four irregularly shaped 1 cm in greatest dimension granular yellow syed pieces of tissue that are placed in cassette #13. ?? dm ks/09/30/00 Chacho Dyson MD ([id number]) Sushant MCCLELLAND Microscopic Description Microscopic examination is performed. [facility]/09/30/00 Chacho Dyson MD ([id number]) Specimen (Source) Anatomical Collection Method Collection Time Re ceived Time Location / / Volume Laterality 09/28/2000 09/29/2000 3:20 PM CDT Jimmie Mejia DO LAB_1 Performing Organization Address City/State/ZIP Code Phon e Number [address] [address] [place], [place] [phone] documented in this encounter Visit Diagnoses Not on filedocumented in this encounter Care Teams Animal Sticker Relationship Specialty Start Date End Date Akiko Hale MD PCP - General 05/18/1996 06/26/09 documented as of this encounter
--- OUTSIDE RECORDS SUMMARY | 2022-05-10 16:39 | XMS_ITS | Encounter Summary ---
:1980 Author Organization [facility] Address [address] [place] [address] Care Team Providers Name Role Phone Unassigned, Provider Primary Care Provider Unavailable Encounter Details Date Type Department Care Team Description 08/12/2000 Orders Only Cha Freire DO [address] [place], [place] [address] [place], [place] [address] (Wo rk) Social History Tobacco Use Types Packs/Day Years Used Date Smoking Tobacco: Never Assessed Sex Assigned at Date Recorded Not on file documented as of this encounter Plan of Treatment Not on filedocumented as of this encounter Procedures Procedure Name Priority Date/Time Associated Diagnosis Comme nts GENITAL / CULTURE Routine 08/12/2000 3:18 PM Resu lts for this ONLY CASTING TECHNICIAN procedure are i n the results section. documented in this encounter Results GENITAL / CULTURE ONLY (08/12/2000 3:18 PM CASTING TECHNICIAN) [facility] gist Method Time Signature Specimen Vagina [facility] Description Special None [facility] Requests Culture Many Vaginal [facility] Keshia Report Status Final [facility] Report Status [id number] [facility] Specimen Anatomical Collection Method Collection Time Receive d Time (Source) Location / / Volume Laterality 08/12/2000 3:18 PM 1 3:18 CASTING TECHNICIAN PM CASTING TECHNICIAN Cha Enriquez DO LAB_2 Performing Organization Address City/State/ZIP Code Phon e Number [facility] [phone] [facility] [address] [address] documented in this encounter Visit Diagnoses Not on filedocumented in this encounter Care Teams Senior Android Software Engineer Relationship Specialty Start Date End Date Unassigned, Provider PCP - General Unknown Physician 03/03/11 02/04/[address] [place] [address] [place] [address] documented as of this encounter
--- OUTSIDE RECORDS SUMMARY | 2022-05-10 16:39 | XMS_ITS | Encounter Summary ---
:1980 Author Organization [employer] Address [address] [place] [address] Care Team Providers Name Role Phone Akiko Hale MD Primary Care Provider Unavailable Reason for Visit Reason Comments LEG PAIN VIA INTERFACE Encounter Details Date Type Department Care Team Description 10/24/1998 Office Visit [facility] Terrell Palumbo, MUSCLE/LIGAMENT DIS NEC; [address] [place] [address] Social History Tobacco Use Types Packs/Day Years Used Date Smoking Tobacco: Never Assessed Sex Assigned at Date Recorded Not on file documented as of this encounter Progress Notes Terrell Palumbo - 10/24/1998 12:00 AM CDTS: A 18 year old who comes in for a follow up on her medial tibial stress syndrome on the right. She's had definite improvement with no pain now she states. It took about 10-12 days from when I saw her last to become pain free. O: Although, on the table I can get some minimal point tenderness on the distal anterior medial tibia on the right but much improved over two weeks ago. She states that she has been doing some cross training and doing no running or impact activities. P: She is done with track and our plan is to keep her out of running for an additional two weeks. Have her continue with her cross training activities. When she goes back to running, go back at one and a half miles increasing 10% a week as tolerated. Use ice, ibuprofen p.r.n. As she had no underlying biomechanical problems, I don't see any reason to worry about orthotics or anything like that. cc: documented in this encounter Plan of Treatment Not on filedocumented as of this encounter Visit Diagnoses Diagnosis Other disorder of muscle, ligament, and fascia Other follow-up examination(V67.59) Other follow-up examination documented in this encounter Care Teams Concrete Tile Machine Operator Relationship Specialty Start Date End Date Akiko Hale MD PCP - General 05/18/1996 06/26/09 documented as of this encounter
--- OUTSIDE RECORDS SUMMARY | 2022-05-10 16:39 | XMS_ITS | Encounter Summary ---
:1980 Author Organization [employer] Address [address] [place] [address] Care Team Providers Name Role Phone Keysha Bingham PA-C Primary Care Provider Encounter Details Date Type Department Care Team Description 10/10/1998 Orders Only Terrell Palumbo MD Social History Tobacco Use Types Packs/Day Years Used Date Smoking Tobacco: Never Assessed Sex Assigned at Date Recorded Not on file documented as of this encounter Plan of Treatment Not on filedocumented as of this encounter Visit Diagnoses Not on filedocumented in this encounter Care Teams Turbine Attendant Relationship Specialty Start Date End Date Keysha Bingham PA-C PCP - General 02/05/16 [address] [place] [id number] documented as of this encounter
--- OUTSIDE RECORDS SUMMARY | 2022-05-10 16:39 | XMS_ITS | Encounter Summary ---
:1980 Author Organization [facility] Address [address] [place] [address] Care Team Providers Name Role Phone Akiko Hale MD Primary Care Provider Unavailable Encounter Details Date Type Department Care Team Description 05/22/1997 Office Visit [facility] Akiko Hale MD ROUTINE CHILD HEALTH EXAM; [address] VACCINE FOR TETANUS + DIPHTH [place], [place] [address] Social History Tobacco Use Types Packs/Day Years Used Date Smoking Tobacco: Never Assessed Sex Assigned at Date Recorded Not on file documented as of this encounter Plan of Treatment Not on filedocumented as of this encounter Visit Diagnoses Diagnosis Routine or child health check Need for Td vaccine Need for prophylactic vaccination with t etanus-diphtheria (Td) documented in this encounter Care Teams Bearing Press Machine Operator Relationship Specialty Start Date End Date Akiko Hale MD PCP - General 05/18/1996 06/26/09 documented as of this encounter
--- OUTSIDE RECORDS SUMMARY | 2022-05-10 16:39 | XMS_ITS | Encounter Summary ---
:1980 Author Organization [employer] Address [address] [place] [address] Care Team Providers Name Role Phone Akiko Hale MD Primary Care Provider Unavailable Encounter Details Date Type Department Care Team Description 08/12/2000 Office Visit [facility] Cha Enriquez, ABNORMAL P AP SMEAR-CERVIX; Obstetrics and DO NONINFECT VAG LEUKORRHEA Gynecology Physician s [address] [facility] [address] [facility] [address] [place], [place] [address] [place], [place] [phone] (Wo rk) Social History Tobacco Use Types Packs/Day Years Used Date Smoking Tobacco: Never Assessed Sex Assigned at Date Recorded Not on file documented as of this encounter Plan of Treatment Not on filedocumented as of this encounter Visit Diagnoses Diagnosis Abnormal Papanicolaou smear of cervix an d cervical HPV Leukorrhea, not specified as infective documented in this encounter Care Teams Cargo Supervisor Relationship Specialty Start Date End Date Akiko Hale MD PCP - General 05/18/1996 06/26/09 documented as of this encounter
--- OUTSIDE RECORDS SUMMARY | 2022-05-10 16:39 | XMS_ITS | Encounter Summary ---
:1980 Author [facility] Address [address] [place] [address] Care Team Providers Name Role Phone Unassigned, Provider Primary Care Provider Unavailable Encounter Details Date Type Department Care Team Description 08/12/2000 Orders Only Cha Freire DO [address] [place], [place] [id number] [place], [place] [id number] (Wo rk) Social History Tobacco Use Types Packs/Day Years Used Date Smoking Tobacco: Never Assessed Sex Assigned at Date Recorded Not on file documented as of this encounter Plan of Treatment Not on filedocumented as of this encounter Procedures Procedure Name Priority Date/Time Associated Diagnosis Comme [facility] CLINICAL PATH, Routine 08/12/2000 3:38 PM Results for this OTHER MIRROR DEPARTMENT SUPERVISOR procedure are i n the results section. documented in this encounter Results PATHOLOGY (08/12/2000 3:38 PM MIRROR DEPARTMENT SUPERVISOR) [facility] gist Method Time Signature Source/Site Multiple [facility] specimens Report Status See Separate [facility] S Report Specimen Anatomical Collection Method Collection Time Receive d Time (Source) Location / / Volume Laterality 08/12/2000 3:38 PM 1 3:39 MIRROR DEPARTMENT SUPERVISOR PM MIRROR DEPARTMENT SUPERVISOR Cha Enriquez DO LAB_1 Performing Organization Address City/State/ZIP Code Phon e Number [facility] [phone] [place] [phone] documented in this encounter Visit Diagnoses Not on filedocumented in this encounter Care Teams Medical Office Supervisor Relationship Specialty Start Date End Date Unassigned, Provider PCP - General Unknown Physician 03/03/11 02/04/16 [address] [place] [address] documented as of this encounter
== END 2022-05-10 16:32 | disposition home or self-care (01) ==
LOC: LKVREF 16:32
PROVIDERS: PCP Family Medicine; Visit Provider Family Medicine
DX: E03.9 Hypothyroidism, unspecified (principal)
CPT/HCPCS: 84443

== ENCOUNTER 2023-06-03 14:59 | Outpatient (CLI) | payer BC, SELFPAY | END 2023-06-03 15:00 | disposition home or self-care (01) | LOC: NFLDREF 14:59 | PROVIDERS: PCP Family Medicine; Visit Provider Family Medicine | DX: E03.9 Hypothyroidism, unspecified (principal) | CPT/HCPCS: 84443 ==

== ENCOUNTER 2024-06-01 10:21 | Outpatient (CLI) | payer BC, SELFPAY | END 2024-06-01 10:22 | disposition home or self-care (01) | PROVIDERS: PCP Family Medicine; Visit Provider Registered Nurse | DX: E03.9 Hypothyroidism, unspecified (principal); Z13.220 Encounter for screening for lipoid disorders | CPT/HCPCS: 80061; 84443 ==